=== PATIENT | female | born 1965 | race African-American/Black ===

== ENCOUNTER 2023-02-01 20:25 | Inpatient (IN) | payer MEDICAID, OTHER ==
[~2023-02-01] VITALS: Ht 157.5 cm; Wt 74.4 kg
[~2023-02-01 20:25] MED LIST: ATEN-60 PO; CARI250T PO; NOR10T PO; PAR20T PO
[2023-02-01 21:51] LABS: Basophils # (auto) 0.1 10 ^3/uL (0-0.2); Basophils % (auto) 1.5 % (0.0-2.0); Eosinophils # (auto) 0.1 10 ^3/uL (0-0.8); Hematocrit 37.8 % (36.0-46.0); Hemoglobin 13.2 g/dL (12.2-16.2); Lymphocytes # (auto) 1.3 10 ^3/uL (0.4-5.4); Mean Corpuscular Hemoglobin 27.1 pg (28.0-32.0); Mean Corpuscular Volume 77.4 fL (80.0-100.0); Monocytes # (auto) 0.9 10 ^3/uL (0-1.3); Monocytes % (auto) 11.9 % (0.0-12.0); Neutrophils # (auto) 4.9 10 ^3/uL (1.6-8.6); Neutrophils % (auto) 66.6 % (37.0-80.0); Nucleated Red Blood Cells % 0.2 %; Red Blood Cells 4.88 10^6/uL (4.0-5.20); Red Cell Distribution Width 15.6 % (11.8-14.3); White Blood Cell 7.4 10^3/uL (4.4-10.8)
[2023-02-01 22:13] LABS: Albumin 3.4 g/dL (3.4-5.0); Calcium 10.7 mg/dL (8.5-10.1); Magnesium 2.1 mg/dL (1.6-2.6); Potassium 3.7 mmol/L (3.5-5.1)
[2023-02-01 22:16] LABS: Bilirubin, Total 0.5 mg/dL (0.2-1.0); Total Protein 7.5 g/dL (6.4-8.2)
[2023-02-01 22:18] LABS: BUN/Creatinine Ratio 17.1 (10.0-20.0)
[2023-02-02] MEDS ORDERED: SODIUM CHLORIDE 0.9% 1,000 ML IV ONE (03:30)
[2023-02-02] MEDS ORDERED: ACETAMINOPHEN 325 MG TAB PO PRN (03:45)
[2023-02-02] MEDS ORDERED: DEXTROSE (50%) 50ML SYRG IV PRN (03:45)
[2023-02-02] MEDS: InsuLIN REG 1unit/0.01ml Soln (100units/ml) SC SCH ×4 (06:00→23:39)
[2023-02-02] MEDS: SODIUM CHLOR 0.9% PF (SALINE LOCK) 10ML VIAL/SYR IV SCH ×3 (06:03→22:08)
[2023-02-02] MEDS: ACCU-CHEK COMFORT CURVE STRIP VI SCH ×4 (06:05→23:39)
[2023-02-02] MEDS ORDERED: NITROGLYCERIN 0.4 MG SL TAB SL PRN (06:45)
[2023-02-02] MEDS ORDERED: MORPHINE SULFATE INJ 2 MG/ml SYRG IV PRN (06:45)
[2023-02-02] MEDS: HYDROmorphone HCL 2 MG/ML VL/or syr IV PRN ×4 (07:13→23:46)
[2023-02-02] MEDS: ONDANSETRON HCL 4 MG/2 ML VIAL IV PRN ×3 (07:21→23:46)
[2023-02-02] MEDS: PANTOPRAZOLE 40 MG/10 ML VIAL INJ IV SCH ×2 (10:50→23:18)
[2023-02-02] MEDS ORDERED: hydrALAZINE HCL 20 MG/ML VL IV PRN (11:45)
[2023-02-02 12:07] LABS: INR 1.06 (0.9-1.15); Partial Thromboplastin Time 28.5 SEC (24.5-34.5)
[2023-02-02] MEDS ORDERED: LIDOCAINE VISCOUS 2% 15ML UD MT ONE (19:15)
[2023-02-03] MEDS: ONDANSETRON HCL 4 MG/2 ML VIAL IV PRN ×4 (05:35→23:51)
[2023-02-03] MEDS: HYDROmorphone HCL 2 MG/ML VL/or syr IV PRN ×5 (05:35→23:52)
[2023-02-03] MEDS: SODIUM CHLOR 0.9% PF (SALINE LOCK) 10ML VIAL/SYR IV SCH ×3 (05:36→23:04)
[2023-02-03] MEDS: ACCU-CHEK COMFORT CURVE STRIP VI SCH ×4 (05:36→23:07)
[2023-02-03] MEDS: InsuLIN REG 1unit/0.01ml Soln (100units/ml) SC SCH ×4 (05:41→23:07)
[2023-02-03 09:37] LABS: Basophils # (auto) 0 10 ^3/uL (0-0.2); Basophils % (auto) 0.8 % (0.0-2.0); Eosinophils # (auto) 0.1 10 ^3/uL (0-0.8); Hematocrit 40.6 % (36.0-46.0); Hemoglobin 13.9 g/dL (12.2-16.2); Lymphocytes # (auto) 1.6 10 ^3/uL (0.4-5.4); Lymphocytes % (auto) 28.1 % (10.0-50.0); Mean Corpuscular Hgb Conc. 34.2 g/dL (32.0-36.0); Monocytes # (auto) 0.6 10 ^3/uL (0-1.3); Monocytes % (auto) 10.8 % (0.0-12.0); Neutrophils # (auto) 3.3 10 ^3/uL (1.6-8.6); Neutrophils % (auto) 59.3 % (37.0-80.0); Nucleated Red Blood Cells % 0.4 %; Red Blood Cells 5.14 10^6/uL (4.0-5.20); Red Cell Distribution Width 15.7 % (11.8-14.3); White Blood Cell 5.6 10^3/uL (4.4-10.8)
[2023-02-03 09:59] LABS: Albumin 3.6 g/dL (3.4-5.0); Potassium 4.6 mmol/L (3.5-5.1)
[2023-02-03] MEDS ORDERED: ATENOLOL 25 MG TAB PO SCH (10:00)
[2023-02-03] MEDS ORDERED: PARoxetine 20 MG TAB PO SCH (10:00)
[2023-02-03 10:02] LABS: BUN/Creatinine Ratio 15.5 (10.0-20.0); Bilirubin, Total 0.6 mg/dL (0.2-1.0)
[2023-02-03] MEDS: PANTOPRAZOLE 40 MG/10 ML VIAL INJ IV SCH ×2 (10:59→23:04)
[2023-02-03] MEDS: D5W 5% 1,000 ML IV SCH ×2 (13:24→23:04)
[2023-02-03 22:00] VITALS: BP 100/70
[2023-02-03] MEDS ORDERED: IOHEXOL 350 MG/ML 100ML IJ ONE (23:40)
[2023-02-04 05:00] VITALS: BP 128/77
[2023-02-04] MEDS: ONDANSETRON HCL 4 MG/2 ML VIAL IV PRN ×4 (05:01→23:47)
[2023-02-04] MEDS: HYDROmorphone HCL 2 MG/ML VL/or syr IV PRN ×4 (05:01→23:48)
[2023-02-04] MEDS: SODIUM CHLOR 0.9% PF (SALINE LOCK) 10ML VIAL/SYR IV SCH ×3 (05:01→23:48)
[2023-02-04] MEDS: InsuLIN REG 1unit/0.01ml Soln (100units/ml) SC SCH ×3 (05:03→17:54)
[2023-02-04] MEDS: ACCU-CHEK COMFORT CURVE STRIP VI SCH ×4 (05:03→23:48)
[2023-02-04] MEDS: D5W 5% 1,000 ML IV SCH ×2 (05:11→17:56)
[2023-02-04 08:00] VITALS: BP 127/83
[2023-02-04] MEDS: PANTOPRAZOLE 40 MG/10 ML VIAL INJ IV SCH ×2 (09:17→23:48)
[2023-02-04 12:15] VITALS: BP 115/77
[2023-02-04 16:15] VITALS: BP 143/77
[2023-02-04 22:00] VITALS: BP 134/84
[2023-02-05] VITALS (7 sets, daily range): BP systolic 111–153; BP diastolic 74–89
[2023-02-05] MEDS: D5W 5% 1,000 ML IV SCH ×3 (04:23→22:45)
[2023-02-05] MEDS: HYDROmorphone HCL 2 MG/ML VL/or syr IV PRN ×4 (04:23→20:42)
[2023-02-05] MEDS: InsuLIN REG 1unit/0.01ml Soln (100units/ml) SC SCH ×4 (06:00→18:00)
[2023-02-05] MEDS: ACCU-CHEK COMFORT CURVE STRIP VI SCH ×3 (06:00→18:00)
[2023-02-05] MEDS: SODIUM CHLOR 0.9% PF (SALINE LOCK) 10ML VIAL/SYR IV SCH ×3 (06:00→22:15)
[2023-02-05] MEDS: PANTOPRAZOLE 40 MG/10 ML VIAL INJ IV SCH ×2 (08:54→21:39)
[2023-02-05] MEDS: ONDANSETRON HCL 4 MG/2 ML VIAL IV PRN ×2 (09:20→13:57)
[2023-02-05 22:01] LABS: Basophils # (auto) 0.1 10 ^3/uL (0-0.2); Basophils % (auto) 0.8 % (0.0-2.0); Eosinophils # (auto) 0.1 10 ^3/uL (0-0.8); Monocytes # (auto) 0.8 10 ^3/uL (0-1.3); Neutrophils # (auto) 4.8 10 ^3/uL (1.6-8.6)
[2023-02-05 22:02] LABS: Eosinophils % (auto) 0.8 % (0.0-7.0); Hematocrit 34.9 % (36.0-46.0); Lymphocytes # (auto) 1.4 10 ^3/uL (0.4-5.4); Lymphocytes % (auto) 19.2 % (10.0-50.0); Mean Corpuscular Hemoglobin 26.9 pg (28.0-32.0); Mean Corpuscular Hgb Conc. 34.4 g/dL (32.0-36.0); Mean Corpuscular Volume 78.4 fL (80.0-100.0); Monocytes % (auto) 10.8 % (0.0-12.0); Neutrophils % (auto) 68.4 % (37.0-80.0); Nucleated Red Blood Cells % 0.2 %; Red Blood Cells 4.45 10^6/uL (4.0-5.20); Red Cell Distribution Width 15.7 % (11.8-14.3); White Blood Cell 7.1 10^3/uL (4.4-10.8)
[2023-02-05 22:16] LABS: BUN/Creatinine Ratio 7.8 (10.0-20.0); Calcium 10.3 mg/dL (8.5-10.1); Potassium 3.6 mmol/L (3.5-5.1)
[2023-02-05] MEDS: AMINO ACID INFUSION IN D10W 1,000 ML IV NR (22:45)
[2023-02-05] MEDS ORDERED: TPN PER PHARMACY 0 ML IV SCH (23:00)
[2023-02-05] MEDS ORDERED: DEXTROSE (50%) 50ML SYRG IV SCH (23:00)
[2023-02-06] VITALS (7 sets, daily range): BP systolic 127–141; BP diastolic 60–86
[2023-02-06] MEDS: ACCU-CHEK COMFORT CURVE STRIP VI SCH ×4 (00:27→18:47)
[2023-02-06] MEDS: HYDROmorphone HCL 2 MG/ML VL/or syr IV PRN ×5 (00:58→23:11)
[2023-02-06 05:13] LABS: Basophils # (auto) 0 10 ^3/uL (0-0.2); Basophils % (auto) 0.8 % (0.0-2.0); Eosinophils # (auto) 0.1 10 ^3/uL (0-0.8); Eosinophils % (auto) 1.4 % (0.0-7.0); Hematocrit 33.9 % (36.0-46.0); Hemoglobin 11.8 g/dL (12.2-16.2); Lymphocytes # (auto) 1.9 10 ^3/uL (0.4-5.4); Lymphocytes % (auto) 32.4 % (10.0-50.0); Mean Corpuscular Hemoglobin 27.2 pg (28.0-32.0); Mean Corpuscular Hgb Conc. 34.9 g/dL (32.0-36.0); Monocytes # (auto) 0.8 10 ^3/uL (0-1.3); Neutrophils % (auto) 52.4 % (37.0-80.0); Red Blood Cells 4.35 10^6/uL (4.0-5.20); Red Cell Distribution Width 15.3 % (11.8-14.3); White Blood Cell 5.8 10^3/uL (4.4-10.8)
[2023-02-06 05:25] LABS: Calcium 10.1 mg/dL (8.5-10.1); Magnesium 1.8 mg/dL (1.6-2.6); Potassium 3.2 mmol/L (3.5-5.1)
[2023-02-06 05:31] LABS: BUN/Creatinine Ratio 9.3 (10.0-20.0); Bilirubin, Total 0.4 mg/dL (0.2-1.0); Phosphorus 2.8 mg/dL (2.5-4.90); Total Protein 6.4 g/dL (6.4-8.2)
[2023-02-06] MEDS: SODIUM CHLOR 0.9% PF (SALINE LOCK) 10ML VIAL/SYR IV SCH ×4 (06:00→22:00)
[2023-02-06] MEDS: InsuLIN REG 1unit/0.01ml Soln (100units/ml) SC SCH ×4 (06:00→18:00)
[2023-02-06] MEDS: PANTOPRAZOLE 40 MG/10 ML VIAL INJ IV SCH ×2 (10:50→21:29)
[2023-02-06] MEDS: LORazepam 2MG/ML-1ML VIAL IV PRN (11:26)
[2023-02-06] MEDS ORDERED: GASTROGRAFIN 30 ML SOL ONE (11:48)
[2023-02-06] MEDS ORDERED: POTASSIUM PHOSPHATE 22 MEQ in SODIUM CHL 0.9% 100 ML IV ONE (12:00)
[2023-02-06] MEDS ORDERED: GASTROGRAFIN 120 ML SOL ONE (13:47)
[2023-02-06] MEDS: D5W 5% 1,000 ML IV SCH (15:25)
[2023-02-06] MEDS ORDERED: LIDOCAINE 1% (LOCAL ANESTH.) PF 5ml SDV ID ONE (18:30)
[2023-02-06] MEDS ORDERED: PPN PER PHARMACY IV NR ×8 (20:00)
[2023-02-07] MEDS: HYDROmorphone HCL 2 MG/ML VL/or syr IV PRN ×4 (03:56→21:34)
[2023-02-07 05:00] VITALS: BP 134/92
[2023-02-07 05:36] LABS: Basophils # (auto) 0 10 ^3/uL (0-0.2); Basophils % (auto) 0.7 % (0.0-2.0); Eosinophils # (auto) 0.1 10 ^3/uL (0-0.8); Eosinophils % (auto) 1.2 % (0.0-7.0); Hematocrit 35.2 % (36.0-46.0); Hemoglobin 12.1 g/dL (12.2-16.2); Lymphocytes # (auto) 1.3 10 ^3/uL (0.4-5.4); Lymphocytes % (auto) 20.1 % (10.0-50.0); Mean Corpuscular Hemoglobin 27.1 pg (28.0-32.0); Mean Corpuscular Hgb Conc. 34.3 g/dL (32.0-36.0); Mean Corpuscular Volume 78.8 fL (80.0-100.0); Monocytes # (auto) 0.8 10 ^3/uL (0-1.3); Monocytes % (auto) 12.7 % (0.0-12.0); Neutrophils # (auto) 4.2 10 ^3/uL (1.6-8.6); Neutrophils % (auto) 65.3 % (37.0-80.0); Nucleated Red Blood Cells % 0.1 %; Red Blood Cells 4.47 10^6/uL (4.0-5.20); Red Cell Distribution Width 15.3 % (11.8-14.3); White Blood Cell 6.5 10^3/uL (4.4-10.8)
[2023-02-07 05:51] LABS: Calcium 9.9 mg/dL (8.5-10.1); Magnesium 1.8 mg/dL (1.6-2.6); Potassium 3.5 mmol/L (3.5-5.1)
[2023-02-07 05:54] LABS: BUN/Creatinine Ratio 14.6 (10.0-20.0); Bilirubin, Total 0.3 mg/dL (0.2-1.0); Phosphorus 2.8 mg/dL (2.5-4.90); Total Protein 6.6 g/dL (6.4-8.2)
[2023-02-07] MEDS: ACCU-CHEK COMFORT CURVE STRIP VI SCH ×4 (06:00→18:37)
[2023-02-07] MEDS: SODIUM CHLOR 0.9% PF (SALINE LOCK) 10ML VIAL/SYR IV SCH ×5 (06:00→21:36)
[2023-02-07] MEDS: InsuLIN REG 1unit/0.01ml Soln (100units/ml) SC SCH ×4 (06:00→18:37)
[2023-02-07 08:00] VITALS: BP 118/77
[2023-02-07] MEDS: D5W 5% 1,000 ML IV SCH (08:05)
[2023-02-07 09:00] VITALS: BP 118/77
[2023-02-07] MEDS: PANTOPRAZOLE 40 MG/10 ML VIAL INJ IV SCH ×2 (09:05→21:34)
[2023-02-07] MEDS: LORazepam 2MG/ML-1ML VIAL IV PRN (09:05)
[2023-02-07] MEDS ORDERED: POTASSIUM CHL 20MEQ/100ML 100 ML IV ONE (12:15)
[2023-02-07 13:00] VITALS: BP_SYST 112; BP_SYST 126; BP_DIAS 53; BP_DIAS 69
[2023-02-07 17:00] VITALS: BP 141/82
[2023-02-07] MEDS ORDERED: TPN PER PHARMACY IV NR ×7 (20:00)
[2023-02-07] MEDS: ONDANSETRON HCL 4 MG/2 ML VIAL IV PRN (21:43)
[2023-02-07 22:00] VITALS: BP 116/71
[2023-02-08] MEDS: ACCU-CHEK COMFORT CURVE STRIP VI SCH ×4 (00:15→17:56)
[2023-02-08] MEDS: InsuLIN REG 1unit/0.01ml Soln (100units/ml) SC SCH ×4 (00:27→17:57)
[2023-02-08] MEDS: HYDROmorphone HCL 2 MG/ML VL/or syr IV PRN ×4 (03:51→17:55)
[2023-02-08] MEDS: ONDANSETRON HCL 4 MG/2 ML VIAL IV PRN ×4 (03:57→17:56)
[2023-02-08 05:00] VITALS: BP 111/84
[2023-02-08 06:00] LABS: Basophils # (auto) 0 10 ^3/uL (0-0.2); Basophils % (auto) 0.8 % (0.0-2.0); Eosinophils # (auto) 0.1 10 ^3/uL (0-0.8); Hematocrit 36.4 % (36.0-46.0); Hemoglobin 12.5 g/dL (12.2-16.2); Lymphocytes # (auto) 1.2 10 ^3/uL (0.4-5.4); Lymphocytes % (auto) 22.3 % (10.0-50.0); Mean Corpuscular Hemoglobin 26.9 pg (28.0-32.0); Mean Corpuscular Hgb Conc. 34.3 g/dL (32.0-36.0); Mean Corpuscular Volume 78.4 fL (80.0-100.0); Monocytes # (auto) 0.8 10 ^3/uL (0-1.3); Monocytes % (auto) 14.7 % (0.0-12.0); Neutrophils # (auto) 3.3 10 ^3/uL (1.6-8.6); Neutrophils % (auto) 60.2 % (37.0-80.0); Nucleated Red Blood Cells % 0.1 %; Red Blood Cells 4.64 10^6/uL (4.0-5.20); Red Cell Distribution Width 15.2 % (11.8-14.3); White Blood Cell 5.5 10^3/uL (4.4-10.8)
[2023-02-08 06:04] LABS: Albumin 3.1 g/dL (3.4-5.0); Magnesium 2.2 mg/dL (1.6-2.6); Potassium 3.5 mmol/L (3.5-5.1)
[2023-02-08 06:08] LABS: BUN/Creatinine Ratio 17.9 (10.0-20.0); Bilirubin, Total 0.5 mg/dL (0.2-1.0); Phosphorus 2.9 mg/dL (2.5-4.90)
[2023-02-08] MEDS: SODIUM CHLOR 0.9% PF (SALINE LOCK) 10ML VIAL/SYR IV SCH ×3 (06:12→13:55)
[2023-02-08 08:00] VITALS: BP 121/77
[2023-02-08] MEDS ORDERED: POTASSIUM CHL 20MEQ/100ML 100 ML IV ONE (09:45)
[2023-02-08] MEDS: PANTOPRAZOLE 40 MG/10 ML VIAL INJ IV SCH (09:48)
[2023-02-08 12:00] VITALS: BP 119/87
[2023-02-08 16:00] VITALS: BP 120/60
[2023-02-08 18:25] VITALS: BP 120/60
[2023-02-08] MEDS ORDERED: TPN PER PHARMACY IV NR ×9 (20:00)
== END 2023-02-08 21:05 | disposition short-term general hospital (02) | DRG 241 ==
LOC: ER 20:25 → OVERFLOW 02-02 06:40 → EAST 02-03 17:58 → TELE-EAST 02-05 04:17
PROVIDERS: ADMIT Nurse Practitioner Family; ATTEND Internal Medicine
DX: K28.9 Gastrojejunal ulcer, unspecified as acute or chronic, without hemorrhage or perforation (principal); K91.1 Postgastric surgery syndromes; E11.9 Type 2 diabetes mellitus without complications; F17.210 Nicotine dependence, cigarettes, uncomplicated; F32.A Depression, unspecified; F41.9 Anxiety disorder, unspecified; K21.9 Gastro-esophageal reflux disease without esophagitis; I10 Essential (primary) hypertension; Z88.5 Allergy status to narcotic agent; Z85.528 Personal history of other malignant neoplasm of kidney; Z98.84 Bariatric surgery status; Z90.49 Acquired absence of other specified parts of digestive tract
CPT/HCPCS: 36415; 36569; 71045; 74176; 75635; 80048; 80053; 82962; 83690; 83735; 84100; 84478; 85025; 85610; 85730; 96360; C9113; G0378; J1815; J2405; J3480; J7042

== ENCOUNTER 2025-04-08 19:27 | Inpatient (IN) | payer MEDICAID ==
[~2025-04-08] VITALS: Ht 157.5 cm; Wt 81.2 kg
[~2025-04-08 19:27] MED LIST changes: +ALPR0.25 PO; -ATEN-60 PO
[2025-04-08] MEDS ORDERED: MAALOX PLUS or MAALOX 30 ML PO ONE (21:00)
[2025-04-08] MEDS ORDERED: FAMOTIDINE 20 MG TAB PO ONE (21:00)
[2025-04-08] MEDS ORDERED: ONDANSETRON ODT 4 MG TAB PO ONE (21:00)
--- NOTE | 2025-04-08 21:36 | DVH ---
Exam: CT CT AB PEL WO CON-NO ORAL OR IV History: left flank pain Comparison Study: CT CT AB PEL WO CON-NO ORAL OR IV on DOS: 11/23/24, CT CT AB PEL WO CON-NO ORAL OR I V on DOS: 02/02/23 TECHNIQUE: Multidetector CT of the abdomen and pelvis was performed from lung bases to pubic symphysi s. Imaging was performed without IV contrast. Axial, coronal, and sagittal multiplanar reformats were obtained from the axial data set by the technologist. RADIATION DOSE: DLP 632.54 mGy.cm; CTDI vol 11.85 mGy. Findings: Limited evaluation given noncontrast technique. Lungs: The lung bases are clear. Heart: No cardiomegaly or pericardial effusion. Liver: Unremarkable. Gallbladder: Cholecystectomy. Spleen: Unremarkable Pancreas: Unremarkable Adrenals: Unremarkable Kidneys: Nonobstructive right nephrolithiasis. Left nephrectomy. GI tract: Postsurgical changes of the stomach with suggestion of a gastrojejunal anastomosis and mary beth cent inflammatory changes. No definite focal fluid collections. : Unremarkable. Vasculature: Mild aortoiliac atherosclerosis. Lymphadenopathy: Absent Peritoneum: No ascites Musculoskeletal: Unremarkable Soft tissues: Small left posterolateral abdominal wall hernia containing a portion of the descending colon. Small fat containing periumbilical hernia with adjacent soft tissue nodules. Impression: 1. Postsurgical changes of the stomach with suggestion of a gastrojejunal anastomosis and adjacent in flammatory changes. No definite focal fluid collections. Consider contrast-enhanced CT or MRI for fu rther evaluation. 2. Left nephrectomy.
[2025-04-08 21:37] LABS: Hematocrit 40.5 % (36.0-46.0); Hemoglobin 14.1 g/dL (12.2-16.2); Mean Corpuscular Hemoglobin 26.9 pg (28.0-32.0); Mean Corpuscular Volume 77.4 fL (80.0-100.0); Nucleated Red Blood Cells % 0.2 %
[2025-04-08 21:56] LABS: Alanine Aminotransferase 14 U/L (7-40); Albumin 4.5 g/dL (3.2-4.8); Anion Gap 9 (5-15); BUN/Creatinine Ratio 12.8 (10.0-20.0); Blood Urea Nitrogen 12 mg/dL (9-23); Carbon Dioxide 22 mmol/L (20-31); Glucose 94 mg/dL (74-106); Lipase 52 U/L (12-53); Potassium 4.3 mmol/L (3.5-5.1); Sodium 140 mmol/L (136-145); Total Protein 7.2 g/dL (5.7-8.2)
[2025-04-08 21:57] LABS: Bilirubin, Total 0.4 mg/dL (0.2-1.0)
[2025-04-08 22:00] LABS: Alkaline Phosphatase 133 U/L (46-116); Calcium 10.9 mg/dL (8.7-10.4); Chloride 109 mmol/L (98-107)
--- NOTE | 2025-04-08 22:29 | ED.PDOC ---
GI ASSESSMENT HPI Comments 60 year old female presents to the ED with a chief complaint of abdominal pain onset 2 weeks. Patient has been experiencing LUQ pain radiating to LT flank for the past 2 weeks, was seen at [facility]. She states she was given pain medication as discharged without any further testing. For the past 2 days, pain has worsen. She is experiencing nausea, vomiting, and constipation for the past 7 days. PMHx anxiety, cancer, depression, DM, GERD, HTN. Denies fever, chills, chest pain, shortness of breath, diarrhea, headache, hematemesis, melena, dysuria, hematuria. No other symptoms or modifying factors present at this time. Chief Complaint: Abdominal Pain Time Seen by MD: 22:10 Primary Care Provider: KRIS Reviewed Notes: Medications, Allergies Allergies: Coded Allergies: Codeine (Verified Allergy, Unknown, 09/01/15) Home Meds Active Scripts Alprazolam (Xanax) 0.25 Mg Tb, 1 TAB PO BID PRN, #10 TAB Prov:ENMANUEL GUTIÉRREZ MD 11/26/24 Reported Medications Hydrocodone-Acetaminophen ([place] 10/325MG) 1 Tab Tb, 1 TAB PO Q6HPRN PRN for MODERATE PAIN 09/01/15 Carisoprodol (Soma) 250 Mg Tab, 325 MG PO DAILY, TAB 09/01/15 Paroxetine (PAXIL TABLET) 20 Mg Tb, 25 TAB PO DAILY, #30 TAB 5 Refills 09/01/15 Information Source: Patient Mode of Arrival: Ambulatory Timing: Weeks Duration: Since onset Prehospital treatment: None Quality: Sharp Severity: Moderate Recent: None Recent Hx of: None Pain Location: LLQ Modifying Factors: Nothing Associated sign and symptoms: Nausea, Vomiting, Constipation, Abdominal Pain Past Medical History PAST MEDICAL HISTORY: Anxiety, Cancer, Depression, DM, GERD, HTN Surgical History: Cholecystectomy 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 History Family History Family History: Unobtainable Social History Smoker: Cigarettes, Less Than 1 Pack/Day Alcohol: Denies ETOH Use Drugs: Marijuana, Methamphetamine Lives In: Home Constitutional: denies: chills, diaphoresis, fatigue, fever, malaise, sweats, weakness, others EENTM: denies: blurred vision, double vision, ear bleeding, ear discharge, ear drainage, ear pain, ear ringing, eye pain, eye redness, hearing loss, mouth pain, mouth swelling, nasal discharge, nose bleeding, nose congestion, nose pain, photophobia, tearing, throat pain, throat swelling, voice changes, others Respiratory: denies: cough, hemoptysis, orthopnea, SOB at rest, shortness of breath, SOB with excertion, stridor, wheezing, others Cardiovascular: denies: chest pain, dizzy spells, diaphoresis, Dyspnea on exertion, edema, irregular heart beat, left arm pain, lightheadedness, pa lpitations, PND, syncope, others Gastrointestinal: reports: abdominal pain, constipated, nausea, vomiting; denies: abdomen distended, blood streaked bowels, diarrhea, dysphagia, difficulty swallowing, hematemesis, melena, poor appetite, poor fluid intake, rectal bleeding, rectal pain, others Genitourinary: reports: flank pain; denies: abnormal vagina bleeding, burning, dyspareunia, dysuria, frequency, hematuria, incontinence, pain, , vagina discharge, urgency, others Neurological: denies: dizziness, fainting, headache, left sided numbness, left sided weakness, numbness, paresthesia, pre-existing deficit, right sided numbness, right sided weakness, seizure, speech problems, tingling, tremors, weakness, others Musculoskeletal: denies: back pain, gout, joint pain, joint swelling, muscle pain, muscle stiffness, neck pain, others Integumetry: denies: bruises, change in color, change in hair/nails, dryness, laceration, lesions, lumps, rash, wounds, others Allergic/Immunocompromised: denies: Difficulty Healing, Frequent Infections, Hives, Itching, others Hematologic/Lymphatic: denies: anemia, blood clots, easy bleeding, easy bruis ing, swollen glands, others Endocrine: denies: excessive hunger, excessive sweating, excessive thirst, exc essive urination, flushing, intolerance to cold, intolerance to heat, unexplained weight gain, unexplained weight loss, others Psychiatric: denies: anxiety, bipolar disorder, depression, hopeless, panic disorder, schizophrenia, sleepless, suicidal, others All Other Systems: Reviewed and Negative Physical Exam General Appearance: No Apparent Distress, Normal HEENT: Normal ENT Inspection, Pharynx Normal, TMs Normal Neck: Full Range of Motion, Non-Tender, Normal, Normal Inspection Respiratory: Chest Non-Tender, Lungs Clear, No Accessory Muscle Use, No Respiratory Distress, Normal Breath Sounds Cardiovascular: No Edema, No JVD, No Murmur, No Gallop, Normal Peripheral Pulses, Regular Rate/Rhythm Breast Exam: Deferred Gastrointestinal: No Organomegaly, Non Tender, No Pulsatile Mass, Normal Bowel Sounds, Soft Genitalia: Deferred Pelvic: Deferred Rectal: Deferred Extremities: No calf tenderness, Normal capillary refill, Normal inspection, Normal range of motion, Non-tender, No pedal edema Musculoskeletal : Apperance: Normal Neurologic: Alert, frozen meat cutter II-XII nml as Tested, No Motor Deficits, Normal Affect, Normal Mood, No Sensory Deficits Cerebellar Function: Normal Reflexes: Normal Skin: Dry, Normal Color, Warm Lymphatic: No Adenopathy Was a procedure done? Was a procedure done?: No GI differential Dx Differential Diagnosis: Appendicitis, Cholecystitis, Constipation, Diverticular disease, Gastritis/PUD, Gastroenteritis, GI hemorrhage, Pancreatitis, UTI, Kidney Stone, Other X-Ray, Labs, Meds, VS Vital Signs Date Time Temp Pulse Resp B/P (MAP) Pulse Ox O2 Delivery O2 Flow Rate FiO2 04/08/25 19:44 58 04/08/25 19:28 99.3 83 24 153/93 99 99.3 Lab Test 04/08/25 22:14 04/08/25 21:14 Range/Units Troponin I High Sensitivity Pending 3 L </=34 ng/L White Blood Count 8.0 4.4-10.8 10^3/uL Red Blood Count 5.23 H 4.0-5.20 10^6/uL Hemoglobin 14.1 12.2-16.2 g/dL Hematocrit 40.5 36.0-46.0 % Mean Corpuscular Volume 77.4 L 80.0-100.0 fL Mean Corpuscular Hemoglobin 26.9 L 28.0-32.0 pg Mean Corpuscular Hemoglobin Concent 34.7 32.0-36.0 g/dL Red Cell Distribution Width 15.2 H 11.8-14.3 % Platelet Count 380 140-450 10^3/uL Mean Platelet Volume 7.7 6.9-10.8 fL Neutrophils (%) (Auto) 65.1 37.0-80.0 % Lymphocytes (%) (Auto) 25.1 10.0-50.0 % Monocytes (%) (Auto) 8.5 0.0-12.0 % Eosinophils (%) (Auto) 0.6 0.0-7.0 % Basophils (%) (Auto) 0.7 0.0-2.0 % Neutrophils # (Auto) 5.2 1.6-8.6 10 ^3/uL Lymphocytes # (Auto) 2.0 0.4-5.4 10 ^3/uL Monocytes # (Auto) 0.7 0-1.3 10 ^3/uL Eosinophils # (Auto) 0 0-0.8 10 ^3/uL Basophils # (Auto) 0.1 0-0.2 10 ^3/uL Nucleated Red Blood Cells 0.2 % Sodium Level 140 136-145 mmol/L Potassium Level 4.3 3.5-5.1 mmol/L Chloride Level 109 H 98-107 mmol/L Carbon Dioxide Level 22 20-31 mmol/L Anion Gap 9 5-15 Blood Urea Nitrogen 12 9-23 mg/dL Creatinine 0.94 0.550-1.02 mg/dL Glomerular Filtration Rate Calc 69 >90 mL/min BUN/Creatinine Ratio 12.8 10.0-20.0 Serum Glucose 94 74-106 mg/dL Calcium Level 10.9 H 8.7-10.4 mg/dL Total Bilirubin 0.4 0.2-1.0 mg/dL Aspartate Amino Transferase (AST) 17 13-40 U/L Alanine Aminotransferase (ALT) 14 7-40 U/L Alkaline Phosphatase 133 H 46-116 U/L Total Protein 7.2 5.7-8.2 g/dL Albumin 4.5 3.2-4.8 g/dL Lipase 52 12-53 U/L [place] [id number] Ph: [phone] DIAGNOSTIC IMAGING Diagnostic Imaging Report : [id number] Signed PATIENT: DEREJE WETZEL ACCT: [id number] UNIT: [id number] : 1965 LOC: ER ROOM / BED: / AGE / SEX: 60 / F ADM STATUS: REG ER SERVICE 50 ORDERING PHYSICIAN: ZAINA STARK MD PROCEDURE(s): ABPL - CT AB PEL WO CON-NO ORAL OR IV REASON: left flank pain ORDER NUMBER(s): [id number], ACCESSION NUMBER(s): [id number] Exam: CT CT AB PEL WO CON-NO ORAL OR IV History: left flank pain Comparison Study: CT CT AB PEL WO CON-NO ORAL OR IV on DOS: 11/23/24, CT CT AB PEL WO CON-NO ORAL OR IV on DOS: 02/02/23 TECHNIQUE: Multidetector CT of the abdomen and pelvis was performed from lung bases to pubic symphysis. Imaging was performed without IV contrast. Axial, coronal, and sagittal multiplanar reformats were obtained from the axial data set by the technologist. RADIATION DOSE: DLP 632.54 mGy.cm; CTDI vol 11.85 mGy. Findings: Limited evaluation given noncontrast technique. Lungs: The lung bases are clear. Heart: No cardiomegaly or pericardial effusion. Liver: Unremarkable. Gallbladder: Cholecystectomy. Spleen: Unremarkable Pancreas: Unremarkable Adrenals: Unremarkable Kidneys: Nonobstructive right nephrolithiasis. Left nephrectomy. GI tract: Postsurgical changes of the stomach with suggestion of a gastrojejunal anastomosis and adjacent inflammatory changes. No definite focal fluid collections. : Unremarkable. Vasculature: Mild aortoiliac atherosclerosis. Lymphadenopathy: Absent Peritoneum: No ascites Musculoskeletal: Unremarkable Soft tissues: Small left posterolateral abdominal wall hernia containing a portion of the descending colon. Small fat containing periumbilical hernia with adjacent soft tissue nodules. Impression: 1. Postsurgical changes of the stomach with suggestion of a gastrojejunal anastomosis and adjacent inflammatory changes. No definite focal fluid collections. Consider contrast-enhanced CT or MRI for further evaluation. 2. Left nephrectomy. ATED BY: YANCI SAMAYOA DO DICTATED DATE/TIME: 04/08/252133 SIGNED BY: YANCI SAMAYOA DO SIGNED DATE/TIME: 04/08/252133 CC: Time of 1ST Reevaluation: 22:40 Reevaluation 1ST: Unchanged Patient Education/Counseling: Diagnosis, Treatment Family Education/Counseling: No Family Present SEPSIS Sepsis Screen Date sepsis recognized/suspect: Apr 08, 2025 Time Sepsis recognized/suspect: 1927 Recent Procedure: No On Antibiotic Therapy: No Respiratory Rate >20: No Heart Rate >90: No Temp<36 C (96.8 F) or >38.3 C: No SBP <90 or MAP <65 mmHG: No New Acute Mental Status Change: No Is the patient on CPAP, BIPAP,: No Physician Orders Electrocardigram (04/08/25 20:12) Troponin-I Hs (04/09/25 00:00) Troponin-I Hs (04/09/25 03:00) Troponin-I Hs (04/09/25 06:00) Urinalysis (04/08/25 20:51) Ct Ab Pel Wo Con-No Oral Or Iv (04/08/25 20:51) Troponin-I Hs (04/08/25 23:51) Vital Signs Date Time Temp Pulse Resp B/P (MAP) Pulse Ox O2 Delivery O2 Flow Rate FiO2 04/08/25 19:44 58 04/08/25 19:28 99.3 83 24 153/93 99 99.3 Laboratory Tests Test 04/08/25 21:14 White Blood Count 8.0 10^3/uL (4.4-10.8) Departure 1 Departure Time of Disposition: 22:31 Impression: Primary Impression: Intractable abdominal pain Additional Impressions: Nausea and vomiting Dehydration Disposition: ADMITTED INPATIENT Admit to: Med Surg Condition: Guarded Discharged With: Self Comments Lab and CT results reviewed. CT shows prior gastric surgery and there is some mild stranding suspicious for information. Patient has been not taking fluids well and having intractable pain. This is her 3rd visit for this problem at different hospitals. Patient will need to be admitted for intractable abdominal pain and dehydration. Critical Care Note Critical Care Time?: Yes (35 min-critical care time only) Critical care comment: Total critical care time: Approximately 36 minutes Due to a high probability of clinically significant, life threatening deterioration, the patient required my highest level of preparedness to interve ne emergently and I personally spent this critical care time directly and personally managing the patient. This critical care time included obtaining a history; examining the patient; pulse oximetry; ordering and review of studies; arranging urgent treatment with development of a management plan; evaluation of patient's response to treatment; frequent reassessment; and, discussions with other providers. This critical care time was performed to assess and manage the high probability of imminent, life-threatening deterioration that could result in multi-organ failure. It was exclusive of separately billable procedures and treating other patients. Stability Stability form required: No Heart Score Heart Score: Heart Score Response (Comments) Value History N/A 0 EKG N/A 0 Age N/A 0 Risk Factors N/A 0 Troponin N/A 0 Total 0 I personally scribed for ZAINA STARK MD ([email or web address]) on 04/08/25 at 22:29. Electronically submitted by Lisette Severino ([email or web address]). I personally scribed for ZAINA STARK MD ([email or web address]) on 04/08/25 at 22:30. Electronically submitted by Lisette Severino ([email or web address]). ZAINA STARK MD Apr 08, 2025 22:29
[2025-04-09] VITALS (7 sets, daily range): BP systolic 149; BP diastolic 71; PULSE 51–100; RESP 12–20; TEMP 97.8; O2SAT 95–100
[2025-04-09] MEDS: ONDANSETRON HCL 4 MG/2 ML VIAL IV ONE ×3 (00:51→03:45)
[2025-04-09] MEDS: FAMOTIDINE (10MG/ML) 2ML VL IV ONE (00:51)
[2025-04-09] MEDS: MORPHINE SULFATE 4 MG/ML SYR/VIAL IV ONE ×2 (00:52→03:45)
[2025-04-09] MEDS: SODIUM CHLORIDE 0.9% 1,000 ML IV ONE (00:52)
[2025-04-09] MEDS: HYDROmorphone HCL 2 MG/ML VL/or syr IV ONE ×2 (01:30→08:33)
[2025-04-09 02:10] LABS: Urine Protein, UAD Negative (Negative)
[2025-04-09] MEDS ORDERED: PANT40TA57 PO (09:49)
[2025-04-09] MEDS: CARISOPRODOL PO SCH (10:00)
[2025-04-09] MEDS ORDERED: ACETAMINOPHEN 325 MG TAB PO PRN (10:00)
[2025-04-09] MEDS: PARoxetine 20 MG TAB PO SCH (10:00)
[2025-04-09] MEDS ORDERED: DEXTROSE (50%) 50ML SYRG IV PRN (10:00)
--- NOTE | 2025-04-09 10:00 | DVHHP2 ---
History of Present Illness Reason for Visit: Abdominal pain History of Present Illness Ashley Zaidi is a 60-year-old female with past medical history of anxiety, depression, diabetes, GERD, hypertension, cholecystectomy, and left nephrectomy who presents to the ED with abdominal pain x2 weeks. She reports the pain being her left upper quadrant reports 10/10 pain cramping like and constant. She also reports that she smokes half a pack of cigarettes per day and uses marijuana. Patient reports that she has been noncompliant with her medications. She also stated that [place] [facility] [place] not remember [place] year. She denies any recent trauma or injury, recent sick contacts, recent ingestion of spoiled food, recent travels, chest pain, shortness of breath, fevers, chills, lightheadedness, weakness, dizziness, diarrhea, or urinary symptoms. Cardiovascular: HTN GI: GERD Psych: Anxiety, Depression Endocrine: Diabetes Past Surgical History: Cholecystectomy, Other (Left nephrectomy) Family History: None Smoke: <1 pack per day ALCOHOL: none Drugs: Marijuana Lives: with Family Domestic Violence: Neg Review of Systems Gastrointestinal: Abdominal Pain Allergies: Coded Allergies: Codeine (Verified Allergy, Unknown, 09/01/15) Medications Current Medications Medications Dose Ordered Sig/Jamar Route Start Time Stop Time Status Last Admin Dose Admin Sodium Chloride 1,000 ml @ 120 mls/hr Q8H20M IV 04/09/25 10:00 UNV Acetaminophen/ Hydrocodone Bitart 1 tab Q4HP PRN PO 04/09/25 10:00 UNV Ondansetron HCl 4 mg Q4HP PRN IV 04/09/25 10:00 UNV Acetaminophen 650 mg Q6HP PRN PO 04/09/25 10:00 UNV Morphine Sulfate 2 mg Q4HPRN PRN IV 04/09/25 10:00 UNV Piperacillin Sod/ Tazobactam Sod 100 ml @ 25 mls/hr Q8HR IV 04/09/25 14:00 UNV Exam Vital Signs Vital Signs Date Time Temp Pulse Resp B/P (MAP) Pulse Ox O2 Delivery O2 Flow Rate FiO2 04/09/25 09:03 67 14 91/64 04/09/25 08:03 95 Room Air* 0 21 04/09/25 07:30 98.2 98.2 General Appearance: Alert, Oriented X3, Cooperative, No acute distress HEENT: Atraumatic, PERRLA, EOMI, Mucous membr. moist/pink Respiratory: Clear to auscultation, Normal air movement Cardiovascular: Regular rate, Normal S1, Normal S2, No murmurs Abdominal: Normal bowel sounds, Soft Extremities: No clubbing, No cyanosis, No edema, Normal pulses, No tenderness/swelling Skin: No significant lesion Neuro: Normal gait, Normal speech, Strength at 5/5 X4 ext, Normal tone, Sensation intact Psych/Mental Status: Mental status NL, Other (Anxious) Labs/Xrays Labs Test 04/09/25 00:00 04/08/25 22:14 04/08/25 21:14 Range/Units Urine Color Light-yellow Yellow Urine Clarity Clear Clear Urine pH 5.5 5.0-9.0 Urine Specific [place] 1.013 1.001-1.035 Urine Protein Negative Negative Urine Ketones Negative Negative Urine Blood Negative Negative /uL Urine Nitrite Negative Negative Urine Bilirubin Negative Negative Urine Urobilinogen Normal Negative mg/dL Urine Leukocyte Esterase Negative Negative /uL Urine RBC None seen 0 - 4 /hpf Urine Microscopic WBC < 1 0-5 /HPF Urine Squamous Epithelial Cells Few <5 /hpf Urine Bacteria Few H None Seen /hpf Urine Mucus Few None Seen Urine Glucose Normal Normal mg/dL Troponin I High Sensitivity 4 </=34 ng/L White Blood Count 8.0 4.4-10.8 10^3/uL Red Blood Count 5.23 H 4.0-5.20 10^6/uL Hemoglobin 14.1 12.2-16.2 g/dL Hematocrit 40.5 36.0-46.0 % Mean Corpuscular Volume 77.4 L 80.0-100.0 fL Mean Corpuscular Hemoglobin 26.9 L 28.0-32.0 pg Mean Corpuscular Hemoglobin Concent 34.7 32.0-36.0 g/dL Red Cell Distribution Width 15.2 H 11.8-14.3 % Platelet Count 380 140-450 10^3/uL Mean Platelet Volume 7.7 6.9-10.8 fL Neutrophils (%) (Auto) 65.1 37.0-80.0 % Lymphocytes (%) (Auto) 25.1 10.0-50.0 % Monocytes (%) (Auto) 8.5 0.0-12.0 % Eosinophils (%) (Auto) 0.6 0.0-7.0 % Basophils (%) (Auto) 0.7 0.0-2.0 % Neutrophils # (Auto) 5.2 1.6-8.6 10 ^3/uL Lymphocytes # (Auto) 2.0 0.4-5.4 10 ^3/uL Monocytes # (Auto) 0.7 0-1.3 10 ^3/uL Eosinophils # (Auto) 0 0-0.8 10 ^3/uL Basophils # (Auto) 0.1 0-0.2 10 ^3/uL Nucleated Red Blood Cells 0.2 % Sodium Level 140 136-145 mmol/L Potassium Level 4.3 3.5-5.1 mmol/L Chloride Level 109 H 98-107 mmol/L Carbon Dioxide Level 22 20-31 mmol/L Anion Gap 9 5-15 Blood Urea Nitrogen 12 9-23 mg/dL Creatinine 0.94 0.550-1.02 mg/dL Glomerular Filtration Rate Calc 69 >90 mL/min BUN/Creatinine Ratio 12.8 10.0-20.0 Serum Glucose 94 74-106 mg/dL Calcium Level 10.9 H 8.7-10.4 mg/dL Total Bilirubin 0.4 0.2-1.0 mg/dL Aspartate Amino Transferase (AST) 17 13-40 U/L Alanine Aminotransferase (ALT) 14 7-40 U/L Alkaline Phosphatase 133 H 46-116 U/L Total Protein 7.2 5.7-8.2 g/dL Albumin 4.5 3.2-4.8 g/dL Lipase 52 12-53 U/L Exam: CT CT AB PEL WO CON-NO ORAL OR IV History: left flank pain Comparison Study: CT CT AB PEL WO CON-NO ORAL OR IV on DOS: 11/23/24, CT CT AB PEL WO CON-NO ORAL OR IV on DOS: 02/02/23 TECHNIQUE: Multidetector CT of the abdomen and pelvis was performed from lung bases to pubic symphysis. Imaging was performed without IV contrast. Axial, coronal, and sagittal multiplanar reformats were obtained from the axial data set by the technologist. RADIATION DOSE: DLP 632.54 mGy.cm; CTDI vol 11.85 mGy. Findings: Limited evaluation given noncontrast technique. Lungs: The lung bases are clear. Heart: No cardiomegaly or pericardial effusion. Liver: Unremarkable. Gallbladder: Cholecystectomy. Spleen: Unremarkable Pancreas: Unremarkable Adrenals: Unremarkable Kidneys: Nonobstructive right nephrolithiasis. Left nephrectomy. GI tract: Postsurgical changes of the stomach with suggestion of a gastrojejunal anastomosis and adjacent inflammatory changes. No definite focal fluid collections. : Unremarkable. Vasculature: Mild aortoiliac atherosclerosis. Lymphadenopathy: Absent Peritoneum: No ascites Musculoskeletal: Unremarkable Soft tissues: Small left posterolateral abdominal wall hernia containing a portion of the descending colon. Small fat containing periumbilical hernia with adjacent soft tissue nodules. Impression: 1. Postsurgical changes of the stomach with suggestion of a gastrojejunal anastomosis and adjacent inflammatory changes. No definite focal fluid collections. Consider contrast-enhanced CT or MRI for further evaluation. 2. Left nephrectomy. SEPSIS Sepsis Screen Date sepsis recognized/suspect: Apr 09, 2025 Time Sepsis recognized/suspect: 801 Recent Procedure: No On Antibiotic Therapy: No Respiratory Rate >20: No Heart Rate >90: No Temp<36 C (96.8 F) or >38.3 C: No SBP <90 or MAP <65 mmHG: No New Acute Mental Status Change: No Is the patient on CPAP, BIPAP,: No Physician Orders Admit (04/09/25 09:46) Allergies (04/09/25 09:46) Code Status (04/09/25 09:46) Sodium Chloride 0.9% (04/09/25 10:00) Hydrocodone-Acet 5/325mg Tab (Greig 5/32 (04/09/25 10:00) Ondansetron Hcl (Zofran) (04/09/25 10:00) Complete Blood Count (04/10/25 04:00) Comprehensive Metabolic Panel (04/10/25 04:00) Cardiac Diet-2gna,Lofat,Lochol (04/09/25 Lunch) Acetaminophen Tablet (Tylenol Tablet) (04/09/25 10:00) Morphine Sulfate Injection (04/09/25 10:00) Sequential Compression Device (04/09/25 ) Zosyn Extended Infusion (04/09/25 14:00) Alprazolam Tablet (Xanax Tablet) (04/09/25 10:00) Paroxetine Tablet (Paxil Tablet) (04/09/25 10:00) (Nf) Carisoprodol (Soma) (04/09/25 10:00) Vital Signs Date Time Temp Pulse Resp B/P (MAP) Pulse Ox O2 Delivery O2 Flow Rate FiO2 04/09/25 09:03 67 14 91/64 04/09/25 08:33 70 18 133/79 04/09/25 08:03 51 12 95 Room Air* 0 21 04/09/25 07:30 98.2 51 12 105/68 (80) 95 98.2 04/09/25 05:42 59 15 135/72 (93) 99 04/09/25 05:06 52 14 135/82 04/09/25 04:15 52 14 122/71 04/09/25 04:00 54 14 128/80 (96) 99 04/09/25 03:45 78 14 128/80 04/09/25 03:00 52 12 122/71 (88) 99 04/09/25 02:41 55 16 138/82 (100) 99 04/09/25 02:15 98 Room Air* 0 21 Medications Medications Dose Ordered Sig/Jamar Route Start Time Stop Time Status Last Admin Dose Admin Famotidine 20 mg ONCE ONCE IV 04/08/25 22:45 04/08/25 22:46 DC 04/09/25 00:51 20 MG Hydromorphone HCl 1 mg ONCE ONCE IV 04/09/25 01:30 04/09/25 01:31 DC 04/09/25 01:30 1 MG Hydromorphone HCl 1 mg ONCE ONCE IV 04/09/25 08:15 04/09/25 08:16 DC 04/09/25 08:33 1 MG Morphine Sulfate 4 mg ONCE ONCE IV 04/08/25 22:45 04/08/25 22:46 DC 04/09/25 00:52 4 MG Morphine Sulfate 4 mg ONCE ONCE IV 04/09/25 03:30 04/09/25 03:31 DC 04/09/25 03:45 4 MG Ondansetron HCl 4 mg ONCE ONCE IV 04/08/25 22:45 04/08/25 22:46 DC 04/09/25 00:51 4 MG Ondansetron HCl 4 mg ONCE ONCE IV 04/09/25 03:30 04/09/25 03:31 DC 04/09/25 03:45 4 MG Sodium Chloride 1,000 ml @ 1,000 mls/hr Q1H ONCE IV 04/08/25 22:45 04/08/25 23:44 DC 04/09/25 00:52 1,000 MLS/HR Assessment/Plan Assessment/Plan Assessment Intractable abdominal pain likely due to gastrojejunal anastomosis and adjacent inflammatory changes possibly gastritis versus gastric ulcer versus other etiology Medication noncompliance Postsurgical changes of the stomach with suggestion of a gastrojejunal anastomosis and adjacent inflammatory changes Dehydration Tobacco use Marijuana use History of anxiety History of depression History of diabetes History of GERD History of hypertension History of cholecystectomy History of left nephrectomy Plan Admit to [facility] IV antibiotics-Zosyn Troponin noted negative x2 CT abdomen and pelvis noted UA Lipase EKG Antiemetics Pain management Hemoglobin A1c ISS and Accu-Cheks Diet Home medications reconciled DVT prophylaxis-SCDs PUD prophylaxis-PPIs Discussed plan of care with patient and nurse Counseled patient on cessation of tobacco and marijuana use [id number] Behavior change smoking greater than 10 minutes about use of other options also gave option of nicotine patch [id number] Preventive counseling healthy eating habits, physical activity, and regular checkups Plan discussed with: Patient My Orders Orders - 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 Procedure Category Date Status Time Admit ADMIT 04/09/25 Transmitted 09:46 Allergies HARISH 04/09/25 In Process 09:46 Code Status CODE 04/09/25 Transmitted 09:46 Sodium Chloride 0.9% PHA 04/09/25 Logged 10:00 Hydrocodone-Acet PHA 04/09/25 Logged 5/325mg Tab (Greig 10:00 Ondansetron Hcl PHA 04/09/25 Logged (Zofran) 10:00 Complete Blood Count LAB 04/10/25 Verified 04:00 Comprehensive LAB 04/10/25 Verified Metabolic Panel 04:00 Cardiac DIET 04/09/25 Transmitted Diet-2gna,Lofat,Lochol Lunch Acetaminophen Tablet PHA 04/09/25 Transmitted (Tylenol Tablet) 10:00 Morphine Sulfate PHA 04/09/25 Transmitted Injection 10:00 Sequential HARISH 04/09/25 In Process Compression Device Zosyn Extended PHA 04/09/25 Transmitted Infusion 14:00 Alprazolam Tablet PHA 04/09/25 Verified (Xanax Tablet) 10:00 Paroxetine Tablet PHA 04/09/25 Verified (Paxil Tablet) 10:00 (Nf) Carisoprodol PHA 04/09/25 Verified (Soma) 10:00 Date of Service: Apr 09, 2025 Billing Provider: GIANFRANCO MADRID Common Visit Codes: 48176-[id number] INP/OBS CARE (HIGH) Secondary Visit Codes: [id number] COUNSELING IND, 95031-XUSSM CHNG SMOKING >10MIN GIANFRANCO MADRID Apr 09, 2025 10:00
--- NOTE | 2025-04-09 10:51 | ECG ---
[facility] Test Date: 2025-04-08 Test Time: 19:44:24 Pat Name: DEREJE WETZEL Department: ED Room: [address] [place] [address] A Gender: F Application Systems Administrator: CHRISTOPHER : [id number] Requested By: ZAINA STARK Order Number: [id number] Reading MD: Marcelo Carrington Measurements Intervals [place] Rate: 58 P: 76 CO: 114 QRS: 85 QRSD: 76 T: 90 QT: 396 QTc: 389 Interpretive Statements Sinus rhythm Borderline short CO interval Borderline right axis deviation Nonspecific T abnormalities, lateral leads Electronically Signed On 04-09-2025 13:12:19 PDT by Marcelo Carrington Please click the below link to view image of tracing.
[2025-04-09] MEDS: SODIUM CHLORIDE 0.9% 1,000 ML IV SCH (11:05)
[2025-04-09] MEDS: ALPRAZolam 0.25 MG TAB PO PRN (11:28)
[2025-04-09] MEDS: ACCU-CHEK COMFORT CURVE STRIP VI SCH (11:30)
[2025-04-09] MEDS: InsuLIN REG 1unit/0.01ml Soln (100units/ml) SC SCH (11:30)
[2025-04-09] MEDS: PIPERACILLIN-TAZOB 3.375GM 100 ML IV SCH (14:21)
[2025-04-09] MEDS: MORPHINE SULFATE INJ 2 MG/ml SYRG IV PRN (15:13)
[2025-04-09] MEDS: ONDANSETRON HCL 4 MG/2 ML VIAL IV PRN (15:13)
[2025-04-09] MEDS: HYDROcodone-ACET 5/325MG TAB PO PRN (22:52)
[2025-04-10 01:00] VITALS: BP 147/92; PULSE 56; RESP 16; TEMP 97.5; O2SAT 100
[2025-04-10 05:00] VITALS: BP 117/75; PULSE 59; RESP 16; TEMP 97.3; O2SAT 100
[2025-04-10 07:38] LABS: Hematocrit 32.9 % (36.0-46.0); Hemoglobin 11.4 g/dL (12.2-16.2); Mean Corpuscular Hemoglobin 26.7 pg (28.0-32.0); Mean Corpuscular Volume 76.9 fL (80.0-100.0); Nucleated Red Blood Cells % 0.1 %
[2025-04-10 07:56] LABS: Alanine Aminotransferase 15 U/L (7-40); Albumin 3.6 g/dL (3.2-4.8); Alkaline Phosphatase 97 U/L (46-116); Anion Gap 5 (5-15); BUN/Creatinine Ratio 10.6 (10.0-20.0); Blood Urea Nitrogen 9 mg/dL (9-23); Carbon Dioxide 24 mmol/L (20-31); Glucose 99 mg/dL (74-106); Potassium 4.5 mmol/L (3.5-5.1); Sodium 143 mmol/L (136-145); Total Protein 6.3 g/dL (5.7-8.2)
[2025-04-10 08:13] LABS: Bilirubin, Total 0.2 mg/dL (0.2-1.0); Calcium 10.7 mg/dL (8.7-10.4); Chloride 114 mmol/L (98-107)
[2025-04-10 08:34] VITALS: BP 149/85; PULSE 53; RESP 17; TEMP 98.3; O2SAT 100
[2025-04-10 13:00] VITALS: BP 130/79; PULSE 51; RESP 16; TEMP 98.3; O2SAT 100
[2025-04-10] MEDS ORDERED: DOCUSATE SOD 100 MG CAP PO PRN (15:00)
[2025-04-10] MEDS: POLYETHYLENE GLYCOL 17 GM PWDR PO SCH (15:09)
[2025-04-10] MEDS: DOCUSATE SOD 100 MG CAP PO SCH (15:47)
--- NOTE | 2025-04-10 16:24 | DVHPN2 ---
Subjective Overnight events noted. Patient is tolerating diet but she started complaining of epigastric and left upper quadrant pain. Reviewed: Care Plan Changes from previous H/P or p: No Changes Gastrointestinal: Abdominal Pain Objective Vitals Vital Signs Date Time Temp Pulse Resp B/P (MAP) Pulse Ox O2 Delivery O2 Flow Rate FiO2 04/10/25 13:00 98.3 51 16 130/79 (96) 100 98.3 04/10/25 08:00 Room Air* 0 21 Intake/Output Intake and Output 04/10/25 07:00 Intake Total 1720 ml Balance 1720 ml Intake Oral 540 ml IV Total 1180 ml # Voids 3 Exam HEENT pupils are reactive neck is supple CV is S1-S2 regular rate and rhythm Respiratory are clear GI positive bowel sound, soft mildly tender in the epigastric and left upper quadrant with a minimal guarding no rigidity Extremity no edema 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 no motor deficit Medications Current Medications Medications Dose Ordered Sig/Jamar Route Start Time Stop Time Status Last Admin Dose Admin Sodium Chloride 1,000 ml @ 120 mls/hr Q8H20M IV 04/09/25 10:00 04/10/25 04:09 120 MLS/HR Acetaminophen/ Hydrocodone Bitart 1 tab Q4HP PRN PO 04/09/25 10:00 04/10/25 13:15 1 TAB Ondansetron HCl 4 mg Q4HP PRN IV 04/09/25 10:00 04/10/25 10:35 4 MG Acetaminophen 650 mg Q6HP PRN PO 04/09/25 10:00 Morphine Sulfate 2 mg Q4HPRN PRN IV 04/09/25 10:00 04/10/25 10:30 2 MG Piperacillin Sod/ Tazobactam Sod 100 ml @ 25 mls/hr Q8HR IV 04/09/25 14:00 04/10/25 13:53 25 MLS/HR Alprazolam 0.25 mg BID PRN PO 04/09/25 10:00 04/10/25 15:10 0.25 MG Paroxetine HCl 500 mg DAILY PO 04/09/25 10:00 Hold Patient Own Medication 325 mg DAILY PO 04/09/25 10:00 Hold Diagnostic Test (Pha) 1 strip ACHS 04/09/25 11:30 04/10/25 16:13 1 STRIP Insulin Human Regular ACHS SC 04/09/25 11:30 Dextrose 50 ml UD PRN IV 04/09/25 10:00 Polyethylene Glycol 17 gm DAILY PO 04/10/25 15:00 04/10/25 15:09 17 GM Docusate Sodium 100 mg BIDPRN PO 04/10/25 15:15 04/10/25 15:47 100 MG Laboratory Results Laboratory Tests 04/10/25 06:15 Chemistry Test 04/10/25 06:15 Albumin 3.6 g/dL (3.2-4.8) Calcium Level 10.7 mg/dL (8.7-10.4) H Total Protein 6.3 g/dL (5.7-8.2) LFT Test 04/10/25 06:15 Alanine Aminotransferase (ALT) 15 U/L (7-40) Alkaline Phosphatase 97 U/L (46-116) Aspartate Amino Transferase (AST) 18 U/L (13-40) Total Bilirubin 0.2 mg/dL (0.2-1.0) Urinalysis Test 04/09/25 00:00 Urine Color Light-yellow (Yellow) Urine Clarity Clear (Clear) Urine pH 5.5 (5.0-9.0) Urine Specific [place] 1.013 (1.001-1.035) Urine Protein Negative (Negative) Urine Ketones Negative (Negative) Urine Blood Negative /uL (Negative) Urine Nitrite Negative (Negative) Urine Bilirubin Negative (Negative) Urine Urobilinogen Normal mg/dL (Negative) Urine Leukocyte Esterase Negative /uL (Negative) Urine RBC None seen /hpf (0 - 4) Urine Microscopic WBC < 1 /HPF (0-5) Urine Squamous Epithelial Cells Few /hpf (<5) Urine Bacteria Few /hpf (None Seen) H Urine Mucus Few (None Seen) Urine Glucose Normal mg/dL (Normal) Assessment/Plan Assessment/Plan 60-year-old female with a known history of GERD, hypertension, anxiety disorder, chronic tobacco use disorder, chronic marijuana use, history of gastric bypass in the past presented to the hospital with the abdominal pain found to have 1. Abdominal pain suspect gastrojejunal anastomotic ulcer 2. GERD 3. Chronic tobacco use disorder 4. Chronic marijuana use 5. Anxiety disorder 6. Hypertension 7. Constipation -laxatives, enema -diet as tolerated, continue Protonix and Carafate, tobacco cessation counseling has been discussed. -GI follow up for possible endoscopy if indicated. Plan/Recommendation Assessment and recommendations Patient could possibly have a gastrojejunal anastomotic ulcer She has a prior history of gastric bypass Treat with Protonix 40 mg IV q.12 hours Carafate suspension 1 g p.o. 4 times a day Clear liquid diet Pain control and monitor labs If symptoms persist consider endoscopic evaluation Plan discussed with: Other (Non Plan discussed with: Patient My Orders Orders - ENMANUEL GUTIÉRREZ MD Procedure Category Date Status Time Polyethylene Glycol PHA 04/10/25 In Process 17g Powder (Miralax 15:00 * Gi Dvh Rotoprinter CONS 04/10/25 Transmitted 15:02 Docusate Sodium PHA 04/10/25 In Process Capsule (Colace 15:15 Date of Service: Apr 10, 2025 Billing Provider: ENMANUEL GUTIÉRREZ MD Common Visit Codes: [id number] INP/OBS CARE(MOD) ENMANUEL GUTIÉRREZ MD Apr 10, 2025 16:24
[2025-04-10 17:00] VITALS: BP 127/78; PULSE 65; RESP 16; TEMP 97.3; O2SAT 96
[2025-04-10 21:00] VITALS: BP 139/76; PULSE 82; RESP 15; TEMP 97.8; O2SAT 100
--- NOTE | 2025-04-10 21:15 | DVHINCON2 ---
Date of service: Apr 10, [address] Gutiérrez Reason for Consultation Intractable abdominal pain History of Present Illness Ashley Zaidi is a 60-year-old female who presents to the ED with abdominal pain x2 weeks. She reports the pain being her left upper quadrant reports 10/10 pain cramping like and constant. She also reports that she smokes half a pack of cigarettes per day and uses marijuana. Patient reports that she has been noncompliant with her medications.. No GI bleeding was reported. No diarrhea reported She denies any recent trauma or injury, recent sick contacts, recent ingestion of spoiled food, recent travels, chest pain, shortness of breath, fevers, chills, lightheadedness, weakness, dizziness, diarrhea, or urinary symptoms. Past Medical History Cardiovascular: HTN GI: GERD Psych: Anxiety, Depression Endocrine: Diabetes Past Surgical History Past Surgical History: Cholecystectomy, Other (Left nephrectomy) Gastric bypass with gastrojejunal anastomosis Family History: Patient reports no known family medical history. Family History Family History: None Social History Smoke: <1 pack per day ALCOHOL: none Drugs: Marijuana Lives: with Family Allergies: Coded Allergies: Codeine (Verified Allergy, Unknown, 09/01/15) Home Meds Active Scripts Alprazolam (Xanax) 0.25 Mg Tb, 1 TAB PO BID PRN, #10 TAB Prov:ENMANUEL GUTIÉRREZ MD 11/26/24 Reported Medications Pantoprazole Sodium Sesquihydr (Pantoprazole Sodium Dr) 40 Mg Tab, 1 TAB PO BID 04/09/25 Hydrocodone-Acetaminophen ([place] 10/325MG) 1 Tab Tb, 1 TAB PO Q6HPRN PRN for MODERATE PAIN 09/01/15 Carisoprodol (Soma) 250 Mg Tab, 325 MG PO DAILY, TAB 09/01/15 Paroxetine (PAXIL TABLET) 20 Mg Tb, 25 TAB PO DAILY, #30 TAB 5 Refills 09/01/15 Current Medications Current Medications Medications (Trade) Dose Ordered Sig/Jamar Route PRN Reason Start Time Stop Time Status Last Admin Polyethylene Glycol (Miralax 17GM Powder) 17 gm DAILY PO 04/10/25 15:00 04/10/25 15:09 Docusate Sodium (Colace Capsule) 100 mg BIDPRN PRN PO FOR CONSTIPATION 04/10/25 15:00 04/10/25 15:06 DC Docusate Sodium (Colace Capsule) 100 mg BIDPRN PO 04/10/25 15:15 04/10/25 15:47 Vital Signs Vital Signs Date Time Temp Pulse Resp B/P (MAP) Pulse Ox O2 Delivery O2 Flow Rate FiO2 04/10/25 17:17 65 16 127/78 04/10/25 17:00 97.3 96 97.3 04/10/25 08:00 Room Air* 0 21 Physical Exam General Appearance: Alert, Oriented X3, Cooperative, No acute distress Hemodynamically stable, no localizing sign Full physical examination deferred Labs/Diagnostic Data Labs Test 04/10/25 20:41 04/10/25 06:15 04/09/25 18:59 04/09/25 10:55 Range/Units POC Glucose 96 70-106 mg/dl White Blood Count 5.0 # 4.4-10.8 10^3/uL Red Blood Count 4.28 4.0-5.20 10^6/uL Hemoglobin 11.4 #L 12.2-16.2 g/dL Hematocrit 32.9 #L 36.0-46.0 % Mean Corpuscular Volume 76.9 L 80.0-100.0 fL Mean Corpuscular Hemoglobin 26.7 L 28.0-32.0 pg Mean Corpuscular Hemoglobin Concent 34.8 32.0-36.0 g/dL Red Cell Distribution Width 15.0 H 11.8-14.3 % Platelet Count 328 140-450 10^3/uL Mean Platelet Volume 8.2 6.9-10.8 fL Neutrophils (%) (Auto) 55.1 37.0-80.0 % Lymphocytes (%) (Auto) 30.5 10.0-50.0 % Monocytes (%) (Auto) 12.3 H 0.0-12.0 % Eosinophils (%) (Auto) 1.6 0.0-7.0 % Basophils (%) (Auto) 0.5 0.0-2.0 % Neutrophils # (Auto) 2.8 1.6-8.6 10 ^3/uL Lymphocytes # (Auto) 1.5 0.4-5.4 10 ^3/uL Monocytes # (Auto) 0.6 0-1.3 10 ^3/uL Eosinophils # (Auto) 0.1 0-0.8 10 ^3/uL Basophils # (Auto) 0 0-0.2 10 ^3/uL Nucleated Red Blood Cells 0.1 % Sodium Level 143 136-145 mmol/L Potassium Level 4.5 3.5-5.1 mmol/L Chloride Level 114 H 98-107 mmol/L Carbon Dioxide Level 24 20-31 mmol/L Anion Gap 5 5-15 Blood Urea Nitrogen 9 9-23 mg/dL Creatinine 0.85 0.550-1.02 mg/dL Glomerular Filtration Rate Calc 77 >90 mL/min BUN/Creatinine Ratio 10.6 10.0-20.0 Serum Glucose 99 74-106 mg/dL Calcium Level 10.7 H 8.7-10.4 mg/dL Total Bilirubin 0.2 0.2-1.0 mg/dL Aspartate Amino Transferase (AST) 18 13-40 U/L Alanine Aminotransferase (ALT) 15 7-40 U/L Alkaline Phosphatase 97 46-116 U/L Total Protein 6.3 5.7-8.2 g/dL Albumin 3.6 3.2-4.8 g/dL Ammonia 12 11-32 umol/L Hemoglobin A1c 6.0 H <5.7 % A1C Test 04/09/25 00:00 04/08/25 22:14 04/08/25 21:14 Range/Units Urine Color Light-yellow Yellow Urine Clarity Clear Clear Urine pH 5.5 5.0-9.0 Urine Specific [place] 1.013 1.001-1.035 Urine Protein Negative Negative Urine Ketones Negative Negative Urine Blood Negative Negative /uL Urine Nitrite Negative Negative Urine Bilirubin Negative Negative Urine Urobilinogen Normal Negative mg/dL Urine Leukocyte Esterase Negative Negative /uL Urine RBC None seen 0 - 4 /hpf Urine Microscopic WBC < 1 0-5 /HPF Urine Squamous Epithelial Cells Few <5 /hpf Urine Bacteria Few H None Seen /hpf Urine Mucus Few None Seen Urine Glucose Normal Normal mg/dL Troponin I High Sensitivity 4 </=34 ng/L Lipase 52 12-53 U/L CT SCAN ABD PELVIS Impression: 1. Postsurgical changes of the stomach with suggestion of a gastrojejunal anastomosis and adjacent inflammatory changes. No definite focal fluid collections. Consider contrast-enhanced CT or MRI for further evaluation. 2. Left nephrectomy. Problems(with codes): (1) Intractable abdominal pain (2) Nausea and vomiting (3) Depression (4) Abnormal finding on GI tract imaging Plan/Recommendation Assessment and recommendations Patient could possibly have a gastrojejunal anastomotic ulcer She has a prior history of gastric bypass Treat with Protonix 40 mg IV q.12 hours Carafate suspension 1 g p.o. 4 times a day Clear liquid diet Pain control and monitor labs If symptoms persist consider endoscopic evaluation Plan discussed with: Other (None) JAVIER MURRAY MD Apr 10, 2025 21:15
[2025-04-10] MEDS: SUCRALFATE 1 GM/10 ML ORAL SUSP PO SCH (22:20)
[2025-04-11] VITALS (7 sets, daily range): BP systolic 114–156; BP diastolic 67–88; PULSE 45–74; RESP 14–20; TEMP 96.9–98.4; O2SAT 99–100
[2025-04-11] MEDS: PANTOPRAZOLE 40 MG TAB PO SCH (05:00)
[2025-04-11] MEDS: FLEET ENEMA(ADULT) 135 ML PR ONE (15:56)
--- NOTE | 2025-04-11 16:55 | DVHPN2 ---
Subjective Overnight events noted. Patient is tolerating diet but she started complaining of epigastric and left upper quadrant pain. Reviewed: Care Plan Changes from previous H/P or p: No Changes Gastrointestinal: Abdominal Pain Objective Vitals Vital Signs Date Time Temp Pulse Resp B/P (MAP) Pulse Ox O2 Delivery O2 Flow Rate FiO2 04/11/25 16:01 59 18 143/82 04/11/25 12:30 97.9 100 97.9 04/11/25 08:00 Room Air* 0 21 Intake/Output Intake and Output 04/11/25 07:00 Intake Total 2550 ml Balance 2550 ml Intake Oral 2450 ml IV Total 100 ml # Voids 7 Exam HEENT pupils are reactive neck is supple CV is S1-S2 regular rate and rhythm Respiratory are clear GI positive bowel sound, soft mildly tender in the epigastric and left upper quadrant with a minimal guarding no rigidity 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 Medications Current Medications Medications Dose Ordered Sig/Jamar Route Start Time Stop Time Status Last Admin Dose Admin Sodium Chloride 1,000 ml @ 120 mls/hr Q8H20M IV 04/09/25 10:00 04/11/25 16:10 120 MLS/HR Acetaminophen/ Hydrocodone Bitart 1 tab Q4HP PRN PO 04/09/25 10:00 04/11/25 13:28 1 TAB Ondansetron HCl 4 mg Q4HP PRN IV 04/09/25 10:00 04/11/25 15:56 4 MG Acetaminophen 650 mg Q6HP PRN PO 04/09/25 10:00 Morphine Sulfate 2 mg Q4HPRN PRN IV 04/09/25 10:00 04/11/25 16:01 2 MG Piperacillin Sod/ Tazobactam Sod 100 ml @ 25 mls/hr Q8HR IV 04/09/25 14:00 04/11/25 15:56 25 MLS/HR Alprazolam 0.25 mg BID PRN PO 04/09/25 10:00 04/10/25 15:10 0.25 MG Paroxetine HCl 500 mg DAILY PO 04/09/25 10:00 Hold Patient Own Medication 325 mg DAILY PO 04/09/25 10:00 Hold Polyethylene Glycol 17 gm DAILY PO 04/10/25 15:00 04/11/25 09:05 17 GM Docusate Sodium 100 mg BIDPRN PO 04/10/25 15:15 04/11/25 09:05 100 MG Pantoprazole Sodium 40 mg BID@0600,1700 PO 04/11/25 06:00 04/11/25 05:00 40 MG Sucralfate 1 gm QID@0600,1130,1700,2200 PO 04/10/25 22:00 04/11/25 11:46 1 GM Laboratory Results Laboratory Tests 04/10/25 06:15 Urinalysis Test 04/09/25 00:00 Urine Color Light-yellow (Yellow) Urine Clarity Clear (Clear) Urine pH 5.5 (5.0-9.0) Urine Specific [place] 1.013 (1.001-1.035) Urine Protein Negative (Negative) Urine Ketones Negative (Negative) Urine Blood Negative /uL (Negative) Urine Nitrite Negative (Negative) Urine Bilirubin Negative (Negative) Urine Urobilinogen Normal mg/dL (Negative) Urine Leukocyte Esterase Negative /uL (Negative) Urine RBC None seen /hpf (0 - 4) Urine Microscopic WBC < 1 /HPF (0-5) Urine Squamous Epithelial Cells Few /hpf (<5) Urine Bacteria Few /hpf (None Seen) H Urine Mucus Few (None Seen) Urine Glucose Normal mg/dL (Normal) Assessment/Plan Assessment/Plan 60-year-old female with a known history of GERD, hypertension, anxiety disorder, chronic tobacco use disorder, chronic marijuana use, history of gastric bypass in the past presented to the hospital with the abdominal pain found to have 1. Abdominal pain suspect gastrojejunal anastomotic ulcer 2. GERD 3. Chronic tobacco use disorder 4. Chronic marijuana use 5. Anxiety disorder 6. Hypertension 7. Constipation -laxatives, enema -diet as tolerated, continue Protonix and Carafate, tobacco cessation counseling has been discussed. -GI follow up for possible endoscopy if indicated. Plan/Recommendation Assessment and recommendations Patient could possibly have a gastrojejunal anastomotic ulcer She has a prior history of gastric bypass Treat with Protonix 40 mg IV q.12 hours Carafate suspension 1 g p.o. 4 times a day Clear liquid diet Pain control and monitor labs If symptoms persist consider endoscopic evaluation Plan discussed with: Other (Non Plan discussed with: Patient Date of Service: Apr 11, 2025 Billing Provider: ENMANUEL GUTIÉRREZ MD Common Visit Codes: [id number] INP/OBS CARE(MOD) ENMANUEL GUTIÉRREZ MD Apr 11, 2025 16:55
--- NOTE | 2025-04-11 22:17 | DVHPN2 ---
Progress Note - Dictate Date Seen: Apr 11, 2025 Medical Necessity Reason Pt with a Central, PICC or Fol: No Subjective Patient complaining of left-sided abdominal pain Patient is also constipation and not had a bowel movement for several days vital signs Vital Sign Date Time Temp Pulse Resp B/P (MAP) Pulse Ox O2 Delivery O2 Flow Rate FiO2 04/11/25 22:00 60 16 150/90 04/11/25 20:00 Room Air* 0 21 04/11/25 17:30 98.4 100 98.4 Total Intake and Output 04/10/25 04/10/25 04/11/25 15:00 23:00 07:00 Intake Total 100 ml 1500 ml 950 ml Balance 100 ml 1500 ml 950 ml medications Current Medications Medications Dose Ordered Sig/Jamar Route Start Time Stop Time Status Last Admin Dose Admin Sodium Chloride 1,000 ml @ 120 mls/hr Q8H20M IV 04/09/25 10:00 04/11/25 20:28 120 MLS/HR Acetaminophen/ Hydrocodone Bitart 1 tab Q4HP PRN PO 04/09/25 10:00 04/11/25 13:28 1 TAB Ondansetron HCl 4 mg Q4HP PRN IV 04/09/25 10:00 04/11/25 15:56 4 MG Acetaminophen 650 mg Q6HP PRN PO 04/09/25 10:00 Morphine Sulfate 2 mg Q4HPRN PRN IV 04/09/25 10:00 04/11/25 22:00 2 MG Piperacillin Sod/ Tazobactam Sod 100 ml @ 25 mls/hr Q8HR IV 04/09/25 14:00 04/11/25 21:56 25 MLS/HR Alprazolam 0.25 mg BID PRN PO 04/09/25 10:00 04/10/25 15:10 0.25 MG Paroxetine HCl 500 mg DAILY PO 04/09/25 10:00 Hold Patient Own Medication 325 mg DAILY PO 04/09/25 10:00 Hold Polyethylene Glycol 17 gm DAILY PO 04/10/25 15:00 04/11/25 09:05 17 GM Docusate Sodium 100 mg BIDPRN PO 04/10/25 15:15 04/11/25 21:56 100 MG Pantoprazole Sodium 40 mg BID@0600,1700 PO 04/11/25 06:00 04/11/25 16:54 40 MG Sucralfate 1 gm QID@0600,1130,1700,2200 PO 04/10/25 22:00 04/11/25 21:56 1 GM objective HEENT pupils are reactive neck is supple CV is S1-S2 regular rate and rhythm Respiratory are clear GI positive bowel sound, soft mildly tender in the epigastric and left upper quadrant with a minimal guarding no rigidity Extremity no edema [employer] no motor deficit laboratory and microbiology Laboratory Tests 04/10/25 06:15 Test 04/10/25 06:15 Range/Units Serum Glucose 99 74-106 mg/dL CT SCAN ABD PELVIS Soft tissues: Small left posterolateral abdominal wall hernia containing a portion of the descending colon. Small fat containing periumbilical hernia with adjacent soft tissue nodules. Impression: 1. Postsurgical changes of the stomach with suggestion of a gastrojejunal anastomosis and adjacent inflammatory changes. No definite focal fluid collections. Consider contrast-enhanced CT or MRI for further evaluation. 2. Left nephrectomy. Problems(with codes): (1) Abnormal finding on GI tract imaging (2) Depression (3) Intractable abdominal pain (4) Constipation Prognosis Assessment plan CT abdomen reviewed Patient has a small posterolateral abdominal wall hernia containing the descending colon This could potentially be causing her symptoms of abdominal pain and change in bowel habits Recommend surgical consultation for evaluation Continue PPI and Carafate and pain control Possible EGD and elective colonoscopy Plan discussed with: Patient JAVIER MURRAY MD Apr 11, 2025 22:17
[2025-04-12 01:00] VITALS: BP 128/94; PULSE 48; RESP 17; TEMP 96.4; O2SAT 100
[2025-04-12 05:00] VITALS: BP 127/78; PULSE 50; RESP 17; TEMP 96.8; O2SAT 100
[2025-04-12 09:00] VITALS: BP 149/93; PULSE 52; RESP 17; TEMP 97.6; O2SAT 99
[2025-04-12 13:00] VITALS: BP 114/69; PULSE 50; RESP 18; TEMP 97.1; O2SAT 99
--- NOTE | 2025-04-12 14:13 | DVHINCON2 ---
Date of service: Apr 12, 2025 History of Present Illness 60-year-old female with a history of multiple abdominal surgeries including a bowel resection for unclear reason, cholecystectomy and left nephrectomy admi tted secondary to over two week history of epigastric and left upper quadrant abdominal pain with nausea. Denies any fevers or chills. Past Medical History Diabetes. Depression. Anxiety disorder. GERD. Hypertension. Past Surgical History Expiratory laparotomy with bowel resection. Left nephrectomy. Cholecystectomy. Family History: Patient reports no known family medical history. Family History Noncontributory Social History Smokes marijuana. Also smokes pack a day. Denies alcohol IV drug use. Allergies: Coded Allergies: Codeine (Verified Allergy, Unknown, 09/01/15) Home Meds Active Scripts Alprazolam (Xanax) 0.25 Mg Tb, 1 TAB PO BID PRN, #10 TAB Prov:ENMANUEL GUTIÉRREZ MD 11/26/24 Reported Medications Pantoprazole Sodium Sesquihydr (Pantoprazole Sodium Dr) 40 Mg Tab, 1 TAB PO BID 04/09/25 Hydrocodone-Acetaminophen ([place] 10/325MG) 1 Tab Tb, 1 TAB PO Q6HPRN PRN for MODERATE PAIN 09/01/15 Carisoprodol (Soma) 250 Mg Tab, 325 MG PO DAILY, TAB 09/01/15 Paroxetine (PAXIL TABLET) 20 Mg Tb, 25 TAB PO DAILY, #30 TAB 5 Refills 09/01/15 Vital Signs Vital Signs Date Time Temp Pulse Resp B/P (MAP) Pulse Ox O2 Delivery O2 Flow Rate FiO2 04/12/25 09:37 60 18 149/93 04/12/25 09:00 97.6 99 97.6 04/12/25 08:00 Room Air* 0 21 Physical Exam GEN: Age-appropriate female in no acute distress. Alert. HEENT: Normocephalic atraumatic. Moist mucous membranes. Anicteric sclerae. CV: RRR Respiratory: CTAB ABD: Large midline incisional scar. Minimal epigastric and left upper quadrant tenderness to palpation without guarding or rebound. Nondistended. There is also left flank scars from her nephrectomy with a small reducible incisional hernia in the left posterolateral aspect over the incisional scar. CT of the abdomen and pelvis: Status post cholecystectomy and left nephrectomy. Postsurgical changes of the stomach with suggestion of gastrojejunal anastomosis of the with the adjacent inflammatory changes. No definite focal fluid collection. Small left posterolateral abdominal wall hernia containing a portion of the descending colon without obstruction. Small fat containing periumbilical hernia. Labs/Diagnostic Data Labs Test 04/11/25 05:06 04/10/25 06:15 04/09/25 18:59 04/09/25 10:55 Range/Units POC Glucose 90 70-106 mg/dl White Blood Count 5.0 # 4.4-10.8 10^3/uL Red Blood Count 4.28 4.0-5.20 10^6/uL Hemoglobin 11.4 #L 12.2-16.2 g/dL Hematocrit 32.9 #L 36.0-46.0 % Mean Corpuscular Volume 76.9 L 80.0-100.0 fL Mean Corpuscular Hemoglobin 26.7 L 28.0-32.0 pg Mean Corpuscular Hemoglobin Concent 34.8 32.0-36.0 g/dL Red Cell Distribution Width 15.0 H 11.8-14.3 % Platelet Count 328 140-450 10^3/uL Mean Platelet Volume 8.2 6.9-10.8 fL Neutrophils (%) (Auto) 55.1 37.0-80.0 % Lymphocytes (%) (Auto) 30.5 10.0-50.0 % Monocytes (%) (Auto) 12.3 H 0.0-12.0 % Eosinophils (%) (Auto) 1.6 0.0-7.0 % Basophils (%) (Auto) 0.5 0.0-2.0 % Neutrophils # (Auto) 2.8 1.6-8.6 10 ^3/uL Lymphocytes # (Auto) 1.5 0.4-5.4 10 ^3/uL Monocytes # (Auto) 0.6 0-1.3 10 ^3/uL Eosinophils # (Auto) 0.1 0-0.8 10 ^3/uL Basophils # (Auto) 0 0-0.2 10 ^3/uL Nucleated Red Blood Cells 0.1 % Sodium Level 143 136-145 mmol/L Potassium Level 4.5 3.5-5.1 mmol/L Chloride Level 114 H 98-107 mmol/L Carbon Dioxide Level 24 20-31 mmol/L Anion Gap 5 5-15 Blood Urea Nitrogen 9 9-23 mg/dL Creatinine 0.85 0.550-1.02 mg/dL Glomerular Filtration Rate Calc 77 >90 mL/min BUN/Creatinine Ratio 10.6 10.0-20.0 Serum Glucose 99 74-106 mg/dL Calcium Level 10.7 H 8.7-10.4 mg/dL Total Bilirubin 0.2 0.2-1.0 mg/dL Aspartate Amino Transferase (AST) 18 13-40 U/L Alanine Aminotransferase (ALT) 15 7-40 U/L Alkaline Phosphatase 97 46-116 U/L Total Protein 6.3 5.7-8.2 g/dL Albumin 3.6 3.2-4.8 g/dL Ammonia 12 11-32 umol/L Hemoglobin A1c 6.0 H <5.7 % A1C Test 04/09/25 00:00 04/08/25 22:14 04/08/25 21:14 Range/Units Urine Color Light-yellow Yellow Urine Clarity Clear Clear Urine pH 5.5 5.0-9.0 Urine Specific [place] 1.013 1.001-1.035 Urine Protein Negative Negative Urine Ketones Negative Negative Urine Blood Negative Negative /uL Urine Nitrite Negative Negative Urine Bilirubin Negative Negative Urine Urobilinogen Normal Negative mg/dL Urine Leukocyte Esterase Negative Negative /uL Urine RBC None seen 0 - 4 /hpf Urine Microscopic WBC < 1 0-5 /HPF Urine Squamous Epithelial Cells Few <5 /hpf Urine Bacteria Few H None Seen /hpf Urine Mucus Few None Seen Urine Glucose Normal Normal mg/dL Troponin I High Sensitivity 4 </=34 ng/L Lipase 52 12-53 U/L Assessment 1. Abdominal pain likely from the inflammatory changes around the gastrojejunal anastomosis. 2. Reducible incisional left posterolateral hernia Plan/Recommendation 1. Patient's abdominal pain is in the epigastric and left upper quadrant which corresponds to the inflammatory changes seen on CT. Although patient has a hernia in the left poor posterolateral region with containing portion of the colon, this does not show any signs of obstruction. Also on physical exam and is very soft and nontender. It seems unlikely that her abdominal pain is caused by the hernia and whether the repair of the hernia we will actually improve the abdominal pain. I have explained this to the patient that even with the surgery for the left posterolateral hernia repair, there is a chance that her epigastric and left upper quadrant abdominal pain may not resolved. I do recommend GI workup with EGD to assess the possible inflammatory changes involving the gastric jejunal anastomosis. Plan discussed with: Patient MIAH RAMOS MD Apr 12, 2025 14:13
--- NOTE | 2025-04-12 16:43 | DVHPN2 ---
Subjective Overnight events noted. Patient is tolerating diet but she started complaining of epigastric and left upper quadrant pain. Reviewed: Care Plan Changes from previous H/P or p: No Changes Gastrointestinal: Abdominal Pain Objective Vitals Vital Signs Date Time Temp Pulse Resp B/P (MAP) Pulse Ox O2 Delivery O2 Flow Rate FiO2 04/12/25 13:00 97.1 50 18 114/69 (84) 99 97.1 04/12/25 08:00 Room Air* 0 21 Intake/Output Intake and Output 04/12/25 07:00 Intake Total 1600 ml Balance 1600 ml Intake Oral 1400 ml IV Total 200 ml # Voids 10 Medications Current Medications Medications Dose Ordered Sig/Jamar Route Start Time Stop Time Status Last Admin Dose Admin Sodium Chloride 1,000 ml @ 120 mls/hr Q8H20M IV 04/09/25 10:00 04/12/25 14:35 120 MLS/HR Acetaminophen/ Hydrocodone Bitart 1 tab Q4HP PRN PO 04/09/25 10:00 04/12/25 13:06 1 TAB Ondansetron HCl 4 mg Q4HP PRN IV 04/09/25 10:00 04/12/25 09:36 4 MG Acetaminophen 650 mg Q6HP PRN PO 04/09/25 10:00 Morphine Sulfate 2 mg Q4HPRN PRN IV 04/09/25 10:00 04/12/25 09:37 2 MG Piperacillin Sod/ Tazobactam Sod 100 ml @ 25 mls/hr Q8HR IV 04/09/25 14:00 04/12/25 14:35 25 MLS/HR Alprazolam 0.25 mg BID PRN PO 04/09/25 10:00 04/12/25 13:54 0.25 MG Paroxetine HCl 500 mg DAILY PO 04/09/25 10:00 Hold Patient Own Medication 325 mg DAILY PO 04/09/25 10:00 Hold Polyethylene Glycol 17 gm DAILY PO 04/10/25 15:00 04/12/25 09:36 17 GM Docusate Sodium 100 mg BIDPRN PO 04/10/25 15:15 04/12/25 09:36 100 MG Pantoprazole Sodium 40 mg BID@0600,1700 PO 04/11/25 06:00 04/12/25 05:05 40 MG Sucralfate 1 gm QID@0600,1130,1700,2200 PO 04/10/25 22:00 04/12/25 11:30 1 GM Laboratory Results Laboratory Tests 04/10/25 06:15 Urinalysis Test 04/09/25 00:00 Urine Color Light-yellow (Yellow) Urine Clarity Clear (Clear) Urine pH 5.5 (5.0-9.0) Urine Specific [place] 1.013 (1.001-1.035) Urine Protein Negative (Negative) Urine Ketones Negative (Negative) Urine Blood Negative /uL (Negative) Urine Nitrite Negative (Negative) Urine Bilirubin Negative (Negative) Urine Urobilinogen Normal mg/dL (Negative) Urine Leukocyte Esterase Negative /uL (Negative) Urine RBC None seen /hpf (0 - 4) Urine Microscopic WBC < 1 /HPF (0-5) Urine Squamous Epithelial Cells Few /hpf (<5) Urine Bacteria Few /hpf (None Seen) H Urine Mucus Few (None Seen) Urine Glucose Normal mg/dL (Normal) Assessment/Plan Assessment/Plan 60-year-old female with a known history of GERD, hypertension, anxiety disorder, chronic tobacco use disorder, chronic marijuana use, history of gastric bypass in the past presented to the hospital with the abdominal pain found to have 1. Abdominal pain suspect gastrojejunal anastomotic ulcer 2. GERD 3. Chronic tobacco use disorder 4. Chronic marijuana use 5. Anxiety disorder 6. Hypertension 7. Constipation -laxatives, enema -diet as tolerated, continue Protonix and Carafate, tobacco cessation counseling has been discussed. -GI follow up for possible endoscopy if indicated. \ Plan discussed with: Other (Patient's bedside BEATRIZ Fuller.) Date of Service: Apr 12, 2025 Billing Provider: ENMANUEL GUTIÉRREZ MD Common Visit Codes: [id number] INP/OBS CARE(MOD) ENMANUEL GUTIÉRREZ MD Apr 12, 2025 16:43
[2025-04-12 17:00] VITALS: BP 133/79; PULSE 46; RESP 17; TEMP 97.1; O2SAT 99
--- NOTE | 2025-04-12 18:02 | DVHPN2 ---
Progress Note - Dictate Date Seen: Apr 12, 2025 Medical Necessity Reason Pt with a Central, PICC or Fol: No Subjective Patient was sleeping comfortably this morning Patient complaining of ongoing left-sided abdominal pain Patient is also c/o constipation and has not had a bowel movement for several days Surgical consult appreciated:left poor posterolateral region with portion of the colon, this does not show any signs of obstruction. vital signs Vital Sign Date Time Temp Pulse Resp B/P (MAP) Pulse Ox O2 Delivery O2 Flow Rate FiO2 04/12/25 17:17 62 18 133/79 04/12/25 13:00 97.1 99 97.1 04/12/25 08:00 Room Air* 0 21 Total Intake and Output 04/11/25 04/11/25 04/12/25 15:00 23:00 07:00 Intake Total 100 ml 100 ml 1400 ml Balance 100 ml 100 ml 1400 ml medications Current Medications Medications Dose Ordered Sig/Jamar Route Start Time Stop Time Status Last Admin Dose Admin Sodium Chloride 1,000 ml @ 120 mls/hr Q8H20M IV 04/09/25 10:00 04/12/25 14:35 120 MLS/HR Acetaminophen/ Hydrocodone Bitart 1 tab Q4HP PRN PO 04/09/25 10:00 04/12/25 13:06 1 TAB Ondansetron HCl 4 mg Q4HP PRN IV 04/09/25 10:00 04/12/25 17:16 4 MG Acetaminophen 650 mg Q6HP PRN PO 04/09/25 10:00 Morphine Sulfate 2 mg Q4HPRN PRN IV 04/09/25 10:00 04/12/25 17:17 2 MG Piperacillin Sod/ Tazobactam Sod 100 ml @ 25 mls/hr Q8HR IV 04/09/25 14:00 04/12/25 14:35 25 MLS/HR Alprazolam 0.25 mg BID PRN PO 04/09/25 10:00 04/12/25 13:54 0.25 MG Paroxetine HCl 500 mg DAILY PO 04/09/25 10:00 Hold Patient Own Medication 325 mg DAILY PO 04/09/25 10:00 Hold Polyethylene Glycol 17 gm DAILY PO 04/10/25 15:00 04/12/25 09:36 17 GM Docusate Sodium 100 mg BIDPRN PO 04/10/25 15:15 04/12/25 09:36 100 MG Pantoprazole Sodium 40 mg BID@0600,1700 PO 04/11/25 06:00 04/12/25 17:11 40 MG Sucralfate 1 gm QID@0600,1130,1700,2200 PO 04/10/25 22:00 04/12/25 17:11 1 GM objective HEENT pupils are reactive neck is supple CV is S1-S2 regular rate and rhythm Respiratory are clear GI positive bowel sound, soft mildly tender in the epigastric and left upper quadrant with a minimal guarding no rigidity 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
[2025-04-12 21:13] VITALS: BP 128/85; PULSE 52; RESP 16; TEMP 98.5; O2SAT 99
[2025-04-13 01:00] VITALS: BP 106/66; PULSE 51; RESP 17; TEMP 97.9; O2SAT 98
[2025-04-13 05:00] VITALS: BP 119/72; PULSE 54; RESP 17; TEMP 98.2; O2SAT 100
[2025-04-13 08:43] VITALS: BP 147/80; PULSE 46; RESP 14; TEMP 97.9; O2SAT 100
[2025-04-13 10:12] LABS: INR 0.99 (0.9-1.15); Partial Thromboplastin Time 26.8 SEC (24.5-34.5); Prothrombin Time 10.5 sec (9.3-11.8)
[2025-04-13 13:11] VITALS: BP 141/91; PULSE 87; RESP 12; TEMP 98.2; O2SAT 92
--- NOTE | 2025-04-13 13:21 | DVH ---
CHEST RADIOGRAPH Indication: Pain Technique: Single frontal view of the chest was obtained COMPARISON: XY CHEST XRAY 1 VIEW on DOS: 11/23/24, XY CHEST PORTABLE on DOS: 02/06/23, XY CHEST PORTABL E on DOS: 02/02/23 FINDINGS: Lines and Tubes: None Lungs: Clear Pleura: No effusion. No pneumothorax. Cardiomediastinal contours: Unremarkable Bones: Unremarkable IMPRESSION: No acute disease.
[2025-04-13 16:44] VITALS: BP 167/75; PULSE 50; RESP 20; TEMP 97.9; O2SAT 99
[2025-04-13] MEDS: MORPHINE SULFATE INJ 2 MG/ml SYRG IV PRN (16:55)
--- NOTE | 2025-04-13 17:32 | DVHPN2 ---
Subjective Overnight events noted. Patient is tolerating diet but she started complaining of epigastric and left upper quadrant pain. Reviewed: Care Plan Changes from previous H/P or p: No Changes Gastrointestinal: Abdominal Pain Objective Vitals Vital Signs Date Time Temp Pulse Resp B/P (MAP) Pulse Ox O2 Delivery O2 Flow Rate FiO2 04/13/25 16:44 97.9 50 20 167/75 (105) 99 97.9 04/13/25 08:00 Room Air* 0 21 Intake/Output Intake and Output 04/13/25 07:00 Intake Total 1786 ml Balance 1786 ml Intake Oral 1586 ml IV Total 200 ml # Voids 8 Medications Current Medications Medications Dose Ordered Sig/Jamar Route Start Time Stop Time Status Last Admin Dose Admin Sodium Chloride 1,000 ml @ 120 mls/hr Q8H20M IV 04/09/25 10:00 04/13/25 05:45 120 MLS/HR Acetaminophen/ Hydrocodone Bitart 1 tab Q4HP PRN PO 04/09/25 10:00 04/12/25 13:06 1 TAB Ondansetron HCl 4 mg Q4HP PRN IV 04/09/25 10:00 04/12/25 21:53 4 MG Acetaminophen 650 mg Q6HP PRN PO 04/09/25 10:00 Piperacillin Sod/ Tazobactam Sod 100 ml @ 25 mls/hr Q8HR IV 04/09/25 14:00 04/13/25 05:44 25 MLS/HR Alprazolam 0.25 mg BID PRN PO 04/09/25 10:00 04/12/25 21:55 0.25 MG Paroxetine HCl 500 mg DAILY PO 04/09/25 10:00 Hold Patient Own Medication 325 mg DAILY PO 04/09/25 10:00 Hold Polyethylene Glycol 17 gm DAILY PO 04/10/25 15:00 04/12/25 09:36 17 GM Docusate Sodium 100 mg BIDPRN PO 04/10/25 15:15 04/12/25 21:55 100 MG Pantoprazole Sodium 40 mg BID@0600,1700 PO 04/11/25 06:00 04/13/25 16:54 40 MG Sucralfate 1 gm QID@0600,1130,1700,2200 PO 04/10/25 22:00 04/13/25 16:54 1 GM Morphine Sulfate 2 mg Q3HPRN PRN IV 04/13/25 13:30 Laboratory Results Laboratory Tests 04/10/25 06:15 Coagulation Test 04/13/25 09:30 Prothrombin Time 10.5 sec (9.3-11.8) Prothrombin Time INR 0.99 (0.9-1.15) Activated Partial Thromboplast Time 26.8 SEC (24.5-34.5) Urinalysis Test 04/09/25 00:00 Urine Color Light-yellow (Yellow) Urine Clarity Clear (Clear) Urine pH 5.5 (5.0-9.0) Urine Specific [place] 1.013 (1.001-1.035) Urine Protein Negative (Negative) Urine Ketones Negative (Negative) Urine Blood Negative /uL (Negative) Urine Nitrite Negative (Negative) Urine Bilirubin Negative (Negative) Urine Urobilinogen Normal mg/dL (Negative) Urine Leukocyte Esterase Negative /uL (Negative) Urine RBC None seen /hpf (0 - 4) Urine Microscopic WBC < 1 /HPF (0-5) Urine Squamous Epithelial Cells Few /hpf (<5) Urine Bacteria Few /hpf (None Seen) H Urine Mucus Few (None Seen) Urine Glucose Normal mg/dL (Normal) Assessment/Plan Assessment/Plan 60-year-old female with a known history of GERD, hypertension, anxiety disorder, chronic tobacco use disorder, chronic marijuana use, history of gastric bypass in the past presented to the hospital with the abdominal pain found to have 1. Abdominal pain suspect gastrojejunal anastomotic ulcer 2. GERD 3. Chronic tobacco use disorder 4. Chronic marijuana use 5. Anxiety disorder 6. Hypertension 7. Constipation -laxatives, enema -diet as tolerated, continue Protonix and Carafate, tobacco cessation counseling has been discussed. -GI follow up for possible endoscopy if indicated. \ Plan discussed with: Patient My Orders Orders - ENMANUEL GUTIÉRREZ MD Procedure Category Date Status Time Morphine Sulfate PHA 04/13/25 In Process Injection 13:30 Date of Service: Apr 13, 2025 Billing Provider: ENMANUEL GUTIÉRREZ MD Common Visit Codes: [id number] INP/OBS CARE(MOD) ENMANUEL GUTIÉRREZ MD Apr 13, 2025 17:32
--- NOTE | 2025-04-13 20:46 | DVHPN2 ---
Progress Note - Dictate Date Seen: Apr 13, 2025 Medical Necessity Reason Pt with a Central, PICC or Fol: No Subjective Patient was sleeping comfortably Abdominal pain is improving but persistent Upper endoscopy had to be canceled today because of OR non availability Patient is also c/o constipation and has not had a bowel movement for several days Surgical consult appreciated:left posterolateral region hernia with portion of the colon, this does not show any signs of obstruction. vital signs Vital Sign Date Time Temp Pulse Resp B/P (MAP) Pulse Ox O2 Delivery O2 Flow Rate FiO2 04/13/25 18:28 55 17 159/79 04/13/25 16:44 97.9 99 97.9 04/13/25 08:00 Room Air* 0 21 Total Intake and Output 04/12/25 04/12/25 04/13/25 15:00 23:00 07:00 Intake Total 100 ml 1450 ml 236 ml Balance 100 ml 1450 ml 236 ml medications Current Medications Medications Dose Ordered Sig/Jamar Route Start Time Stop Time Status Last Admin Dose Admin Sodium Chloride 1,000 ml @ 120 mls/hr Q8H20M IV 04/09/25 10:00 04/13/25 05:45 120 MLS/HR Acetaminophen/ Hydrocodone Bitart 1 tab Q4HP PRN PO 04/09/25 10:00 04/12/25 13:06 1 TAB Ondansetron HCl 4 mg Q4HP PRN IV 04/09/25 10:00 04/13/25 17:57 4 MG Acetaminophen 650 mg Q6HP PRN PO 04/09/25 10:00 Piperacillin Sod/ Tazobactam Sod 100 ml @ 25 mls/hr Q8HR IV 04/09/25 14:00 04/13/25 05:44 25 MLS/HR Alprazolam 0.25 mg BID PRN PO 04/09/25 10:00 04/12/25 21:55 0.25 MG Paroxetine HCl 500 mg DAILY PO 04/09/25 10:00 Hold Patient Own Medication 325 mg DAILY PO 04/09/25 10:00 Hold Polyethylene Glycol 17 gm DAILY PO 04/10/25 15:00 04/12/25 09:36 17 GM Docusate Sodium 100 mg BIDPRN PO 04/10/25 15:15 04/12/25 21:55 100 MG Pantoprazole Sodium 40 mg BID@0600,1700 PO 04/11/25 06:00 04/13/25 16:54 40 MG Sucralfate 1 gm QID@0600,1130,1700,2200 PO 04/10/25 22:00 04/13/25 16:54 1 GM Morphine Sulfate 2 mg Q3HPRN PRN IV 04/13/25 13:30 04/13/25 17:58 2 MG objective HEENT pupils are reactive neck is supple CV is S1-S2 regular rate and rhythm Respiratory are clear GI positive bowel sound, soft mildly tender in the epigastric and left upper quadrant with a minimal guarding no rigidity Extremity no edema 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
[2025-04-13 21:00] VITALS: BP 149/71; PULSE 59; RESP 18; TEMP 98; O2SAT 100
[2025-04-13] MEDS: FLEET ENEMA(ADULT) 135 ML PR ONE (22:32)
[2025-04-14] VITALS (8 sets, daily range): BP systolic 95–149; BP diastolic 51–88; PULSE 47–100; RESP 12–20; TEMP 98–98.5; O2SAT 95–100
[2025-04-14] MEDS ORDERED: PROPOFOL 10 MG/ML 20 ML IV ONE ×2 (12:20→13:06)
[2025-04-14] MEDS ORDERED: LIDOCAINE 2%HCL (LOCAL ANESTH.) INJ 20ML MDV ONE (12:20)
[2025-04-14] MEDS ORDERED: GLYCOPYRROLATE 0.2 MG/ML 1ML VIAL ONE (12:55)
--- NOTE | 2025-04-14 13:18 | DVHOP2 ---
Operative Report DATE OF OPERATION: 04/14/25 PROCEDURE: Upper Endoscopy with biopsy. PREOPERATIVE INDICATION: The patient is a 60 -year-old female undergoing endoscopy for left upper quadrant pain POSTOPERATIVE DIAGNOSES: 1. Patient had evidence of a gastrojejunostomy in the midbody of the stomach with a narrow opening through which the scope passed without difficulty Patient had a large anastomotic ulcer on the jejunal side of the gastrojejun ostomy about 3-4 cm in size Shayan classification C with acute inflammatory changes but no bleeding 2. Patient had [id number] gastroparesis with retained gastric food contents at the level of the gastrojejunostomy ; mild gastritis 3. Otherwise normal and intact pyloric duodenal channel and normal examination up to the 2nd and 3rd part of the duodenum PROCEDURE PERFORMED BY: Javier Dennison GI NURSE: Jamshid SCOPE: Olympus videoendoscope. ASA CLASS: 3. PREOPERATIVE MEDICATIONS: Mac sedationTy PROCEDURE IN DETAIL: After obtaining an informed consent, the patient was placed on left lateral decubitus position. The patient was then sedated with the above medications. A bite block was placed between her teeth. The endoscope was then passed through the oropharynx, into the esophagus, and through the stomach and pylorus up to the second and third part of the duodenum. The endoscope was then withdrawn. Second and 3rd part of the duodenal and the duodenal bulb were normal. Duodenal biopsies were obtained The pre-pyloric area and antrum showed mild gastritis. There was moderate gastroparesis with retained gastric food contents in the midbody of the stomach After careful irrigation aspiration I was able to see the opening of the gastrojejunostomy in the mid to distal body of the stomach this was somewhat narrow However the scope passed through this without any difficulty and on the jejunal side there was a large 3-4 cm anastomotic ulcer with inflammatory changes but no active bleeding Biopsies were obtained from the edges of the ulcer and from the base of the ulcer. Otherwise normal examination up to the efferent loop of the gastrojejunostomy On retroflexion the fundus and cardia were normal. There was no significant hiatal hernia or esophagitis. The patient tolerated the procedure well without difficulty. COMPLICATIONS : None SPECIMENS: Duodenal biopsies Gastric biopsies Jejunal biopsies DISPOSITION: Transfer back to the floor Stable PLAN: 1. Await for biopsy result 2. Will place pt on Protonix 40 mg bid IV 3. Carafate 1 g p.o. 4 times a day 4. DC aspirin NSAIDs smoking alcohol NSAIDs meloxicam etc. 5. Resume full liquid diet and patient would do better on a pureed diet 6. Patient had a bowel movements last night and we will continue observation and Outpatient follow up with GI Services for elective colonoscopy autoimmune previous colonoscopy done 2-3 years JAVIER DENNISON MD Apr 14, 2025 13:18
[2025-04-14] MEDS ORDERED: METOCLOPRAMIDE HCL 5MG/ml INJ 2ml VIAL IV ONE (13:30)
--- NOTE | 2025-04-14 17:57 | DVHPN2 ---
Subjective Overnight events noted. Patient is status post EGD showed evidence of esophagitis, gastritis, gastroparesis has been as gastro jejunostomy anastomotic ulcer. 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 Medications Current Medications Medications Dose Ordered Sig/Jamar Route Start Time Stop Time Status Last Admin Dose Admin Sodium Chloride 1,000 ml @ 120 mls/hr Q8H20M IV 04/09/25 10:00 04/14/25 06:07 120 MLS/HR Acetaminophen/ Hydrocodone Bitart 1 tab Q4HP PRN PO 04/09/25 10:00 04/14/25 17:05 1 TAB Ondansetron HCl 4 mg Q4HP PRN IV 04/09/25 10:00 04/13/25 17:57 4 MG Acetaminophen 650 mg Q6HP PRN PO 04/09/25 10:00 Piperacillin Sod/ Tazobactam Sod 100 ml @ 25 mls/hr Q8HR IV 04/09/25 14:00 04/14/25 14:51 25 MLS/HR Alprazolam 0.25 mg BID PRN PO 04/09/25 10:00 04/13/25 21:47 0.25 MG Paroxetine HCl 500 mg DAILY PO 04/09/25 10:00 Hold Patient Own Medication 325 mg DAILY PO 04/09/25 10:00 Hold Polyethylene Glycol 17 gm DAILY PO 04/10/25 15:00 04/14/25 09:33 17 GM Docusate Sodium 100 mg BIDPRN PO 04/10/25 15:15 04/14/25 09:33 100 MG Pantoprazole Sodium 40 mg BID@0600,1700 PO 04/11/25 06:00 04/13/25 16:54 40 MG Sucralfate 1 gm QID@0600,1130,1700,2200 PO 04/10/25 22:00 04/14/25 16:53 1 GM Morphine Sulfate 2 mg Q3HPRN PRN IV 04/13/25 13:30 04/14/25 13:27 2 MG Laboratory Results Laboratory Tests 04/10/25 06:15 HgA1c, TSH Test 04/14/25 05:53 Thyroid Stimulating Hormone (TSH) 0.69 uIU/mL (0.55-4.78) Urinalysis Test 04/09/25 00:00 Urine Color Light-yellow (Yellow) Urine Clarity Clear (Clear) Urine pH 5.5 (5.0-9.0) Urine Specific [place] 1.013 (1.001-1.035) Urine Protein Negative (Negative) Urine Ketones Negative (Negative) Urine Blood Negative /uL (Negative) Urine Nitrite Negative (Negative) Urine Bilirubin Negative (Negative) Urine Urobilinogen Normal mg/dL (Negative) Urine Leukocyte Esterase Negative /uL (Negative) Urine RBC None seen /hpf (0 - 4) Urine Microscopic WBC < 1 /HPF (0-5) Urine Squamous Epithelial Cells Few /hpf (<5) Urine Bacteria Few /hpf (None Seen) H Urine Mucus Few (None Seen) Urine Glucose Normal mg/dL (Normal) Assessment/Plan Assessment/Plan 60-year-old female with a known history of GERD, hypertension, anxiety disorder, chronic tobacco use disorder, chronic marijuana use, history of gastric bypass in the past presented to the hospital with the abdominal pain found to have 1. Abdominal pain suspect gastrojejunal anastomotic ulcer status post EGD showed evidence of gastrojejunostomy anastomotic ulcer, [id number] gastroparesis, mild gastritis. 2. GERD 3. Chronic tobacco use disorder 4. Chronic marijuana use 5. Anxiety disorder 6. Hypertension 7. Constipation -laxatives, enema -diet as tolerated, continue Protonix and Carafate, tobacco cessation counseling has been discussed. -discharge plan in next 24 hours. Plan discussed with: Patient Date of Service: Apr 14, 2025 Billing Provider: ENMANUEL GUTIÉRREZ MD Common Visit Codes: [id number] INP/OBS CARE(MOD) ENMANUEL GUTIÉRREZ MD Apr 14, 2025 17:57
[2025-04-15 01:00] VITALS: BP 123/77; PULSE 50; RESP 17; TEMP 97.5; O2SAT 97
[2025-04-15 05:00] VITALS: BP 127/72; PULSE 50; RESP 18; TEMP 97.8; O2SAT 98
[2025-04-15 09:00] VITALS: BP 108/75; PULSE 54; RESP 12; TEMP 98.3; O2SAT 99
--- NOTE | 2025-04-15 11:51 | ECG ---
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
[2025-04-15 13:00] VITALS: BP 121/71; PULSE 44; RESP 12; TEMP 98; O2SAT 98
[2025-04-15] MEDS ORDERED: SUCR1SUS26 PO (13:24)
[2025-04-15] MEDS ORDERED: PANT40TA57 PO (13:24)
--- NOTE | 2025-04-15 13:27 | DVHDS2 ---
Discharge Summary Date of Admission Apr 09, 2025 at 09:47 Date of Discharge: Apr 15, 2025 Labs/Diagnostic Data: Laboratory Results Test 04/14/25 05:53 04/13/25 09:30 04/11/25 05:06 04/10/25 06:15 Thyroid Stimulating Hormone (TSH) 0.69 uIU/mL (0.55-4.78) Prothrombin Time 10.5 sec (9.3-11.8) Prothrombin Time INR 0.99 (0.9-1.15) Activated Partial Thromboplast Time 26.8 SEC (24.5-34.5) POC Glucose 90 mg/dl (70-106) White Blood Count 5.0 10^3/uL (4.4-10.8) Red Blood Count 4.28 10^6/uL (4.0-5.20) Hemoglobin 11.4 g/dL (12.2-16.2) Hematocrit 32.9 % (36.0-46.0) Mean Corpuscular Volume 76.9 fL (80.0-100.0) Mean Corpuscular Hemoglobin 26.7 pg (28.0-32.0) Mean Corpuscular Hemoglobin Concent 34.8 g/dL (32.0-36.0) Red Cell Distribution Width 15.0 % (11.8-14.3) Platelet Count 328 10^3/uL (140-450) Mean Platelet Volume 8.2 fL (6.9-10.8) Neutrophils (%) (Auto) 55.1 % (37.0-80.0) Lymphocytes (%) (Auto) 30.5 % (10.0-50.0) Monocytes (%) (Auto) 12.3 % (0.0-12.0) Eosinophils (%) (Auto) 1.6 % (0.0-7.0) Basophils (%) (Auto) 0.5 % (0.0-2.0) Neutrophils # (Auto) 2.8 10 ^3/uL (1.6-8.6) Lymphocytes # (Auto) 1.5 10 ^3/uL (0.4-5.4) Monocytes # (Auto) 0.6 10 ^3/uL (0-1.3) Eosinophils # (Auto) 0.1 10 ^3/uL (0-0.8) Basophils # (Auto) 0 10 ^3/uL (0-0.2) Nucleated Red Blood Cells 0.1 % Sodium Level 143 mmol/L (136-145) Potassium Level 4.5 mmol/L (3.5-5.1) Chloride Level 114 mmol/L (98-107) Carbon Dioxide Level 24 mmol/L (20-31) Anion Gap 5 (5-15) Blood Urea Nitrogen 9 mg/dL (9-23) Creatinine 0.85 mg/dL (0.550-1.02) Glomerular Filtration Rate Calc 77 mL/min (>90) BUN/Creatinine Ratio 10.6 (10.0-20.0) Serum Glucose 99 mg/dL (74-106) Calcium Level 10.7 mg/dL (8.7-10.4) Total Bilirubin 0.2 mg/dL (0.2-1.0) Aspartate Amino Transferase (AST) 18 U/L (13-40) Alanine Aminotransferase (ALT) 15 U/L (7-40) Alkaline Phosphatase 97 U/L (46-116) Total Protein 6.3 g/dL (5.7-8.2) Albumin 3.6 g/dL (3.2-4.8) Test 04/09/25 18:59 04/09/25 10:55 04/09/25 00:00 04/08/25 22:14 Ammonia 12 umol/L (11-32) Hemoglobin A1c 6.0 % A1C (<5.7) Urine Color Light-yellow (Yellow) Urine Clarity Clear (Clear) Urine pH 5.5 (5.0-9.0) Urine Specific [place] 1.013 (1.001-1.035) Urine Protein Negative (Negative) Urine Ketones Negative (Negative) Urine Blood Negative /uL (Negative) Urine Nitrite Negative (Negative) Urine Bilirubin Negative (Negative) Urine Urobilinogen Normal mg/dL (Negative) Urine Leukocyte Esterase Negative /uL (Negative) Urine RBC None seen /hpf (0 - 4) Urine Microscopic WBC < 1 /HPF (0-5) Urine Squamous Epithelial Cells Few /hpf (<5) Urine Bacteria Few /hpf (None Seen) Urine Mucus Few (None Seen) Urine Glucose Normal mg/dL (Normal) Troponin I High Sensitivity 4 ng/L (</=34) Test 04/08/25 21:14 Lipase 52 U/L (12-53) Other Laboratory Tests 04/10/25 06:15 Brief Hx & Hospital Course: 60-year-old female with a known history of GERD, hypertension, anxiety disorder, chronic tobacco use disorder, chronic marijuana use, history of gastric bypass in the past presented to the hospital with the abdominal pain found to have intractable abdominal pain suspected secondary to gastrojejunal anastomotic ulcer. Patient was kept in the hospital. Patient's pain was intractable eventually GI recommended EGD. Patient underwent EGD which shows evidence of gastrojejunostomy anastomotic ulcer with a [id number] gastroparesis and mild gastritis. Patient also was recommended to not to use any illicit drug use including marijuana and also no smoker. And also avoid aspirin and other NSAIDs. Patient was started on Protonix and Carafate and currently stable to be discharged. Condition at Discharge: Stable Final Diagnosis/Problems List 60-year-old female with a known history of GERD, hypertension, anxiety disorder, chronic tobacco use disorder, chronic marijuana use, history of gastric bypass in the past presented to the hospital with the abdominal pain found to have 1. Abdominal pain suspect gastrojejunal anastomotic ulcer status post EGD showed evidence of gastrojejunostomy anastomotic ulcer, coxg-[id number] gastroparesis, mild gastritis. 2. GERD 3. Chronic tobacco use disorder 4. Chronic marijuana use 5. Anxiety disorder 6. Hypertension 7. Constipation Discharge Disposition: Home SNF Discharge Will this Physician continue t: No Discharge Instruct/Medications Diet: Cardiac 2g Na,low cholest Activity: No Restrictions, As Tolerated Follow Up/Referral: Follow up with the PCP in one week Follow up with Dr. Catracho Dennison to follow up on the duodenal biopsy. In 1-2 weeks Medications: Protonix and Carafate as prescribed. New Medications: Sucralfate (Carafate Susp) 1 Gm/10 Ml Ss 1 GM PO QID@0600,1130,1700,2200 for 30 Days, #1200 ML Continued Medications: Alprazolam (Xanax) 0.25 Mg Tb 1 TAB PO BID PRN, #10 TAB Carisoprodol (Soma) 250 Mg Tab 325 MG PO DAILY, TAB Hydrocodone-Acetaminophen ([place] 10/325MG) 1 Tab Tb 1 TAB PO Q6HPRN PRN for MODERATE PAIN Pantoprazole Sodium Sesquihydr (Pantoprazole Sodium Dr) 40 Mg Tab 1 TAB PO BID for 30 Days, #60 TAB (This prescription has been renewed) Paroxetine (Paxil Tablet) 20 Mg Tb 25 TAB PO DAILY, #30 TAB 5 Refills Scheduled Carisoprodol (Soma), 325 MG PO DAILY, (Reported) Pantoprazole Sodium Sesquihydr (Pantoprazole Sodium Dr), 1 TAB PO BID Paroxetine (Paxil Tablet), 25 TAB PO DAILY, (Reported) Sucralfate (Carafate Susp), 1 GM PO QID@0600,1130,1700,2200 Scheduled PRN Alprazolam (Xanax), 1 TAB PO BID PRN Hydrocodone-Acetaminophen ([place] 10/325MG), 1 TAB PO Q6HPRN PRN for MODERATE PAIN, (Reported) Discharge Statement: "Patient was advised to return to the ER or call 911 if any headaches, dizziness, shortness of breath, chest pain, abdominal pain, bleeding, fevers, or worsening of medical condition. Patient was counseled about treatment plan, medications, possible side effects, patientverbalized understanding. All questions were answered to the best of my ability. This discharge took greater then 30 minutes in planning, reviewing documentation, counseling the patient, and discussing with other team members." ASSESSMENT ASSESSMENT Assessment 60-year-old female with a known history of GERD, hypertension, anxiety disorder, chronic tobacco use disorder, chronic marijuana use, history of gastric bypass in the past presented to the hospital with the abdominal pain found to have 1. Abdominal pain suspect gastrojejunal anastomotic ulcer status post EGD showed evidence of gastrojejunostomy anastomotic ulcer, [id number]-[id number] gastroparesis, mild gastritis. 2. GERD 3. Chronic tobacco use disorder 4. Chronic marijuana use 5. Anxiety disorder 6. Hypertension 7. Constipation Date of Service: Apr 15, 2025 Billing Provider: ENMANUEL GUTIÉRREZ MD Common Visit Codes: [id number] DISCH DAY >30min ENMANUEL GUTIÉRREZ MD Apr 15, 2025 13:27
--- NOTE | 2025-04-15 14:23 | DVHPN2 ---
Progress Note - Dictate Date Seen: Apr 15, 2025 Medical Necessity Reason Pt with a Central, PICC or Fol: No Subjective No new complaints Tolerating diet Abdominal pain is improving Patient had a bowel movement yesterday Upper endoscopy showed large jejunal anastomotic ulcer and mild gastroparesis Surgical consult appreciated:left posterolateral region hernia with portion of the colon, this does not show any signs of obstruction. vital signs Vital Sign Date Time Temp Pulse Resp B/P (MAP) Pulse Ox O2 Delivery O2 Flow Rate FiO2 04/15/25 13:00 98.0 44 12 121/71 (88) 98 98.0 04/15/25 08:00 Room Air* 0 21 Total Intake and Output 04/14/25 04/14/25 04/15/25 15:00 23:00 07:00 Intake Total 10 ml 1315 ml 270 ml Balance 10 ml 1315 ml 270 ml medications Current Medications Medications Dose Ordered Sig/Jamar Route Start Time Stop Time Status Last Admin Dose Admin Sodium Chloride 1,000 ml @ 120 mls/hr Q8H20M IV 04/09/25 10:00 04/15/25 10:52 120 MLS/HR Acetaminophen/ Hydrocodone Bitart 1 tab Q4HP PRN PO 04/09/25 10:00 04/14/25 17:05 1 TAB Ondansetron HCl 4 mg Q4HP PRN IV 04/09/25 10:00 04/15/25 10:44 4 MG Acetaminophen 650 mg Q6HP PRN PO 04/09/25 10:00 Piperacillin Sod/ Tazobactam Sod 100 ml @ 25 mls/hr Q8HR IV 04/09/25 14:00 04/15/25 06:03 25 MLS/HR Alprazolam 0.25 mg BID PRN PO 04/09/25 10:00 04/14/25 21:24 0.25 MG Paroxetine HCl 500 mg DAILY PO 04/09/25 10:00 Hold Patient Own Medication 325 mg DAILY PO 04/09/25 10:00 Hold Polyethylene Glycol 17 gm DAILY PO 04/10/25 15:00 04/15/25 10:45 17 GM Docusate Sodium 100 mg BIDPRN PO 04/10/25 15:15 04/15/25 10:45 100 MG Pantoprazole Sodium 40 mg BID@0600,1700 PO 04/11/25 06:00 04/15/25 06:02 40 MG Sucralfate 1 gm QID@0600,1130,1700,2200 PO 04/10/25 22:00 04/15/25 10:45 1 GM Morphine Sulfate 2 mg Q3HPRN PRN IV 04/13/25 13:30 04/15/25 10:44 2 MG objective HEENT pupils are reactive neck is supple CV is S1-S2 regular rate and rhythm Respiratory are clear GI positive bowel sound, soft mildly tender in the epigastric and left upper quadrant with a minimal guarding no rigidity 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 twice a day Carafate 1 g p.o. three times a day DC aspirin NSAIDs smoking alcohol Advance diet as tolerated Discharge planning is in progress Outpatient follow up with me in 4-6 weeks Dietary Evaluation Review Comments: CCHO-60 soft diet avoid tomato product and any spicy food. followup with GI and neprhology consults avoid smoking and marijuana use Expected Outcomes/Goals: controlled DM, healed ulcers, imprvoed GI function and gradual wt loss Plan discussed with: Patient, Other (Nurse) JAVIER MURRAY MD Apr 15, 2025 14:23
[2025-04-15 17:00] VITALS: BP 150/74; PULSE 49; RESP 12; TEMP 98.2; O2SAT 99
== END 2025-04-15 18:20 | disposition home or self-care (01) | DRG 241 ==
LOC: ER 19:27 → OVERFLOW 04-09 09:47 → EAST 04-09 21:45
PROVIDERS: ADMIT Internal Medicine; ATTEND Internal Medicine
PROC: 0DB68ZX Excision of Stomach, Via Natural or Artificial Opening Endoscopic, Diagnostic (ICD-10-PCS; 2025-04-14)
PROC: 0DBA8ZX Excision of Jejunum, Via Natural or Artificial Opening Endoscopic, Diagnostic (ICD-10-PCS; 2025-04-14)
PROC: 0DB98ZX Excision of Duodenum, Via Natural or Artificial Opening Endoscopic, Diagnostic (ICD-10-PCS; principal; 2025-04-14 12:49)
DX: K28.9 Gastrojejunal ulcer, unspecified as acute or chronic, without hemorrhage or perforation (principal); R71.0 Precipitous drop in hematocrit; E11.43 Type 2 diabetes mellitus with diabetic autonomic (poly)neuropathy; K31.84 Gastroparesis; E86.0 Dehydration; K29.70 Gastritis, unspecified, without bleeding; K21.9 Gastro-esophageal reflux disease without esophagitis; F32.A Depression, unspecified; F41.9 Anxiety disorder, unspecified; F12.90 Cannabis use, unspecified, uncomplicated; I10 Essential (primary) hypertension; F17.210 Nicotine dependence, cigarettes, uncomplicated; K59.00 Constipation, unspecified; K43.9 Ventral hernia without obstruction or gangrene; Z91.148 Patient's other noncompliance with medication regimen for other reason; Z88.5 Allergy status to narcotic agent; Z90.49 Acquired absence of other specified parts of digestive tract; Z90.5 Acquired absence of kidney; Z98.84 Bariatric surgery status; Z71.6 Tobacco abuse counseling
CPT/HCPCS: 36415; 71045; 74176; 80053; 81001; 82140; 82962; 83036; 83690; 84443; 84484; 85025; 85610; 85730; 86850; 86870; 86900; 86901; 93005; 96365; 96366; 96375; 96376; 99291; G0378; J2405; J2543; J2704; J3490

== ENCOUNTER 2025-06-07 11:33 | Inpatient (IN) | payer MEDICAID ==
[~2025-06-07] VITALS: Ht 170.2 cm; Wt 74.7 kg
[~2025-06-07 11:33] MED LIST changes: +PANT40TA57 PO; +SUCR1SUS26 PO
--- NOTE | 2025-06-07 12:22 | ED.PDOC ---
GI ASSESSMENT HPI Comments This is a 60 year-old female who presents to the ED via EMS with a chief complaint of RLQ abdominal pain as of last night. Per EMS, patient presents with RLQ abdominal pain radiating to the back. Patient has a PMHx of CVA, HTN, Ulcers, Kidney Cancer, and a social history of MJ use. Patient has no further complaints at this time and otherwise denies further associated symptoms of dizziness, N/V/D, fever, chills, fatigue, or weakness. Chief Complaint: Abdominal Pain Time Seen by MD: 11:43 Primary Care Provider: KRIS Reviewed Notes: Medications, Allergies Allergies: Coded Allergies: Codeine (Verified Allergy, Unknown, 09/01/15) Home Meds Active Scripts Sucralfate (CARAFATE SUSP) 1 Gm/10 Ml Ss, 1 GM PO QID@0600,1130,1700,2200 for 30 Days, #1200 ML Prov:ENMANUEL GUTIÉRREZ MD 04/15/25 Pantoprazole Sodium Sesquihydr (Pantoprazole Sodium Dr) 40 Mg Tab, 1 TAB PO BID for 30 Days, #60 TAB Prov:ENMANUEL GUTIÉRREZ MD 04/15/25 Alprazolam (Xanax) 0.25 Mg Tb, 1 TAB PO BID PRN, #10 TAB Prov:ENMANUEL GUTIÉRREZ MD 11/26/24 Reported Medications Hydrocodone-Acetaminophen ([place] 10/325MG) 1 Tab Tb, 1 TAB PO Q6HPRN PRN for MODERATE PAIN 09/01/15 Carisoprodol (Soma) 250 Mg Tab, 325 MG PO DAILY, TAB 09/01/15 Paroxetine (PAXIL TABLET) 20 Mg Tb, 25 TAB PO DAILY, #30 TAB 5 Refills 09/01/15 Information Source: Patient, Emergency Med Personnel Mode of Arrival: EMS Timing: Hours Duration: Since onset Severity: Moderate Pain Location: RLQ Associated sign and symptoms: Abdominal Pain Past Medical History PAST MEDICAL HISTORY: Anxiety, Cancer, Depression, DM, GERD, HTN Surgical History: Cholecystectomy FACULTY PHYSICIAN History: No Pertinent FACULTY PHYSICIAN History Family History Family History: Unobtainable Social History Smoker: Cigarettes, Less Than 1 Pack/Day Alcohol: Denies ETOH Use Drugs: Marijuana, Methamphetamine Lives In: Home Constitutional: denies: chills, diaphoresis, fatigue, fever, malaise, sweats, weakness, others EENTM: denies: blurred vision, double vision, ear bleeding, ear discharge, ear drainage, ear pain, ear ringing, eye pain, eye redness, hearing loss, mouth pain, mouth swelling, nasal discharge, nose bleeding, nose congestion, nose pain, photophobia, tearing, throat pain, throat swelling, voice changes, others Respiratory: denies: cough, hemoptysis, orthopnea, SOB at rest, shortness of breath, SOB with excertion, stridor, wheezing, others Cardiovascular: denies: chest pain, dizzy spells, diaphoresis, Dyspnea on exertion, edema, irregular heart beat, left arm pain, lightheadedness, palpitations, PND, syncope, others Gastrointestinal: reports: abdominal pain; denies: abdomen distended, blood streaked bowels, constipated, diarrhea, dysphagia, difficulty swallowing, hematemesis, melena, nausea, poor appetite, poor fluid intake, rectal bleeding, rectal pain, vomiting, others Genitourinary: denies: abnormal vagina bleeding, burning, dyspareunia, dysuria, flank pain, frequency, hematuria, incontinence, pain, , vagina discharge, urgency, others Neurological: denies: dizziness, fainting, headache, left sided numbness, left sided weakness, numbness, paresthesia, pre-existing deficit, right sided numbness, right sided weakness, seizure, speech problems, tingling, tremors, weakness, others Musculoskeletal: denies: back pain, gout, joint pain, joint swelling, muscle pain, muscle stiffness, neck pain, others Integumetry: denies: bruises, change in color, change in hair/nails, dryness, laceration, lesions, lumps, rash, wounds, others Allergic/Immunocompromised: denies: Difficulty Healing, Frequent Infections, Hives, Itching, others Hematologic/Lymphatic: denies: anemia, blood clots, easy bleeding, easy bruising, swollen glands, others Endocrine: denies: excessive hunger, excessive sweating, excessive thirst, excessive urination, flushing, intolerance to cold, intolerance to heat, unexplained weight gain, unexplained weight loss, others Psychiatric: denies: anxiety, bipolar disorder, depression, hopeless, panic disorder, schizophrenia, sleepless, suicidal, others All Other Systems: Reviewed and Negative Physical Exam General Appearance: Moderate Distress HEENT: Normal ENT Inspection, Pharynx Normal, TMs Normal Neck: Full Range of Motion, Non-Tender, Normal, Normal Inspection Respiratory: Chest Non-Tender, Lungs Clear, No Accessory Muscle Use, No Respiratory Distress, Normal Breath Sounds Cardiovascular: No Edema, No JVD, No Murmur, No Gallop, Normal Peripheral Pulses, Regular Rate/Rhythm Breast Exam: Deferred Gastrointestinal: No Organomegaly, Non Tender, No Pulsatile Mass, Normal Bowel Sounds, Soft Genitalia: Deferred Pelvic: Deferred Rectal: Deferred Extremities: No calf tenderness, Normal capillary refill, Normal inspection, Normal range of motion, Non-tender, No pedal edema Musculoskeletal : Apperance: Normal Neurologic: Alert, payable manager II-XII nml as Tested, No Motor Deficits, Normal Affect, Normal Mood, No Sensory Deficits Cerebellar Function: NOT DONE Reflexes: NOT DONE Skin: Dry, Normal Color, Warm Peripheral Pulses: 3+ Radial (R), 3+ Radial (L) Lymphatic: No Adenopathy Was a procedure done? Was a procedure done?: No GI differential Dx Differential Diagnosis: Constipation, Diverticular disease, Esophagitis, Gastritis/PUD, Gastroenteritis, UTI, Urolithiasis, Dehydration, Food Poisoning, Bacterial, Parasitic, Viral X-Ray, Labs, Meds, VS Vital Signs Date Time Temp Pulse Resp B/P (MAP) Pulse Ox O2 Delivery O2 Flow Rate FiO2 06/07/25 13:28 97 36 155/77 (103) 97 06/07/25 11:57 44 16 169/107 (127) 98 06/07/25 11:45 97.9 47 20 207/114 98 97.9 Lab Test 06/07/25 13:09 Range/Units White Blood Count 13.0 H 4.4-10.8 10^3/uL Red Blood Count 5.61 H 4.0-5.20 10^6/uL Hemoglobin 15.0 12.2-16.2 g/dL Hematocrit 44.4 36.0-46.0 % Mean Corpuscular Volume 79.1 L 80.0-100.0 fL Mean Corpuscular Hemoglobin 26.7 L 28.0-32.0 pg Mean Corpuscular Hemoglobin Concent 33.8 32.0-36.0 g/dL Red Cell Distribution Width 16.7 H 11.8-14.3 % Platelet Count 265 140-450 10^3/uL Mean Platelet Volume 8.0 6.9-10.8 fL Neutrophils (%) (Auto) 78.0 37.0-80.0 % Lymphocytes (%) (Auto) 9.5 L 10.0-50.0 % Monocytes (%) (Auto) 12.0 0.0-12.0 % Eosinophils (%) (Auto) 0.1 0.0-7.0 % Basophils (%) (Auto) 0.4 0.0-2.0 % Neutrophils # (Auto) 10.2 H 1.6-8.6 10 ^3/uL Lymphocytes # (Auto) 1.2 0.4-5.4 10 ^3/uL Monocytes # (Auto) 1.6 H 0-1.3 10 ^3/uL Eosinophils # (Auto) 0 0-0.8 10 ^3/uL Basophils # (Auto) 0.1 0-0.2 10 ^3/uL Nucleated Red Blood Cells 0.2 % Sodium Level 140 136-145 mmol/L Potassium Level 4.5 3.5-5.1 mmol/L Chloride Level 107 98-107 mmol/L Carbon Dioxide Level 22 20-31 mmol/L Anion Gap 11 5-15 Blood Urea Nitrogen 21 9-23 mg/dL Creatinine 2.34 H 0.550-1.02 mg/dL Glomerular Filtration Rate Calc 23 >90 mL/min BUN/Creatinine Ratio 9.0 L 10.0-20.0 Serum Glucose 115 H 74-106 mg/dL Calcium Level 11.3 H 8.7-10.4 mg/dL Total Bilirubin 0.9 0.2-1.0 mg/dL Aspartate Amino Transferase (AST) 35 13-40 U/L Alanine Aminotransferase (ALT) 18 7-40 U/L Alkaline Phosphatase 125 H 46-116 U/L Total Protein 7.7 5.7-8.2 g/dL Albumin 4.5 3.2-4.8 g/dL Current Medications Medications (Trade) Dose Ordered Sig/Jamar Route Start Time Stop Time Status Last Admin Sodium Chloride 1,000 ml @ 1,000 mls/hr Q1H ONCE IV 06/07/25 12:30 06/07/25 13:29 DC 06/07/25 13:26 Sodium Chloride 1,000 ml @ 150 mls/hr Q6H40M ONCE IV 10/26/25 12:30 06/07/25 19:09 06/07/25 13:27 Patient alert. Complaining of abdominal pain. Vitals stable. Answering questions. CT of the abdomen reviewed does show a kidney stone. Establish intravenous access. Was given fluids. Was given Toradol. Urology consultation. Explained to the patient. Continue monitoring. Images Reviewed?: Images reviewed and evaluated by me Time of 1ST Reevaluation: 13:20 Reevaluation 1ST: Unchanged Patient Education/Counseling: Diagnosis, Treatment Family Education/Counseling: No Family Present SEPSIS Sepsis Screen Date sepsis recognized/suspect: Jun 07, 2025 Time Sepsis recognized/suspect: 1153 Recent Procedure: No On Antibiotic Therapy: No Respiratory Rate >20: No Heart Rate >90: No Temp<36 C (96.8 F) or >38.3 C: No SBP <90 or MAP <65 mmHG: No New Acute Mental Status Change: No Is the patient on CPAP, BIPAP,: No Physician Orders Urinalysis (06/07/25 12:15) Ct Ab Pel Wo Con-No Oral Or Iv (06/07/25 12:15) Sodium Chloride 0.9% (06/07/25 12:30) Vital Signs Date Time Temp Pulse Resp B/P (MAP) Pulse Ox O2 Delivery O2 Flow Rate FiO2 06/07/25 13:28 97 36 155/77 (103) 97 06/07/25 11:57 44 16 169/107 (127) 98 06/07/25 11:45 97.9 47 20 207/114 98 97.9 Laboratory Tests Test 06/07/25 13:09 White Blood Count 13.0 10^3/uL (4.4-10.8) H Medications Medications Dose Ordered Sig/Jamar Route Start Time Stop Time Status Last Admin Dose Admin Sodium Chloride 1,000 ml @ 150 mls/hr Q6H40M ONCE IV 06/07/25 12:30 06/07/25 19:09 06/07/25 13:27 Sodium Chloride 1,000 ml @ 1,000 mls/hr Q1H ONCE IV 06/07/25 12:30 06/07/25 13:29 DC 06/07/25 13:26 Departure 1 Departure Time of Disposition: 14:52 Impression: Primary Impression: Acute abdominal pain Additional Impressions: Kidney stone Hydronephrosis Qualified Codes: N13.2 - Hydronephrosis with renal and ureteral calculous obstruction Disposition: ADMITTED INPATIENT Admit to: Med Surg Condition: Guarded Critical Care Note Critical Care Time?: No Stability Stability form required: No Heart Score Heart Score: Heart Score Response (Comments) Value History N/A 0 EKG N/A 0 Age N/A 0 Risk Factors N/A 0 Troponin N/A 0 Total 0 I personally scribed for ISATU RAMIREZ MD ([email or web address]) on 06/07/25 at 12:22. Electronically submitted by Love Lorenzo ([employer]). I personally scribed for ISATU RAMIREZ MD ([email or web address]) on 06/07/25 at 12:56. Electronically submitted by Love Lorenzo ([email or web address]). ISATU RAMIREZ MD Jun 07, 2025 12:22
--- NOTE | 2025-06-07 13:12 | DVH ---
EXAM DESCRIPTION: CT CT AB PEL WO CON-NO ORAL OR IV CLINICAL HISTORY: colitis COMPARISON: CT CT AB PEL WO CON-NO ORAL OR IV on DOS: 04/08/25, CT CT AB PEL WO CON-NO ORAL OR IV on D OS: 11/23/24, CT CT AB PEL WO CON-NO ORAL OR IV on DOS: 02/02/23, CT ABD/PEL on DOS: 01/15/23 TECHNIQUE: CT abdomen and pelvis without IV contrast was performed. Coronal and sagittal MPR images were generat ed.CTDI/ DLP = / Dose reduction technique with one or more of the following methods was performed: Automated exposure control, adjustment of the mA and/or kV according to patient size, use of iterative reconstruction te [place] FINDINGS: Lower chest: Clear lung bases. Liver: Homogenous in attenuation. . Biliary: Status post cholecystectomy. No biliary ductal dilatation. Pancreas: No fat stranding or focal lesion. Spleen: Normal in size.. Adrenal glands: No nodularity. Kidneys: Status post left nephrectomy. A couple punctate right renal calculi. 3 mm calculus at the di stal right ureter with mild right hydronephrosis. Bladder: No bladder wall thickening. Reproductive organs: Normal. Bowel: No bowel wall thickening or dilatation. Small hernia in the left posterior abdominal wall with a short segment of the vcolon within the hernia SAC, no evidence of obstruction. Normal appendix.. P ostoperative changes from gastrojejunostomy. Peritoneum: No free fluid. No free air. Vessels: Normal caliber abdominal aorta. . Lymph nodes: No suspicious lymph nodes. Soft tissues: Stable 1.6 cm nodule in the upper anterior abdominal wall, measuring slightly above flu id attenuation. . Osseous structures: No acute fracture or subluxation. No suspicious osseous lesions. Degenerative c hanges of the visualized thoracolumbar spine. IMPRESSION: 1. A 3mm obstructing calculus in the distal right ureter causing mild right hydroureteronephrosis. 2. Stable 1.6 cm nodule in the upper anterior abdominal wall, possibly a complex cyst. Recommend furt her evaluation with ultrasound.
[2025-06-07] MEDS: SODIUM CHLORIDE 0.9% 1,000 ML IV ONE ×4 (13:26→18:42)
[2025-06-07 13:33] LABS: Hemoglobin 15.0 g/dL (12.2-16.2)
[2025-06-07 13:35] LABS: Hematocrit 44.4 % (36.0-46.0); Mean Corpuscular Hemoglobin 26.7 pg (28.0-32.0); Mean Corpuscular Volume 79.1 fL (80.0-100.0); Nucleated Red Blood Cells % 0.2 %
[2025-06-07 13:47] LABS: Alanine Aminotransferase 18 U/L (7-40); Albumin 4.5 g/dL (3.2-4.8); Anion Gap 11 (5-15); BUN/Creatinine Ratio 9.0 (10.0-20.0); Blood Urea Nitrogen 21 mg/dL (9-23); Carbon Dioxide 22 mmol/L (20-31); Chloride 107 mmol/L (98-107); Potassium 4.5 mmol/L (3.5-5.1); Sodium 140 mmol/L (136-145); Total Protein 7.7 g/dL (5.7-8.2)
[2025-06-07 13:48] LABS: Bilirubin, Total 0.9 mg/dL (0.2-1.0)
[2025-06-07 13:49] LABS: Alkaline Phosphatase 125 U/L (46-116); Calcium 11.3 mg/dL (8.7-10.4); Glucose 115 mg/dL (74-106)
[2025-06-07] MEDS: KETOROLAC TROMETH 30 MG/ML 1ML VIAL IV ONE ×2 (15:14→18:34)
--- NOTE | 2025-06-07 15:18 | DVHHPRES ---
History of Present Illness Resident Creating Document: CHARLINE BUTT RESIDENT History of Present Illness Ashley Zaidi is a 60-year-old female patient who presents to the ED with chief complaint of nausea, nonbloody vomiting with clear emesis, sharp right- sided abdominal pain which started in flank and radiates towards suprapubic region and chills, all these symptoms started approximately three days before her admission. Patient also reports two weeks of bilateral hand cramping. Patient has no other complaints. Past medical history: Hypertension, CVA, left renal cell carcinoma status post nephrectomy three years ago. Surgical history: Two abdominal surgeries, nephrectomy of left kidney Family history: Noncontributory Social history: Lives in [place] with (next of kin). Smokes marijuana for over 50 years. Denies current tobacco, alcohol and other drug abuse Allergies: Codeine Home medication: Atenolol, paroxetine, sucralfate, carisoprodol, alprazolam, pantoprazole Patient seen and examined at bedside. Currently still complains of abdominal pain. Completed abdomen and pelvis CT which shows 3 mm obstructing right ureteral calculus with hydronephrosis. Also presents stable 1.6 cm anterior abdominal wall complex cyst. Patient admitted for further management Past Medical History Per HPI Past Surgical History Per HPI Family History Per HPI Past Social History Per HPI Review of Systems Review of Systems Per HPI Allergies: Coded Allergies: Codeine (Verified Allergy, Unknown, 09/01/15) Exam Vital Signs Vital Signs Date Time Temp Pulse Resp B/P (MAP) Pulse Ox O2 Delivery O2 Flow Rate FiO2 06/07/25 13:28 97 36 155/77 (103) 97 06/07/25 11:45 97.9 97.9 Exam Patient lying in bed, in mild acute distress General: Lucid, afebrile, mucosae are moist Cardiovascular: Normal S1 and S2. No murmurs, gallops or rubs Respiratory: Normal ventilation mechanics. Clear lung sounds on auscultation Abdomen: Soft, nontender, no organomegaly, normal bowel sounds MSK/skin: Mobilizes 4 limbs. Skin is dry and warm : Right-sided costovertebral tenderness on percussion. Suprapubic tenderness on palpation Neurological: Oriented in 3 spheres. No motor no sensitive deficits. Pupils are isocoric and reactive Labs/Xrays Labs Test 06/07/25 13:09 Range/Units White Blood Count 13.0 H 4.4-10.8 10^3/uL Red Blood Count 5.61 H 4.0-5.20 10^6/uL Hemoglobin 15.0 12.2-16.2 g/dL Hematocrit 44.4 36.0-46.0 % Mean Corpuscular Volume 79.1 L 80.0-100.0 fL Mean Corpuscular Hemoglobin 26.7 L 28.0-32.0 pg Mean Corpuscular Hemoglobin Concent 33.8 32.0-36.0 g/dL Red Cell Distribution Width 16.7 H 11.8-14.3 % Platelet Count 265 140-450 10^3/uL Mean Platelet Volume 8.0 6.9-10.8 fL Neutrophils (%) (Auto) 78.0 37.0-80.0 % Lymphocytes (%) (Auto) 9.5 L 10.0-50.0 % Monocytes (%) (Auto) 12.0 0.0-12.0 % Eosinophils (%) (Auto) 0.1 0.0-7.0 % Basophils (%) (Auto) 0.4 0.0-2.0 % Neutrophils # (Auto) 10.2 H 1.6-8.6 10 ^3/uL Lymphocytes # (Auto) 1.2 0.4-5.4 10 ^3/uL Monocytes # (Auto) 1.6 H 0-1.3 10 ^3/uL Eosinophils # (Auto) 0 0-0.8 10 ^3/uL Basophils # (Auto) 0.1 0-0.2 10 ^3/uL Nucleated Red Blood Cells 0.2 % Sodium Level 140 136-145 mmol/L Potassium Level 4.5 3.5-5.1 mmol/L Chloride Level 107 98-107 mmol/L Carbon Dioxide Level 22 20-31 mmol/L Anion Gap 11 5-15 Blood Urea Nitrogen 21 9-23 mg/dL Creatinine 2.34 H 0.550-1.02 mg/dL Glomerular Filtration Rate Calc 23 >90 mL/min BUN/Creatinine Ratio 9.0 L 10.0-20.0 Serum Glucose 115 H 74-106 mg/dL Calcium Level 11.3 H 8.7-10.4 mg/dL Total Bilirubin 0.9 0.2-1.0 mg/dL Aspartate Amino Transferase (AST) 35 13-40 U/L Alanine Aminotransferase (ALT) 18 7-40 U/L Alkaline Phosphatase 125 H 46-116 U/L Total Protein 7.7 5.7-8.2 g/dL Albumin 4.5 3.2-4.8 g/dL SEPSIS Sepsis Screen Date sepsis recognized/suspect: Jun 07, 2025 Time Sepsis recognized/suspect: 1153 Recent Procedure: No On Antibiotic Therapy: No Respiratory Rate >20: No Heart Rate >90: No Temp<36 C (96.8 F) or >38.3 C: No SBP <90 or MAP <65 mmHG: No New Acute Mental Status Change: No Is the patient on CPAP, BIPAP,: No Physician Orders Urinalysis (06/07/25 12:15) Ct Ab Pel Wo Con-No Oral Or Iv (06/07/25 12:15) Sodium Chloride 0.9% (06/07/25 12:30) Abdomen Complete Sonogram (06/07/25 15:09) Admit (06/07/25 15:09) Code Status (06/07/25 15:09) Acetaminophen Tablet (Tylenol Tablet) (06/07/25 15:15) Ondansetron Hcl (Zofran) (06/07/25 15:15) Complete Blood Count (06/08/25 04:00) Comprehensive Metabolic Panel (06/08/25 04:00) Npo (Nothing By Mouth) Diet (06/07/25 Dinner) Echo 2d Mode Cardiac Dop (06/07/25 15:09) Morphine Sulfate Injection (06/07/25 15:15) Enoxaparin Sodium (Lovenox) (06/08/25 10:00) Oxygen By Nasal Cannula (06/07/25 15:09) Stat Ekg For Chest Pain (06/07/25 15:09) Notify Of Changes From Base (06/07/25 15:09) String Top Sealer For 24 Hours (06/07/25 15:09) Emergency Dysrhythmia Protocol (06/07/25 15:09) Rhythm Strips Once Every Shift (06/07/25 15:09) Sodium Chloride 0.9% (06/07/25 15:15) Sodium Chloride 0.9% (06/07/25 15:15) Vitamin D, 25-Hydroxy (06/07/25 15:09) Vitamin B12 (06/07/25 15:09) Urinalysis (06/07/25 15:09) Thyroid Stimulating Hormone (06/07/25 15:09) PTPTT (06/07/25 15:09) Phosphorus (06/07/25 15:09) Magnesium (06/07/25 15:09) Lipid Panel (06/07/25 15:09) Lipase (06/07/25 15:09) Lactic Acid W/ Reflex Order (06/07/25 15:09) Hemoglobin A1c (06/07/25 15:09) Drug Screen (06/07/25 15:09) Chest Xray 1 View (06/07/25 15:14) Electrocardigram (06/07/25 15:15) Tamsulosin Hydrochloride (Flomax) (06/07/25 15:30) Tamsulosin Hydrochloride (Flomax) (06/07/25 18:00) * Urology Consult (06/07/25 15:16) Vital Signs Date Time Temp Pulse Resp B/P (MAP) Pulse Ox O2 Delivery O2 Flow Rate FiO2 06/07/25 13:28 97 36 155/77 (103) 97 06/07/25 11:57 44 16 169/107 (127) 98 06/07/25 11:45 97.9 47 20 207/114 98 97.9 Laboratory Tests Test 06/07/25 13:09 White Blood Count 13.0 10^3/uL (4.4-10.8) H Medications Medications Dose Ordered Sig/Jamar Route Start Time Stop Time Status Last Admin Dose Admin Sodium Chloride 1,000 ml @ 150 mls/hr Q6H40M ONCE IV 06/07/25 12:30 06/07/25 19:09 06/07/25 13:27 150 MLS/HR Sodium Chloride 1,000 ml @ 1,000 mls/hr Q1H ONCE IV 06/07/25 12:30 06/07/25 13:29 DC 06/07/25 13:26 1,000 MLS/HR Assessment/Plan Assessment/Plan ASSESSMENT Sepsis secondary to UTI Right Ureterolithiasis with hydronephrosis Probable complicated UTI History of renal cell carcinoma status post left nephrectomy Stable 1.6 anterior wall abdominal cyst Marijuana abuse PLAN Admit patient to telemetry due to sepsis Currently under empiric IV antibiotic with ceftriaxone and IV fluids Scheduled tamsulosin Completed abdomen and pelvis CT which shows 3 mm obstructing calculus in distal right ureter with right hydronephrosis and stable 1.6 cm complex anterior wall cyst. Ordered abdominal ultrasound which confirms cyst. Ordered pancultures Indicated Irwin placement. Urology consulted Interventional Radiology also consulted Goals of care discussed with patient for over 18 minutes: Full code status Discussed case with Dr. Tsang, patient and nurses: Patient admitted to telemetry. Currently under empiric IV antibiotics and IV fluids. Patient has poor prognosis Plan discussed with: Patient, Other (Nurses) My Orders Orders - CHARLINE BUTT RESIDENT Procedure Category Date Status Time Abdomen Complete US 06/07/25 Logged Sonogram 15:09 Admit ADMIT 06/07/25 Transmitted 15:09 Code Status CODE 06/07/25 Transmitted 15:09 Acetaminophen Tablet PHA 06/07/25 Logged (Tylenol Tablet) 15:15 Ondansetron Hcl PHA 06/07/25 Logged (Zofran) 15:15 Complete Blood Count LAB 06/08/25 Verified 04:00 Comprehensive LAB 06/08/25 Verified Metabolic Panel 04:00 Npo (Nothing By DIET 06/07/25 Transmitted Mouth) Diet Dinner Echo 2d Mode Cardiac US 06/07/25 Logged DOP 15:09 Morphine Sulfate PHA 06/07/25 Logged Injection 15:15 Enoxaparin Sodium PHA 06/08/25 Logged (Lovenox) 10:00 Oxygen By Nasal RT 06/07/25 Transmitted Cannula 15:09 Stat Ekg For Chest HARISH 06/07/25 In Process Pain 15:09 Notify Of Changes HARISH 06/07/25 In Process From Base 15:09 String Top Sealer For HARISH 06/07/25 In Process 24 Hours 15:09 Emergency Dysrhythmia HARISH 06/07/25 In Process Protocol 15:09 Rhythm Strips Once HARISH 06/07/25 In Process Every Shift 15:09 Sodium Chloride 0.9% PHA 06/07/25 Logged 15:15 Sodium Chloride 0.9% PHA 06/07/25 Logged 15:15 Vitamin D, 25-Hydroxy LAB 06/07/25 Logged 15:09 Vitamin B12 LAB 06/07/25 Logged 15:09 Urinalysis LAB 06/07/25 Logged 15:09 Thyroid Stimulating LAB 06/07/25 Logged Hormone 15:09 PTPTT LAB 06/07/25 Logged 15:09 Phosphorus LAB 06/07/25 Logged 15:09 Magnesium LAB 06/07/25 Logged 15:09 Lipid Panel LAB 06/07/25 Logged 15:09 Lipase LAB 06/07/25 Logged 15:09 Lactic Acid W/ Reflex LAB 06/07/25 Logged Order 15:09 Hemoglobin A1c LAB 06/07/25 Logged 15:09 Drug Screen LAB 06/07/25 Logged 15:09 Chest Xray 1 View XY 06/07/25 Logged 15:14 Electrocardigram EKG 06/07/25 Logged 15:15 Tamsulosin PHA 06/07/25 Verified Hydrochloride (Flomax) 15:30 Tamsulosin PHA 06/07/25 Verified Hydrochloride (Flomax) 18:00 * Urology Consult CONS 06/07/25 Verified 15:16 Date of Service: Jun 07, 2025 Billing Provider: NITHIN TSANG MD Common Visit Codes: 29069-ISQATEO INP/OBS CARE (HIGH) Secondary Visit Codes: 86517-OLLCRRLB CARE PLAN 30 MINUTES CHARLINE BUTT RESIDENT Jun 07, 2025 15:18
--- NOTE | 2025-06-07 15:50 | DVH ---
EXAM: XY CHEST XRAY 1 VIEW CLINICAL HISTORY: Hypertensive urgency TECHNIQUE: Single AP view of the chest WID: COMPARISON: XY CHEST PORTABLE on DOS: 04/13/25 FINDINGS: Lines and tubes: None Chest: The heart size and pulmonary vasculature is within normal limits. No pleural effusion, pneumothorax, or consolidation. The osseous structures are grossly intact. IMPRESSION: 1. No acute cardiopulmonary abnormality.
[2025-06-07 15:53] LABS: Triglycerides 111.0 mg/dL (< 150)
[2025-06-07 15:54] LABS: Magnesium 2.4 mg/dL (1.6-2.6)
--- NOTE | 2025-06-07 15:54 | DVH ---
Exam: US ABDOMEN LIMITED Date: 06/07/2025 03:38 PM Clinical History: Complicated cyst in anterior abdominal wall Comparison: None Technique: Targeted sonographic evaluation of the soft tissues of the anterior abdominal wall was obtained utili zing grayscale and color Doppler imaging. Findings: There is no evidence for drainable collection. There is no evidence for solid or cystic mass in the site. No vascular abnormalities identified at this site. Avascular cystic structure in the mid anterior abdominal wall measuring 1.6 x 1 x 1.7 cm correspondin g to palpable abnormality. IMPRESSION: 1. Complex cystic structure subcutaneous tissues anterior abdominal wall measuring 1.6 x 1 x 1.7 cm.
[2025-06-07 15:57] LABS: Cholesterol 260.0 mg/dL (< 200); HDL Cholesterol 97.0 mg/dL (40-59)
[2025-06-07] MEDS: SODIUM CHLORIDE 0.9% 1,000 ML IV SCH (16:03)
[2025-06-07] MEDS: TAMSULOSIN HYDROCHLORIDE 0.4 MG CAP PO ONE ×2 (16:04→18:36)
[2025-06-07 16:06] LABS: INR 0.94 (0.9-1.15); Partial Thromboplastin Time 26.9 SEC (24.5-34.5); Prothrombin Time 10.0 sec (9.3-11.8)
[2025-06-07 16:10] LABS: Lipase 42.0 U/L (12-53)
[2025-06-07 16:32] LABS: Lactic Acid w/Reflex 3.5 mmol/L (0.4-2.0)
[2025-06-07] MEDS: MORPHINE SULFATE INJ 2 MG/ml SYRG IV PRN (16:38)
[2025-06-07] MEDS: TAMSULOSIN HYDROCHLORIDE 0.4 MG CAP PO SCH (17:56)
[2025-06-07 19:31] VITALS: PULSE 83; RESP 16; O2SAT 100
[2025-06-07] MEDS: ACETAMINOPHEN 325 MG TAB PO PRN (20:11)
[2025-06-07] MEDS: PANTOPRAZOLE 40 MG/10 ML VIAL INJ IV ONE (20:45)
[2025-06-07] MEDS ORDERED: ATEN-60 PO (21:07)
--- NOTE | 2025-06-07 21:07 | DVH ---
INDICATION: Evaluate correct Irwin placement TECHNIQUE: Multiple real-time sonographic images of the kidneys and bladder were obtained. COMPARISON: Same day CT abdomen/pelvis FINDINGS: RIGHT kidney measures 15.2 cm in length. [id number] hydronephrosis. No visualized stone or renal lesion. Left kidney is surgically absent. The bladder is collapsed with a Irwin catheter in place. No visualized ascites. IMPRESSION: 1. [id number] right hydronephrosis. 2. Left nephrectomy.
[2025-06-07 21:22] VITALS: BP 133/77; PULSE 65; TEMP 97.8; O2SAT 95
[2025-06-07 21:30] VITALS: BP 114/61; PULSE 64; PULSE 82; RESP 18; TEMP 97.9; O2SAT 93; O2SAT 96
[2025-06-07 21:31] LABS: Potassium 4.3 mmol/L (3.5-5.1); Sodium 141 mmol/L (136-145)
[2025-06-07 21:32] LABS: Anion Gap 10 (5-15)
[2025-06-07 21:33] LABS: Calcium 9.7 mg/dL (8.7-10.4)
[2025-06-07 21:38] LABS: BUN/Creatinine Ratio 7.1 (10.0-20.0); Blood Urea Nitrogen 21 mg/dL (9-23)
[2025-06-07 22:10] LABS: Carbon Dioxide 20 mmol/L (20-31); Chloride 111 mmol/L (98-107); Glucose 110 mg/dL (74-106)
[2025-06-07 23:12] LABS: Urine Amorphous Crystal FEW /hpf (None Seen); Urine Protein, UAD 1+ (Negative); Urine WBC Clumps PRESENT /hpf (None Seen)
[2025-06-07 23:44] LABS: Amphetamine Screen, Urine Pos (NEGATIVE); Barbiturate Scree,Urine Neg (NEGATIVE); Benzodiazephine Screen, Urine Neg (NEGATIVE); Cannabinoid Screen, Urine Pos (NEGATIVE); Cocaine Screen, Urine Neg (NEGATIVE); Opiate Scree,Urine Neg (NEGATIVE); Phencyclidine Screen, Urine Neg (NEGATIVE)
[2025-06-08] VITALS (9 sets, daily range): BP systolic 127–153; BP diastolic 57–96; PULSE 58–77; RESP 17–18; TEMP 98–98.9; O2SAT 0–100
[2025-06-08 05:57] LABS: Hemoglobin 12.1 g/dL (12.2-16.2)
[2025-06-08 06:00] LABS: Hematocrit 35.3 % (36.0-46.0); Mean Corpuscular Hemoglobin 26.6 pg (28.0-32.0); Mean Corpuscular Volume 77.5 fL (80.0-100.0); Nucleated Red Blood Cells % 0.0 %
[2025-06-08 06:18] LABS: Alanine Aminotransferase 23 U/L (7-40); Albumin 3.5 g/dL (3.2-4.8); Alkaline Phosphatase 99 U/L (46-116); Anion Gap 12 (5-15); BUN/Creatinine Ratio 9.1 (10.0-20.0); Calcium 10.1 mg/dL (8.7-10.4); Potassium 3.9 mmol/L (3.5-5.1); Sodium 141 mmol/L (136-145); Total Protein 6.0 g/dL (5.7-8.2)
[2025-06-08 06:19] LABS: Bilirubin, Total 0.7 mg/dL (0.2-1.0)
[2025-06-08 06:25] LABS: Blood Urea Nitrogen 33 mg/dL (9-23); Carbon Dioxide 19 mmol/L (20-31); Chloride 110 mmol/L (98-107); Glucose 109 mg/dL (74-106)
[2025-06-08] MEDS: SODIUM CHLORIDE 0.9% 1,000 ML IV SCH (09:00)
[2025-06-08] MEDS: PANTOPRAZOLE 40 MG/10 ML VIAL INJ IV SCH (09:08)
[2025-06-08] MEDS: ENOXAPARIN SOD 30 MG/0.3 ML SYRINGE SC SCH (09:08)
[2025-06-08] MEDS: PIPERACILLIN-TAZOB 3.375GM 100 ML IV SCH (11:14)
--- NOTE | 2025-06-08 18:11 | DVH ---
MRI abdomen pelvis without contrast Exam Date: 06/08/2025 04:52 PM Comparison: CT CT AB PEL WO CON-NO ORAL OR IV on DOS: 06/07/25, CT CT AB PEL WO CON-NO ORAL OR IV on DOS: 04/08/25, CT CT AB PEL WO CON-NO ORAL OR IV on DOS: 11/23/24, CT CT AB PEL WO CON-NO ORAL OR IV on DOS: 02/02/23, CT ABD/PEL on DOS: 01/15/23 History: Complex cystic structure anterior abdominal wall noted on CT and ultrasound. Technique: multiplanar multisequence MR imaging of the abdomen and pelvis was performed without cont rast. Findings: Liver: The liver is normal in size without focal lesions. Normal liver contour. Spleen: Unremarkable. Pancreas: Pancreatic duct borderline in diameter measuring 0.4 cm without obstructing lesion seen. Gallbladder and ducts: Previous cholecystectomy. Minimally prominent CBD and central intrahepatic som iary ducts likely related to prior surgery. Adrenal glands: Unremarkable. Kidneys: Prior left nephrectomy. Mild right-sided hydronephrosis and hydroureter extending into the p tony, grossly similar. Stable mild perinephric and periureteric edema. A Irwin catheter in-situ. Visualized bowel: Grossly unremarkable. Vasculature: Unremarkable. Lymphadenopathy: No evidence for lymphadenopathy. Ascites: Trace ascites. Musculoskeletal: Bone marrow signal is normal. Small thick-walled cystic appearing structure within t he upper anterior abdominal wall near the midline measuring 1.3 cm. Please note contrast was not admi nistered. This matches fluid intensity signal on all sequences. IMPRESSION: Small benign-appearing cystic structure within the anterior abdominal wall near the midline, possibly a sebaceous cyst. Stable mild right-sided hydronephrosis and hydroureter.
--- NOTE | 2025-06-08 21:07 | DVHPNRES ---
Progress Note Date Seen: Jun 08, 2025 Resident Creating Document: MORIAH RIVAS RESIDENT Has the PT tested + for MRSA If YES, has PT been informed?: No Medical Necessity Reason Pt with a Central, PICC or Fol: No Subjective Review of Systems Ashley Reed is a 60-year-old female, with past medical history of renal carcinoma with left nephrectomy (2021), CVA and, HTN. The patient came to the ED with chief complaint of 3 days of abdominal pain, localized in the right flank, 8/10, colicky/sharp-pain like, intermittent, that irradiated to the back and to the right inguinal area; associated with subjective fever, chills, diaphoresis, urinary retention, with sensation of incomplete voiding, nausea and vomit > #5, of gastric content, no blood. The patient denies diarrhea, chest pain, headache, weakness, dysuria, hematuria or other symptoms. Reports that is first time of episode. 1 day prior the admission, the pain worsen to 10/10, this prompted her visit to the ED. In the ED BP: was 207/114mmHg. WBC:13.0, Lactic acid: 3.5. CT scan showed: 3 mm obstructing right ureteral calculus with hydronephrosis. Also presents stable 1.6 cm anterior abdominal wall complex cyst. The patient was admitted for further assessment and management. Past medical history: Hypertension, CVA, left renal cell carcinoma status post nephrectomy three years ago. Surgical history: Two abdominal surgeries, nephrectomy of left kidney Family history: Noncontributory Social history: Lives in [place] with (next of kin). Smokes marijuana for over 50 years. Denies current tobacco, alcohol and other drug abuse Allergies: Codeine Home medication: Atenolol, paroxetine, sucralfate, carisoprodol, alprazolam, pantoprazole Hospital course: On 06/08/25, the patient was evaluated and examined at bedside. VS, labs and chart was reviewed. BP127/79mmHg, Lactic acid 2.0, WBC 7.4. US abdomen showed: Lbia-me-awxwiknt right hydronephrosis. Left nephrectomy. The patient reports pain 9/10, reports that nausea and vomit have stopped since admission. The patient is on IV antibiotics, Ceftriaxone was d/c and Zocyn was started. The patient is om Tamsulosin 0.4mg po. Urology consult was placed. ECHO was requested. MRI was ordered due to complex cysts reported on CT abdomen. We will continue following up the progress of this patient. ROS: Constitutional: Yes: Fever, Chills, Sweats, Weakness and Malaise. Eyes: No: Pain, Vision change, Conjunctivae inflammation, Eyelid inflammation, Other, Redness ENT: No: Ear pain, Ear discharge, Nose pain, Nose discharge, Nose congestion, Mouth pain, Mouth swelling, Throat pain, Throat swelling, Other Respiratory: No: Cough, Dry, Shortness of breath, SOB with excertion, Wheezing, Hemoptysis, Pleuritic Pain, Sputum, Wheezing, Other Cardiovascular: No chest pain. no palpitations. Gastrointestinal: Nausea, Vomiting, Abdominal Pain. Diarrhea, Constipation, Melena, Hematochezia, Other Genitourinary: No Dysuria, No Frequency, No Incontinence, No Hematuria; The patient report urinary retention Musculoskeletal: No: other, neck pain, shoulder pain, arm pain, back pain, hand pain, leg pain, foot pain Skin: No: Rash, Lesions, Jaundice, Bruising, Other Neurological: No: Weakness, Numbness, Incoordination, Change in speech, Confusion, Seizures, Other Objective vital signs Vital Sign Date Time Temp Pulse Resp B/P (MAP) Pulse Ox O2 Delivery O2 Flow Rate FiO2 06/08/25 19:59 60 17 0 Room Air* 0 21 06/08/25 17:30 98.1 127/86 (100) 98.1 Total Intake and Output 06/07/25 06/07/25 06/08/25 15:00 23:00 07:00 Intake Total 1000 ml Balance 1000 ml medications Current Medications Medications Dose Ordered Sig/Jamar Route Start Time Stop Time Status Last Admin Dose Admin Acetaminophen 325 mg Q4HP PRN PO 06/07/25 15:15 06/07/25 20:11 325 MG Ondansetron HCl 4 mg Q4HP PRN IV 06/07/25 15:15 Morphine Sulfate 2 mg Q4HPRN PRN IV 06/07/25 15:15 06/08/25 14:48 2 MG Enoxaparin Sodium 30 mg DAILY SC 06/08/25 10:00 06/08/25 09:08 30 MG Tamsulosin HCl 0.4 mg QPM PO 06/07/25 18:00 06/08/25 17:53 0.4 MG Amlodipine Besylate 10 mg DAILY PO 06/08/25 10:00 06/08/25 09:10 10 MG Pantoprazole Sodium 40 mg DAILY IV 06/08/25 10:00 06/08/25 09:08 40 MG Piperacillin Sod/ Tazobactam Sod 100 ml @ 25 mls/hr Q12HR IV 06/08/25 10:00 06/08/25 11:14 25 MLS/HR Sodium Chloride 1,000 ml @ 75 mls/hr [id number] IV 06/08/25 09:00 Acetaminophen/ Hydrocodone Bitart 1 tab Q6HPRN PRN PO 06/08/25 09:00 Examination General Appearance: In acute distress. Alert, Oriented X3, Cooperative, HEENT: Atraumatic, Mucous membranes moist/pink Respiratory: Clear to auscultation, Normal air movement, No added sounds Cardiovascular: Regular rate, Normal S1, Normal S2, No murmurs Abdominal: Active bowel sounds, Soft, no distention, no tenderness, Irwin's catheter in place : Irwin catheter draining approximate 150ml pinkish urine. Costovertebral angle positive to percussion in right side. Extremities: No edema, Normal pulses, No tenderness/swelling Skin: No Significant rash, except past surgical scars in abdomen. Neuro: Normal speech, sensorimotor deficits none Psych/Mental Status: Mental status NL, Mood NL laboratory and microbiology Laboratory Tests 06/08/25 04:22 Test 06/08/25 04:22 Range/Units Serum Glucose 109 H 74-106 mg/dL Problem List/Assessment/Plan Problem List/Assessment/Plan #Sepsis due to complicated UTI, possible pyelonephritis #Acute urinary retention due to obstructive nephrolithiasis #Right ureterolithiasis with hydronephrosis #Solitary Kidney due to nephrectomy #History of Renal carcinoma. - UA -IV Fluids -IV antibiotics: Zocyn IV - Irwin catheter - Urine culture -Blood culture - CT abdomen and pelvis: A 3mm obstructing calculus in the distal right ureter causing mild right hydroureteronephrosis. Stable 1.6 cm nodule in the upper anterior abdominal wall, possibly a complex cyst. Recommend further evaluation with ultrasound - Continue Flomax 0.4 mg p.o. daily -Urology consult #Complex cyst in the abdominal wall R/O malignancy MRI of the abdomen. #Hypertensive urgency #Hypertensive heart disease systolic/diastolic -Amlodipine 10mg po daily -ECHo #AMNA on CKD duet to VMN Monitor Crea, BUN Avoid nephrotoxic drugs. Diet: Renal diet DVT prophylaxis Goals of care discussed with the patient > 35 min. Discussed plan of care with Dr. Oro Code status: Full code PCP: Lauryn. Plan discussed with: Patient, the patient agrees with the plan. Plan discussed with: Patient My Orders My Orders Orders - MORIAH RIVAS RESIDENT Procedure Category Date Status Time Renal DIET 06/08/25 Transmitted Standard(2gna,3gk,Lopho) Lunch Mri Abd Pelvis W/O MRI 06/08/25 Resulted Cont 11:30 Complete Blood Count LAB 06/09/25 Verified 04:00 Basic Metabolic Panel LAB 06/09/25 Verified 04:00 Date of Service: Jun 08, 2025 Billing Provider: NAEL ORO MD Common Visit Codes: [id number] INP/OBS CARE(HIGH) MORIAH RIVAS Jun 08, 2025 21:07 NAEL ORO MD Jun 08, 2025 21:17
[2025-06-08] MEDS: HYDROcodone-ACET 5/325MG TAB PO PRN (21:38)
[2025-06-09] VITALS (8 sets, daily range): BP systolic 122–145; BP diastolic 80–98; PULSE 60–90; RESP 11–18; TEMP 97.1–98.3; O2SAT 0–100
[2025-06-09 05:50] LABS: Hematocrit 35.5 % (36.0-46.0); Hemoglobin 12.3 g/dL (12.2-16.2); Mean Corpuscular Hemoglobin 26.9 pg (28.0-32.0); Mean Corpuscular Volume 77.8 fL (80.0-100.0); Nucleated Red Blood Cells % 0.1 %
[2025-06-09 06:07] LABS: Anion Gap 12 (5-15); Chloride 107 mmol/L (98-107); Potassium 4.1 mmol/L (3.5-5.1); Sodium 138 mmol/L (136-145)
[2025-06-09 06:08] LABS: Calcium 10.1 mg/dL (8.7-10.4)
[2025-06-09 06:11] LABS: Carbon Dioxide 19 mmol/L (20-31)
[2025-06-09 06:13] LABS: BUN/Creatinine Ratio 6.5 (10.0-20.0); Glucose 99 mg/dL (74-106)
[2025-06-09 06:14] LABS: Blood Urea Nitrogen 37 mg/dL (9-23)
--- NOTE | 2025-06-09 08:02 | DVHINCON2 ---
Date of service: Jun 09, 2025 Referring Physician Hospitalist Reason for Consultation 60-year-old female with solitary right kidney an obstructing 3 mm distal ureteral stone causing hydronephrosis and azotemia History of Present Illness 60 year-old female who presents to the ED via EMS with a chief complaint of RLQ abdominal pain as of last night. Per EMS, patient presents with RLQ abdominal pain radiating to the back. Patient has a PMHx of CVA, HTN, Ulcers, Kidney Cancer, and a social history of MJ use. Patient has no further complaints at this time and otherwise denies further associated symptoms of dizziness, N/V/D, fever, chills, fatigue, or weakness. Chief Complaint: Abdominal Pain Primary Care Provider: KRIS Reviewed Notes: Medications, Allergies Allergies: Coded Allergies: Codeine (Verified Allergy, Unknown, 09/01/15) Home Meds Active Scripts Sucralfate (CARAFATE SUSP) 1 Gm/10 Ml Ss, 1 GM PO QID@0600,1130,1700,2200 for 30 Days, #1200 ML Prov:ENMANUEL GUTIÉRREZ MD 04/15/25 Pantoprazole Sodium Sesquihydr (Pantoprazole Sodium Dr) 40 Mg Tab, 1 TAB PO BID for 30 Days, #60 TAB Prov:ENMANUEL GUTIÉRREZ MD 04/15/25 Alprazolam (Xanax) 0.25 Mg Tb, 1 TAB PO BID PRN, #10 TAB Prov:ENMANUEL GUTIÉRREZ MD 11/26/24 Reported Medications Hydrocodone-Acetaminophen ([place] 10/325MG) 1 Tab Tb, 1 TAB PO Q6HPRN PRN for MODERATE PAIN 09/01/15 Carisoprodol (Soma) 250 Mg Tab, 325 MG PO DAILY, TAB 09/01/15 Paroxetine (PAXIL TABLET) 20 Mg Tb, 25 TAB PO DAILY, #30 TAB 5 Refills 09/01/15 Information Source: Patient, Emergency Med Personnel Mode of Arrival: EMS Timing: Hours Duration: Since onset Severity: Moderate Pain Location: RLQ Associated sign and symptoms: Abdominal Pain Past Medical History Anxiety, Cancer, Depression, DM, GERD, HTN Past Surgical History Left nephrectomy Cholecystectomy 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 Allergies: Coded Allergies: Codeine (Verified Allergy, Unknown, 09/01/15) Home Meds Reported Medications Atenolol (Atenolol) 25 Mg Tab, 1 TAB PO DAILY, #30 TAB 5 Refills 06/07/25 Current Medications Current Medications Medications (Trade) Dose Ordered Sig/Jamar Route PRN Reason Start Time Stop Time Status Last Admin Enoxaparin Sodium (Lovenox) 30 mg DAILY SC 06/08/25 10:00 06/08/25 09:08 Ceftriaxone Sodium 50 ml @ 100 mls/hr DAILY@09 IV 06/08/25 09:00 06/08/25 08:49 DC Amlodipine Besylate (Norvasc Tablet) 10 mg DAILY PO 06/08/25 10:00 06/08/25 09:10 Pantoprazole Sodium (Protonix) 40 mg DAILY IV 06/08/25 10:00 06/08/25 09:08 Piperacillin Sod/ Tazobactam Sod 100 ml @ 25 mls/hr Q12HR IV 06/08/25 10:00 06/08/25 20:58 Sodium Chloride 1,000 ml @ 75 mls/hr [id number] IV 06/08/25 09:00 06/09/25 06:43 DC 06/08/25 22:20 Acetaminophen/ Hydrocodone Bitart ([place] 5/325MG Tab) 1 tab Q6HPRN PRN PO MODERATE PAIN (4-6 PAIN SCALE) 06/08/25 09:00 06/08/25 21:38 Review of Systems Constitutional: denies: chills, diaphoresis, fatigue, fever, malaise, sweats, weakness, others EENTM: denies: blurred vision, double vision, ear bleeding, ear discharge, ear drainage, ear pain, ear ringing, eye pain, eye redness, hearing loss, mouth pain, mouth swelling, nasal discharge, nose bleeding, nose congestion, nose pain, photophobia, tearing, throat pain, throat swelling, voice changes, others Respiratory: denies: cough, hemoptysis, orthopnea, SOB at rest, shortness of breath, SOB with excertion, stridor, wheezing, others Cardiovascular: denies: chest pain, dizzy spells, diaphoresis, Dyspnea on exertion, edema, irregular heart beat, left arm pain, lightheadedness, palpitations, PND, syncope, others Gastrointestinal: reports: abdominal pain; denies: abdomen distended, blood streaked bowels, constipated, diarrhea, dysphagia, difficulty swallowing, hematemesis, melena, nausea, poor appetite, poor fluid intake, rectal bleeding, rectal pain, vomiting, others Genitourinary: denies: abnormal vagina bleeding, burning, dyspareunia, dysuria, flank pain, frequency, hematuria, incontinence, pain, , vagina discharge, urgency, others Neurological: denies: dizziness, fainting, headache, left sided numbness, left sided weakness, numbness, paresthesia, pre-existing deficit, right sided numbness, right sided weakness, seizure, speech problems, tingling, tremors, weakness, others Musculoskeletal: denies: back pain, gout, joint pain, joint swelling, muscle pain, muscle stiffness, neck pain, others Integumetry: denies: bruises, change in color, change in hair/nails, dryness, laceration, lesions, lumps, rash, wounds, others Allergic/Immunocompromised: denies: Difficulty Healing, Frequent Infections, Hives, Itching, others Hematologic/Lymphatic: denies: anemia, blood clots, easy bleeding, easy bruising, swollen glands, others Endocrine: denies: excessive hunger, excessive sweating, excessive thirst, excessive urination, flushing, intolerance to cold, intolerance to heat, unexplained weight gain, unexplained weight loss, others Psychiatric: denies: anxiety, bipolar disorder, depression, hopeless, panic disorder, schizophrenia, sleepless, suicidal, others All Other Systems: Reviewed and Negative Vital Signs Vital Signs Date Time Temp Pulse Resp B/P (MAP) Pulse Ox O2 Delivery O2 Flow Rate FiO2 06/09/25 04:43 98.3 60 17 145/86 (105) 100 98.3 06/08/25 19:59 Room Air* 0 21 Physical Exam General Appearance: Moderate Distress HEENT: Normal ENT Inspection, Pharynx Normal, TMs Normal Neck: Full Range of Motion, Non-Tender, Normal, Normal Inspection Respiratory: Chest Non-Tender, Lungs Clear, No Accessory Muscle Use, No Respiratory Distress, Normal Breath Sounds Cardiovascular: No Edema, No JVD, No Murmur, No Gallop, Normal Peripheral Pulses, Regular Rate/Rhythm Breast Exam: Deferred Gastrointestinal: No Organomegaly, Non Tender, No Pulsatile Mass, Normal Bowel Sounds, Soft Genitalia: Deferred Pelvic: Deferred Rectal: Deferred Extremities: No calf tenderness, Normal capillary refill, Normal inspection, Normal range of motion, Non-tender, No pedal edema Musculoskeletal : Apperance: Normal Neurologic: Alert, dragsaw operator II-XII nml as Tested, No Motor Deficits, Normal Affect, Normal Mood, No Sensory Deficits Cerebellar Function: NOT DONE Reflexes: NOT DONE Skin: Dry, Normal Color, Warm Peripheral Pulses: 3+ Radial (R), 3+ Radial (L) Lymphatic: No Adenopathy Labs/Diagnostic Data Labs Test 06/09/25 04:31 06/08/25 04:22 06/07/25 22:50 06/07/25 17:50 Range/Units White Blood Count 5.4 # 4.4-10.8 10^3/uL Red Blood Count 4.57 4.0-5.20 10^6/uL Hemoglobin 12.3 12.2-16.2 g/dL Hematocrit 35.5 L 36.0-46.0 % Mean Corpuscular Volume 77.8 L 80.0-100.0 fL Mean Corpuscular Hemoglobin 26.9 L 28.0-32.0 pg Mean Corpuscular Hemoglobin Concent 34.6 32.0-36.0 g/dL Red Cell Distribution Width 16.2 H 11.8-14.3 % Platelet Count 231 140-450 10^3/uL Mean Platelet Volume 8.3 6.9-10.8 fL Neutrophils (%) (Auto) 62.0 37.0-80.0 % Lymphocytes (%) (Auto) 26.6 10.0-50.0 % Monocytes (%) (Auto) 9.4 0.0-12.0 % Eosinophils (%) (Auto) 1.5 0.0-7.0 % Basophils (%) (Auto) 0.5 0.0-2.0 % Neutrophils # (Auto) 3.3 1.6-8.6 10 ^3/uL Lymphocytes # (Auto) 1.4 0.4-5.4 10 ^3/uL Monocytes # (Auto) 0.5 0-1.3 10 ^3/uL Eosinophils # (Auto) 0.1 0-0.8 10 ^3/uL Basophils # (Auto) 0 0-0.2 10 ^3/uL Nucleated Red Blood Cells 0.1 % Sodium Level 138 136-145 mmol/L Potassium Level 4.1 3.5-5.1 mmol/L Chloride Level 107 98-107 mmol/L Carbon Dioxide Level 19 L 20-31 mmol/L Anion Gap 12 5-15 Blood Urea Nitrogen 37 H 9-23 mg/dL Creatinine 5.68 #H 0.550-1.02 mg/dL Glomerular Filtration Rate Calc 8 >90 mL/min BUN/Creatinine Ratio 6.5 L 10.0-20.0 Serum Glucose 99 74-106 mg/dL Calcium Level 10.1 8.7-10.4 mg/dL Total Bilirubin 0.7 0.2-1.0 mg/dL Aspartate Amino Transferase (AST) 30 13-40 U/L Alanine Aminotransferase (ALT) 23 7-40 U/L Alkaline Phosphatase 99 46-116 U/L Total Protein 6.0 5.7-8.2 g/dL Albumin 3.5 3.2-4.8 g/dL Urine Color Colorless Yellow Urine Clarity Turbid H Clear Urine pH 6.5 5.0-9.0 Urine Specific [place] 1.005 1.001-1.035 Urine Protein 1+ H Negative Urine Ketones Negative Negative Urine Blood 3+ H Negative /uL Urine Nitrite Negative Negative Urine Bilirubin Negative Negative Urine Urobilinogen Normal Negative mg/dL Urine Leukocyte Esterase 3+ Negative /uL Urine RBC 1212 0 - 4 /hpf Urine WBC Clumps Present None Seen /hpf Urine Microscopic WBC 312 H 0-5 /HPF Urine Squamous Epithelial Cells Few <5 /hpf Urine Amorphous Crystals Few None Seen /hpf Urine Bacteria None seen None Seen /hpf Urine Glucose Normal Normal mg/dL Urine Opiates Screen Neg NEGATIVE Urine Fentanyl Screen Neg NEGATIVE Urine Barbiturates Screen Neg NEGATIVE Urine Phencyclidine Screen Neg NEGATIVE Urine Amphetamines Screen Pos NEGATIVE Urine Benzodiazepines Screen Neg NEGATIVE Urine Cocaine Screen Neg NEGATIVE Urine Cannabinoids Screen Pos NEGATIVE Lactic Acid Level 2.0 0.4-2.0 mmol/L Test 06/07/25 13:09 Range/Units Prothrombin Time 10.0 9.3-11.8 sec Prothrombin Time INR 0.94 0.9-1.15 Activated Partial Thromboplast Time 26.9 24.5-34.5 SEC Hemoglobin A1c 5.6 <5.7 % A1C Phosphorus Level 3.6 2.4-5.1 mg/dL Magnesium Level 2.4 1.6-2.6 mg/dL Triglycerides Level 111 < 150 mg/dL Cholesterol Level 260 H < 200 mg/dL LDL Cholesterol 146 H < 100 mg/dL HDL Cholesterol 97 H 40-59 mg/dL Lipase 42 12-53 U/L Vitamin B12 Level 287 211-911 pg/mL Vitamin D 25-Hydroxy 8.5 L 30.0-100 ng/mL Thyroid Stimulating Hormone (TSH) 0.70 0.55-4.78 uIU/mL Microbiology Date/Time Source Procedure Growth Status 06/07/25 21:06 Blood Blood Culture - Preliminary NO GROWTH AFTER 24 HOURS OF INCUBATION. Resulted Assessment Right hydronephrosis secondary to 3 mm distal ureteral calculus Azotemia Solitary right kidney Plan/Recommendation Right ureteroscopic laser lithotripsy and right ureteral stent placement Plan discussed with: Patient, Other TINO BARBOSA MD Jun 09, 2025 08:02
--- NOTE | 2025-06-09 10:29 | DVHPNRES ---
Progress Note Date Seen: Jun 09, 2025 Resident Creating Document: MORIAH RIVAS RESIDENT Has the PT tested + for MRSA If YES, has PT been informed?: No Medical Necessity Reason Pt with a Central, PICC or Fol: No Subjective Review of Systems Ashley Reed is a 60-year-old female, with past medical history of renal carcinoma with left nephrectomy (2021), CVA and, HTN. The patient came to the ED with chief complaint of 3 days of abdominal pain, localized in the right flank, 8/10, colicky/sharp-pain like, intermittent, that irradiated to the back and to the right inguinal area; associated with subjective fever, chills, diaphoresis, urinary retention, with sensation of incomplete voiding, nausea and vomit > #5, of gastric content, no blood. The patient denies diarrhea, chest pain, headache, weakness, dysuria, hematuria or other symptoms. Reports that is first time of episode. 1 day prior the admission, the pain worsen to 10/10, this prompted her visit to the ED. In the ED BP: was 207/114mmHg. WBC:13.0, Lactic acid: 3.5. CT scan showed: 3 mm obstructing right ureteral calculus with hydronephrosis. Also presents stable 1.6 cm anterior abdominal wall complex cyst. The patient was admitted for further assessment and management. Past medical history: Hypertension, CVA, left renal cell carcinoma status post nephrectomy three years ago. Surgical history: Two abdominal surgeries, nephrectomy of left kidney Family history: Noncontributory Social history: Lives in [place] with (next of kin). Smokes marijuana for over 50 years. Denies current tobacco, alcohol and other drug abuse Allergies: Codeine Home medication: Atenolol, paroxetine, sucralfate, carisoprodol, alprazolam, pantoprazole Hospital course: On 06/08/25, the patient was evaluated and examined at bedside. VS, labs and chart was reviewed. BP127/79mmHg, Lactic acid 2.0, WBC 7.4. US abdomen showed: [id number] right hydronephrosis. Left nephrectomy. The patient reports pain 9/10, reports that nausea and vomit have stopped since admission. The patient is on IV antibiotics, Ceftriaxone was d/c and Zocyn was started. The patient is om Tamsulosin 0.4mg po. Urology consult was placed. ECHO was requested. MRI was ordered due to complex cysts reported on CT abdomen. We will continue following up the progress of this patient. On 06/09/25, the patient was evaluated and examined at bedside. VS, labs and chart was reviewed. BP:145/86mmHg, WBC are trending down. creatinine has increased. The patient still report abdominal and back pain. Urology is on board; right ureteroscopic laser lithotripsy and right ureteral stent placement was ordered, the patient will go to the procedure today. We will continue following up the progress of this patient. ROS: Constitutional: Yes: denies fever and chills during the night, reports sweats and malaise Eyes: No: Pain, Vision change, Conjunctivae inflammation, Eyelid inflammation, Other, Redness ENT: No: Ear pain, Ear discharge, Nose pain, Nose discharge, Nose congestion, Mouth pain, Mouth swelling, Throat pain, Throat swelling, Other Respiratory: No: Cough, Dry, Shortness of breath, SOB with excertion, Wheezing, Hemoptysis, Pleuritic Pain, Sputum, Wheezing, Other Cardiovascular: No chest pain. no palpitations. Gastrointestinal: Nausea and vomiting have stopped with medications, Patient reports abdominal Pain 04/22. Diarrhea, Constipation, Melena, Hematochezia, Other Genitourinary: No Dysuria, No Frequency, No Incontinence, No Hematuria; The patient report urinary retention Musculoskeletal: No: other, neck pain, shoulder pain, arm pain, back pain, hand pain, leg pain, foot pain Skin: No: Rash, Lesions, Jaundice, Bruising, Other Neurological: No: Weakness, Numbness, Incoordination, Change in speech, Confusion, Seizures, Other Objective vital signs Vital Sign Date Time Temp Pulse Resp B/P (MAP) Pulse Ox O2 Delivery O2 Flow Rate FiO2 06/09/25 10:13 132/89 06/09/25 10:11 66 20 06/09/25 08:59 97.1 100 97.1 06/08/25 19:59 Room Air* 0 21 Total Intake and Output 06/08/25 06/08/25 06/09/25 15:00 23:00 07:00 Intake Total 700 ml 800 ml Output Total 450 ml 1750 ml Balance 250 ml -950 ml medications Current Medications Medications Dose Ordered Sig/Jamar Route Start Time Stop Time Status Last Admin Dose Admin Acetaminophen 325 mg Q4HP PRN PO 06/07/25 15:15 06/07/25 20:11 325 MG Ondansetron HCl 4 mg Q4HP PRN IV 06/07/25 15:15 Morphine Sulfate 2 mg Q4HPRN PRN IV 06/07/25 15:15 06/09/25 10:11 2 MG Enoxaparin Sodium 30 mg DAILY SC 06/08/25 10:00 06/08/25 09:08 30 MG Tamsulosin HCl 0.4 mg QPM PO 06/07/25 18:00 06/08/25 17:53 0.4 MG Amlodipine Besylate 10 mg DAILY PO 06/08/25 10:00 06/09/25 10:13 10 MG Pantoprazole Sodium 40 mg DAILY IV 06/08/25 10:00 06/08/25 09:08 40 MG Piperacillin Sod/ Tazobactam Sod 100 ml @ 25 mls/hr Q12HR IV 06/08/25 10:00 06/08/25 20:58 25 MLS/HR Acetaminophen/ Hydrocodone Bitart 1 tab Q6HPRN PRN PO 06/08/25 09:00 06/08/25 21:38 1 TAB Examination General Appearance: In acute distress. Alert, Oriented X3, Cooperative, HEENT: Atraumatic, Mucous membranes moist/pink Respiratory: Clear to auscultation, Normal air movement, No added sounds Cardiovascular: Regular rate, Normal S1, Normal S2, No murmurs Abdominal: Active bowel sounds, Soft, no distention, tender to palpation on the right flank. : Irwin's catheter in place. Irwin catheter draining approximate 100ml of hematuric urine. Costovertebral angle positive to percussion in right side. Extremities: No edema, Normal pulses, No tenderness/swelling Skin: No Significant rash, except past surgical scars in abdomen. Neuro: Normal speech, sensorimotor deficits none Psych/Mental Status: Mental status NL, Mood NL laboratory and microbiology Laboratory Tests 06/09/25 04:31 Test 06/09/25 04:31 Range/Units Serum Glucose 99 74-106 mg/dL Microbiology Date/Time Source Procedure Growth Status 06/07/25 21:06 Blood Blood Culture - Preliminary NO GROWTH AFTER 24 HOURS OF INCUBATION. 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 - UA -IV Fluids -IV antibiotics: Zocyn IV - Irwin catheter - Urine culture -Blood culture - CT abdomen and pelvis: A 3mm obstructing calculus in the distal right ureter causing mild right hydroureteronephrosis. Stable 1.6 cm nodule in the upper anterior abdominal wall, possibly a complex cyst. Recommend further evaluation with ultrasound - Continue Flomax 0.4 mg p.o. daily -Urology consult: Right ureteroscopic laser lithotripsy and right ureteral stent placement #Complex cyst in the abdominal wall R/O malignancy MRI abdomen: Small benign-appearing cystic structure within the anterior abdominal wall near the midline, possibly a sebaceous cyst. Stable mild right-sided hydronephrosis and hydroureter. #Hypertensive urgency #Hypertensive heart disease systolic/diastolic -Amlodipine 10mg po daily -ECHo: lvef 65 %, normal rv function, no severe valve abnormalities noted #AMNA on CKD duet to VMN Monitor Crea, BUN Avoid nephrotoxic drugs. Diet: Renal diet DVT prophylaxis Goals of care discussed with the patient > 35 min. Discussed plan of care with Dr. Oro Code status: Full code PCP: Lauryn. Plan discussed with: Patient, the patient agrees with the plan. Plan discussed with: Patient My Orders My Orders Orders - MORIAH RIVAS Procedure Category Date Status Time Mri Abd Pelvis W/O MRI 06/08/25 Resulted Cont 11:30 Date of Service: Jun 09, 2025 Billing Provider: NAEL ORO MD Common Visit Codes: [id number] INP/OBS CARE(HIGH) Date of Service: Jun 09, 2025 Billing Provider: NAEL ORO MD Common Visit Codes: [id number] INP/OBS CARE(HIGH) MORIAH RIVAS Jun 09, 2025 10:29 NAEL ORO MD Jun 10, 2025 21:42
[2025-06-09] MEDS: CIPROFLOXACIN 400MG/200ML 200 ML IV ONE (10:40)
--- NOTE | 2025-06-09 12:06 | DVHSR ---
APPROVED REPORT EXAM: Two-dimensional and M-mode echocardiogram with Doppler and color Doppler. Blood Pressure: 127/79 mmHg INDICATION hypertensize crisis RISK FACTORS Obesity: Height: 5'7, Weight: 195 DIMENSIONS LVDd3.8 (3.8-5.7cm)LA (2D)4.0 (1.9-4.0cm)Aortic Root3.2 (2.0-3.7cm) LVDs2.8 (2.5-4.0cm)LA (MM) (1.9-4.0cm)Aortic Cusp Exc1.8 (1.5-2.0cm) EF (%) 55.0 (55-70%)Rt. Atrium3.4 (1.9-4.0cm)Asc. Aorta cm IVSd0.8 (0.7-1.1cm)RV (D)2.8 (1.8-2.4cm) PWd0.9 (0.7-1.1cm) Mitral Valve MitralMitral Stenosis E wave1.01m/sMV Mean GR.mmHg A wave1.05m/sMV Peak GR.99mmHg E/A ratio1.02D MVAcm2 DECEL [id number] 1/2 Timems Aortic Valve Aortic ValveAortic Stenosis V11.05m/Syed Mean GR.8mmHg V21.90m/Syed Peak GR.14mmHg LVOT Diameter2.0 (1.8-2.4cm)Doppler AVA1.74cm2 Tricuspid Valve TR Velocity2.82m/s [id number] Other Information Technically limited study due to body habitus. Conclusion lvef 65 % normal rv function no severe valve abnormalities noted
[2025-06-09] MEDS ORDERED: KETAMINE 50mg/ML 1ml syringe ONE (13:09)
[2025-06-09] MEDS ORDERED: PROPOFOL 10 MG/ML 20 ML IV ONE (13:09)
[2025-06-09] MEDS ORDERED: MIDAZOLAM HCL 2MG/2ML 2ml VIAL (1mg/ml) ONE (13:09)
[2025-06-09] MEDS ORDERED: LIDOCAINE 2% (LOCAL ANESTH.) PF 5ml SDV ONE (13:09)
[2025-06-09] MEDS ORDERED: fentaNYL CITRATE 100 MCG/2 ML VL ONE (13:09)
[2025-06-09] MEDS ORDERED: HYDROmorphone HCL 2 MG/ML VL/or syr ONE (13:09)
[2025-06-09] MEDS ORDERED: GLYCOPYRROLATE 0.2 MG/ML 1ML VIAL ONE (13:09)
[2025-06-09] MEDS: IOHEXOL 300 MG/ML 100ML BOTTLE IJ ONE (13:49)
--- NOTE | 2025-06-09 14:11 | DVHNC2 ---
Procedure - OPERATIVE REPORT Pre-op. Diagnosis: solitary right kidney with hydronephrosis 3 mm right distal ureteral calculus azotemia Post-op. Diagnosis: Same as pre-op diagnosis Operation: right ureteroscopy cystoscopy with right retrograde pyelogram cystoscopy with right ureteral stent placement Anesthesia: general Indications: 60-year-old female with solitary right kidney status post left radical nephrectomy over 15 years ago for malignancy. She has a 3 mm right distal ureteral calculus causing hydronephrosis and azotemia. The indications, risks, alternative and benefits of the ureteroscope epic laser lithotripsy and stent placement. All questions were encouraged and answered. Details of Procedure: Patient was taken to the operating room and underwent general anesthesia. She was placed in dorsal lithotomy position with the area of the genitalia prepped and draped in usual sterile manner. The cystoscope was assembled then u sed to access the bladder. The right ureteric orifice was identified and retrograde pyelogram was performed. There was no evidence of distal ureteral calculus. She did continue to show demonstrable [id number] right hydronephrosis. Guidewire was then placed and cystoscope was removed. Rigid ureteroscope was used to access the right distal ureter and followed to the mid and proximal ureter. No stones were identified. Keeping the guidewire in position, the ureteroscope was removed. Next a six Lao by 24 cm polaris loop ureteral stent was placed over the guidewire and properly positioned. Bladder was decompressed and the guidewire was removed. Patient was awakened and taken to recovery room in stable condition Specimens: Complications: Findings: patient will undergo cystoscopy with stent removal in two three weeks when her creatinine normalizes TINO BARBOSA MD Jun 09, 2025 14:11
[2025-06-09] MEDS ORDERED: ONDANSETRON HCL 4 MG/2 ML VIAL IV PRN (14:30)
--- NOTE | 2025-06-09 18:26 | DVH ---
C-ARM FLUOROSCOPY: PROCEDURE: Right ureteroscopic FLUOROSCOPY TIME: 47.9 seconds Air Kerma: 14.1 mgy FINDINGS: Spot intraoperative C arm radiographs demonstrating right ureteroscopy. IMPRESSION: Please refer to surgical report for detailed findings.
[2025-06-10] VITALS (10 sets, daily range): BP systolic 103–136; BP diastolic 61–81; PULSE 56–113; RESP 16–20; TEMP 97.1–99.1; O2SAT 0–100
[2025-06-10 06:19] LABS: Hematocrit 39.0 % (36.0-46.0); Hemoglobin 13.1 g/dL (12.2-16.2); Mean Corpuscular Hemoglobin 27.0 pg (28.0-32.0); Mean Corpuscular Volume 80.1 fL (80.0-100.0); Nucleated Red Blood Cells % 0.2 %
[2025-06-10 07:15] LABS: Sodium 144 mmol/L (136-145)
[2025-06-10 07:16] LABS: Anion Gap 11 (5-15)
[2025-06-10 07:21] LABS: BUN/Creatinine Ratio 12.0 (10.0-20.0); Glucose 94 mg/dL (74-106)
[2025-06-10 07:23] LABS: Blood Urea Nitrogen 34 mg/dL (9-23); Calcium 11.0 mg/dL (8.7-10.4); Carbon Dioxide 20 mmol/L (20-31); Chloride 113 mmol/L (98-107)
[2025-06-10 07:25] LABS: Potassium 6.0 mmol/L (3.5-5.1)
[2025-06-10] MEDS: SODIUM BICARB 8.4% 50Meq/50ml SYR INJ IV ONE (08:15)
[2025-06-10] MEDS: DEXTROSE (50%) 50ML SYRG IV ONE (08:23)
[2025-06-10] MEDS: InsuLIN REG 1unit/0.01ml Soln (100units/ml) IV ONE (08:51)
[2025-06-10] MEDS: ALBUTEROL SULF 2.5 MG/0.5ML(0.5%) NEB SOLN NEB ONE (08:53)
--- NOTE | 2025-06-10 18:56 | DVHPNRES ---
Progress Note Date Seen: Jun 10, 2025 Resident Creating Document: MORIAH RIVAS RESIDENT Has the PT tested + for MRSA If YES, has PT been informed?: No Medical Necessity Reason Pt with a Central, PICC or Fol: No Subjective Review of Systems Ashley Reed is a 60-year-old female, with past medical history of renal carcinoma with left nephrectomy (2021), CVA and, HTN. The patient came to the ED with chief complaint of 3 days of abdominal pain, localized in the right flank, 8/10, colicky/sharp-pain like, intermittent, that irradiated to the back and to the right inguinal area; associated with subjective fever, chills, diaphoresis, urinary retention, with sensation of incomplete voiding, nausea and vomit > #5, of gastric content, no blood. The patient denies diarrhea, chest pain, headache, weakness, dysuria, hematuria or other symptoms. Reports that is first time of episode. 1 day prior the admission, the pain worsen to 10/10, this prompted her visit to the ED. In the ED BP: was 207/114mmHg. WBC:13.0, Lactic acid: 3.5. CT scan showed: 3 mm obstructing right ureteral calculus with hydronephrosis. Also presents stable 1.6 cm anterior abdominal wall complex cyst. The patient was admitted for further assessment and management. Past medical history: Hypertension, CVA, left renal cell carcinoma status post nephrectomy three years ago. Surgical history: Two abdominal surgeries, nephrectomy of left kidney Family history: Noncontributory Social history: Lives in [place] with (next of kin). Smokes marijuana for over 50 years. Denies current tobacco, alcohol and other drug abuse Allergies: Codeine Home medication: Atenolol, paroxetine, sucralfate, carisoprodol, alprazolam, pantoprazole Hospital course: On 06/08/25, the patient was evaluated and examined at bedside. VS, labs and chart was reviewed. BP127/79mmHg, Lactic acid 2.0, WBC 7.4. US abdomen showed: [id number] right hydronephrosis. Left nephrectomy. The patient reports pain 9/10, reports that nausea and vomit have stopped since admission. The patient is on IV antibiotics, Ceftriaxone was d/c and Zocyn was started. The patient is om Tamsulosin 0.4mg po. Urology consult was placed. ECHO was requested. MRI was ordered due to complex cysts reported on CT abdomen. We will continue following up the progress of this patient. On 06/09/25, the patient was evaluated and examined at bedside. VS, labs and chart was reviewed. BP:145/86mmHg, WBC are trending down. creatinine has increased. The patient still report abdominal and back pain. Urology is on board; right ureteroscopic laser lithotripsy and right ureteral stent placement was ordered, the patient will go to the procedure today. We will continue following up the progress of this patient. . On 06/10/25, the patient was evaluated and examined at bedside. VS, labs and chart was reviewed. BP:136/79mmHg, WBC are9.0. The patient underwent: right ureteroscopic laser lithotripsy and right ureteral stent placement. The patient's creatinine has improved to 2.89. The patietn was hyperkalemic this morning, hyperkalemia protocol was started; Potassium improved to 4.1. The patient still report right flank and back pain, no new complaints were reported. We will continue following up the progress of this patient. ROS: Constitutional: Yes: denies fever and chills during the night, reports sweats and malaise Eyes: No: Pain, Vision change, Conjunctivae inflammation, Eyelid inflammation, Other, Redness ENT: No: Ear pain, Ear discharge, Nose pain, Nose discharge, Nose congestion, Mouth pain, Mouth swelling, Throat pain, Throat swelling, Other Respiratory: No: Cough, Dry, Shortness of breath, SOB with excertion, Wheezing, Hemoptysis, Pleuritic Pain, Sputum, Wheezing, Other Cardiovascular: No chest pain. no palpitations. Gastrointestinal: Patient reports right flank and back pain 7/10. Diarrhea, Constipation, Melena, Hematochezia, Other Genitourinary: No Dysuria, No Frequency, No Incontinence, No Hematuria; The patient report she is voiding without issues. Musculoskeletal: No: other, neck pain, shoulder pain, arm pain, back pain, hand pain, leg pain, foot pain Skin: No: Rash, Lesions, Jaundice, Bruising, Other Neurological: No: Weakness, Numbness, Incoordination, Change in speech, Confusion, Seizures, Other Objective vital signs Vital Sign Date Time Temp Pulse Resp B/P (MAP) Pulse Ox O2 Delivery O2 Flow Rate FiO2 06/10/25 17:23 99.1 86 16 133/71 (91) 99 99.1 06/10/25 08:53 Room Air 0.0 06/10/25 08:53 21 Total Intake and Output 06/09/25 06/09/25 06/10/25 15:00 23:00 07:00 Intake Total 25 ml 300 ml 1300 ml Balance 25 ml 300 ml 1300 ml medications Current Medications Medications Dose Ordered Sig/Jamar Route Start Time Stop Time Status Last Admin Dose Admin Acetaminophen 325 mg Q4HP PRN PO 06/07/25 15:15 06/07/25 20:11 325 MG Ondansetron HCl 4 mg Q4HP PRN IV 06/07/25 15:15 Morphine Sulfate 2 mg Q4HPRN PRN IV 06/07/25 15:15 06/10/25 15:10 2 MG Enoxaparin Sodium 30 mg DAILY SC 06/08/25 10:00 06/10/25 08:42 30 MG Tamsulosin HCl 0.4 mg QPM PO 06/07/25 18:00 06/09/25 18:20 0.4 MG Amlodipine Besylate 10 mg DAILY PO 06/08/25 10:00 06/10/25 08:37 10 MG Pantoprazole Sodium 40 mg DAILY IV 06/08/25 10:00 06/10/25 08:35 40 MG Piperacillin Sod/ Tazobactam Sod 100 ml @ 25 mls/hr Q12HR IV 06/08/25 10:00 06/10/25 10:00 25 MLS/HR Acetaminophen/ Hydrocodone Bitart 1 tab Q6HPRN PRN PO 06/08/25 09:00 06/10/25 12:20 1 TAB Examination General Appearance: In acute distress. Alert, Oriented X3, Cooperative, HEENT: Atraumatic, Mucous membranes moist/pink Respiratory: Clear to auscultation, Normal air movement, No added sounds Cardiovascular: Regular rate, Normal S1, Normal S2, No murmurs Abdominal: Active bowel sounds, Soft, no distention, tender to palpation on the right flank. : Irwin's catheter was removed. Costovertebral angle positive to percussion in right side. Extremities: No edema, Normal pulses, No tenderness/swelling Skin: No Significant rash, except past surgical scars in abdomen. Neuro: Normal speech, sensorimotor deficits none Psych/Mental Status: Mental status NL, Mood NL laboratory and microbiology Laboratory Tests 06/10/25 11:50 06/10/25 04:48 Test 06/10/25 04:48 Range/Units Serum Glucose 94 74-106 mg/dL Microbiology Date/Time Source Procedure Growth Status 06/07/25 22:50 Voided Urine Urine Culture - Final Complete 06/07/25 21:06 Blood Blood Culture - Preliminary NO GROWTH AFTER 48 HOURS OF INCUBATION. 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 - UA: positive for UTI -IV Fluids -IV antibiotics: Zocyn IV - Irwin catheter - Urine culture: Report Approximately 80,000 CFU/mL Mixed Sherie 3 [place] Types -Blood culture negative at 48hrs - CT abdomen and pelvis: A 3mm obstructing calculus in the distal right ureter causing mild right hydroureteronephrosis. Stable 1.6 cm nodule in the upper anterior abdominal wall, possibly a complex cyst. Recommend further evaluation with ultrasound - Continue Flomax 0.4 mg p.o. daily -Urology consult: Right ureteroscopic laser lithotripsy and right ureteral stent placement #Complex cyst in the abdominal wall R/O malignancy MRI abdomen: Small benign-appearing cystic structure within the anterior abdominal wall near the midline, possibly a sebaceous cyst. Stable mild right-sided hydronephrosis and hydroureter. #Hypertensive urgency #Hypertensive heart disease systolic/diastolic -Amlodipine 10mg po daily -ECHo: lvef 65 %, normal rv function, no severe valve abnormalities noted #AMNA on CKD duet to VMN Monitor Crea, BUN Avoid nephrotoxic drugs. Diet: Renal diet DVT prophylaxis Goals of care discussed with the patient > 35 min. Discussed plan of care with Dr. Oro Code status: Full code PCP: Lauryn. Plan discussed with: Patient, the patient agrees with the plan. Plan discussed with: Patient Dietary Evaluation Review Comments: 1) Add renal cardiac restriction to diet 2) Encourage optimal PO intake 3) Follow-up with urology and nephrology 4) Follow-up with social staff worker r/t polysubstance abuse 5) Continue to monitor I&O, labs, and skin integrity Expected Outcomes/Goals: 1) appetite and labs to improve 2) f/u in 3-5 days Date of Service: Jun 10, 2025 Billing Provider: NAEL ORO MD Common Visit Codes: [id number] INP/OBS CARE(HIGH) MORIAH RIVAS RESIDENT Jun 10, 2025 18:56 NAEL ORO MD Jun 10, 2025 21:43
[2025-06-10] MEDS: ONDANSETRON HCL 4 MG/2 ML VIAL IV PRN (23:36)
[2025-06-11 01:00] VITALS: BP 141/88; PULSE 65; RESP 16; TEMP 97.4; O2SAT 100
[2025-06-11 05:00] VITALS: BP 111/70; PULSE 59; RESP 15; TEMP 97.5; O2SAT 100
[2025-06-11 07:08] LABS: Hematocrit 34.4 % (36.0-46.0); Hemoglobin 11.8 g/dL (12.2-16.2); Mean Corpuscular Hemoglobin 27.0 pg (28.0-32.0); Mean Corpuscular Volume 78.3 fL (80.0-100.0); Nucleated Red Blood Cells % 0.1 %
[2025-06-11 07:31] LABS: Alanine Aminotransferase 16 U/L (7-40); Albumin 3.9 g/dL (3.2-4.8); Alkaline Phosphatase 87 U/L (46-116); Anion Gap 7 (5-15); BUN/Creatinine Ratio 10.7 (10.0-20.0); Blood Urea Nitrogen 18 mg/dL (9-23); Carbon Dioxide 24 mmol/L (20-31); Glucose 84 mg/dL (74-106); Total Protein 6.6 g/dL (5.7-8.2)
[2025-06-11 07:32] LABS: Bilirubin, Total 0.4 mg/dL (0.2-1.0)
[2025-06-11 07:33] LABS: Calcium 10.4 mg/dL (8.7-10.4); Chloride 114 mmol/L (98-107); Sodium 145 mmol/L (136-145)
[2025-06-11 07:37] LABS: Potassium 5.7 mmol/L (3.5-5.1)
[2025-06-11] MEDS: FUROSEMIDE 20 MG/2 ML VIAL IV ONE (07:45)
[2025-06-11] MEDS: InsuLIN REG 1unit/0.01ml Soln (100units/ml) IV ONE (07:45)
[2025-06-11 08:00] VITALS: PULSE 52; PULSE 53; RESP 19; O2SAT 99
[2025-06-11] MEDS: DEXTROSE (50%) 50ML SYRG IV ONE (08:23)
[2025-06-11] MEDS: SODIUM BICARB 8.4% 50Meq/50ml SYR INJ IV ONE (08:24)
[2025-06-11 08:59] VITALS: BP 144/77; PULSE 53; RESP 19; TEMP 98; O2SAT 99
[2025-06-11] MEDS ORDERED: AMLO1TAB23 PO (11:42)
[2025-06-11] MEDS ORDERED: NITR-52 PO (11:42)
[2025-06-11] MEDS ORDERED: SODIPOW6 OR (11:42)
[2025-06-11 12:49] VITALS: BP 146/77; PULSE 66; RESP 18; TEMP 98.3; O2SAT 100
[2025-06-11 13:40] VITALS: BP 113/84; PULSE 53; RESP 19; TEMP 98.6; O2SAT 99
[2025-06-11] MEDS ORDERED: FUROSEMIDE 40 MG/4 ML VIAL IV ONE (14:00)
[2025-06-11] MEDS ORDERED: SODIUM ZIRCONIUM CYCL 10 GM PAK PO ONE (14:00)
[2025-06-11] MEDS ORDERED: InsuLIN REG 1unit/0.01ml Soln (100units/ml) IV ONE (14:00)
[2025-06-11] MEDS ORDERED: DEXTROSE (50%) 50ML SYRG IV ONE (14:00)
[2025-06-11] MEDS ORDERED: SODIUM BICARB 8.4% 50Meq/50ml SYR INJ IV ONE (14:00)
[2025-06-11] MEDS ORDERED: SODIUM ZIRCONIUM CYCL 10 GM PAK PO SCH (14:00)
[2025-06-11] MEDS: ALBUTEROL SULF 2.5 MG/0.5ML(0.5%) NEB SOLN NEB ONE (14:50)
--- NOTE | 2025-06-12 11:15 | DVHDSRES ---
Discharge Summary Date of Admission Resident Creating Document: MORIAH RIVAS RESIDENT Jun 07, 2025 at 15:09 Date of Discharge: Jun 11, 2025 Admitting Diagnosis #Sepsis due to complicated acute UTI, possible acute pyelonephritis #Acute urinary retention possible due to acute nephrolithiasis #Solitary Kidney, history of nephrectomy due to Renal carcinoma in 2021 #Hypertensive urgency #Chronic Hypertensive heart disease systolic/diastolic failure #AMNA on CKD duet to [facility] #CKD Stage 3b Wounds: No wounds present on admission Labs/Diagnostic Data: Laboratory Results Test 06/11/25 11:32 06/11/25 08:27 06/11/25 06:45 06/11/25 06:40 Potassium Level 5.2 mmol/L (3.5-5.1) POC Glucose 100 mg/dl (70-106) White Blood Count 7.9 10^3/uL (4.4-10.8) Red Blood Count 4.39 10^6/uL (4.0-5.20) Hemoglobin 11.8 g/dL (12.2-16.2) Hematocrit 34.4 % (36.0-46.0) Mean Corpuscular Volume 78.3 fL (80.0-100.0) Mean Corpuscular Hemoglobin 27.0 pg (28.0-32.0) Mean Corpuscular Hemoglobin Concent 34.4 g/dL (32.0-36.0) Red Cell Distribution Width 16.5 % (11.8-14.3) Platelet Count 221 10^3/uL (140-450) Mean Platelet Volume 8.4 fL (6.9-10.8) Neutrophils (%) (Auto) 64.0 % (37.0-80.0) Lymphocytes (%) (Auto) 23.6 % (10.0-50.0) Monocytes (%) (Auto) 10.1 % (0.0-12.0) Eosinophils (%) (Auto) 1.2 % (0.0-7.0) Basophils (%) (Auto) 1.1 % (0.0-2.0) Neutrophils # (Auto) 5.1 10 ^3/uL (1.6-8.6) Lymphocytes # (Auto) 1.9 10 ^3/uL (0.4-5.4) Monocytes # (Auto) 0.8 10 ^3/uL (0-1.3) Eosinophils # (Auto) 0.1 10 ^3/uL (0-0.8) Basophils # (Auto) 0.1 10 ^3/uL (0-0.2) Nucleated Red Blood Cells 0.1 % Sodium Level 145 mmol/L (136-145) Chloride Level 114 mmol/L (98-107) Carbon Dioxide Level 24 mmol/L (20-31) Anion Gap 7 (5-15) Blood Urea Nitrogen 18 mg/dL (9-23) Creatinine 1.69 mg/dL (0.550-1.02) Glomerular Filtration Rate Calc 34 mL/min (>90) BUN/Creatinine Ratio 10.7 (10.0-20.0) Serum Glucose 84 mg/dL (74-106) Calcium Level 10.4 mg/dL (8.7-10.4) Total Bilirubin 0.4 mg/dL (0.2-1.0) Aspartate Amino Transferase (AST) 14 U/L (13-40) Alanine Aminotransferase (ALT) 16 U/L (7-40) Alkaline Phosphatase 87 U/L (46-116) Total Protein 6.6 g/dL (5.7-8.2) Albumin 3.9 g/dL (3.2-4.8) Test 06/10/25 04:48 06/07/25 22:50 06/07/25 17:50 06/07/25 13:09 Platelet Estimate Adequate Large Platelets Few Urine Color Colorless (Yellow) Urine Clarity Turbid (Clear) Urine pH 6.5 (5.0-9.0) Urine Specific [place] 1.005 (1.001-1.035) Urine Protein 1+ (Negative) Urine Ketones Negative (Negative) Urine Blood 3+ /uL (Negative) Urine Nitrite Negative (Negative) Urine Bilirubin Negative (Negative) Urine Urobilinogen Normal mg/dL (Negative) Urine Leukocyte Esterase 3+ /uL (Negative) Urine RBC 1212 /hpf (0 - 4) Urine WBC Clumps Present /hpf (None Seen) Urine Microscopic WBC 312 /HPF (0-5) Urine Squamous Epithelial Cells Few /hpf (<5) Urine Amorphous Crystals Few /hpf (None Seen) Urine Bacteria None seen /hpf (None Seen) Urine Glucose Normal mg/dL (Normal) Urine Opiates Screen Neg (NEGATIVE) Urine Fentanyl Screen Neg (NEGATIVE) Urine Barbiturates Screen Neg (NEGATIVE) Urine Phencyclidine Screen Neg (NEGATIVE) Urine Amphetamines Screen Pos (NEGATIVE) Urine Benzodiazepines Screen Neg (NEGATIVE) Urine Cocaine Screen Neg (NEGATIVE) Urine Cannabinoids Screen Pos (NEGATIVE) Lactic Acid Level 2.0 mmol/L (0.4-2.0) Prothrombin Time 10.0 sec (9.3-11.8) Prothrombin Time INR 0.94 (0.9-1.15) Activated Partial Thromboplast Time 26.9 SEC (24.5-34.5) Hemoglobin A1c 5.6 % A1C (<5.7) Phosphorus Level 3.6 mg/dL (2.4-5.1) Magnesium Level 2.4 mg/dL (1.6-2.6) Triglycerides Level 111 mg/dL (< 150) Cholesterol Level 260 mg/dL (< 200) LDL Cholesterol 146 mg/dL (< 100) HDL Cholesterol 97 mg/dL (40-59) Lipase 42 U/L (12-53) Vitamin B12 Level 287 pg/mL (211-911) Vitamin D 25-Hydroxy 8.5 ng/mL (30.0-100) Thyroid Stimulating Hormone (TSH) 0.70 uIU/mL (0.55-4.78) Other Laboratory Tests 06/11/25 11:32 06/11/25 06:45 06/11/25 06:40 Brief Hx & Hospital Course: Ashley Reed is a 60-year-old female, with past medical history of renal carcinoma with left nephrectomy (2021), CVA and, HTN. The patient came to the ED with chief complaint of 3 days of abdominal pain, localized in the right flank, 8/10, colicky/sharp-pain like, intermittent, that irradiated to the back and to the right inguinal area; associated with subjective fever, chills, diaphoresis, urinary retention, with sensation of incomplete voiding, nausea and vomit > #5, of gastric content, no blood. The patient denies diarrhea, chest pain, headache, weakness, dysuria, hematuria or other symptoms. Reports that is first time of episode. 1 day prior the admission, the pain worsen to 10/10, this prompted her visit to the ED. In the ED BP: was 207/114mmHg. WBC:13.0, Lactic acid: 3.5. CT scan showed: 3 mm obstructing right ureteral calculus with hydronephrosis. Also presents stable 1.6 cm anterior abdominal wall complex cyst. The patient was admitted for further assessment and management. Past medical history: Hypertension, CVA, left renal cell carcinoma status post nephrectomy three years ago. Surgical history: Two abdominal surgeries, nephrectomy of left kidney Family history: Noncontributory Social history: Lives in [place] with (next of kin). Smokes marijuana for over 50 years. Denies current tobacco, alcohol and other drug abuse Allergies: Codeine Home medication: Atenolol, paroxetine, sucralfate, carisoprodol, alprazolam, pantoprazole Hospital course: On 06/08/25, the patient was evaluated and examined at bedside. VS, labs and chart was reviewed. BP127/79mmHg, Lactic acid 2.0, WBC 7.4. US abdomen showed: [id number] right hydronephrosis. Left nephrectomy. The patient reports pain 9/10, reports that nausea and vomit have stopped since admission. The patient is on IV antibiotics, Ceftriaxone was d/c and Zocyn was started. The patient is om Tamsulosin 0.4mg po. Urology consult was placed. ECHO was requested. MRI was ordered due to complex cysts reported on CT abdomen. We will continue following up the progress of this patient. On 06/09/25, the patient was evaluated and examined at bedside. VS, labs and chart was reviewed. BP:145/86mmHg, WBC are trending down. creatinine has increased. The patient still report abdominal and back pain. Urology is on board; right ureteroscopic laser lithotripsy and right ureteral stent placement was ordered, the patient will go to the procedure today. We will continue following up the progress of this patient. . On 06/10/25, the patient was evaluated and examined at bedside. VS, labs and chart was reviewed. BP:136/79mmHg, WBC are9.0. The patient underwent: right ureteroscopic laser lithotripsy and right ureteral stent placement. The patient's creatinine has improved to 2.89. The patient had hyperkalemia this morning, hyperkalemia protocol was started; Potassium improved to 4.1. The patient still report right flank and back pain, no new complaints were reported. We will continue following up the progress of this patient. On 06/11/25, the patient was evaluated and examined at bedside. VS, labs and chart was reviewed. BP:144/77mmHg,afebril for the last 48hrs. WBC wnl 7.9. The patient's creatinine has improved to 1.69. The patient had hyperkalemia this morning, hyperkalemia protocol was started; Potassium improved. The patient report right flank and back pain improved to 2/10, no new complaints were reported. The patient is being discharge today, she will f/u with urology as an out patient and f/u in D/C clinic and with pcp in one week. ROS: Constitutional: denies fever and chills during the night, reports feeling better today. Eyes: No: Pain, Vision change, Conjunctivae inflammation, Eyelid inflammation, Other, Redness ENT: No: Ear pain, Ear discharge, Nose pain, Nose discharge, Nose congestion, Mouth pain, Mouth swelling, Throat pain, Throat swelling, Other Respiratory: No: Cough, Dry, Shortness of breath, SOB with excertion, Wheezing, Hemoptysis, Pleuritic Pain, Sputum, Wheezing, Other Cardiovascular: No chest pain. no palpitations. Gastrointestinal: Patient reports right flank and back pain 2/10. Denies: Diarrhea, Constipation, Melena, Hematochezia, Other Genitourinary: No Dysuria, No Frequency, No Incontinence, No Hematuria. Musculoskeletal: No: other, neck pain, shoulder pain, arm pain, back pain, hand pain, leg pain, foot pain Skin: No: Rash, Lesions, Jaundice, Bruising, Other Neurological: No: Weakness, Numbness, Incoordination, Change in speech, Confusion, Seizures, Other Consults/Reason for consult Urology: Nephrolithiasis Operations or Procedures PROCEDURE(s): ABPL - CT AB PEL WO CON-NO ORAL OR IV REASON: colitis ORDER NUMBER(s): [id number], ACCESSION NUMBER(s): [id number] EXAM DESCRIPTION: CT CT AB PEL WO CON-NO ORAL OR IV CLINICAL HISTORY: colitis COMPARISON: CT CT AB PEL WO CON-NO ORAL OR IV on DOS: 04/08/25, CT CT AB PEL WO CON-NO ORAL OR IV on DOS: 11/23/24, CT CT AB PEL WO CON-NO ORAL OR IV on DOS: 02/02/23, CT ABD/PEL on DOS: 01/15/23 TECHNIQUE: CT abdomen and pelvis without IV contrast was performed. Coronal and sagittal MPR images were generated.CTDI/ DLP = / Dose reduction technique with one or more of the following methods was performed: Automated exposure control, adjustment of the mA and/or kV according to patient size, use of iterative reconstruction te[place] FINDINGS: Lower chest: Clear lung bases. Liver: Homogenous in attenuation. . Biliary: Status post cholecystectomy. No biliary ductal dilatation. Pancreas: No fat stranding or focal lesion. Spleen: Normal in size.. Adrenal glands: No nodularity. Kidneys: Status post left nephrectomy. A couple punctate right renal calculi. 3 mm calculus at the distal right ureter with mild right hydronephrosis. Bladder: No bladder wall thickening. Reproductive organs: Normal. Bowel: No bowel wall thickening or dilatation. Small hernia in the left posterior abdominal wall with a short segment of the vcolon within the hernia SAC, no evidence of obstruction. Normal appendix.. Postoperative changes from gastrojejunostomy. Peritoneum: No free fluid. No free air. Vessels: Normal caliber abdominal aorta. . Lymph nodes: No suspicious lymph nodes. Soft tissues: Stable 1.6 cm nodule in the upper anterior abdominal wall, measuring slightly above fluid attenuation. . Osseous structures: No acute fracture or subluxation. No suspicious osseous lesions. Degenerative changes of the visualized thoracolumbar spine. IMPRESSION: 1. A 3mm obstructing calculus in the distal right ureter causing mild right hydroureteronephrosis. 2. Stable 1.6 cm nodule in the upper anterior abdominal wall, possibly a complex cyst. Recommend further evaluation with ultrasound. EDURE(s): ABDL - ABDOMEN LIMITED REASON: Complicated cyst in anterior abdominal wall ORDER NUMBER(s): [id number], ACCESSION NUMBER(s): [id number] Exam: US ABDOMEN LIMITED Date: 06/07/2025 03:38 PM Clinical History: Complicated cyst in anterior abdominal wall Comparison: None Technique: Targeted sonographic evaluation of the soft tissues of the anterior abdominal wall was obtained utilizing grayscale and color Doppler imaging. Findings: There is no evidence for drainable collection. There is no evidence for solid or cystic mass in the site. No vascular abnormalities identified at this site. Avascular cystic structure in the mid anterior abdominal wall measuring 1.6 x 1 x 1.7 cm corresponding to palpable abnormality. IMPRESSION: 1. Complex cystic structure subcutaneous tissues anterior abdominal wall measuring 1.6 x 1 x 1.7 cm. EDURE(s): CXR1 - CHEST XRAY 1 VIEW REASON: Hypertensive urgency ORDER NUMBER(s): [id number], ACCESSION NUMBER(s): [id number] EXAM: XY CHEST XRAY 1 VIEW CLINICAL HISTORY: Hypertensive urgency TECHNIQUE: Single AP view of the chest WID: COMPARISON: XY CHEST PORTABLE on DOS: 04/13/25 FINDINGS: Lines and tubes: None Chest: The heart size and pulmonary vasculature is within normal limits. No pleural effusion, pneumothorax, or consolidation. The osseous structures are grossly intact. IMPRESSION: 1. No acute cardiopulmonary abnormality. EDURE(s): KIDUS - KIDNEY REASON: Evaluate correct Irwin placement ORDER NUMBER(s): [id number], ACCESSION NUMBER(s): [id number] INDICATION: Evaluate correct Irwin placement TECHNIQUE: Multiple real-time sonographic images of the kidneys and bladder were obtained. COMPARISON: Same day CT abdomen/pelvis FINDINGS: RIGHT kidney measures 15.2 cm in length. Htto-zs-wpgqeinr hydronephrosis. No visualized stone or renal lesion. Left kidney is surgically absent. The bladder is collapsed with a Irwin catheter in place. No visualized ascites. IMPRESSION: 1. Bvqw-sy-upnouuut right hydronephrosis. 2. Left nephrectomy. EDURE(s): MRIABDPWOC - MRI ABD PELVIS W/O CONT REASON: ORDER NUMBER(s): [id number], ACCESSION NUMBER(s): [id number] MRI abdomen pelvis without contrast Exam Date: 06/08/2025 04:52 PM Comparison: CT CT AB PEL WO CON-NO ORAL OR IV on DOS: 06/07/25, CT CT AB PEL WO CON-NO ORAL OR IV on DOS: 04/08/25, CT CT AB PEL WO CON-NO ORAL OR IV on DOS: 11/23/24, CT CT AB PEL WO CON-NO ORAL OR IV on DOS: 02/02/23, CT ABD/PEL on DOS: 01/15/23 History: Complex cystic structure anterior abdominal wall noted on CT and ultrasound. Technique: multiplanar multisequence MR imaging of the abdomen and pelvis was performed without contrast. Findings: Liver: The liver is normal in size without focal lesions. Normal liver contour. Spleen: Unremarkable. Pancreas: Pancreatic duct borderline in diameter measuring 0.4 cm without obstructing lesion seen. Gallbladder and ducts: Previous cholecystectomy. Minimally prominent CBD and central intrahepatic biliary ducts likely related to prior surgery. Adrenal glands: Unremarkable. Kidneys: Prior left nephrectomy. Mild right-sided hydronephrosis and hydroureter extending into the pelvis, grossly similar. Stable mild perinephric and periureteric edema. A Irwin catheter in-situ. Visualized bowel: Grossly unremarkable. Vasculature: Unremarkable. Lymphadenopathy: No evidence for lymphadenopathy. Ascites: Trace ascites. Musculoskeletal: Bone marrow signal is normal. Small thick-walled cystic appearing structure within the upper anterior abdominal wall near the midline measuring 1.3 cm. Please note contrast was not administered. This matches fluid intensity signal on all sequences. IMPRESSION: Small benign-appearing cystic structure within the anterior abdominal wall near the midline, possibly a sebaceous cyst. Stable mild right-sided hydronephrosis and hydroureter. EDURE(s): KUB - KUB ABDOMEN SINGLE VIEW REASON: RIGHT URETEROSCOPE ORDER NUMBER(s): [id number], ACCESSION NUMBER(s): [id number] C-ARM FLUOROSCOPY: PROCEDURE: Right ureteroscopic FLUOROSCOPY TIME: 47.9 seconds Air Kerma: 14.1 mgy FINDINGS: Spot intraoperative C arm radiographs demonstrating right ureteroscopy. IMPRESSION: Please refer to surgical report for detailed findings. Condition at Discharge: Stable Final Diagnosis/Problems List #Sepsis due to complicated UTI, possible pyelonephritis #Acute urinary retention due to obstructive nephrolithiasis #Right ureterolithiasis with hydronephrosis, status post lithotripsy with ureteral stent placement. #Solitary Kidney post nephrectomy due to Renal carcinoma. #Complex cyst in the abdominal wall #Hypertensive urgency #Hypertensive heart disease systolic/diastolic failure #AMNA on CKD duet to [facility] #Acute hyperkalemia #CKD Stage 3b #Chronic Drug abuse, chronic methamphetamine abuse. Discharge Disposition: Home SNF Discharge Will this Physician continue t: No Discharge Instruct/Medications Diet: Renal Activity: No Restrictions, As Tolerated Follow Up/Referral: F/U with Urology in 1 week F/U with D/C clinic in 7 days Medications: As per EMR Scheduled Amlodipine Besylate (Amlodipine Besylate), 1 TAB PO DAILY Atenolol (Atenolol), 1 TAB PO DAILY, (Reported) Nitrofurantoin (Nitrofurantoin), 1 CAP PO BID Sodium Polystyrene Sulfonate (Kalexate), 1 AZIZA OR DAILY Discharge Statement: "Patient was advised to return to the ER or call 911 if any headaches, dizziness, shortness of breath, chest pain, abdominal pain, bleeding, fevers, or worsening of medical condition. Patient was counseled about treatment plan, medications, possible side effects, patientverbalized understanding. All questions were answered to the best of my ability. This discharge took greater then 30 minutes in planning, reviewing documentation, counseling the patient, and discussing with other team members." ASSESSMENT ASSESSMENT Assessment #Sepsis due to complicated acute UTI, possible acute pyelonephritis #Acute urinary retention due to acute obstructive nephrolithiasis #Acute right ureterolithiasis with acute hydronephrosis #Solitary Kidney, history of nephrectomy due to Renal carcinoma in 2021 #Complex cyst in the abdominal wall #Hypertensive urgency #Chronic Hypertensive heart disease systolic/diastolic failure #AMNA on CKD duet to [facility] #Acute hyperkalemia #CKD Stage 3b #Chronic Drug abuse, chronic methamphetamine abuse. Date of Service: Jun 11, 2025 Billing Provider: NAEL SCOTT MD Common Visit Codes: 60966-GHQ/OBS DISCH DAY >30min Date of Service: Jun 11, 2025 Billing Provider: NAEL SCOTT MD Common Visit Codes: 84793-PQK/OBS DISCH DAY >30min MORIAH RIVAS Jun 11, 2025 13:58 NAEL SCOTT MD Jun 12, 2025 23:27
== END 2025-06-11 14:13 | disposition home or self-care (01) | DRG 720 ==
LOC: ER 11:33 → EDUNIT# 11:33 → EDBD 11:33 → OVERFLOW 15:09 → TELE-CENTR 21:30
PROVIDERS: ADMIT Internal Medicine; ATTEND Internal Medicine
PROC: BT1D1ZZ Fluoroscopy of Right Kidney, Ureter and Bladder using Low Osmolar Contrast (ICD-10-PCS; 2025-06-09)
PROC: 0T768DZ Dilation of Right Ureter with Intraluminal Device, Via Natural or Artificial Opening Endoscopic (ICD-10-PCS; principal; 2025-06-09 13:07)
DX: A41.9 Sepsis, unspecified organism (principal); N17.0 Acute kidney failure with tubular necrosis; I13.0 Hypertensive heart and chronic kidney disease with heart failure and stage 1 through stage 4 chronic kidney disease, or unspecified chronic kidney disease; I50.42 Chronic combined systolic (congestive) and diastolic (congestive) heart failure; N13.6 Pyonephrosis; F12.10 Cannabis abuse, uncomplicated; E11.22 Type 2 diabetes mellitus with diabetic chronic kidney disease; N18.32 Chronic kidney disease, stage 3b; F32.A Depression, unspecified; I16.0 Hypertensive urgency; R33.9 Retention of urine, unspecified; E87.5 Hyperkalemia; F17.210 Nicotine dependence, cigarettes, uncomplicated; K21.9 Gastro-esophageal reflux disease without esophagitis; F15.10 Other stimulant abuse, uncomplicated; F41.9 Anxiety disorder, unspecified; R79.89 Other specified abnormal findings of blood chemistry; Z86.73 Personal history of transient ischemic attack (TIA), and cerebral infarction without residual deficits; Z90.5 Acquired absence of kidney; Z90.49 Acquired absence of other specified parts of digestive tract; Z85.528 Personal history of other malignant neoplasm of kidney; Z88.5 Allergy status to narcotic agent; Z79.899 Other long term (current) drug therapy
CPT/HCPCS: 36415; 71045; 72195; 74018; 74176; 74181; 76000; 76705; 76775; 80048; 80053; 80061; 80307; 81001; 82306; 82607; 82962; 83036; 83605; 83690; 83735; 84100; 84132; 84443; 85025; 85610; 85730; 87040; 87086; 93306; 94640; 96360; G0378; J1100; J1815; J1885; J2003; J2250; J2405; J2470; J2543; J2704

== ENCOUNTER 2025-06-13 13:19 | Inpatient (IN) | payer MEDICAID ==
[~2025-06-13] VITALS: Ht 162.6 cm; Wt 76.7 kg
[~2025-06-13 13:19] MED LIST changes: -ALPR0.25 PO; +AMLO1TAB23 PO; +ATEN-60 PO; -CARI250T PO; +NITR-52 PO; -NOR10T PO; -PANT40TA57 PO; -PAR20T PO; +SODIPOW6 OR; -SUCR1SUS26 PO
[2025-06-13 14:38] VITALS: PULSE 61; RESP 17; O2SAT 99
--- NOTE | 2025-06-13 14:41 | ED.PDOC ---
General HPI Comments 60-year-old female, with past medical history of renal carcinoma with left nephrectomy (2021), CVA and HTN, presents to the ED for a chief complaint of right sided abdominal pain radiating to her back associated with urinary retention and UA urgency. Patient was seen at his hospital on 06/08/25 for the same complaint, was admitted and underwent a right ureteroscopic laser lithotripsy and right ureteral stent placement. Patient states since admission, patient has not gone away, describes it as sharp, constant and has no alleviating or precipitating factors. She denies any fever, chills, nausea, vomiting. Chief Complaint: Urinary Time Seen by MD: 14:12 Primary Care Provider: KRIS Reviewed notes: Nurses Notes, Medications, Allergies Allergies: Coded Allergies: Codeine (Verified Allergy, Unknown, 09/01/15) Home Meds Active Scripts Amlodipine Besylate (Amlodipine Besylate) 10 Mg Tab, 1 TAB PO DAILY for 30 Days, #30 TAB 3 Refills Prov:WILFREDO TERRY RESIDENT 06/11/25 Nitrofurantoin (Nitrofurantoin) 100 Mg Cap, 1 CAP PO BID for 5 Days, #10 CAP Prov:WILFREDO TERRY RESIDENT 06/11/25 Sodium Polystyrene Sulfonate (Kalexate) Pow, 1 AZIZA OR DAILY for 10 Days, #10 POW Prov:WILFREDO TERRY RESIDENT 06/11/25 Reported Medications Atenolol (Atenolol) 25 Mg Tab, 1 TAB PO DAILY, #30 TAB 5 Refills 06/07/25 Information Source: Patient Mode of Arrival: EMS Severity: Moderate Inability to void: None Timing: Days (3-4) Duration: Since onset Onset: Spontaneous Symptoms: Urgency, Inability to void History of: UTI, Kidney stone Location: Abdomen, (R) Flank associated signs and symptoms: Abdominal Pain, Flank Pain, Back Pain, Urgency, Inability to Void Past Medical History PAST MEDICAL HISTORY: Anxiety, Cancer, Depression, DM, GERD, HTN Surgical History: Cholecystectomy [employer] History: No Pertinent [employer] History Family History Family History: Unobtainable Social History Smoker: Cigarettes, Less Than 1 Pack/Day Alcohol: Denies ETOH Use Drugs: Marijuana, Methamphetamine Lives In: Home Constitutional: denies: chills, diaphoresis, fatigue, fever, malaise, sweats, weakness, others EENTM: denies: blurred vision, double vision, ear bleeding, ear discharge, ear drainage, ear pain, ear ringing, eye pain, eye redness, hearing loss, mouth pain, mouth swelling, nasal discharge, nose bleeding, nose congestion, nose pain, photophobia, tearing, throat pain, throat swelling, voice changes, others Respiratory: denies: cough, hemoptysis, orthopnea, SOB at rest, shortness of breath, SOB with excertion, stridor, wheezing, others Cardiovascular: denies: chest pain, dizzy spells, diaphoresis, Dyspnea on exertion, edema, irregular heart beat, left arm pain, lightheadedness, palpitations, PND, syncope, others Gastrointestinal: reports: abdominal pain; denies: abdomen distended, blood streaked bowels, constipated, diarrhea, dysphagia, difficulty swallowing, hematemesis, melena, nausea, poor appetite, poor fluid intake, rectal bleeding, rectal pain, vomiting, others Genitourinary: reports: flank pain, urgency; denies: abnormal vagina bleeding, burning, dyspareunia, dysuria, frequency, hematuria, incontinence, pain, , vagina discharge, others Neurological: denies: dizziness, fainting, headache, left sided numbness, left sided weakness, numbness, paresthesia, pre-existing deficit, right sided numbness, right sided weakness, seizure, speech problems, tingling, tremors, weakness, others Musculoskeletal: reports: back pain; denies: gout, joint pain, joint swelling, muscle pain, muscle stiffness, neck pain, others Integumetry: denies: bruises, change in color, change in hair/nails, dryness, laceration, lesions, lumps, rash, wounds, others Allergic/Immunocompromised: denies: Difficulty Healing, Frequent Infections, Hives, Itching, others Hematologic/Lymphatic: denies: anemia, blood clots, easy bleeding, easy bruising, swollen glands, others Endocrine: denies: excessive hunger, excessive sweating, excessive thirst, excessive urination, flushing, intolerance to cold, intolerance to heat, unexplained weight gain, unexplained weight loss, others Psychiatric: denies: anxiety, bipolar disorder, depression, hopeless, panic disorder, schizophrenia, sleepless, suicidal, others All Other Systems: Reviewed and Negative Physical Exam General Appearance: Moderate Distress HEENT: Normal ENT Inspection, Pharynx Normal, TMs Normal Neck: Full Range of Motion, Non-Tender, Normal, Normal Inspection Respiratory: Chest Non-Tender, Lungs Clear, No Accessory Muscle Use, No Respiratory Distress, Normal Breath Sounds Cardiovascular: No Edema, No JVD, No Murmur, No Gallop, Normal Peripheral Pulses, Regular Rate/Rhythm Breast Exam: Deferred Gastrointestinal: No Organomegaly, Non Tender, No Pulsatile Mass, Normal Bowel Sounds, Soft Genitalia: Deferred Pelvic: Deferred Rectal: Deferred Extremities: No calf tenderness, Normal capillary refill, Normal inspection, Normal range of motion, Non-tender, No pedal edema Musculoskeletal : Apperance: Normal Neurologic: Alert, creasing and cutting press feeder II-XII nml as Tested, No Motor Deficits, Normal Affect, Normal Mood, No Sensory Deficits Cerebellar Function: NOT DONE Reflexes: NOT DONE Skin: Dry, Normal Color, Warm Peripheral Pulses: 3+ Radial (R), 3+ Radial (L) Lymphatic: No Adenopathy Was a procedure done? Was a procedure done?: No Differential Diagnosis Kidney stone (Female): Musculoskeletal pain, Ovarian torsion, Pancreatitis, Pyelonephritis, Strain, Urinary obstruction, Urolithiasis Urinary Problem (Male): Plelonephritis Urinary Problem (Female): Impaction, PID, Post-op complication, Pyelonephritis, Urinary retention, Urolithiasis, UTI X-Ray, Labs, Meds, VS Vital Signs Date Time Temp Pulse Resp B/P (MAP) Pulse Ox O2 Delivery O2 Flow Rate FiO2 06/13/25 16:06 60 17 133/72 06/13/25 16:00 60 19 143/99 (114) 99 06/13/25 15:36 67 17 143/99 06/13/25 14:43 99 Room Air* 0 21 06/13/25 14:38 61 17 99 Room Air* 0 21 06/13/25 14:36 97.9 61 19 140/94 (109) 99 97.9 06/13/25 14:12 99.2 94 18 156/78 98 99.2 Lab Test 06/13/25 16:17 06/13/25 00:00 Range/Units White Blood Count 8.3 4.4-10.8 10^3/uL Red Blood Count 5.40 H 4.0-5.20 10^6/uL Hemoglobin 14.6 # 12.2-16.2 g/dL Hematocrit 42.8 # 36.0-46.0 % Mean Corpuscular Volume 79.2 L 80.0-100.0 fL Mean Corpuscular Hemoglobin 27.1 L 28.0-32.0 pg Mean Corpuscular Hemoglobin Concent 34.2 32.0-36.0 g/dL Red Cell Distribution Width 16.9 H 11.8-14.3 % Platelet Count 303 140-450 10^3/uL Mean Platelet Volume 8.0 6.9-10.8 fL Neutrophils (%) (Auto) 54.9 37.0-80.0 % Lymphocytes (%) (Auto) 32.1 10.0-50.0 % Monocytes (%) (Auto) 11.1 0.0-12.0 % Eosinophils (%) (Auto) 1.3 0.0-7.0 % Basophils (%) (Auto) 0.6 0.0-2.0 % Neutrophils # (Auto) 4.6 1.6-8.6 10 ^3/uL Lymphocytes # (Auto) 2.7 0.4-5.4 10 ^3/uL Monocytes # (Auto) 0.9 0-1.3 10 ^3/uL Eosinophils # (Auto) 0.1 0-0.8 10 ^3/uL Basophils # (Auto) 0 0-0.2 10 ^3/uL Nucleated Red Blood Cells 0.1 % Sodium Level 140 # 136-145 mmol/L Potassium Level 4.9 3.5-5.1 mmol/L Chloride Level 110 H 98-107 mmol/L Carbon Dioxide Level 19 L 20-31 mmol/L Anion Gap 11 5-15 Blood Urea Nitrogen Pending Creatinine Pending Glomerular Filtration Rate Calc Pending BUN/Creatinine Ratio Pending Serum Glucose Pending Calcium Level 11.3 H 8.7-10.4 mg/dL Troponin I High Sensitivity Pending Urine Color Colorless Yellow Urine Clarity Turbid H Clear Urine pH 6.0 5.0-9.0 Urine Specific [place] 1.010 1.001-1.035 Urine Protein 1+ H Negative Urine Ketones Negative Negative Urine Blood 3+ H Negative /uL Urine Nitrite Negative Negative Urine Bilirubin Negative Negative Urine Urobilinogen Normal Negative mg/dL Urine Leukocyte Esterase 3+ Negative /uL Urine RBC 1195 0 - 4 /hpf Urine Microscopic WBC 32 H 0-5 /HPF Urine Squamous Epithelial Cells None seen <5 /hpf Urine Bacteria None seen None Seen /hpf Urine Mucus Few None Seen Urine Glucose Normal Normal mg/dL Current Medications Medications (Trade) Dose Ordered Sig/Jamar Route Start Time Stop Time Status Last Admin Sodium Chloride 1,000 ml @ 1,000 mls/hr Q1H ONCE IV 06/13/25 15:30 06/13/25 16:29 DC 06/13/25 15:36 Sodium Chloride 1,000 ml @ 150 mls/hr Q6H40M ONCE IV 06/13/25 15:30 06/13/25 22:09 06/13/25 15:36 Morphine Sulfate 2 mg ONCE ONCE IV 06/13/25 15:30 06/13/25 15:31 DC 06/13/25 15:36 Ondansetron HCl (Zofran) 4 mg ONCE ONCE IV 06/13/25 15:30 06/13/25 15:31 DC 06/13/25 15:35 Patient alert. Complaining of suprapubic pain. History of bladder. Vitals stable. Establish intravenous access. Was given fluids. Was given pain medication. Was given Zofran. UA shows UTI. Was given Rocephin. Explained to the patient. Continue monitoring. Time of 1ST Reevaluation: 14:37 Reevaluation 1ST: Unchanged Patient Education/Counseling: Diagnosis, Treatment, Prognosis Family Education/Counseling: No Family Present SEPSIS Sepsis Screen Date sepsis recognized/suspect: Jun 13, 2025 Time Sepsis recognized/suspect: 1330 Recent Procedure: No On Antibiotic Therapy: No Respiratory Rate >20: No Heart Rate >90: No Temp<36 C (96.8 F) or >38.3 C: No SBP <90 or MAP <65 mmHG: No New Acute Mental Status Change: No Is the patient on CPAP, BIPAP,: No Physician Orders Troponin-I Hs (06/13/25 15:18) Basic Metabolic Panel (06/13/25 15:18) Sodium Chloride 0.9% (06/13/25 15:30) Insert/Manage Urinary Catheter QSHIFT (06/13/25 15:55) Vital Signs Date Time Temp Pulse Resp B/P (MAP) Pulse Ox O2 Delivery O2 Flow Rate FiO2 06/13/25 16:06 60 17 133/72 06/13/25 16:00 60 19 143/99 (114) 99 06/13/25 15:36 67 17 143/99 06/13/25 14:43 99 Room Air* 0 21 06/13/25 14:38 61 17 99 Room Air* 0 21 06/13/25 14:36 97.9 61 19 140/94 (109) 99 97.9 06/13/25 14:12 99.2 94 18 156/78 98 99.2 Laboratory Tests Test 06/13/25 16:17 White Blood Count 8.3 10^3/uL (4.4-10.8) Medications Medications Dose Ordered Sig/Jamar Route Start Time Stop Time Status Last Admin Dose Admin Morphine Sulfate 2 mg ONCE ONCE IV 06/13/25 15:30 06/13/25 15:31 DC 06/13/25 15:36 Ondansetron HCl 4 mg ONCE ONCE IV 06/13/25 15:30 06/13/25 15:31 DC 06/13/25 15:35 Sodium Chloride 1,000 ml @ 150 mls/hr Q6H40M ONCE IV 06/13/25 15:30 06/13/25 22:09 06/13/25 15:36 Sodium Chloride 1,000 ml @ 1,000 mls/hr Q1H ONCE IV 06/13/25 15:30 06/13/25 16:29 DC 06/13/25 15:36 Departure 1 Departure Time of Disposition: 16:41 Impression: Primary Impression: Sepsis due to urinary tract infection Additional Impression: Hypertensive urgency Disposition: ADMITTED INPATIENT Admit to: Med Surg Condition: Guarded Critical Care Note Critical Care Time?: No Stability Stability form required: No I personally scribed for ISATU RAMIREZ MD ([email or web address]) on 06/13/25 at 14:41. Electronically submitted by Radha Faust ([facility]). ISATU RAMIREZ MD Jun 13, 2025 14:41
[2025-06-13] MEDS: ONDANSETRON HCL 4 MG/2 ML VIAL IV ONE (15:35)
[2025-06-13] MEDS: SODIUM CHLORIDE 0.9% 1,000 ML IV ONE ×2 (15:36)
[2025-06-13] MEDS: MORPHINE SULFATE INJ 2 MG/ml SYRG IV ONE (15:36)
[2025-06-13 16:30] LABS: Hematocrit 42.8 % (36.0-46.0); Hemoglobin 14.6 g/dL (12.2-16.2); Mean Corpuscular Hemoglobin 27.1 pg (28.0-32.0); Mean Corpuscular Volume 79.2 fL (80.0-100.0); Nucleated Red Blood Cells % 0.1 %
[2025-06-13 16:31] LABS: Urine Protein, UAD 1+ (Negative)
[2025-06-13 16:36] LABS: Chloride 110 mmol/L (98-107); Potassium 4.9 mmol/L (3.5-5.1); Sodium 140 mmol/L (136-145)
[2025-06-13 16:37] LABS: Anion Gap 11 (5-15); Carbon Dioxide 19 mmol/L (20-31)
[2025-06-13 16:38] LABS: Calcium 11.3 mg/dL (8.7-10.4)
[2025-06-13 16:42] LABS: BUN/Creatinine Ratio 10.3 (10.0-20.0); Blood Urea Nitrogen 14 mg/dL (9-23); Glucose 90 mg/dL (74-106)
[2025-06-13] MEDS ORDERED: MAALOX PLUS or MAALOX 30 ML PO PRN (17:00)
[2025-06-13] MEDS ORDERED: NITROGLYCERIN 0.4 MG SL TAB SL PRN (17:00)
[2025-06-13] MEDS ORDERED: DOCUSATE SOD 100 MG CAP PO PRN (17:00)
[2025-06-13] MEDS ORDERED: ACETAMINOPHEN 325 MG TAB PO PRN (17:00)
[2025-06-13] MEDS ORDERED: MORPHINE SULFATE INJ 2 MG/ml SYRG IV PRN (17:00)
[2025-06-13 17:30] LABS: Amphetamine Screen, Urine Pos (NEGATIVE); Barbiturate Scree,Urine Neg (NEGATIVE); Benzodiazephine Screen, Urine Neg (NEGATIVE); Cannabinoid Screen, Urine Pos (NEGATIVE); Cocaine Screen, Urine Neg (NEGATIVE); Opiate Scree,Urine Neg (NEGATIVE); Phencyclidine Screen, Urine Neg (NEGATIVE)
[2025-06-13] MEDS ORDERED: VANCOMYCIN PER PHARMACY 0 MG IV SCH (17:30)
[2025-06-13] MEDS: PNEUMOCOCCAL VACC POLYS 25 MCG/0.5 ML VIAL IM ONE (17:59)
[2025-06-13] MEDS: CEFEPIME 1GM/50ML 50 ML IV SCH (18:04)
[2025-06-13 18:14] LABS: Protein, Urine 122.2 mg/dL (1-14)
[2025-06-13] MEDS: MORPHINE SULFATE INJ 2 MG/ml SYRG IV PRN (19:05)
[2025-06-13] MEDS: PANTOPRAZOLE 40 MG/10 ML VIAL INJ IV ONE (19:05)
--- NOTE | 2025-06-13 19:14 | DVHHPRES ---
History of Present Illness Resident Creating Document: MIGUEL BARAJAS RESIDENT History of Present Illness Ms. Zaidi, a 60-year-old female with a history of renal carcinoma status post left nephrectomy (2021), cholecystectomy, recurrent UTI, renal stone s/p ESWL and stent, active smoker, marijuana and methamphetamine abuser, prior stroke, anxiety disorder, pre-diabetes, GERD, hypertension and poor health adherence presents to the ED via EMS with a 34 day history of moderate right-sided abdominal pain radiating to the back, associated with urinary urgency and retention. She was previously seen on 06/08/25 for similar symptoms, during which she was admitted and underwent right ureteroscopic laser lithotripsy and right ureteral stent placement. Despite the procedure, her pain has persisted, described as sharp and constant without identifiable alleviating or precipitating factors. She denies fever, chills, nausea, or vomiting. She was brought in by EMS again in the [facility] ER with recurrent symptoms but otherwise hemodynamically stable. PMHx:recurrent UTI, renal stone s/p ESWL and stent, active smoker, marijuana and methamphetamine abuser, prior stroke, anxiety disorder, pre-diabetes, GERD, hypertension and poor health adherence PSx:history of renal carcinoma status post left nephrectomy (2021), cholecystectomy Social Hx: Polysubstance abuse, lives at home with . 40 pack year + cigarette smoker. Home medications: As per patient not taking any home medications except tylenol as needed for pain. Family History: Non contributory, no history of familial malignancy. Health Maintenance: Pneumococcal vaccine Review of Systems Constitutional: Yes: Chills, Malaise; No: Fever, Sweats, Weakness, Other Eyes: No: Pain, Vision change, Conjunctivae inflammation, Eyelid inflammation, Other, Redness ENT: No: Ear pain, Ear discharge, Nose pain, Nose discharge, Nose congestion, Mouth pain, Mouth swelling, Throat pain, Throat swelling, Other Respiratory: No: Cough, Dry, Shortness of breath, SOB with excertion, Wheezing, Hemoptysis, Pleuritic Pain, Sputum, Wheezing, Other Cardiovascular: No: Chest Pain, Palpitations, Orthopnea, Paroxysmal Noc. Dyspnea, Edema, Lt Headedness, Other Gastrointestinal: Nausea, Vomiting; No: Abdominal Pain, Diarrhea, Constipation, Melena, Hematochezia, Other Genitourinary: Dysuria, Frequency; No Incontinence; Hematuria, Retention; No Other Musculoskeletal: No: other, neck pain, shoulder pain, arm pain, back pain, hand pain, leg pain, foot pain Skin: No: Rash, Lesions, Jaundice, Bruising, Other Neurological: No: Weakness, Numbness, Incoordination, Change in speech, Confusion, Seizures, Other Allergies: Coded Allergies: Codeine (Verified Allergy, Unknown, 09/01/15) Medications Current Medications Medications Dose Ordered Sig/Jamar Route Start Time Stop Time Status Last Admin Dose Admin Al Hydrox/Mg Hydrox/Simethicone 30 ml Q6HP PRN PO 06/13/25 17:00 Docusate Sodium 100 mg BIDPRN PRN PO 06/13/25 17:00 Acetaminophen 650 mg Q6HP PRN PO 06/13/25 17:00 Ondansetron HCl 4 mg Q4HP PRN IV 06/13/25 17:00 Nitroglycerin 0.4 mg Q5MINP PRN SL 06/13/25 17:00 Morphine Sulfate 2 mg Q30M PRN IV 06/13/25 17:00 Cefepime HCl 50 ml @ 50 mls/hr Q12H IV 06/13/25 17:30 06/13/25 18:04 50 MLS/HR Vancomycin HCl 0 ml @ 0 mls/hr PER PHARMACY IV 06/13/25 17:30 Vancomycin HCl 250 ml @ 200 mls/hr Q24H IV 06/14/25 18:00 Pantoprazole Sodium 40 mg DAILY IV 06/14/25 10:00 UNV Morphine Sulfate 1 mg Q4HP PRN IV 06/13/25 18:45 UNV Exam Vital Signs Vital Signs Date Time Temp Pulse Resp B/P (MAP) Pulse Ox O2 Delivery O2 Flow Rate FiO2 06/13/25 18:00 61 19 133/82 (99) 99 06/13/25 14:43 Room Air* 0 21 06/13/25 14:36 97.9 97.9 General Appearance: Alert, Oriented X3, mild distress HEENT: Atraumatic, PERRLA, EOMI, Mucous membr. moist/pink (dry ) Respiratory: Clear to auscultation, Normal air movement Cardiovascular: Regular rate, Normal S1, Normal S2, No murmurs Abdominal: Normal bowel sounds, Soft, No hepatospenomegaly, No masses, Other (right cva angle tenderness, on foleys's catheter, mild hematuria noted, dark yellow urine othersie. ) Extremities: No clubbing, No cyanosis, No edema, Normal pulses, No tenderness/swelling Skin: No rashes, No breakdown, No significant lesion Neuro: Normal speech, Strength at 5/5 X4 ext, Normal tone, Sensation intact, Other (painful back but no midline spinal tenderness. ) Psych/Mental Status: Mental status NL, Mood NL Labs/Xrays Labs Test 06/13/25 17:49 06/13/25 16:17 06/13/25 00:00 Range/Units White Blood Count 8.3 4.4-10.8 10^3/uL Red Blood Count 5.40 H 4.0-5.20 10^6/uL Hemoglobin 14.6 # 12.2-16.2 g/dL Hematocrit 42.8 # 36.0-46.0 % Mean Corpuscular Volume 79.2 L 80.0-100.0 fL Mean Corpuscular Hemoglobin 27.1 L 28.0-32.0 pg Mean Corpuscular Hemoglobin Concent 34.2 32.0-36.0 g/dL Red Cell Distribution Width 16.9 H 11.8-14.3 % Platelet Count 303 140-450 10^3/uL Mean Platelet Volume 8.0 6.9-10.8 fL Neutrophils (%) (Auto) 54.9 37.0-80.0 % Lymphocytes (%) (Auto) 32.1 10.0-50.0 % Monocytes (%) (Auto) 11.1 0.0-12.0 % Eosinophils (%) (Auto) 1.3 0.0-7.0 % Basophils (%) (Auto) 0.6 0.0-2.0 % Neutrophils # (Auto) 4.6 1.6-8.6 10 ^3/uL Lymphocytes # (Auto) 2.7 0.4-5.4 10 ^3/uL Monocytes # (Auto) 0.9 0-1.3 10 ^3/uL Eosinophils # (Auto) 0.1 0-0.8 10 ^3/uL Basophils # (Auto) 0 0-0.2 10 ^3/uL Nucleated Red Blood Cells 0.1 % Urine Osmolality 330 mOsm/kg Urine Creatinine 60.84 30.0-125.0 mg/dL Urine Protein/Creatinine Ratio 2.01 Urine Total Protein 122.2 H 1-14 mg/dL Sodium Level 140 # 136-145 mmol/L Potassium Level 4.9 3.5-5.1 mmol/L Chloride Level 110 H 98-107 mmol/L Carbon Dioxide Level 19 L 20-31 mmol/L Anion Gap 11 5-15 Blood Urea Nitrogen 14 9-23 mg/dL Creatinine 1.36 H 0.550-1.02 mg/dL Glomerular Filtration Rate Calc 44 >90 mL/min BUN/Creatinine Ratio 10.3 10.0-20.0 Serum Glucose 90 74-106 mg/dL Calcium Level 11.3 H 8.7-10.4 mg/dL Troponin I High Sensitivity 4 </=34 ng/L Urine Color Colorless Yellow Urine Clarity Turbid H Clear Urine pH 6.0 5.0-9.0 Urine Specific Boyers 1.010 1.001-1.035 Urine Protein 1+ H Negative Urine Ketones Negative Negative Urine Blood 3+ H Negative /uL Urine Nitrite Negative Negative Urine Bilirubin Negative Negative Urine Urobilinogen Normal Negative mg/dL Urine Leukocyte Esterase 3+ Negative /uL Urine RBC 1195 0 - 4 /hpf Urine Microscopic WBC 32 H 0-5 /HPF Urine Squamous Epithelial Cells None seen <5 /hpf Urine Bacteria None seen None Seen /hpf Urine Mucus Few None Seen Urine Glucose Normal Normal mg/dL Urine Opiates Screen Neg NEGATIVE Urine Fentanyl Screen Pos NEGATIVE Urine Barbiturates Screen Neg NEGATIVE Urine Phencyclidine Screen Neg NEGATIVE Urine Amphetamines Screen Pos NEGATIVE Urine Benzodiazepines Screen Neg NEGATIVE Urine Cocaine Screen Neg NEGATIVE Urine Cannabinoids Screen Pos NEGATIVE SEPSIS Sepsis Screen Date sepsis recognized/suspect: Jun 13, 2025 Time Sepsis recognized/suspect: 1442 Recent Procedure: No On Antibiotic Therapy: No Respiratory Rate >20: No Heart Rate >90: No Temp<36 C (96.8 F) or >38.3 C: No SBP <90 or MAP <65 mmHG: No New Acute Mental Status Change: No Is the patient on CPAP, BIPAP,: No Physician Orders Sodium Chloride 0.9% (06/13/25 15:30) Insert/Manage Urinary Catheter QSHIFT (06/13/25 15:55) Admit (06/13/25 16:46) Code Status (06/13/25 16:46) Vital Signs .PER UNIT PROTOCOL (06/13/25 16:46) Review Orders With Adm.Md (06/13/25 16:46) Encourage Activity As Tolerate (06/13/25 16:46) Alum & Mag Hydrox-Simethicone (Maalox Pl (06/13/25 17:00) Docusate Sodium Capsule (Colace Capsule) (06/13/25 17:00) Acetaminophen Tablet (Tylenol Tablet) (06/13/25 17:00) Notify Md Of Changes From Base (06/13/25 16:46) Advance Directive (06/13/25 16:46) Blood Culture (06/13/25 16:46) Urine Bacterial Culture (06/13/25 16:46) Patient Condition (06/13/25 16:46) Allergies (06/13/25 16:46) Ondansetron Hcl (Zofran) (06/13/25 17:00) Sequential Compression Device (06/13/25 ) Nitroglycerin Sublingual (Ntrostat Subli (06/13/25 17:00) Morphine Sulfate Injection (06/13/25 17:00) Oxygen By Nasal Cannula (06/13/25 16:46) Stat Ekg For Chest Pain (06/13/25 16:46) Notify Md Of Changes From Base (06/13/25 16:46) Occupational Therapist Per Diem For 24 Hours (06/13/25 16:46) Emergency Dysrhythmia Protocol (06/13/25 16:46) Rhythm Strips Once Every Shift (06/13/25 16:46) Cefepime 1gm/50ml (Maxipime 1gm/50ml) (06/13/25 17:30) Vancomycin Per Pharmacy (06/13/25 17:30) Parathyroid Hormone Intact (06/13/25 17:28) Vitamin D, 25-Hydroxy (06/13/25 17:28) Vancomycin 1.75gm/350ml (06/13/25 18:00) Cardiac Diet-2gna,Lofat,Lochol (06/13/25 Dinner) Vancomycin 1gm/250ml Kit (06/14/25 18:00) Complete Blood Count (06/14/25 04:00) Vancomycin,Trough (06/17/25 17:00) Vancomycin Per Pharmacy Protoc (06/14/25 18:00) Creatinine (06/14/25 04:00) Mrsa Screen (06/13/25 18:29) * Urology Consult (06/13/25 17:54) Kidney (06/13/25 18:29) Uric Acid (06/13/25 18:29) Protein Electrophoresis Serum (06/13/25 18:29) Comprehensive Metabolic Panel (06/14/25 04:00) Pantoprazole (Protonix) (06/14/25 10:00) Pantoprazole (Protonix) (06/13/25 18:45) Morphine Sulfate Injection (06/13/25 18:45) Iron Panel (06/13/25 18:44) Ferritin (06/13/25 18:44) Vital Signs Date Time Temp Pulse Resp B/P (MAP) Pulse Ox O2 Delivery O2 Flow Rate FiO2 06/13/25 18:00 61 19 133/82 (99) 99 06/13/25 16:06 60 17 133/72 06/13/25 16:00 60 19 143/99 (114) 99 06/13/25 15:36 67 17 143/99 06/13/25 14:43 99 Room Air* 0 21 06/13/25 14:38 61 17 99 Room Air* 0 21 06/13/25 14:36 97.9 61 19 140/94 (109) 99 97.9 06/13/25 14:12 99.2 94 18 156/78 98 99.2 Laboratory Tests Test 06/13/25 16:17 White Blood Count 8.3 10^3/uL (4.4-10.8) Medications Medications Dose Ordered Sig/Jamar Route Start Time Stop Time Status Last Admin Dose Admin Cefepime HCl 50 ml @ 50 mls/hr Q12H IV 06/13/25 17:30 06/13/25 18:04 50 MLS/HR Ceftriaxone Sodium 50 ml @ 100 mls/hr ONCE ONCE IV 06/13/25 16:45 06/13/25 17:14 DC 06/13/25 16:56 100 MLS/HR Morphine Sulfate 2 mg ONCE ONCE IV 06/13/25 15:30 06/13/25 15:31 DC 06/13/25 15:36 2 MG Ondansetron HCl 4 mg ONCE ONCE IV 06/13/25 15:30 06/13/25 15:31 DC 06/13/25 15:35 4 MG Sodium Chloride 1,000 ml @ 150 mls/hr Q6H40M ONCE IV 06/13/25 15:30 06/13/25 22:09 06/13/25 15:36 150 MLS/HR Sodium Chloride 1,000 ml @ 1,000 mls/hr Q1H ONCE IV 06/13/25 15:30 06/13/25 16:29 DC 06/13/25 15:36 1,000 MLS/HR Assessment/Plan Assessment/Plan #Acute complicated Urinary tract infection: R CVA angle tenderness +, UA likely pyurea with recent instrumentation will cover for pseudomonas and MRSA, blood and urine culture pending. IV cefepime and IV vancomycin to follow. #Right renal stone s/p ESWL and stent, by urology last week: previously hospitalizad 05/09/25 underwent right ureteroscopic laser lithotripsy and right ureteral stent placement on discharge patient was asymptomatic for a day or two. urology consulted. Renal US ordered. Pain management with as needed morphine, avoid NSAID given sole kidney in AMNA #Uncontrolled essential hypertension: not on home meds, previously sparsely used amlodipine, pain control with target BP of 14/0/90 as per AHA/ACC guidelines. #Active polysubstance abuse: UDS +ve 06/07 for Marijuana & Amphetamine, abstinence counseling. #Active nicotine abuse: chronic smoker with present 1pack per day. 40 pack year smoking. smoking cessation counseling done >11 minutes. Nicotine patch in hospital daily. #Early microcytic anemia HnH stable: Mild hematuria, HnH stable, baseline around 11-12 Hb, no active bleeding noted. with RDW will check for iron panel. rule out GI bleed. CBC daily. #Chronic mild hypercalcemia: most of the labs 11 around. workup pending. avoid high calcium and vitamin d diet. IV hydration and avoid LR. workup pending #Urine proteinmeia, massive: rule out plasma cell disorders, SPEP pending. #Solitary right kidney s/p left nephrectomy d/t renal cell carcinoma. #AMNA due to VMN, POA: iv hydration and avoid nephrotoxic, post obstructive and intrarenal causes possible. #[id number] Stable mild right-sided hydronephrosis and hydroureter. #History of Left posterolateral abdominal wall hernia: possibly a sebaceous cyst. Stable 1.6 cm nodule in the upper anterior abdominal wall, possibly a complex cyst: previously worked up, with low possibility of cancerous pathology. #H/o Prediabetic: presently HbA1c < 5.7 #history of renal carcinoma left #H/o surgical cholecystectomy #recurrent UTI, no ESBL noted in prior culture: S/p IV fluid and Ceftriaxone at ED. #prior stroke: no residual weakness noted. PT eval prior to discharge, lives with family at home. #H/o anxiety disorder and major depressive disorder: previously reported not on current medication. denies homicidal or suicidal ideation. #poor health adherence #mild to moderate dehydration: iv NS to continue. #Recurrent constipation: as needed miralax. out of bed. #GERD: maalox + protonix iv daily. lifestyle modifications. Diet: cardiac diet, NPO after midnight in anticipation of any procedure by Urology. DVT prophylaxis: SCD, avoid heparins, given active hematuria. Disposition: Admitted in hospital in Med/Surgery for further evaluation. Code status: Full Code. Goals of care discussion, history and initial clinical encounter needed 39 minutes of clinical time. Discussed with Dr. Sorensen. Plan discussed with: Patient, Other (primary team, RN. ) My Orders Orders - MIGUEL BARAJAS RESIDENT Procedure Category Date Status Time Admit ADMIT 06/13/25 Transmitted 16:46 Code Status CODE 06/13/25 Transmitted 16:46 Vital Signs HARISH 06/13/25 In Process 16:46 Review Orders With HARISH 06/13/25 In Process Adm. 16:46 Encourage Activity As HARISH 06/13/25 In Process Tolerate 16:46 Alum & Mag PHA 06/13/25 In Process Hydrox-Simethicone 17:00 Docusate Sodium PHA 06/13/25 In Process Capsule (Colace 17:00 Acetaminophen Tablet PHA 06/13/25 In Process (Tylenol Tablet) 17:00 Notify Of Changes HARISH 06/13/25 In Process From Base 16:46 Advance Directive HARISH 06/13/25 In Process 16:46 Blood Culture AIDEN 06/13/25 In Process 16:46 Urine Bacterial AIDEN 06/13/25 In Process Culture 16:46 Patient Condition ORDERS 06/13/25 Transmitted 16:46 Allergies HARISH 06/13/25 In Process 16:46 Ondansetron Hcl PHA 06/13/25 In Process (Zofran) 17:00 Sequential HARISH 06/13/25 In Process Compression Device Nitroglycerin PHA 06/13/25 In Process Sublingual (Ntrostat 17:00 Morphine Sulfate PHA 06/13/25 In Process Injection 17:00 Oxygen By Nasal RT 06/13/25 Transmitted Cannula 16:46 Stat Ekg For Chest HARISH 06/13/25 In Process Pain 16:46 Notify Of Changes HARISH 06/13/25 In Process From Base 16:46 Occupational Therapist Per Diem For [facility] 06/13/25 In Process 24 Hours 16:46 Emergency Dysrhythmia HARISH 06/13/25 In Process Protocol 16:46 Rhythm Strips Once HARISH 06/13/25 In Process Every Shift 16:46 Cefepime 1gm/50ml PHA 06/13/25 In Process (Maxipime 1gm/50ml) 17:30 Vancomycin Per PHA 06/13/25 In Process Pharmacy 17:30 Parathyroid Hormone LAB 06/13/25 In Process Intact 17:28 Vitamin D, 25-Hydroxy LAB 06/13/25 In Process 17:28 Vancomycin PHA 06/13/25 In Process 1.75gm/350ml 18:00 Cardiac DIET 06/13/25 Transmitted Diet-2gna,Lofat,Lochol Dinner Vancomycin 1gm/250ml PHA 06/14/25 In Process Kit 18:00 Complete Blood Count LAB 06/14/25 Verified 04:00 Vancomycin,Trough LAB 06/17/25 Verified 17:00 Vancomycin Per HARISH 06/14/25 In Process Pharmacy Protoc 18:00 Creatinine LAB 06/14/25 Verified 04:00 Mrsa Screen AIDEN 06/13/25 Logged 18:29 * Urology Consult CONS 06/13/25 Transmitted 17:54 Kidney US 06/13/25 Logged 18:29 Uric Acid LAB 06/13/25 In Process 18:29 Protein LAB 06/13/25 In Process Electrophoresis Serum 18:29 Comprehensive LAB 06/14/25 Verified Metabolic Panel 04:00 Pantoprazole PHA 06/14/25 Logged (Protonix) 10:00 Pantoprazole PHA 06/13/25 Logged (Protonix) 18:45 Morphine Sulfate PHA 06/13/25 Logged Injection 18:45 Iron Panel LAB 06/13/25 Logged 18:44 Ferritin LAB 06/13/25 Logged 18:44 Date of Service: Jun 13, 2025 Billing Provider: OLEG SORENSEN MD Common Visit Codes: 71186-[id number] INP/OBS CARE (HIGH) Secondary Visit Codes: 35208-CTDQV CHNG SMOKING >10MIN, 03325-[id number] CARE PLAN 30 MINUTES MIGUEL BARAJAS RESIDENT Jun 13, 2025 19:14 OLEG SORENSEN MD Jun 15, 2025 21:06
[2025-06-13] MEDS ORDERED: POLYETHYLENE GLYCOL 17 GM PWDR PO PRN (19:15)
[2025-06-13 21:00] VITALS: BP 156/85; PULSE 68; RESP 17; TEMP 97.8; O2SAT 91
[2025-06-13] MEDS: NICOTINE 14 MG/24HR TOPICAL PATCH TD ONE (21:09)
[2025-06-13] MEDS: SODIUM CHLORIDE 0.9% 1,000 ML IV SCH (21:11)
[2025-06-13] MEDS: VANCOMYCIN 1.75GM/350ML 350 ML IV ONE (22:21)
[2025-06-14 01:00] VITALS: BP 102/64; PULSE 80; RESP 18; TEMP 97; O2SAT 98
[2025-06-14] MEDS: LIDOCAINE 5% TOPICAL PATCH TOP ONE (02:50)
--- NOTE | 2025-06-14 04:23 | DVH ---
INDICATION: rule out stone or obstruction in solitary right kidney TECHNIQUE: Multiple real-time sonographic images of the kidneys and bladder were obtained. COMPARISON: XY KUB ABDOMEN SINGLE VIEW on DOS: 06/09/25, US KIDNEY on DOS: 06/07/25, US ABDOMEN LIMIT ED on DOS: 06/07/25 FINDINGS: The right kidney measures 14.4 cm in length, which is normal in size. The right kidney appe ars unremarkable. Right nephroureteral stent proximal aspect is noted in the right renal pelvis. The re is mild hydronephrosis. Left kidney appears absent. Urinary bladder collapsed in the presence of a Irwin catheter. IMPRESSION: 1. Right nephroureteral stent in place with mild right hydronephrosis.
[2025-06-14 05:00] VITALS: BP 128/79; PULSE 64; RESP 18; TEMP 97.5; O2SAT 100
[2025-06-14 08:34] VITALS: BP 137/89; PULSE 60; RESP 18; TEMP 97.8; O2SAT 99
[2025-06-14] MEDS: ONDANSETRON HCL 4 MG/2 ML VIAL IV PRN (08:45)
[2025-06-14] MEDS: PANTOPRAZOLE 40 MG/10 ML VIAL INJ IV SCH (08:45)
[2025-06-14 08:50] LABS: Hematocrit 40.9 % (36.0-46.0); Hemoglobin 13.9 g/dL (12.2-16.2); Mean Corpuscular Hemoglobin 26.7 pg (28.0-32.0); Mean Corpuscular Volume 78.6 fL (80.0-100.0); Nucleated Red Blood Cells % 0.1 %
[2025-06-14] MEDS: NICOTINE 14 MG/24HR TOPICAL PATCH TD SCH (08:53)
[2025-06-14] MEDS: LIDOCAINE 5% TOPICAL PATCH TOP SCH (08:53)
[2025-06-14 09:02] LABS: Alanine Aminotransferase 27 U/L (7-40); Alkaline Phosphatase 104 U/L (46-116); Anion Gap 9 (5-15); BUN/Creatinine Ratio 11.9 (10.0-20.0); Blood Urea Nitrogen 14 mg/dL (9-23); Glucose 98 mg/dL (74-106); Sodium 141 mmol/L (136-145); Total Protein 7.5 g/dL (5.7-8.2)
[2025-06-14 09:03] LABS: Albumin 4.4 g/dL (3.2-4.8); Bilirubin, Total 0.6 mg/dL (0.2-1.0); Calcium 10.6 mg/dL (8.7-10.4); Carbon Dioxide 20 mmol/L (20-31); Chloride 112 mmol/L (98-107); Potassium 5.3 mmol/L (3.5-5.1)
[2025-06-14 09:59] LABS: Iron 76.0 ug/dL (50-170)
[2025-06-14 10:02] LABS: Total Iron Binding Capacity 335.0 ug/dL (250-425)
--- NOTE | 2025-06-14 11:07 | DVH ---
CT CT AB PEL WO CON-NO ORAL OR IV INDICATION: Abdominal pain EXAM DATE: 06/14/2025 10:18 AM COMPARISON: CT CT AB PEL WO CON-NO ORAL OR IV on DOS: 06/07/25, CT CT AB PEL WO CON-NO ORAL OR IV on DOS: 04/08/25, CT CT AB PEL WO CON-NO ORAL OR IV on DOS: 11/23/24 RADIATION DOSE: CTDIvol: 14.67 mGy, DLP: 775.7 mGy*cm PROCEDURE: Helical CT images were obtained of the abdomen and pelvis without IV contrast Sagittal and coronal reconstructions are provided. ORAL CONTRAST: None. ADDITIONAL IMAGES / REFORMATS: None All C T scans at this medical facility are performed using dose modulation techniques as appropriate to a p erformed exam including the following: Automated exposure control was utilized; adjustment of the MA and/or KV according to patient size; and use of iterative reconstruction technique. FINDINGS: LUNG BASE: Normal. LIVER: Normal. GALLBLADDER AND BILIARY TREE: Jammie clips are noted. No intra- or extrahepatic biliary ductal dilatio n. PANCREAS: Normal. SPLEEN: Normal. BOWEL: Normal. Normal appendix. ADRENALS: 1.9 cm right adrenal gland nodule. KIDNEYS AND URETER: Absent left kidney. Right ureteral stent with resolution of prior hydronephrosis and no stone seen. BLADDER: Irwin. REPRODUCTIVE ORGANS: Normal. LYMPH NODES:No lymphadenopathy. PERITONEUM: No ascites or free air. No other fluid collection. VESSELS: Scattered atherosclerotic calcifications are noted. RETROPERITONEUM: Normal. ABDOMINAL WALL: Similar left lumbar hernia. Similar ventral wall hernia with nodularity. BONES: Scattered osseous degenerative changes are noted. IMPRESSION: Right ureteral stent with resolution of prior hydronephrosis and no stone seen.
[2025-06-14] MEDS: CEFEPIME 1GM/50ML 50 ML IV SCH (12:11)
[2025-06-14 12:41] VITALS: BP 138/97; PULSE 109; RESP 18; TEMP 97.5; O2SAT 95
--- NOTE | 2025-06-14 12:56 | DVHPNRES ---
Progress Note Date Seen: Jun 14, 2025 Resident Creating Document: [place] Medical Necessity Reason Pt with a Central, PICC or Fol: No Subjective Review of Systems Patient seen at bedside. Complains of right flank pain. Urology consult pending. Patient started on renal diet. Ms. Zaidi, a 60-year-old female with a history of renal carcinoma status post left nephrectomy (2021), cholecystectomy, recurrent UTI, renal stone s/p ESWL and stent, active smoker, marijuana and methamphetamine abuser, prior stroke, anxiety disorder, pre-diabetes, GERD, hypertension and poor health adherence presents to the ED via EMS with a 34 day history of moderate right-sided abdominal pain radiating to the back, associated with urinary urgency and retention. She was previously seen on 06/08/25 for similar symptoms, during which she was admitted and underwent right ureteroscopic laser lithotripsy and right ureteral stent placement. Despite the procedure, her pain has persisted, described as sharp and constant without identifiable alleviating or precipitating factors. She denies fever, chills, nausea, or vomiting. She was brought in by EMS [facility] with recurrent symptoms but otherwise hemodynamically stable. PMHx:recurrent UTI, renal stone s/p ESWL and stent, active smoker, marijuana and methamphetamine abuser, prior stroke, anxiety disorder, pre-diabetes, GERD, hypertension and poor health adherence PSx:history of renal carcinoma status post left nephrectomy (2021), cholecystectomy Social Hx: Polysubstance abuse, lives at home with . 40 pack year + cigarette smoker. Home medications: As per patient not taking any home medications except tylenol as needed for pain. Family History: Non contributory, no history of familial malignancy. Health Maintenance: Pneumococcal vaccine General: patient denies fever, fatigue, weaknes, sweating, any recent changes in appetite and weight HEENT: No headaches, visiual changes, hearing loss, tinnitus, nasal congestion and discharge, and sore throat. Cardiovascular: Denies chest pain, palpitations, dyspnea on exertion, orthopnea, or claudication. Respiratory: No cough, and wheezing. Gastrointestinal: Complains of nausea, vomiting Genitourinary: complains of dysuria, frequency, hematuria, retention Endocrine: No heat or cold intolerance, polydipsia, polyuria, and polyphagia. Neurological: No dizziness, extremity weakness and numbness, tremors, gait disturbance, seizures, and memory impairment. Psychiatric: Denies depression, anxiety,or insomnia. Musculoskeletal: Denies neck pain, stiffness and swelling, back pain, muscle weakness, joint pain, stiffness, swelling, or limited range of motion. Skin: No rashes, itching, skin lesion, changes in hair, nail, skin texture and breast. Hematologic/Lymphatic: Denies easy bruising, bleeding tendencies, or lymph node enlargement. Objective vital signs Vital Sign Date Time Temp Pulse Resp B/P (MAP) Pulse Ox O2 Delivery O2 Flow Rate FiO2 06/14/25 12:41 97.5 109 18 138/97 (111) 95 97.5 06/14/25 08:15 Room Air* 0 21 Total Intake and Output 06/13/25 06/13/25 06/14/25 15:00 23:00 07:00 Intake Total 2050 ml 0 ml Output Total 550 ml Balance 1500 ml 0 ml medications Current Medications Medications Dose Ordered Sig/Jamar Route Start Time Stop Time Status Last Admin Dose Admin Al Hydrox/Mg Hydrox/Simethicone 30 ml Q6HP PRN PO 06/13/25 17:00 Docusate Sodium 100 mg BIDPRN PRN PO 06/13/25 17:00 Acetaminophen 650 mg Q6HP PRN PO 06/13/25 17:00 Ondansetron HCl 4 mg Q4HP PRN IV 06/13/25 17:00 06/14/25 08:45 4 MG Nitroglycerin 0.4 mg Q5MINP PRN SL 06/13/25 17:00 Morphine Sulfate 2 mg Q30M PRN IV 06/13/25 17:00 Vancomycin HCl 0 ml @ 0 mls/hr PER PHARMACY IV 06/13/25 17:30 Vancomycin HCl 250 ml @ 200 mls/hr Q24H IV 06/14/25 18:00 Pantoprazole Sodium 40 mg DAILY IV 06/14/25 10:00 06/14/25 08:45 40 MG Morphine Sulfate 1 mg Q4HP PRN IV 06/13/25 18:45 06/14/25 08:57 1 MG Sodium Chloride 1,000 ml @ 75 mls/hr [id number] IV 06/13/25 19:00 06/13/25 21:11 75 MLS/HR Nicotine 1 patch DAILY TD 06/14/25 10:00 06/14/25 08:53 1 PATCH Polyethylene Glycol 17 gm DAILYPRN PRN PO 06/13/25 19:15 Lidocaine 1 patch DAILY TOP 06/14/25 10:00 Cefepime HCl 50 ml @ 50 mls/hr Q12H IV 06/14/25 12:00 06/14/25 12:11 50 MLS/HR Examination General Appearance: Alert, Oriented X3, Cooperative, No acute distress HEENT: Atraumatic, PERRLA, EOMI, Mucous membrane moist/pink Respiratory: Clear to auscultation, Normal air movement Cardiovascular: Regular rate, Normal S1, Normal S2, No murmurs, no chest wall tenderness Abdominal: Normal bowel sounds, Soft, tenderness in the right flank and right lower quadrant of abdomen Extremities: No clubbing, No cyanosis, No edema, Normal pulses, No tenderness/swelling Skin: No rashes, No breakdown, No significant lesion Neuro: Normal gait, Normal speech, Strength at 5/5 X4 ext, Normal tone, Sensation intact, Cranial nerves 3-12 NL, Reflexes 2+ Psych/Mental Status: Mental status NL, Mood NL laboratory and microbiology Laboratory Tests 06/14/25 07:32 Test 06/14/25 07:32 Range/Units Serum Glucose 98 74-106 mg/dL Microbiology Date/Time Source Procedure Growth Status 06/13/25 00:00 Voided Urine Urine Culture - Preliminary Resulted Problem List/Assessment/Plan Problem List/Assessment/Plan Assessment/Plan #Acute complicated Urinary tract infection: R CVA angle tenderness +, UA likely pyurea with recent instrumentation will cover for pseudomonas and MRSA, blood and urine culture pending. IV cefepime and IV vancomycin to follow. #Right renal stone s/p ESWL and stent, by urology last week: previously hospitalizad 05/09/25 underwent right ureteroscopic laser lithotripsy and right ureteral stent placement on discharge patient was asymptomatic for a day or two. urology consulted. Renal US ordered. Pain management with as needed morphine, avoid NSAID given sole kidney in AMNA #Uncontrolled essential hypertension: not on home meds, previously sparsely used amlodipine, pain control with target BP of 14/0/90 as per AHA/ACC guidelines. #Active polysubstance abuse: UDS +ve 06/07 for Marijuana & Amphetamine, abstinence counseling. #Active nicotine abuse: chronic smoker with present 1pack per day. 40 pack year smoking. smoking cessation counseling done >11 minutes. Nicotine patch in hospital daily. #Early microcytic anemia HnH stable: Mild hematuria, HnH stable, baseline around 11-12 Hb, no active bleeding noted. with RDW will check for iron panel. rule out GI bleed. CBC daily. #Chronic mild hypercalcemia: most of the labs 11 around. workup pending. avoid high calcium and vitamin d diet. IV hydration and avoid LR. workup pending #Urine proteinmeia, massive: rule out plasma cell disorders, SPEP pending. #Solitary right kidney s/p left nephrectomy d/t renal cell carcinoma. #AMNA due to VMN, POA: iv hydration and avoid nephrotoxic, post obstructive and intrarenal causes possible. #[id number] Stable mild right-sided hydronephrosis and hydroureter. #History of Left posterolateral abdominal wall hernia: possibly a sebaceous cyst. Stable 1.6 cm nodule in the upper anterior abdominal wall, possibly a complex cyst: previously worked up, with low possibility of cancerous pathology. #H/o Prediabetic: presently HbA1c < 5.7 #history of renal carcinoma left #H/o surgical cholecystectomy #recurrent UTI, no ESBL noted in prior culture: S/p IV fluid and Ceftriaxone at ED. #prior stroke: no residual weakness noted. PT eval prior to discharge, lives with family at home. #H/o anxiety disorder and major depressive disorder: previously reported not on current medication. denies homicidal or suicidal ideation. #poor health adherence #mild to moderate dehydration: iv NS to continue. #Recurrent constipation: as needed miralax. out of bed. #GERD: maalox + protonix iv daily. lifestyle modifications. Diet: Renal diet DVT prophylaxis: SCD, avoid heparins, given active hematuria. Disposition: Admitted in hospital in Med/Surgery for further evaluation. Code status: Full Code. Discussed with Dr. Sorensen. Plan discussed with: Patient Date of Service: Jun 14, 2025 Billing Provider: OLEG SORENSEN MD Common Visit Codes: 83726-[id number] INP/OBS CARE(HIGH) [place] RESIDENT Jun 14, 2025 12:56 OLEG SORENSEN MD Jun 15, 2025 21:07
[2025-06-14] MEDS: HYDROcodone-ACET 5/325MG TAB PO PRN (15:26)
[2025-06-14 16:53] VITALS: BP 142/98; PULSE 70; RESP 17; TEMP 98; O2SAT 99
[2025-06-14] MEDS ORDERED: VANCOMYCIN 1GM/250ML KIT 250 ML IV SCH (18:00)
[2025-06-14] MEDS: MORPHINE SULFATE INJ 2 MG/ml SYRG IV PRN (18:01)
[2025-06-14 21:00] VITALS: BP 129/89; PULSE 65; RESP 18; TEMP 98; O2SAT 100
[2025-06-14] MEDS: VANCOMYCIN 1.25GM/250ML 250 ML IV SCH (22:19)
[2025-06-15 05:00] VITALS: BP 134/88; PULSE 53; RESP 16; TEMP 98.2; O2SAT 100
[2025-06-15 05:48] LABS: Hematocrit 38.2 % (36.0-46.0); Hemoglobin 12.7 g/dL (12.2-16.2); Mean Corpuscular Hemoglobin 26.9 pg (28.0-32.0); Mean Corpuscular Volume 80.6 fL (80.0-100.0); Nucleated Red Blood Cells % 0.1 %
[2025-06-15 06:14] LABS: Alanine Aminotransferase 17 U/L (7-40); Albumin 3.9 g/dL (3.2-4.8); Alkaline Phosphatase 89 U/L (46-116); Anion Gap 9 (5-15); BUN/Creatinine Ratio 12.1 (10.0-20.0); Bilirubin, Total 0.6 mg/dL (0.2-1.0); Blood Urea Nitrogen 13 mg/dL (9-23); Carbon Dioxide 20 mmol/L (20-31); Glucose 92 mg/dL (74-106); Sodium 141 mmol/L (136-145); Total Protein 6.7 g/dL (5.7-8.2)
[2025-06-15 06:21] LABS: Calcium 10.8 mg/dL (8.7-10.4); Chloride 112 mmol/L (98-107); Potassium 5.3 mmol/L (3.5-5.1)
[2025-06-15 09:05] VITALS: BP 123/75; PULSE 64; RESP 18; TEMP 97.6; O2SAT 98
--- NOTE | 2025-06-15 10:19 | DVHINCON2 ---
Date of service: Jun 15, [address] Barajas Reason for Consultation post ESWL and stent solitary kidney History of Present Illness History Source: Patient, RN Notes, MD Notes, Old Records Exam Limitations: No limitations HPI 60-year-old female, with past medical history of renal carcinoma with left nephrectomy (2021), CVA and HTN, presents to the ED for a chief complaint of right sided abdominal pain radiating to her back associated with urinary retention and UA urgency. Patient was seen at his hospital on 06/08/25 for the same complaint, was admitted and underwent a right ureteroscopic laser lithotrip sy and right ureteral stent placement. Patient states since admission, pain has not gone away, describes it as sharp, constant and has no alleviating or precipitating factors. She denies any fever, chills, nausea, vomiting. Chief Complaint: Urinary Time Seen by MD: 14:12 Primary Care Provider: KRIS Reviewed notes: Nurses Notes, Medications, Allergies Allergies: Coded Allergies: Codeine (Verified Allergy, Unknown, 09/01/15) Home Meds Active Scripts Amlodipine Besylate (Amlodipine Besylate) 10 Mg Tab, 1 TAB PO DAILY for 30 Days, #30 TAB 3 Refills Prov:WILFREDO TERRY RESIDENT 06/11/25 Nitrofurantoin (Nitrofurantoin) 100 Mg Cap, 1 CAP PO BID for 5 Days, #10 CAP Prov:WILFREDO TERRY RESIDENT 06/11/25 Sodium Polystyrene Sulfonate (Kalexate) Pow, 1 AZIZA OR DAILY for 10 Days, #10 POW Prov:WILFREDO TERRY RESIDENT 06/11/25 Reported Medications Atenolol (Atenolol) 25 Mg Tab, 1 TAB PO DAILY, #30 TAB 5 Refills 06/07/25 Past Medical History Hemotology/Oncology: Cancer Patient Family History: Patient reports no known family medical history. Smoker: Positive Drugs: Marijuana, Amphetimines Lives with: With family H&P Exam Vital Signs Vital Signs Date Time Temp Pulse Resp B/P (MAP) Pulse Ox O2 Delivery O2 Flow Rate FiO2 06/15/25 09:05 97.6 64 18 123/75 (91) 98 97.6 06/15/25 08:23 Room Air* 0 21 General Appeara: Well developed, Well nourished, Normal Appearance Neuro/Mental St: Alert, Oriented Appearance: Appropriate appearance, Appropriate insight Eye contact/ Speech: Cooperative, Good eye contact, Normal speech Skin Exam: Normal inspection, Normal color, Warm/dry Labs/Xrays [address] [address] Ph: [phone] DIAGNOSTIC IMAGING Diagnostic Imaging Report : [id number] Signed PATIENT: DEREJE WETZEL ACCT: [id number] UNIT: [id number] : 1965 LOC: CENTRAL ROOM / BED: [facility] / B AGE / SEX: 60 / F ADM STATUS: ADM IN SERVICE [id number] ORDERING PHYSICIAN: MIGUEL BARAJAS PROCEDURE(s): KIDUS - KIDNEY REASON: rule out stone or obstruction in solitary right kidney ORDER NUMBER(s): [id number], ACCESSION NUMBER(s): [id number] INDICATION: rule out stone or obstruction in solitary right kidney TECHNIQUE: Multiple real-time sonographic images of the kidneys and bladder were obtained. COMPARISON: XY KUB ABDOMEN SINGLE VIEW on DOS: 06/09/25, US KIDNEY on DOS: , US ABDOMEN LIMITED on DOS: 06/07/25 FINDINGS: The right kidney measures 14.4 cm in length, which is normal in size. The right kidney appears unremarkable. Right nephroureteral stent proximal aspect is noted in the right renal pelvis. There is mild hydronephrosis. Left kidney appears absent. Urinary bladder collapsed in the presence of a Irwin catheter. IMPRESSION: 1. Right nephroureteral stent in place with mild right hydronephrosis. ATED BY: CHRISTOPHER CHANDLER MD DICTATED DATE/TIME: 06/14/25422 SIGNED BY: CHRISTOPHER CHANDLER MD SIGNED DATE/TIME: 06/14/25422 CC: [address] [address] Ph: [phone] DIAGNOSTIC IMAGING Diagnostic Imaging Report : [id number] Signed PATIENT: DEREJE WETZEL ACCT: [id number] UNIT: [id number] : 1965 LOC: CENTRAL ROOM / BED: [facility] / B AGE / SEX: 60 / F ADM STATUS: ADM IN SERVICE 0143 ORDERING PHYSICIAN: CHARLINE BUTT RESIDENT PROCEDURE(s): ABPL - CT AB PEL WO CON-NO ORAL OR IV REASON: Abdominal pain ORDER NUMBER(s): [id number], ACCESSION NUMBER(s): [id number] CT CT AB PEL WO CON-NO ORAL OR IV INDICATION: Abdominal pain EXAM DATE: 06/14/2025 10:18 AM COMPARISON: CT CT AB PEL WO CON-NO ORAL OR IV on DOS: 06/07/25, CT CT AB PEL WO CON-NO ORAL OR IV on DOS: 04/08/25, CT CT AB PEL WO CON-NO ORAL OR IV on DOS: 11/23/24 RADIATION DOSE: CTDIvol: 14.67 mGy, DLP: 775.7 mGy*cm PROCEDURE: Helical CT images were obtained of the abdomen and pelvis without IV contrast Sagittal and coronal reconstructions are provided. ORAL CONTRAST: None. ADDITIONAL IMAGES / REFORMATS: None All CT scans at this medical facility are performed using dose modulation techniques as appropriate to a performed exam including the following: Automated exposure control was utilized; adjustment of the MA and/or KV according to patient size; and use of iterative reconstruction technique. FINDINGS: LUNG BASE: Normal. LIVER: Normal. GALLBLADDER AND BILIARY TREE: Jammie clips are noted. No intra- or extrahepatic biliary ductal dilation. PANCREAS: Normal. SPLEEN: Normal. BOWEL: Normal. Normal appendix. ADRENALS: 1.9 cm right adrenal gland nodule. KIDNEYS AND URETER: Absent left kidney. Right ureteral stent with resolution of prior hydronephrosis and no stone seen. BLADDER: Irwin. REPRODUCTIVE ORGANS: Normal. LYMPH NODES:No lymphadenopathy. PERITONEUM: No ascites or free air. No other fluid collection. VESSELS: Scattered atherosclerotic calcifications are noted. RETROPERITONEUM: Normal. ABDOMINAL WALL: Similar left lumbar hernia. Similar ventral wall hernia with nodularity. BONES: Scattered osseous degenerative changes are noted. IMPRESSION: Right ureteral stent with resolution of prior hydronephrosis and no stone seen. ATED BY: VLAD WARD MD DICTATED DATE/TIME: 06/14/25 1105 SIGNED BY: VLAD WARD MD SIGNED DATE/TIME: 06/14/25 110 CC: Labs Test 06/15/25 04:54 06/13/25 17:49 06/13/25 16:17 06/13/25 00:00 Range/Units White Blood Count 6.7 4.4-10.8 10^3/uL Red Blood Count 4.73 4.0-5.20 10^6/uL Hemoglobin 12.7 12.2-16.2 g/dL Hematocrit 38.2 36.0-46.0 % Mean Corpuscular Volume 80.6 80.0-100.0 fL Mean Corpuscular Hemoglobin 26.9 L 28.0-32.0 pg Mean Corpuscular Hemoglobin Concent 33.3 32.0-36.0 g/dL Red Cell Distribution Width 16.6 H 11.8-14.3 % Platelet Count 284 140-450 10^3/uL Mean Platelet Volume 8.2 6.9-10.8 fL Neutrophils (%) (Auto) 53.5 37.0-80.0 % Lymphocytes (%) (Auto) 32.5 10.0-50.0 % Monocytes (%) (Auto) 10.8 0.0-12.0 % Eosinophils (%) (Auto) 2.3 0.0-7.0 % Basophils (%) (Auto) 0.9 0.0-2.0 % Neutrophils # (Auto) 3.6 1.6-8.6 10 ^3/uL Lymphocytes # (Auto) 2.2 0.4-5.4 10 ^3/uL Monocytes # (Auto) 0.7 0-1.3 10 ^3/uL Eosinophils # (Auto) 0.2 0-0.8 10 ^3/uL Basophils # (Auto) 0.1 0-0.2 10 ^3/uL Nucleated Red Blood Cells 0.1 % Sodium Level 141 136-145 mmol/L Potassium Level 5.3 H 3.5-5.1 mmol/L Chloride Level 112 H 98-107 mmol/L Carbon Dioxide Level 20 20-31 mmol/L Anion Gap 9 5-15 Blood Urea Nitrogen 13 9-23 mg/dL Creatinine 1.07 H 0.550-1.02 mg/dL Glomerular Filtration Rate Calc 59 >90 mL/min BUN/Creatinine Ratio 12.1 10.0-20.0 Serum Glucose 92 74-106 mg/dL Calcium Level 10.8 H 8.7-10.4 mg/dL Total Bilirubin 0.6 0.2-1.0 mg/dL Aspartate Amino Transferase (AST) 12 L 13-40 U/L Alanine Aminotransferase (ALT) 17 7-40 U/L Alkaline Phosphatase 89 46-116 U/L Total Protein 6.7 5.7-8.2 g/dL Albumin 3.9 3.2-4.8 g/dL Urine Osmolality 330 mOsm/kg Urine Creatinine 60.84 30.0-125.0 mg/dL Urine Protein/Creatinine Ratio 2.01 Urine Total Protein 122.2 H 1-14 mg/dL Uric Acid 5.3 3.1-7.8 mg/dL Iron Level 76 50-170 ug/dL Total Iron Binding Capacity 335 250-425 ug/dL Percent Iron Saturation 22.7 15-50 % Troponin I High Sensitivity 4 </=34 ng/L Urine Color Colorless Yellow Urine Clarity Turbid H Clear Urine pH 6.0 5.0-9.0 Urine Specific [place] 1.010 1.001-1.035 Urine Protein 1+ H Negative Urine Ketones Negative Negative Urine Blood 3+ H Negative /uL Urine Nitrite Negative Negative Urine Bilirubin Negative Negative Urine Urobilinogen Normal Negative mg/dL Urine Leukocyte Esterase 3+ Negative /uL Urine RBC 1195 0 - 4 /hpf Urine Microscopic WBC 32 H 0-5 /HPF Urine Squamous Epithelial Cells None seen <5 /hpf Urine Bacteria None seen None Seen /hpf Urine Mucus Few None Seen Urine Glucose Normal Normal mg/dL Urine Opiates Screen Neg NEGATIVE Urine Fentanyl Screen Pos NEGATIVE Urine Barbiturates Screen Neg NEGATIVE Urine Phencyclidine Screen Neg NEGATIVE Urine Amphetamines Screen Pos NEGATIVE Urine Benzodiazepines Screen Neg NEGATIVE Urine Cocaine Screen Neg NEGATIVE Urine Cannabinoids Screen Pos NEGATIVE Microbiology Date/Time Source Procedure Growth Status 06/13/25 17:49 Blood Blood Culture - Preliminary NO GROWTH AFTER 24 HOURS OF INCUBATION. Resulted 06/13/25 00:00 Voided Urine Urine Culture - Preliminary Resulted Assessment/Plan Problem List: (1) Foreign body in unspecified site in genitourinary tract (2) History of nephrectomy (3) History of cholecystectomy Plan patient will undergo cystoscopy with stent removal in two weeks on outpt basis Plan discussed with: Patient, Other GUSTAVO LIVINGSTON NP Jun 15, 2025 10:19
--- NOTE | 2025-06-15 10:32 | DVHPNRES ---
Progress Note Date Seen: Jun 15, 2025 Resident Creating Document: [facility] [place] Medical Necessity Reason Pt with a Central, PICC or Fol: No Subjective Review of Systems Patient seen at bedside. Patient still complains of abdominal pain and dysuria. Ms. Zaidi, a 60-year-old female with a history of renal carcinoma status post left nephrectomy (2021), cholecystectomy, recurrent UTI, renal stone s/p ESWL and stent, active smoker, marijuana and methamphetamine abuser, prior stroke, anxiety disorder, pre-diabetes, GERD, hypertension and poor health adherence presents to the ED via EMS with a 34 day history of moderate right-sided abdominal pain radiating to the back, associated with urinary urgency and retention. She was previously seen on 06/08/25 for similar symptoms, during which she was admitted and underwent right ureteroscopic laser lithotripsy and right ureteral stent placement. Despite the procedure, her pain has persisted, described as sharp and constant without identifiable alleviating or precipitating factors. She denies fever, chills, nausea, or vomiting. She was brought in by EMS again in the [facility] ER with recurrent symptoms but otherwise hemodynamically stable. PMHx:recurrent UTI, renal stone s/p ESWL and stent, active smoker, marijuana and methamphetamine abuser, prior stroke, anxiety disorder, pre-diabetes, GERD, hypertension and poor health adherence PSx:history of renal carcinoma status post left nephrectomy (2021), cholecystectomy Social Hx: Polysubstance abuse, lives at home with . 40 pack year + cigarette smoker. Home medications: As per patient not taking any home medications except tylenol as needed for pain. Family History: Non contributory, no history of familial malignancy. Health Maintenance: Pneumococcal vaccine General: patient denies fever, fatigue, weaknes, sweating, any recent changes in appetite and weight HEENT: No headaches, visiual changes, hearing loss, tinnitus, nasal congestion and discharge, and sore throat. Cardiovascular: Denies chest pain, palpitations, dyspnea on exertion, orthopnea, or claudication. Respiratory: No cough, and wheezing. Gastrointestinal: Complains of nausea, vomiting Genitourinary: complains of dysuria, frequency, hematuria, retention Endocrine: No heat or cold intolerance, polydipsia, polyuria, and polyphagia. Neurological: No dizziness, extremity weakness and numbness, tremors, gait disturbance, seizures, and memory impairment. Psychiatric: Denies depression, anxiety,or insomnia. Musculoskeletal: Denies neck pain, stiffness and swelling, back pain, muscle weakness, joint pain, stiffness, swelling, or limited range of motion. Skin: No rashes, itching, skin lesion, changes in hair, nail, skin texture and breast. Hematologic/Lymphatic: Denies easy bruising, bleeding tendencies, or lymph node enlargement. Objective vital signs Vital Sign Date Time Temp Pulse Resp B/P (MAP) Pulse Ox O2 Delivery O2 Flow Rate FiO2 06/15/25 09:05 97.6 64 18 123/75 (91) 98 97.6 06/15/25 08:23 Room Air* 0 21 Total Intake and Output 06/14/25 06/14/25 06/15/25 15:00 23:00 07:00 Intake Total 800 ml 960 ml Output Total 1800 ml 1450 ml Balance -1000 ml -490 ml medications Current Medications Medications Dose Ordered Sig/Jamar Route Start Time Stop Time Status Last Admin Dose Admin Al Hydrox/Mg Hydrox/Simethicone 30 ml Q6HP PRN PO 06/13/25 17:00 Docusate Sodium 100 mg BIDPRN PRN PO 06/13/25 17:00 Acetaminophen 650 mg Q6HP PRN PO 06/13/25 17:00 Ondansetron HCl 4 mg Q4HP PRN IV 06/13/25 17:00 06/15/25 05:01 4 MG Nitroglycerin 0.4 mg Q5MINP PRN SL 06/13/25 17:00 Vancomycin HCl 0 ml @ 0 mls/hr PER PHARMACY IV 06/13/25 17:30 Pantoprazole Sodium 40 mg DAILY IV 06/14/25 10:00 06/14/25 08:45 40 MG Sodium Chloride 1,000 ml @ 75 mls/hr [id number] IV 06/13/25 19:00 06/14/25 21:40 75 MLS/HR Nicotine 1 patch DAILY TD 06/14/25 10:00 06/14/25 08:53 1 PATCH Polyethylene Glycol 17 gm DAILYPRN PRN PO 06/13/25 19:15 Lidocaine 1 patch DAILY TOP 06/14/25 10:00 Cefepime HCl 50 ml @ 50 mls/hr Q12H IV 06/14/25 12:00 06/15/25 00:02 50 MLS/HR Acetaminophen/ Hydrocodone Bitart 1 tab Q4HPRN PRN PO 06/14/25 14:45 06/15/25 03:18 1 TAB Morphine Sulfate 1 mg Q4HP PRN IV 06/14/25 15:15 06/15/25 05:09 1 MG Vancomycin HCl 250 ml @ 200 mls/hr Q24H IV 06/14/25 22:00 06/14/25 22:19 200 MLS/HR Examination General Appearance: Alert, Oriented X3, Cooperative, No acute distress HEENT: Atraumatic, PERRLA, EOMI, Mucous membrane moist/pink Respiratory: Clear to auscultation, Normal air movement Cardiovascular: Regular rate, Normal S1, Normal S2, No murmurs, no chest wall tenderness Abdominal: Normal bowel sounds, Soft, tenderness in the right flank and right lower quadrant of abdomen Extremities: No clubbing, No cyanosis, No edema, Normal pulses, No tenderness/swelling Skin: No rashes, No breakdown, No significant lesion Neuro: Normal gait, Normal speech, Strength at 5/5 X4 ext, Normal tone, Sensation intact, Cranial nerves 3-12 NL, Reflexes 2+ Psych/Mental Status: Mental status NL, Mood NL laboratory and microbiology Laboratory Tests 06/15/25 04:54 Test 06/15/25 04:54 Range/Units Serum Glucose 92 74-106 mg/dL Microbiology Date/Time Source Procedure Growth Status 06/13/25 17:49 Blood Blood Culture - Preliminary NO GROWTH AFTER 24 HOURS OF INCUBATION. Resulted 06/13/25 00:00 Voided Urine Urine Culture - Preliminary Resulted Problem List/Assessment/Plan Problem List/Assessment/Plan Assessment/Plan #Acute complicated Urinary tract infection: R CVA angle tenderness +, UA likely pyurea with recent instrumentation will cover for pseudomonas and MRSA, blood and urine culture pending. IV cefepime and IV vancomycin to follow. #Right renal stone s/p ESWL and stent, by urology last week: previously hospitalizad 05/09/25 underwent right ureteroscopic laser lithotripsy and right ureteral stent placement on discharge patient was asymptomatic for a day or two. urology consulted. Renal US ordered. Pain management with as needed morphine, avoid NSAID given sole kidney in [facility] #Uncontrolled essential hypertension: not on home meds, previously sparsely used amlodipine, pain control with target BP of 14/0/90 as per AHA/ACC guidelines. #Active polysubstance abuse: UDS +ve 06/07 for Marijuana & Amphetamine, abstinence counseling. #Active nicotine abuse: chronic smoker with present 1pack per day. 40 pack year smoking. smoking cessation counseling done >11 minutes. Nicotine patch in hospital daily. #Early microcytic anemia HnH stable: Mild hematuria, HnH stable, baseline around 11-12 Hb, no active bleeding noted. with RDW will check for iron panel. rule out GI bleed. CBC daily. #Chronic mild hypercalcemia: most of the labs 11 around. workup pending. avoid high calcium and vitamin d diet. IV hydration and avoid LR. workup pending #Urine proteinmeia, massive: rule out plasma cell disorders, SPEP pending. #Solitary right kidney s/p left nephrectomy d/t renal cell carcinoma. #AMNA due to VMN, POA: iv hydration and avoid nephrotoxic, post obstructive and intrarenal causes possible. #[id number] Stable mild right-sided hydronephrosis and hydroureter. #History of Left posterolateral abdominal wall hernia: possibly a sebaceous cyst. Stable 1.6 cm nodule in the upper anterior abdominal wall, possibly a complex cyst: previously worked up, with low possibility of cancerous pathology. #H/o Prediabetic: presently HbA1c < 5.7 #history of renal carcinoma left #H/o surgical cholecystectomy #recurrent UTI, no ESBL noted in prior culture: S/p IV fluid and Ceftriaxone at ED. #prior stroke: no residual weakness noted. PT eval prior to discharge, lives with family at home. #H/o anxiety disorder and major depressive disorder: previously reported not on current medication. denies homicidal or suicidal ideation. #poor health adherence #mild to moderate dehydration: iv NS to continue. #Recurrent constipation: as needed miralax. out of bed. #GERD: maalox + protonix iv daily. lifestyle modifications. Diet: Renal diet DVT prophylaxis: SCD, avoid heparins, given active hematuria. Disposition: Admitted in hospital in Med/Surgery for further evaluation. Code status: Full Code. Discussed with Dr. Sorensen. Plan discussed with: Patient Date of Service: Jun 15, 2025 Billing Provider: OLEG SORENSEN MD Common Visit Codes: [id number] INP/OBS CARE(HIGH) THEMAURAANZAL RESIDENT Jun 15, 2025 10:32 OLEG SORENSEN MD Jun 15, 2025 21:07
[2025-06-15 12:34] VITALS: BP 133/88; PULSE 56; RESP 20; TEMP 98; O2SAT 100
[2025-06-15 17:00] VITALS: BP 148/86; PULSE 71; RESP 18; TEMP 98.8; O2SAT 100
[2025-06-15 21:00] VITALS: BP 124/84; PULSE 109; RESP 18; TEMP 98.3; O2SAT 99
[2025-06-16 01:00] VITALS: BP 156/98; PULSE 56; RESP 18; TEMP 98.6; O2SAT 100
[2025-06-16 05:00] VITALS: BP 131/91; PULSE 66; RESP 18; TEMP 98; O2SAT 99
[2025-06-16 07:15] LABS: Hematocrit 40.6 % (36.0-46.0); Hemoglobin 13.6 g/dL (12.2-16.2); Mean Corpuscular Hemoglobin 27.2 pg (28.0-32.0); Mean Corpuscular Volume 81.1 fL (80.0-100.0); Nucleated Red Blood Cells % 0.2 %
[2025-06-16 07:21] LABS: Alanine Aminotransferase 16 U/L (7-40); Albumin 4.0 g/dL (3.2-4.8); Alkaline Phosphatase 92 U/L (46-116); Anion Gap 8 (5-15); BUN/Creatinine Ratio 7.7 (10.0-20.0); Glucose 87 mg/dL (74-106); Sodium 137 mmol/L (136-145); Total Protein 6.8 g/dL (5.7-8.2)
[2025-06-16 07:22] LABS: Bilirubin, Total 0.5 mg/dL (0.2-1.0)
[2025-06-16 07:23] LABS: Blood Urea Nitrogen 8 mg/dL (9-23); Calcium 10.6 mg/dL (8.7-10.4); Carbon Dioxide 19 mmol/L (20-31); Chloride 110 mmol/L (98-107); Potassium 5.2 mmol/L (3.5-5.1)
[2025-06-16 09:00] VITALS: BP 124/79; PULSE 64; RESP 17; TEMP 97.5; O2SAT 100
[2025-06-16] MEDS: SODIUM ZIRCONIUM CYCL 10 GM PAK PO ONE (10:01)
[2025-06-16] MEDS: FUROSEMIDE 20 MG/2 ML VIAL IV ONE (10:04)
[2025-06-16] MEDS: DEXTROSE (50%) 50ML SYRG IV ONE (10:05)
[2025-06-16] MEDS: InsuLIN REG 1unit/0.01ml Soln (100units/ml) IV ONE (10:15)
[2025-06-16 13:00] VITALS: BP 160/96; PULSE 62; RESP 17; TEMP 98.3; O2SAT 100
[2025-06-16] MEDS ORDERED: SODIUM ZIRCONIUM CYCL 10 GM PAK PO SCH (14:00)
--- NOTE | 2025-06-16 14:09 | DVHPNRES ---
Progress Note Date Seen: Jun 16, 2025 Resident Creating Document: [place] RESIDENT Medical Necessity Reason Pt with a Central, PICC or Fol: No Subjective Review of Systems Patient seen at bedside. Patient still complains of abdominal pain Hyperkalemia not correcting. Started on Lokelma. Ms. Zaidi, a 60-year-old female with a history of renal carcinoma status post left nephrectomy (2021), cholecystectomy, recurrent UTI, renal stone s/p ESWL and stent, active smoker, marijuana and methamphetamine abuser, prior stroke, anxiety disorder, pre-diabetes, GERD, hypertension and poor health adherence presents to the ED via EMS with a 34 day history of moderate right-sided abdominal pain radiating to the back, associated with urinary urgency and retention. She was previously seen on 06/08/25 for similar symptoms, during which she was admitted and underwent right ureteroscopic laser lithotripsy and right ureteral stent placement. Despite the procedure, her pain has persisted, described as sharp and constant without identifiable alleviating or precipitating factors. She denies fever, chills, nausea, or vomiting. She was brought in by EMS again in the [facility] ER with recurrent symptoms but otherwise hemodynamically stable. PMHx:recurrent UTI, renal stone s/p ESWL and stent, active smoker, marijuana and methamphetamine abuser, prior stroke, anxiety disorder, pre-diabetes, GERD, hypertension and poor health adherence PSx:history of renal carcinoma status post left nephrectomy (2021), cholecystectomy Social Hx: Polysubstance abuse, lives at home with . 40 pack year + cigarette smoker. Home medications: As per patient not taking any home medications except tylenol as needed for pain. Family History: Non contributory, no history of familial malignancy. Health Maintenance: Pneumococcal vaccine General: patient denies fever, fatigue, weaknes, sweating, any recent changes in appetite and weight HEENT: No headaches, visiual changes, hearing loss, tinnitus, nasal congestion and discharge, and sore throat. Cardiovascular: Denies chest pain, palpitations, dyspnea on exertion, orthopnea, or claudication. Respiratory: No cough, and wheezing. Gastrointestinal: Complains of nausea, vomiting Genitourinary: complains of dysuria, frequency, hematuria, retention Endocrine: No heat or cold intolerance, polydipsia, polyuria, and polyphagia. Neurological: No dizziness, extremity weakness and numbness, tremors, gait disturbance, seizures, and memory impairment. Psychiatric: Denies depression, anxiety,or insomnia. Musculoskeletal: Denies neck pain, stiffness and swelling, back pain, muscle weakness, joint pain, stiffness, swelling, or limited range of motion. Skin: No rashes, itching, skin lesion, changes in hair, nail, skin texture and breast. Hematologic/Lymphatic: Denies easy bruising, bleeding tendencies, or lymph node enlargement. Objective vital signs Vital Sign Date Time Temp Pulse Resp B/P (MAP) Pulse Ox O2 Delivery O2 Flow Rate FiO2 06/16/25 10:04 127/78 06/16/25 09:48 68 17 06/16/25 09:00 97.5 100 97.5 06/16/25 08:05 Room Air* 0 21 Total Intake and Output 06/15/25 06/15/25 06/16/25 15:00 23:00 07:00 Intake Total 900 ml 830 ml 1250 ml Output Total 400 ml 1000 ml Balance 900 ml 430 ml 250 ml medications Current Medications Medications Dose Ordered Sig/Jamar Route Start Time Stop Time Status Last Admin Dose Admin Docusate Sodium 100 mg BIDPRN PRN PO 06/13/25 17:00 Acetaminophen 650 mg Q6HP PRN PO 06/13/25 17:00 Ondansetron HCl 4 mg Q4HP PRN IV 06/13/25 17:00 06/15/25 05:01 4 MG Nitroglycerin 0.4 mg Q5MINP PRN SL 06/13/25 17:00 Vancomycin HCl 0 ml @ 0 mls/hr PER PHARMACY IV 06/13/25 17:30 Pantoprazole Sodium 40 mg DAILY IV 06/14/25 10:00 06/16/25 09:02 40 MG Sodium Chloride 1,000 ml @ 75 mls/hr [id number] IV 06/13/25 19:00 06/16/25 13:07 75 MLS/HR Nicotine 1 patch DAILY TD 06/14/25 10:00 06/16/25 09:08 1 PATCH Polyethylene Glycol 17 gm DAILYPRN PRN PO 06/13/25 19:15 Cancel Lidocaine 1 patch DAILY TOP 06/14/25 10:00 06/15/25 10:47 1 PATCH Cefepime HCl 50 ml @ 50 mls/hr Q12H IV 06/14/25 12:00 06/16/25 11:51 50 MLS/HR Acetaminophen/ Hydrocodone Bitart 1 tab Q4HPRN PRN PO 06/14/25 14:45 06/16/25 11:52 1 TAB Morphine Sulfate 1 mg Q4HP PRN IV 06/14/25 15:15 06/16/25 09:18 1 MG Vancomycin HCl 250 ml @ 200 mls/hr Q24H IV 06/14/25 22:00 06/15/25 21:52 200 MLS/HR Zirconium Oxide 10 gm DAILY PO 06/17/25 10:00 Examination General Appearance: Alert, Oriented X3, Cooperative, No acute distress HEENT: Atraumatic, PERRLA, EOMI, Mucous membrane moist/pink Respiratory: Clear to auscultation, Normal air movement Cardiovascular: Regular rate, Normal S1, Normal S2, No murmurs, no chest wall tenderness Abdominal: Normal bowel sounds, Soft, tenderness in the right flank and right lower quadrant of abdomen Extremities: No clubbing, No cyanosis, No edema, Normal pulses, No tenderness/swelling Skin: No rashes, No breakdown, No significant lesion Neuro: Normal gait, Normal speech, Strength at 5/5 X4 ext, Normal tone, Sensation intact, Cranial nerves 3-12 NL, Reflexes 2+ Psych/Mental Status: Mental status NL, Mood NL laboratory and microbiology Laboratory Tests 06/16/25 13:22 06/16/25 04:48 Test 06/16/25 04:48 Range/Units Serum Glucose 87 74-106 mg/dL Microbiology Date/Time Source Procedure Growth Status 06/15/25 03:27 Nose MRSA Screen - Final Complete 06/13/25 17:49 Blood Blood Culture - Preliminary NO GROWTH AFTER 48 HOURS OF INCUBATION. Resulted 06/13/25 00:00 Voided Urine Urine Culture - Final Complete Problem List/Assessment/Plan Problem List/Assessment/Plan Assessment/Plan #Acute complicated Urinary tract infection: R CVA angle tenderness +, UA likely pyurea with recent instrumentation will cover for pseudomonas and MRSA, blood and urine culture pending. IV cefepime and IV vancomycin to follow. #Right renal stone s/p ESWL and stent, by urology last week: previously hospitaliz 05/09/25 underwent right ureteroscopic laser lithotripsy and right ureteral stent placement on discharge patient was asymptomatic for a day or two. urology consulted. Renal US ordered. Pain management with as needed morphine, avoid NSAID given sole kidney in AMNA #Uncontrolled essential hypertension: not on home meds, previously sparsely used amlodipine, pain control with target BP of 14/0/90 as per AHA/ACC guidelines. #Active polysubstance abuse: UDS +ve 06/07 for Marijuana & Amphetamine, abstinence counseling. #Active nicotine abuse: chronic smoker with present 1pack per day. 40 pack year smoking. smoking cessation counseling done >11 minutes. Nicotine patch in hospital daily. #Early microcytic anemia HnH stable: Mild hematuria, HnH stable, baseline around 11-12 Hb, no active bleeding noted. with RDW will check for iron panel. rule out GI bleed. CBC daily. #Chronic mild hypercalcemia: most of the labs 11 around. workup pending. avoid high calcium and vitamin d diet. IV hydration and avoid LR. workup pending #Urine proteinmeia, massive: rule out plasma cell disorders, SPEP pending. #Solitary right kidney s/p left nephrectomy d/t renal cell carcinoma. #AMNA due to VMN, POA: iv hydration and avoid nephrotoxic, post obstructive and intrarenal causes possible. #[id number] Stable mild right-sided hydronephrosis and hydroureter. #History of Left posterolateral abdominal wall hernia: possibly a sebaceous cyst. Stable 1.6 cm nodule in the upper anterior abdominal wall, possibly a complex cyst: previously worked up, with low possibility of cancerous pathology. #H/o Prediabetic: presently HbA1c < 5.7 #history of renal carcinoma left #H/o surgical cholecystectomy #recurrent UTI, no ESBL noted in prior culture: S/p IV fluid and Ceftriaxone at ED. #prior stroke: no residual weakness noted. PT eval prior to discharge, lives with family at home. #H/o anxiety disorder and major depressive disorder: previously reported not on current medication. denies homicidal or suicidal ideation. #poor health adherence #mild to moderate dehydration: iv NS to continue. #Recurrent constipation: as needed miralax. out of bed. #GERD: maalox + protonix iv daily. lifestyle modifications. Diet: Renal diet DVT prophylaxis: SCD, avoid heparins, given active hematuria. Disposition: Admitted in hospital in Med/Surgery for further evaluation. Code status: Full Code. Discussed with Dr. Sorensen. Plan discussed with: Patient Date of Service: Jun 16, 2025 Billing Provider: OLEG SORENSEN MD Common Visit Codes: [id number] INP/OBS CARE(HIGH) [place] RESIDENT Jun 16, 2025 14:09 OLEG SORENSEN MD Jun 18, 2025 14:48
--- NOTE | 2025-06-16 15:16 | DVHINCON2 ---
Date of service: Jun 16, [address] Moncada Reason for Consultation Acute kidney injury History of Present Illness 60-year-old female, with past medical history significant for renal carcinoma s/p left nephrectomy (2021), obstructive right ureteral stone s/p lithotripsy and ureteral 06/15/25, CVA and HTN who is admitted for right abdominal pain radiating to her back associated with urinary retention and UA urgency Past Medical History Renal cancer Obstructing right ureteric stone HTN CVA CKD Past Surgical History left nephrectomy 2021 Right lithotripsy Right ureteral stent Allergies: Coded Allergies: Codeine (Verified Allergy, Unknown, 09/01/15) Home Meds Active Scripts Amlodipine Besylate (Amlodipine Besylate) 10 Mg Tab, 1 TAB PO DAILY for 30 Days, #30 TAB 3 Refills Prov:WILFREDO TERRY RESIDENT 06/11/25 Nitrofurantoin (Nitrofurantoin) 100 Mg Cap, 1 CAP PO BID for 5 Days, #10 CAP Prov:WILFREDO TERRY RESIDENT 06/11/25 Sodium Polystyrene Sulfonate (Kalexate) Pow, 1 AZIZA OR DAILY for 10 Days, #10 POW Prov:WILFREDO TERRY RESIDENT 06/11/25 Reported Medications Atenolol (Atenolol) 25 Mg Tab, 1 TAB PO DAILY, #30 TAB 5 Refills 06/07/25 Current Medications Current Medications Medications (Trade) Dose Ordered Sig/Jamar Route PRN Reason Start Time Stop Time Status Last Admin Zirconium Oxide (Lokelma) 10 gm TID PO 06/16/25 14:00 06/16/25 11:47 DC Zirconium Oxide (Lokelma) 10 gm DAILY PO 06/17/25 10:00 06/17/25 09:10 Sodium Bicarbonate 50 ml/ Sodium Chloride 1,050 ml @ 100 mls/hr [id number] IV 06/16/25 15:15 06/16/25 18:27 Family History: Patient reports no known family medical history. Review of Systems All 12 item review of systems reviewed with the patient nonsignificant except what is mentioned in the history of present illness H&P Exam Vital Signs/I&O Vital Sign Date Time Temp Pulse Resp B/P (MAP) Pulse Ox O2 Delivery O2 Flow Rate FiO2 06/17/25 08:57 97.5 63 17 136/72 (93) 98 97.5 06/17/25 08:00 Room Air* 0 21 Intake and Output 06/16/25 06/17/25 19:00 07:00 Intake Total 1072 ml 1200 ml Balance 1072 ml 1200 ml Intake Oral 872 ml 900 ml IV Total 200 ml 300 ml # Voids 3 2 Physical Exam Patient lying comfortably in bed Lungs clear to auscultation bilaterally Cardiac exam regular rate and rhythm GI soft nontender right nephrostomy tube Extremities no clubbing cyanosis or edema Neuro patient is awake and alert Labs/Diagnostic Data Labs/Diagnostic Data Laboratory Tests Test 06/16/25 20:52 06/16/25 13:22 06/16/25 10:00 06/16/25 04:48 Range/Units Vancomycin Level Trough 13.1 H 5-10 ug/mL Potassium Level 4.2 5.2 H 3.5-5.1 mmol/L Phosphorus Level 3.3 2.4-5.1 mg/dL Magnesium Level 1.7 1.6-2.6 mg/dL Vitamin D 25-Hydroxy 20.1 L 30.0-100 ng/mL POC Glucose 108 H 70-106 mg/dl White Blood Count 7.9 4.4-10.8 10^3/uL Red Blood Count 5.00 4.0-5.20 10^6/uL Hemoglobin 13.6 12.2-16.2 g/dL Hematocrit 40.6 36.0-46.0 % Mean Corpuscular Volume 81.1 80.0-100.0 fL Mean Corpuscular Hemoglobin 27.2 L 28.0-32.0 pg Mean Corpuscular Hemoglobin Concent 33.5 32.0-36.0 g/dL Red Cell Distribution Width 16.5 H 11.8-14.3 % Platelet Count 277 140-450 10^3/uL Mean Platelet Volume 8.6 6.9-10.8 fL Neutrophils (%) (Auto) 57.3 37.0-80.0 % Lymphocytes (%) (Auto) 28.8 10.0-50.0 % Monocytes (%) (Auto) 11.5 0.0-12.0 % Eosinophils (%) (Auto) 1.5 0.0-7.0 % Basophils (%) (Auto) 0.9 0.0-2.0 % Neutrophils # (Auto) 4.5 1.6-8.6 10 ^3/uL Lymphocytes # (Auto) 2.3 0.4-5.4 10 ^3/uL Monocytes # (Auto) 0.9 0-1.3 10 ^3/uL Eosinophils # (Auto) 0.1 0-0.8 10 ^3/uL Basophils # (Auto) 0.1 0-0.2 10 ^3/uL Nucleated Red Blood Cells 0.2 % Sodium Level 137 136-145 mmol/L Chloride Level 110 H 98-107 mmol/L Carbon Dioxide Level 19 L 20-31 mmol/L Anion Gap 8 5-15 Blood Urea Nitrogen 8 L 9-23 mg/dL Creatinine 1.04 H 0.550-1.02 mg/dL Glomerular Filtration Rate Calc 61 >90 mL/min BUN/Creatinine Ratio 7.7 L 10.0-20.0 Serum Glucose 87 74-106 mg/dL Calcium Level 10.6 H 8.7-10.4 mg/dL Total Bilirubin 0.5 0.2-1.0 mg/dL Aspartate Amino Transferase (AST) 15 13-40 U/L Alanine Aminotransferase (ALT) 16 7-40 U/L Alkaline Phosphatase 92 46-116 U/L Total Protein 6.8 5.7-8.2 g/dL Albumin 4.0 3.2-4.8 g/dL Test 06/15/25 04:54 06/14/25 07:32 06/13/25 16:17 06/13/25 00:00 Range/Units White Blood Count 6.7 6.7 8.3 4.4-10.8 10^3/uL Red Blood Count 4.73 5.21 H 5.40 H 4.0-5.20 10^6/uL Hemoglobin 12.7 13.9 14.6 # 12.2-16.2 g/dL Hematocrit 38.2 40.9 42.8 # 36.0-46.0 % Mean Corpuscular Volume 80.6 78.6 L 79.2 L 80.0-100.0 fL Mean Corpuscular Hemoglobin 26.9 L 26.7 L 27.1 L 28.0-32.0 pg Mean Corpuscular Hemoglobin Concent 33.3 34.0 34.2 32.0-36.0 g/dL Red Cell Distribution Width 16.6 H 16.9 H 16.9 H 11.8-14.3 % Platelet Count 284 300 303 140-450 10^3/uL Mean Platelet Volume 8.2 8.5 8.0 6.9-10.8 fL Neutrophils (%) (Auto) 53.5 60.2 54.9 37.0-80.0 % Lymphocytes (%) (Auto) 32.5 27.4 32.1 10.0-50.0 % Monocytes (%) (Auto) 10.8 9.6 11.1 0.0-12.0 % Eosinophils (%) (Auto) 2.3 2.0 1.3 0.0-7.0 % Basophils (%) (Auto) 0.9 0.8 0.6 0.0-2.0 % Neutrophils # (Auto) 3.6 4.0 4.6 1.6-8.6 10 ^3/uL Lymphocytes # (Auto) 2.2 1.8 2.7 0.4-5.4 10 ^3/uL Monocytes # (Auto) 0.7 0.6 0.9 0-1.3 10 ^3/uL Eosinophils # (Auto) 0.2 0.1 0.1 0-0.8 10 ^3/uL Basophils # (Auto) 0.1 0.1 0 0-0.2 10 ^3/uL Nucleated Red Blood Cells 0.1 0.1 0.1 % Sodium Level 141 141 140 # 136-145 mmol/L Potassium Level 5.3 H 5.3 H 4.9 3.5-5.1 mmol/L Chloride Level 112 H 112 H 110 H 98-107 mmol/L Carbon Dioxide Level 20 20 19 L 20-31 mmol/L Anion Gap 9 9 11 5-15 Blood Urea Nitrogen 13 14 14 9-23 mg/dL Creatinine 1.07 H 1.18 H 1.36 H 0.550-1.02 mg/dL Glomerular Filtration Rate Calc 59 52 44 >90 mL/min BUN/Creatinine Ratio 12.1 11.9 10.3 10.0-20.0 Serum Glucose 92 98 90 74-106 mg/dL Calcium Level 10.8 H 10.6 H 11.3 H 8.7-10.4 mg/dL Total Bilirubin 0.6 0.6 0.2-1.0 mg/dL Aspartate Amino Transferase (AST) 12 L 17 13-40 U/L Alanine Aminotransferase (ALT) 17 27 7-40 U/L Alkaline Phosphatase 89 104 46-116 U/L Total Protein 6.7 7.5 5.7-8.2 g/dL Albumin 3.9 4.4 3.2-4.8 g/dL Urine Osmolality 330 mOsm/kg Urine Creatinine 60.84 30.0-125.0 mg/dL Urine Protein/Creatinine Ratio 2.01 Urine Total Protein 122.2 H 1-14 mg/dL Uric Acid 5.3 3.1-7.8 mg/dL Iron Level 76 50-170 ug/dL Total Iron Binding Capacity 335 250-425 ug/dL Percent Iron Saturation 22.7 15-50 % Ferritin 89.7 10-291 ng/mL Troponin I High Sensitivity 4 </=34 ng/L Parathyroid Hormone (Intact) 432.4 H 18.4-80.1 pg/mL Urine Color Colorless Yellow Urine Clarity Turbid H Clear Urine pH 6.0 5.0-9.0 Urine Specific [place] 1.010 1.001-1.035 Urine Protein 1+ H Negative Urine Ketones Negative Negative Urine Blood 3+ H Negative /uL Urine Nitrite Negative Negative Urine Bilirubin Negative Negative Urine Urobilinogen Normal Negative mg/dL Urine Leukocyte Esterase 3+ Negative /uL Urine RBC 1195 0 - 4 /hpf Urine Microscopic WBC 32 H 0-5 /HPF Urine Squamous Epithelial Cells None seen <5 /hpf Urine Bacteria None seen None Seen /hpf Urine Mucus Few None Seen Urine Glucose Normal Normal mg/dL Urine Opiates Screen Neg NEGATIVE Urine Fentanyl Screen Pos NEGATIVE Urine Barbiturates Screen Neg NEGATIVE Urine Phencyclidine Screen Neg NEGATIVE Urine Amphetamines Screen Pos NEGATIVE Urine Benzodiazepines Screen Neg NEGATIVE Urine Cocaine Screen Neg NEGATIVE Urine Cannabinoids Screen Pos NEGATIVE Microbiology Date/Time Source Procedure Growth Status 06/15/25 03:27 Nose MRSA Screen - Final Complete 06/13/25 00:00 Voided Urine Urine Culture - Final Complete Assessment AMNA superimposed on CKD secondary to hemodynamic mediated Obstructive uropathy Right ureteral stent Pyelonephritis Left nephrectomy, RCC Nephrolithiasis Hypercalcemia Hyperparathyroidism r/o primary vs. adenoma Methamphetamine abuse Metabolic acidosis likely RTA Hyperkalemia REC: Closely monitor fluids and lytes Avoid nephrotoxins Strict I&O's IV Abx IVF 1/2 NS with Sodium bicarb 50 mEq/L @ 100 cc/hr Parathyroid nuclear scan r/o adenoma Check ferritin and iron panel BP control Will continue to follow Patient seen and examined by myself, I discussed my plan of care with the patient and primary nurse at the bedside I would like to thank Dr. Moncada for the consult, I will follow Plan discussed with: Patient MEHNAZ PICHARDO MD Jun 16, 2025 15:16
[2025-06-16 15:26] LABS: Magnesium 1.7 mg/dL (1.6-2.6)
[2025-06-16 17:00] VITALS: BP 119/93; PULSE 93; RESP 17; TEMP 98.3; O2SAT 98
[2025-06-16] MEDS: SODIUM BICARB 50mEq/50ml Vial 50 ML in SOD CHL 0.45% 1,000 ML IV SCH (18:27)
[2025-06-16 21:00] VITALS: BP 118/81; PULSE 66; RESP 18; TEMP 97.6; O2SAT 100
[2025-06-17] VITALS (7 sets, daily range): BP systolic 128–145; BP diastolic 72–103; PULSE 58–86; RESP 14–18; TEMP 97.1–98; O2SAT 97–100
[2025-06-17] MEDS: SODIUM ZIRCONIUM CYCL 10 GM PAK PO SCH (09:10)
--- NOTE | 2025-06-17 10:37 | DVHPN2 ---
Progress Note Date Seen: Jun 17, 2025 Medical Necessity Reason Pt with a Central, PICC or Fol: No Subjective Patient reports: No new complaints Other Systems: Patient seen and examined by myself today in follow-up Objective vital signs Vital Sign Date Time Temp Pulse Resp B/P (MAP) Pulse Ox O2 Delivery O2 Flow Rate FiO2 06/17/25 08:57 97.5 63 17 136/72 (93) 98 97.5 06/17/25 08:00 Room Air* 0 21 Total Intake and Output 06/16/25 06/16/25 06/17/25 15:00 23:00 07:00 Intake Total 50 ml 1022 ml 1200 ml Balance 50 ml 1022 ml 1200 ml medications Current Medications Medications Dose Ordered Sig/Ajmar Route Start Time Stop Time Status Last Admin Dose Admin Docusate Sodium 100 mg BIDPRN PRN PO 06/13/25 17:00 Acetaminophen 650 mg Q6HP PRN PO 06/13/25 17:00 Ondansetron HCl 4 mg Q4HP PRN IV 06/13/25 17:00 06/15/25 05:01 Nitroglycerin 0.4 mg Q5MINP PRN SL 06/13/25 17:00 Vancomycin HCl 0 ml @ 0 mls/hr PER PHARMACY IV 06/13/25 17:30 Pantoprazole Sodium 40 mg DAILY IV 06/14/25 10:00 06/16/25 09:02 Nicotine 1 patch DAILY TD 06/14/25 10:00 06/17/25 09:11 Polyethylene Glycol 17 gm DAILYPRN PRN PO 06/13/25 19:15 Cancel Lidocaine 1 patch DAILY TOP 06/14/25 10:00 06/17/25 09:11 Cefepime HCl 50 ml @ 50 mls/hr Q12H IV 06/14/25 12:00 06/17/25 00:11 Acetaminophen/ Hydrocodone Bitart 1 tab Q4HPRN PRN PO 06/14/25 14:45 06/16/25 11:52 Morphine Sulfate 1 mg Q4HP PRN IV 06/14/25 15:15 06/17/25 08:26 Vancomycin HCl 250 ml @ 200 mls/hr Q24H IV 06/14/25 22:00 06/16/25 22:45 Zirconium Oxide 10 gm DAILY PO 06/17/25 10:00 06/17/25 09:10 Sodium Bicarbonate 50 ml/ Sodium Chloride 1,050 ml @ 100 mls/hr [id number] IV 06/16/25 15:15 06/16/25 18:27 Examination: LUNGS:Normal, CVS:Normal, MSK:Normal, :Abnormal (Right nephrostomy tube) laboratory and microbiology Laboratory Tests 06/16/25 13:22 06/16/25 04:48 Test 06/16/25 04:48 Range/Units Serum Glucose 87 74-106 mg/dL Microbiology Date/Time Source Procedure Growth Status 06/15/25 03:27 Nose MRSA Screen - Final Complete 06/13/25 17:49 Blood Blood Culture - Preliminary NO GROWTH AFTER 72 HOURS OF INCUBATION. Resulted 06/13/25 00:00 Voided Urine Urine Culture - Final Complete Problem List/Assessment/Plan Problem List/Assessment/Plan AMNA superimposed on CKD secondary to hemodynamic mediated Obstructive uropathy Right ureteral stent Pyelonephritis Left nephrectomy, RCC Nephrolithiasis Hypercalcemia Hyperparathyroidism r/o primary vs. adenoma Methamphetamine abuse Metabolic acidosis likely RTA Hyperkalemia REC: Kidney function is improving Increased urine output Strict I&O's IV Abx IVF 1/2 NS with Sodium bicarb 50 mEq/L @ 100 cc/hr Parathyroid nuclear scan r/o adenoma If parathyroid scan suggests adenoma, consult Dr. Nunez for surgery BP control Will continue to follow Plan discussed with: Patient My Orders My Orders Orders - MEHNAZ PICHARDO MD Procedure Category Date Status Time Sod Chl 0.45% PHA 06/16/25 In Process (Sodi... W/Sodium 15:15 Parathyroid NM 06/17/25 Logged 08:00 Parathyroid NM 06/17/25 Logged 10:27 MEHNAZ PICHARDO MD Jun 17, 2025 10:37
[2025-06-17] MEDS ORDERED: NITR-52 PO (10:46)
[2025-06-17 13:12] LABS: Nucleated Red Blood Cells % 0.2 %
[2025-06-17 13:14] LABS: Hematocrit 40.0 % (36.0-46.0); Hemoglobin 13.4 g/dL (12.2-16.2); Mean Corpuscular Hemoglobin 27.0 pg (28.0-32.0); Mean Corpuscular Volume 80.8 fL (80.0-100.0)
[2025-06-17 13:21] LABS: Potassium 3.9 mmol/L (3.5-5.1); Sodium 141 mmol/L (136-145)
[2025-06-17 13:22] LABS: Anion Gap 10 (5-15); Carbon Dioxide 24 mmol/L (20-31)
[2025-06-17 13:27] LABS: BUN/Creatinine Ratio 13.7 (10.0-20.0); Blood Urea Nitrogen 14 mg/dL (9-23)
[2025-06-17 13:38] LABS: Calcium 10.6 mg/dL (8.7-10.4); Chloride 107 mmol/L (98-107); Glucose 129 mg/dL (74-106)
--- NOTE | 2025-06-17 15:23 | DVHDSRES ---
Discharge Summary Date of Admission Resident Creating Document: BRUCE PARK RESIDENT Jun 13, 2025 at 16:46 Date of Discharge: Jun 17, 2025 Admitting Diagnosis renal colic and hematuria with UTI Labs/Diagnostic Data: Laboratory Results Test 06/17/25 12:55 06/16/25 20:52 06/16/25 13:22 06/16/25 10:00 White Blood Count 6.7 10^3/uL (4.4-10.8) Red Blood Count 4.95 10^6/uL (4.0-5.20) Hemoglobin 13.4 g/dL (12.2-16.2) Hematocrit 40.0 % (36.0-46.0) Mean Corpuscular Volume 80.8 fL (80.0-100.0) Mean Corpuscular Hemoglobin 27.0 pg (28.0-32.0) Mean Corpuscular Hemoglobin Concent 33.4 g/dL (32.0-36.0) Red Cell Distribution Width 16.4 % (11.8-14.3) Platelet Count 312 10^3/uL (140-450) Mean Platelet Volume 7.9 fL (6.9-10.8) Neutrophils (%) (Auto) 58.8 % (37.0-80.0) Lymphocytes (%) (Auto) 30.6 % (10.0-50.0) Monocytes (%) (Auto) 7.7 % (0.0-12.0) Eosinophils (%) (Auto) 1.9 % (0.0-7.0) Basophils (%) (Auto) 1.0 % (0.0-2.0) Neutrophils # (Auto) 3.9 10 ^3/uL (1.6-8.6) Lymphocytes # (Auto) 2.0 10 ^3/uL (0.4-5.4) Monocytes # (Auto) 0.5 10 ^3/uL (0-1.3) Eosinophils # (Auto) 0.1 10 ^3/uL (0-0.8) Basophils # (Auto) 0.1 10 ^3/uL (0-0.2) Nucleated Red Blood Cells 0.2 % Sodium Level 141 mmol/L (136-145) Potassium Level 3.9 mmol/L (3.5-5.1) Chloride Level 107 mmol/L (98-107) Carbon Dioxide Level 24 mmol/L (20-31) Anion Gap 10 (5-15) Blood Urea Nitrogen 14 mg/dL (9-23) Creatinine 1.02 mg/dL (0.550-1.02) Glomerular Filtration Rate Calc 62 mL/min (>90) BUN/Creatinine Ratio 13.7 (10.0-20.0) Serum Glucose 129 mg/dL (74-106) Calcium Level 10.6 mg/dL (8.7-10.4) Vancomycin Level Trough 13.1 ug/mL (5-10) Phosphorus Level 3.3 mg/dL (2.4-5.1) Magnesium Level 1.7 mg/dL (1.6-2.6) Vitamin D 25-Hydroxy 20.1 ng/mL (30.0-100) POC Glucose 108 mg/dl (70-106) Test 06/16/25 04:48 06/13/25 16:17 06/13/25 00:00 Total Bilirubin 0.5 mg/dL (0.2-1.0) Aspartate Amino Transferase (AST) 15 U/L (13-40) Alanine Aminotransferase (ALT) 16 U/L (7-40) Alkaline Phosphatase 92 U/L (46-116) Total Protein 6.8 g/dL (5.7-8.2) Albumin 4.0 g/dL (3.2-4.8) Urine Osmolality 330 mOsm/kg Urine Creatinine 60.84 mg/dL (30.0-125.0) Urine Protein/Creatinine Ratio 2.01 Urine Total Protein 122.2 mg/dL (1-14) Uric Acid 5.3 mg/dL (3.1-7.8) Iron Level 76 ug/dL (50-170) Total Iron Binding Capacity 335 ug/dL (250-425) Percent Iron Saturation 22.7 % (15-50) Ferritin 89.7 ng/mL (10-291) Troponin I High Sensitivity 4 ng/L (</=34) Parathyroid Hormone (Intact) 432.4 pg/mL (18.4-80.1) Urine Color Colorless (Yellow) Urine Clarity Turbid (Clear) Urine pH 6.0 (5.0-9.0) Urine Specific [place] 1.010 (1.001-1.035) Urine Protein 1+ (Negative) Urine Ketones Negative (Negative) Urine Blood 3+ /uL (Negative) Urine Nitrite Negative (Negative) Urine Bilirubin Negative (Negative) Urine Urobilinogen Normal mg/dL (Negative) Urine Leukocyte Esterase 3+ /uL (Negative) Urine RBC 1195 /hpf (0 - 4) Urine Microscopic WBC 32 /HPF (0-5) Urine Squamous Epithelial Cells None seen /hpf (<5) Urine Bacteria None seen /hpf (None Seen) Urine Mucus Few (None Seen) Urine Glucose Normal mg/dL (Normal) Urine Opiates Screen Neg (NEGATIVE) Urine Fentanyl Screen Pos (NEGATIVE) Urine Barbiturates Screen Neg (NEGATIVE) Urine Phencyclidine Screen Neg (NEGATIVE) Urine Amphetamines Screen Pos (NEGATIVE) Urine Benzodiazepines Screen Neg (NEGATIVE) Urine Cocaine Screen Neg (NEGATIVE) Urine Cannabinoids Screen Pos (NEGATIVE) Other Laboratory Tests 06/17/25 12:55 Brief Hx & Hospital Course: Ms. Zaidi, a 60-year-old female with a history of renal carcinoma status post left nephrectomy (2021), cholecystectomy, recurrent UTI, renal stone s/p ESWL and stent, active smoker, marijuana and methamphetamine abuser, prior stroke, anxiety disorder, pre-diabetes, GERD, hypertension and poor health adherence presented to the ED via EMS with a 34 day history of moderate right-sided abdominal pain radiating to the back, associated with urinary urgency and retention. She was previously seen on 06/08/25 for similar symptoms, during which she was admitted and underwent right ureteroscopic laser lithotripsy and right ureteral stent placement. Despite the procedure, her pain had persisted, described as sharp and constant without identifiable alleviating or precipitating factors. She denied fever, chills, nausea, or vomiting. She was brought in by EMS again in the [facility] ER with recurrent symptoms but otherwise hemodynamically stable. Her creatinine levels were elevated, she had vitamin-D deficiency and urinalysis was positive for UTI. She was treated with antibiotics, pain killers and nicotine patch. She was counseled on the importance of abstaining from smoking. During the course of the hospitalization the patient improved clinically and hence being discharged. Consults/Reason for consult Urology Operations or Procedures [address] [address] Ph: [phone] DIAGNOSTIC IMAGING Diagnostic Imaging Report : [id number] Signed PATIENT: DEREJE ZAIDI ACCT: [id number] UNIT: [id number] : 1965 LOC: CENTRAL ROOM / BED: 0214 / B AGE / SEX: 60 / F ADM STATUS: ADM IN SERVICE 1829 ORDERING PHYSICIAN: MIGUEL BARAJAS PROCEDURE(s): KIDUS - KIDNEY REASON: rule out stone or obstruction in solitary right kidney ORDER NUMBER(s): [id number], ACCESSION NUMBER(s): [id number] INDICATION: rule out stone or obstruction in solitary right kidney TECHNIQUE: Multiple real-time sonographic images of the kidneys and bladder were obtained. COMPARISON: XY KUB ABDOMEN SINGLE VIEW on DOS: 06/09/25, US KIDNEY on DOS: 06/07/25, US ABDOMEN LIMITED on DOS: 06/07/25 FINDINGS: The right kidney measures 14.4 cm in length, which is normal in size. The right kidney appears unremarkable. Right nephroureteral stent proximal aspect is noted in the right renal pelvis. There is mild hydronephrosis. Left kidney appears absent. Urinary bladder collapsed in the presence of a Irwin catheter. IMPRESSION: 1. Right nephroureteral stent in place with mild right hydronephrosis. ATED BY: CHRISTOPHER CHANDLER MD DICTATED DATE/TIME: 06/14/25422 SIGNED BY: CHRISTOPHER CHANDLER MD SIGNED DATE/TIME: 06/14/25422 CC: [place] [id number] Ph: [phone] DIAGNOSTIC IMAGING Diagnostic Imaging Report : [id number] Signed PATIENT: DEREJE ZAIDI ACCT: [id number] UNIT: [id number] : 1965 LOC: CENTRAL ROOM / BED: [facility] / B AGE / SEX: 60 / F ADM STATUS: ADM IN SERVICE 014 ORDERING PHYSICIAN: CHARLINE BUTT PROCEDURE(s): ABPL - CT AB PEL WO CON-NO ORAL OR IV REASON: Abdominal pain ORDER NUMBER(s): [id number], ACCESSION NUMBER(s): [id number] CT CT AB PEL WO CON-NO ORAL OR IV INDICATION: Abdominal pain EXAM DATE: 06/14/2025 10:18 AM COMPARISON: CT CT AB PEL WO CON-NO ORAL OR IV on DOS: 06/07/25, CT CT AB PEL WO CON-NO ORAL OR IV on DOS: 04/08/25, CT CT AB PEL WO CON-NO ORAL OR IV on DOS: 11/23/24 RADIATION DOSE: CTDIvol: 14.67 mGy, DLP: 775.7 mGy*cm PROCEDURE: Helical CT images were obtained of the abdomen and pelvis without IV contrast Sagittal and coronal reconstructions are provided. ORAL CONTRAST: None. ADDITIONAL IMAGES / REFORMATS: None All CT scans at this medical facility are performed using dose modulation techniques as appropriate to a performed exam including the following: Automated exposure control was utilized; adjustment of the MA and/or KV according to patient size; and use of iterative reconstruction technique. FINDINGS: LUNG BASE: Normal. LIVER: Normal. GALLBLADDER AND BILIARY TREE: Jammie clips are noted. No intra- or extrahepatic biliary ductal dilation. PANCREAS: Normal. SPLEEN: Normal. BOWEL: Normal. Normal appendix. ADRENALS: 1.9 cm right adrenal gland nodule. KIDNEYS AND URETER: Absent left kidney. Right ureteral stent with resolution of prior hydronephrosis and no stone seen. BLADDER: Irwin. REPRODUCTIVE ORGANS: Normal. LYMPH NODES:No lymphadenopathy. PERITONEUM: No ascites or free air. No other fluid collection. VESSELS: Scattered atherosclerotic calcifications are noted. RETROPERITONEUM: Normal. ABDOMINAL WALL: Similar left lumbar hernia. Similar ventral wall hernia with nodularity. BONES: Scattered osseous degenerative changes are noted. IMPRESSION: Right ureteral stent with resolution of prior hydronephrosis and no stone seen. ATED BY: VALD WARD MD DICTATED DATE/TIME: 06/14/251104 SIGNED BY: VLAD WARD MD SIGNED DATE/TIME: 06/14/251104 CC: [place] [id number] Ph: [phone] DIAGNOSTIC IMAGING Diagnostic Imaging Report : [id number] Signed PATIENT: DEREJE ZAIDI ACCT: [id number] UNIT: [id number] : 1965 LOC: CENTRAL ROOM / BED: [facility] / B AGE / SEX: 60 / F ADM STATUS: ADM IN SERVICE 0800 ORDERING PHYSICIAN: MEHNAZ PICHARDO MD PROCEDURE(s): PARA - PARATHYROID REASON: hypercalcemia r/o adenoma ORDER NUMBER(s): [id number], ACCESSION NUMBER(s): [id number] Procedure: NM PARATHYROID Exam Date: 06/17/2025 10:04 AM. Clinical History: hypercalcemia r/o adenoma Comparison Study: CT CT AB PEL WO CON-NO ORAL OR IV on DOS: 06/14/25, MRI MRI ABD PELVIS W/O CONT on DOS: 06/08/25, CT CT AB PEL WO CON-NO ORAL OR IV on DOS: 06/07/25, CT CT AB PEL WO CON-NO ORAL OR IV on DOS: 04/08/25, CT CT AB PEL WO CON-NO ORAL OR IV on DOS: 11/23/24 Nuclear Medicine Parathyroid Scan. Technique: Following the intravenous injection of 19.1 mCi of the Technetium 99m Sestamibi, images of the neck were obtained in multiple projections , immediately and after a two hour delay. Findings: There is the expected physiologic distribution of radiopharmaceutical. There is no abnormal focus of increased uptake to suggest a parathyroid adenoma in the neck. Impression: No scintigraphic evidence for parathyroid adenoma in the neck. 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 #AMNA due to [facility] #Tauy-in-nviomixb Stable mild right-sided hydronephrosis and hydroureter. #History of Left posterolateral abdominal wall hernia #H/o Type 2 Diabetes Mellitus #history of renal carcinoma left #H/o surgical cholecystectomy #recurrent UTI, no ESBL noted in prior culture #prior stroke #H/o anxiety disorder and major depressive disorder #poor health adherence #mild to moderate dehydration #Recurrent constipation #GERD Discharge Disposition: Home Discharge Instruct/Medications Diet: Renal Activity: No Restrictions, As Tolerated Follow Up/Referral: F/u with PCP in 7 days Medications: Tab Nitrofurantoin 100 mg as per EHR Scheduled Amlodipine Besylate (Amlodipine Besylate), 1 TAB PO DAILY Atenolol (Atenolol), 1 TAB PO DAILY, (Reported) Nitrofurantoin (Nitrofurantoin), 1 CAP PO BID Sodium Polystyrene Sulfonate (Kalexate), 1 AZIZA OR DAILY Discontinued Medications Nitrofurantoin (Nitrofurantoin), 1 CAP PO BID Discharge Statement: "Patient was advised to return to the ER or call 911 if any headaches, dizziness, shortness of breath, chest pain, abdominal pain, bleeding, fevers, or worsening of medical condition. Patient was counseled about treatment plan, medications, possible side effects, patientverbalized understanding. All questions were answered to the best of my ability. This discharge took greater then 30 minutes in planning, reviewing documentation, counseling the patient, and discussing with other team members." ASSESSMENT ASSESSMENT Assessment Acute complicated UTI Date of Service: Jun 17, 2025 Billing Provider: OLEG BUCK MD Common Visit Codes: 19821-TTG/OBS DISCH DAY >30min BRUCE PARK RESIDENT Jun 17, 2025 15:23 MIGUEL BARAJAS RESIDENT Jun 17, 2025 18:57 OLEG BUCK MD Jun 18, 2025 14:48
--- NOTE | 2025-06-17 16:25 | DVH ---
Procedure: NM PARATHYROID Exam Date: 06/17/2025 10:04 AM. Clinical History: hypercalcemia r/o adenoma Comparison Study: CT CT AB PEL WO CON-NO ORAL OR IV on DOS: 06/14/25, MRI MRI ABD PELVIS W/O CONT on DOS: 06/08/25, CT CT AB PEL WO CON-NO ORAL OR IV on DOS: 06/07/25, CT CT AB PEL WO CON-NO ORAL OR IV on DOS: 04/08/25, CT CT AB PEL WO CON-NO ORAL OR IV on DOS: 11/23/24 Nuclear Medicine Parathyroid Scan. Technique: Following the intravenous injection of 19.1 mCi of the Technetium 99m Sestamibi, images of the neck were obtained in multiple projections , immediately and after a two hour delay. Findings: There is the expected physiologic distribution of radiopharmaceutical. There is no abnormal focus of increased uptake to suggest a parathyroid adenoma in the neck. Impression: No scintigraphic evidence for parathyroid adenoma in the neck.
[2025-06-18 01:00] VITALS: BP 122/76; PULSE 67; RESP 17; TEMP 98.4; O2SAT 99
[2025-06-18 08:00] VITALS: PULSE 85; RESP 14; O2SAT 96
[2025-06-18 08:51] VITALS: BP 115/72; PULSE 58; RESP 18; TEMP 98.1; O2SAT 100
== END 2025-06-18 10:55 | disposition home or self-care (01) | DRG 720 ==
LOC: EDBD 13:19 → ER 13:19 → OVERFLOW 16:46 → CENTRAL 18:52
PROVIDERS: ADMIT Internal Medicine Geriatric Medicine; ATTEND Internal Medicine Geriatric Medicine
DX: A41.9 Sepsis, unspecified organism (principal); N17.0 Acute kidney failure with tubular necrosis; E87.20 Acidosis, unspecified; I16.0 Hypertensive urgency; E11.22 Type 2 diabetes mellitus with diabetic chronic kidney disease; D50.9 Iron deficiency anemia, unspecified; N13.6 Pyonephrosis; I12.9 Hypertensive chronic kidney disease with stage 1 through stage 4 chronic kidney disease, or unspecified chronic kidney disease; N18.9 Chronic kidney disease, unspecified; F32.9 Major depressive disorder, single episode, unspecified; F15.10 Other stimulant abuse, uncomplicated; E86.0 Dehydration; E55.9 Vitamin D deficiency, unspecified; R77.9 Abnormality of plasma protein, unspecified; E87.5 Hyperkalemia; K21.9 Gastro-esophageal reflux disease without esophagitis; F41.9 Anxiety disorder, unspecified; F12.10 Cannabis abuse, uncomplicated; F17.210 Nicotine dependence, cigarettes, uncomplicated; Z86.73 Personal history of transient ischemic attack (TIA), and cerebral infarction without residual deficits; Z87.442 Personal history of urinary calculi; Z85.528 Personal history of other malignant neoplasm of kidney; Z90.49 Acquired absence of other specified parts of digestive tract; Z90.5 Acquired absence of kidney; Z88.5 Allergy status to narcotic agent; Z79.899 Other long term (current) drug therapy; Z71.51 Drug abuse counseling and surveillance of drug abuser; Z71.6 Tobacco abuse counseling
CPT/HCPCS: 36415; 74176; 76775; 78070; 80048; 80053; 80202; 80307; 81001; 82306; 82570; 82728; 82962; 83540; 83550; 83735; 83935; 83970; 84100; 84132; 84155; 84156; 84165; 84484; 84550; 85025; 87040; 87081; 87086; G0378; J1815; J2405; J2470

== ENCOUNTER 2025-06-24 13:22 | Emergency (ER) | payer MEDICAID ==
[~2025-06-24] VITALS: Ht 165.1 cm; Wt 69.0 kg
[2025-06-24 13:35] VITALS: BP 146/94; PULSE 84; RESP 16; TEMP 97.9; O2SAT 99
== END 2025-06-24 14:18 | disposition left against medical advice (07) ==
LOC: EDBD 13:22 → ER 13:22
DX: R10.9 Unspecified abdominal pain (principal); M54.9 Dorsalgia, unspecified; Z53.21 Procedure and treatment not carried out due to patient leaving prior to being seen by health care provider

== ENCOUNTER 2025-06-26 15:31 | Inpatient (IN) | payer MEDICAID ==
[~2025-06-26] VITALS: Ht 157.5 cm; Wt 76.1 kg
--- NOTE | 2025-06-26 16:20 | ED.PDOC ---
History of Present Illness HPI Comments 60 y/o F is BIBA for c/c of nonradiating, left sided abdominal pain, with associated nausea and vomiting. Patient endorses on sudden, unprovoked, and atraumatic onset of symptoms, this morning. She rates her pain a 10/10 in severity. Denies any bloody or bilious vomitus, diarrhea, constipating, urinary symptoms, or further acute symptoms. Notable recent history of incomplete urinary retention due to kidney stones with right urethral stent placement at [facility], [facility] 3x weeks ago. Additional significant history of left nephrectomy, CKF, HTN, gastric bypass, and mild stroke. En route, patient received 100ug Fentanyl IM. Chief Complaint: Abdominal Pain Time Seen by MD: 15:40 Primary Care Provider: KRIS Reviewed Notes: Nurses Notes, Clay Pigeon Setter Notes, Medications, Allergies Allergies: Coded Allergies: Codeine (Verified Allergy, Unknown, 09/01/15) Home Meds Active Scripts Nitrofurantoin (Nitrofurantoin) 100 Mg Cap, 1 CAP PO BID for 5 Days, #10 CAP Prov:MIGUEL BARAJAS RESIDENT 06/17/25 Amlodipine Besylate (Amlodipine Besylate) 10 Mg Tab, 1 TAB PO DAILY for 30 Days, #30 TAB 3 Refills Prov:WILFREDO TERRY RESIDENT 06/11/25 Sodium Polystyrene Sulfonate (Kalexate) Pow, 1 AZIZA OR DAILY for 10 Days, #10 POW Prov:WILFREDO TERRY RESIDENT 06/11/25 Reported Medications Atenolol (Atenolol) 25 Mg Tab, 1 TAB PO DAILY, #30 TAB 5 Refills 06/07/25 Information Source: Patient, Emergency Med Personnel Mode of Arrival: EMS Severity: Moderate Timing: Hours Duration: Since onset Prehospital treatment: 12 Lead EKG, Wharfinger Chief, Pain Meds Past Medical History PAST MEDICAL HISTORY: Anxiety, Cancer (left kidney s/p nephrectomy ), CKF, Depression, DM, GERD, HTN Surgical History: Cholecystectomy Surgical History (Other): left nephrectomy gastric bypass POULTRY BREEDER History: No Pertinent POULTRY BREEDER History Family History Family History: Unobtainable Social History Smoker: Cigarettes, Less Than 1 Pack/Day Alcohol: Denies ETOH Use Drugs: Marijuana, Methamphetamine Lives In: Home Constitutional: denies: chills, diaphoresis, fatigue, fever, malaise, sweats, weakness, others EENTM: denies: blurred vision, double vision, ear bleeding, ear discharge, ear drainage, ear pain, ear ringing, eye pain, eye redness, hearing loss, mouth pain, mouth swelling, nasal discharge, nose bleeding, nose congestion, nose pain, photophobia, tearing, throat pain, throat swelling, voice changes, others Respiratory: denies: cough, hemoptysis, orthopnea, SOB at rest, shortness of breath, SOB with excertion, stridor, wheezing, others Cardiovascular: denies: chest pain, dizzy spells, diaphoresis, Dyspnea on exertion, edema, irregular heart beat, left arm pain, lightheadedness, palpitations, PND, syncope, others Gastrointestinal: reports: abdominal pain, nausea, vomiting; denies: abdomen distended, blood streaked bowels, constipated, diarrhea, dysphagia, difficulty swallowing, hematemesis, melena, poor appetite, poor fluid intake, rectal bleeding, rectal pain, others Genitourinary: denies: abnormal vagina bleeding, burning, dyspareunia, dysuria, flank pain, frequency, hematuria, incontinence, pain, , vagina discharge, urgency, others Neurological: denies: dizziness, fainting, headache, left sided numbness, left sided weakness, numbness, paresthesia, pre-existing deficit, right sided numbness, right sided weakness, seizure, speech problems, tingling, tremors, weakness, others Musculoskeletal: denies: back pain, gout, joint pain, joint swelling, muscle pain, muscle stiffness, neck pain, others Integumetry: denies: bruises, change in color, change in hair/nails, dryness, laceration, lesions, lumps, rash, wounds, others Allergic/Immunocompromised: denies: Difficulty Healing, Frequent Infections, Hives, Itching, others Hematologic/Lymphatic: denies: anemia, blood clots, easy bleeding, easy bruisin g, swollen glands, others Endocrine: denies: excessive hunger, excessive sweating, excessive thirst, excessive urination, flushing, intolerance to cold, intolerance to heat, unexplained weight gain, unexplained weight loss, others Psychiatric: denies: anxiety, bipolar disorder, depression, hopeless, panic disorder, schizophrenia, sleepless, suicidal, others All Other Systems: Reviewed and Negative Physical Exam General Appearance: Moderate Distress HEENT: Normal ENT Inspection, Pharynx Normal, TMs Normal Neck: Full Range of Motion, Non-Tender, Normal, Normal Inspection Respiratory: Chest Non-Tender, Lungs Clear, No Accessory Muscle Use, No Respiratory Distress, Normal Breath Sounds Cardiovascular: No Edema, No JVD, No Murmur, No Gallop, Normal Peripheral Pulses, Regular Rate/Rhythm Breast Exam: Deferred Gastrointestinal: Diffuse, No Organomegaly, No Pulsatile Mass, Normal Bowel Sounds, Soft, Tenderness Genitalia: Deferred Pelvic: Deferred Rectal: Deferred Extremities: No calf tenderness, Normal capillary refill, Normal inspection, Normal range of motion, Non-tender, No pedal edema Musculoskeletal : Apperance: Normal Neurologic: Alert, farm worker 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 Was a procedure done?: No Differential Dx Considerations may include: nephrolithiasis, pyelonephritis, cystitis, musculoskeletal pain, dehydration, electrolyte imbalance, among others. X-Ray, Labs, Meds, VS Vital Signs Date Time Temp Pulse Resp B/P (MAP) Pulse Ox O2 Delivery O2 Flow Rate FiO2 06/26/25 16:45 98.2 61 22 147/102 (117) 98 98.2 06/26/25 16:45 Room Air* 0 21 06/26/25 16:37 64 21 147/102 06/26/25 15:33 98.2 110 24 168/120 99 98.2 Lab Test 06/26/25 16:56 Range/Units White Blood Count 7.9 4.4-10.8 10^3/uL Red Blood Count 5.29 H 4.0-5.20 10^6/uL Hemoglobin 13.8 12.2-16.2 g/dL Hematocrit 41.2 36.0-46.0 % Mean Corpuscular Volume 77.8 L 80.0-100.0 fL Mean Corpuscular Hemoglobin 26.1 L 28.0-32.0 pg Mean Corpuscular Hemoglobin Concent 33.5 32.0-36.0 g/dL Red Cell Distribution Width 16.0 H 11.8-14.3 % Platelet Count 36 L 140-450 10^3/uL Mean Platelet Volume 7.7 6.9-10.8 fL Neutrophils (%) (Auto) 54.4 37.0-80.0 % Lymphocytes (%) (Auto) 31.6 10.0-50.0 % Monocytes (%) (Auto) 9.1 0.0-12.0 % Eosinophils (%) (Auto) 3.1 0.0-7.0 % Basophils (%) (Auto) 1.8 0.0-2.0 % Neutrophils # (Auto) 4.3 1.6-8.6 10 ^3/uL Lymphocytes # (Auto) 2.5 0.4-5.4 10 ^3/uL Monocytes # (Auto) 0.7 0-1.3 10 ^3/uL Eosinophils # (Auto) 0.2 0-0.8 10 ^3/uL Basophils # (Auto) 0.1 0-0.2 10 ^3/uL Nucleated Red Blood Cells 0.3 % Sodium Level Pending Potassium Level Pending Chloride Level Pending Carbon Dioxide Level Pending Anion Gap Pending Blood Urea Nitrogen Pending Creatinine Pending Glomerular Filtration Rate Calc Pending BUN/Creatinine Ratio Pending Serum Glucose Pending Calcium Level Pending Total Bilirubin Pending Aspartate Amino Transferase (AST) Pending Alanine Aminotransferase (ALT) Pending Alkaline Phosphatase Pending Total Protein Pending Albumin Pending Lipase Pending Current Medications Medications (Trade) Dose Ordered Sig/Jamar Route Start Time Stop Time Status Last Admin Ondansetron HCl (Zofran) 4 mg ONCE ONCE IV 06/26/25 15:45 06/26/25 15:46 DC 06/26/25 16:37 Sodium Chloride 1,000 ml @ 1,000 mls/hr Q1H ONCE IVB 06/26/25 15:45 06/26/25 16:44 DC 06/26/25 16:44 Morphine Sulfate 4 mg ONCE ONCE IV 06/26/25 15:45 06/26/25 15:46 DC 06/26/25 16:37 CAT scan of the abdomen and pelvis shows: IMPRESSION: Limited evaluation without contrast. Gastric distention with postsurgical changes involving the greater curvature of the stomach with possible gastrojejunostomy. There is associated bowel wall thickening with surrounding stranding near the postsurgical /anastomotic region with surrounding stranding of the adjacent mesentery, axial images 33-41. Recommend surgical consultation and GI consultation to further evaluate for possible infectious, inflammatory, neoplastic etiology. Correlate with procedural / surgical history. Similar appearing right anterior abdominal wall 1.5 cm hyperdense lesion, indeterminate etiology. Correlate clinically. Left adrenalectomy/ nephrectomy. Left posterior abdominal wall hernia containing large bowel measuring 4.9 x 3.4 cm without definitive evidence for obstruction. Right ureteral stent. No significant hydronephrosis. Right adrenal hyperplasia, similar to prior. Patient was given Zofran 4 mg IV push for nausea The patient was given morphine 4 mg IV push for the pain The patient was given a 1 L bolus of normal saline. The patient's CBC is within normal limits The chemistry panel is The patient is being admitted at this time Images Reviewed?: Images reviewed and evaluated by me Time of 1ST Reevaluation: 16:20 Reevaluation 1ST: Unchanged Patient Education/Counseling: Diagnosis, Treatment, Prognosis Family Education/Counseling: No Family Present SEPSIS Sepsis Screen Date sepsis recognized/suspect: Jun 26, 2025 Time Sepsis recognized/suspect: 1532 Recent Procedure: No On Antibiotic Therapy: Yes Respiratory Rate >20: Yes Heart Rate >90: Yes Temp<36 C (96.8 F) or >38.3 C: No SBP <90 or MAP <65 mmHG: No New Acute Mental Status Change: No Is the patient on CPAP, BIPAP,: No Physician Orders Comprehensive Metabolic Panel (06/26/25 15:44) Lipase (06/26/25 15:44) Urinalysis (06/26/25 15:44) Ct Ab Pel Wo Con-No Oral Or Iv (06/26/25 15:44) Heplock Iv (06/26/25 15:44) Wharfinger Chief (06/26/25 15:44) Blood Pressure (06/26/25 15:44) Pulse Oximetry (06/26/25 15:44) Vital Signs Date Time Temp Pulse Resp B/P (MAP) Pulse Ox O2 Delivery O2 Flow Rate FiO2 06/26/25 16:45 98.2 61 22 147/102 (117) 98 98.2 06/26/25 16:45 Room Air* 0 21 06/26/25 16:37 64 21 147/102 06/26/25 15:33 98.2 110 24 168/120 99 98.2 Laboratory Tests Test 06/26/25 16:56 White Blood Count 7.9 10^3/uL (4.4-10.8) Medications Medications Dose Ordered Sig/Jamar Route Start Time Stop Time Status Last Admin Dose Admin Morphine Sulfate 4 mg ONCE ONCE IV 06/26/25 15:45 06/26/25 15:46 DC 06/26/25 16:37 Ondansetron HCl 4 mg ONCE ONCE IV 06/26/25 15:45 06/26/25 15:46 DC 06/26/25 16:37 Sodium Chloride 1,000 ml @ 1,000 mls/hr Q1H ONCE IVB 06/26/25 15:45 06/26/25 16:44 DC 06/26/25 16:44 Departure 1 Departure Time of Disposition: 17:21 Impression: Primary Impression: Intractable abdominal pain Disposition: ADMITTED INPATIENT Admit to: Med Surg Condition: Fair Critical Care Note Critical Care Time?: No Stability Stability form required: Yes Unstable for transfer: ED Physician Assesment (Clinical assesment) Heart Score Heart Score: Heart Score Response (Comments) Value History N/A 0 EKG N/A 0 Age N/A 0 Risk Factors N/A 0 Troponin N/A 0 Total 0 I personally scribed for KIMBERLY BUSTOS MD ([email or web address]) on 06/26/25 at 16:20. Electronically submitted by Miguel Patricia [email or web address]). KIMBERLY BUSTOS MD Jun 26, 2025 16:20
--- NOTE | 2025-06-26 16:29 | DVH ---
Indication: left abd pain Technique: CT axial images of the abdomen and pelvis are obtained without contrast. Coronal and sagittal reformats were obtained. Radiation Dose Information: CTDI volume is 10.78 mGy. Dose-length product is 548.97 mGy*cm Comparison: CT CT AB PEL WO CON-NO ORAL OR IV on DOS: 06/14/25, FINDINGS: There is limited interpretation of the abdomen and pelvis without administration of intravenous contrast. Lung bases demonstrate no pleural effusion. Left nephrectomy/ adrenalectomy. Hypertrophy/ enlargement of the right adrenal gland. Spleen, pancreas unremarkable in shape. Cholecystectomy. Liver unremarkable in shape. Right kidney demonstrates ureteral stent. No significant right hydronephrosis. Punctate nonobstructing right renal calculus measuring 2 mm. Gastric distention. There are postsurgical changes near the greater curvature of the stomach with possible anastomosis to the jejunum. There is associated wall thickening with surrounding stranding in this region, axial image 33 through 41 Left posterolateral wall abdominal hernia containing large bowel measuring 4.9 x 3.4 cm. Moderate volume stool in the colon. No secondary signs for appendicitis. Abdominal aortic atherosclerotic disease. Bladder is partially distended. No free pelvic fluid. There is no inguinal lymphadenopathy. There is right anterior abdominal wall hyperdense lesion measuring 1.5 cm, unchanged from prior. IMPRESSION: Limited evaluation without contrast. Gastric distention with postsurgical changes involving the greater curvature of the stomach with possible gastrojejunostomy. There is associated bowel wall thickening with surrounding stranding near the postsurgical /anastomotic region with surrounding stranding of the adjacent mesentery, axial images 33-41. Recommend surgical consultation and GI consultation to further evaluate for possible infectious, inflammatory, neoplastic etiology. Correlate with procedural / surgical history. Similar appearing right anterior abdominal wall 1.5 cm hyperdense lesion, indeterminate etiology. Correlate clinically. Left adrenalectomy/ nephrectomy. Left posterior abdominal wall hernia containing large bowel measuring 4.9 x 3.4 cm without definitive evidence for obstruction. Right ureteral stent. No significant hydronephrosis. Right adrenal hyperplasia, similar to prior. Other findings as described
[2025-06-26] MEDS: MORPHINE SULFATE 4 MG/ML SYR/VIAL IV ONE (16:37)
[2025-06-26] MEDS: ONDANSETRON HCL 4 MG/2 ML VIAL IV ONE (16:37)
[2025-06-26] MEDS: SODIUM CHLORIDE 0.9% 1,000 ML IVB ONE (16:44)
[2025-06-26 17:09] LABS: Hematocrit 41.2 % (36.0-46.0); Hemoglobin 13.8 g/dL (12.2-16.2); Mean Corpuscular Hemoglobin 26.1 pg (28.0-32.0); Mean Corpuscular Volume 77.8 fL (80.0-100.0); Nucleated Red Blood Cells % 0.3 %
[2025-06-26 17:26] LABS: Alanine Aminotransferase 13 U/L (7-40); Albumin 4.2 g/dL (3.2-4.8); Alkaline Phosphatase 109 U/L (46-116); Anion Gap 9 (5-15); BUN/Creatinine Ratio 8.2 (10.0-20.0); Carbon Dioxide 22 mmol/L (20-31); Lipase 42 U/L (12-53); Potassium 4.3 mmol/L (3.5-5.1); Sodium 140 mmol/L (136-145); Total Protein 7.0 g/dL (5.7-8.2)
[2025-06-26 17:27] LABS: Bilirubin, Total 0.4 mg/dL (0.2-1.0)
[2025-06-26 17:29] LABS: Blood Urea Nitrogen 8 mg/dL (9-23); Calcium 11.5 mg/dL (8.7-10.4); Chloride 109 mmol/L (98-107); Glucose 111 mg/dL (74-106)
[2025-06-26] MEDS: fentaNYL CITRATE 100 MCG/2 ML VL IV ONE (18:48)
[2025-06-26 19:45] VITALS: PULSE 72
[2025-06-26] MEDS: MORPHINE SULFATE INJ 2 MG/ml SYRG IV ONE (21:34)
[2025-06-26] MEDS ORDERED: NITROGLYCERIN 0.4 MG SL TAB SL PRN (22:30)
[2025-06-26] MEDS ORDERED: MORPHINE SULFATE INJ 2 MG/ml SYRG IV PRN (22:30)
--- NOTE | 2025-06-26 22:40 | DVHHP2 ---
History of Present Illness Reason for Visit: Acute abdominal pain History of Present Illness The patient is a 60-year-old female with past medical history of chronic kidney failure, depression, DM, GERD, hypertension, anxiety, and left kidney cancer status post nephrectomy who presented to [facility] ED with complai nt of abdominal pain. Patient reports that she has been experiencing left-sided abdominal pain, rating 10/10 in severity, constant, associated with nausea, vomiting, getting worse that prompted this visit. Patient was seen and evaluated in the ED, laboratory data shows WBC 7.9, platelets [id number], sodium 140, potassium 4.3, BUN 8, creatinine 0.98, GFR 68, glucose 111, calcium 11.5, lipase 42, blood pressure 142/88, heart rate 72, temperature 98.2 F, O2 saturation 95% on room air. Abdomen/pelvis CT revealing left posterior abdominal wall hernia containing large bowel measuring 4.9 x 3.4 cm without definite evidence of obstruction, right ureteral stent, no significant hydronephrosis; gastric distention with postsurgical changes involving the greater curvature of the stomach with possible gastrojejunostomy. On my assessment, patient denied chest pain, no headache, dizziness, diaphoresis, no abdominal pain, nausea, vomiting at this moment, no fever, chills. Patient was admitted for further evaluation and medical management. Past Medical History Anxiety, Cancer (left kidney s/p nephrectomy ), CKF, Depression, DM, GERD, HTN Past Surgical History Cholecystectomy, Left nephrectomy, Gastric bypass, Urethral stent placement. Family History Reviewed, noncontributory to the management of this case. Past Social History The patient lives at home, smokes cigarettes less than 1 pack per day, denies alcohol use, uses marijuana and methamphetamine. Review of Systems Constitutional: Yes: Weakness; No: Fever, Chills, Sweats, Malaise, Other Eyes: No: Pain, Vision change, Conjunctivae inflammation, Eyelid inflammation, Other, Redness ENT: No: Ear pain, Ear discharge, Nose pain, Nose discharge, Nose congestion, Mouth pain, Mouth swelling, Throat pain, Throat swelling, Other Respiratory: No: Cough, Dry, Shortness of breath, SOB with excertion, Wheezing, Hemoptysis, Pleuritic Pain, Sputum, Wheezing, Other Cardiovascular: No: Chest Pain, Palpitations, Orthopnea, Paroxysmal Noc. Dyspnea, Edema, Lt Headedness, Other Gastrointestinal: Nausea, Vomiting, Abdominal Pain; No: Diarrhea, Constipation, Melena, Hematochezia, Other Genitourinary: No Dysuria, No Frequency, No Incontinence, No Hematuria, No Retention, No Other Musculoskeletal: No: other, neck pain, shoulder pain, arm pain, back pain, hand pain, leg pain, foot pain Skin: No: Rash, Lesions, Jaundice, Bruising, Other Neurological: No: Weakness, Numbness, Incoordination, Change in speech, Confusion, Seizures, Other Allergies: Coded Allergies: Codeine (Verified Allergy, Unknown, 09/01/15) Exam Vital Signs Vital Signs Date Time Temp Pulse Resp B/P (MAP) Pulse Ox O2 Delivery O2 Flow Rate FiO2 06/26/25 22:35 69 13 130/94 (106) 97 06/26/25 19:45 Room Air* 0 21 06/26/25 16:45 98.2 98.2 General Appearance: Alert, Oriented X3, Cooperative, No acute distress HEENT: Atraumatic, PERRLA, EOMI, Mucous membr. moist/pink Respiratory: Normal air movement Cardiovascular: Regular rate, Normal S1, Normal S2, No murmurs Abdominal: Normal bowel sounds, Soft, No tenderness, No hepatospenomegaly, No masses Extremities: No clubbing, No cyanosis, No edema, Normal pulses, No tenderness/swelling Skin: No rashes, No significant lesion Neuro: Normal speech, Normal tone, Sensation intact, Cranial nerves 3-12 NL, Reflexes 2+, Other (Generalized weakness) Psych/Mental Status: Mental status NL, Mood NL Labs/Xrays Labs Test 06/26/25 16:56 Range/Units White Blood Count 7.9 4.4-10.8 10^3/uL Red Blood Count 5.29 H 4.0-5.20 10^6/uL Hemoglobin 13.8 12.2-16.2 g/dL Hematocrit 41.2 36.0-46.0 % Mean Corpuscular Volume 77.8 L 80.0-100.0 fL Mean Corpuscular Hemoglobin 26.1 L 28.0-32.0 pg Mean Corpuscular Hemoglobin Concent 33.5 32.0-36.0 g/dL Red Cell Distribution Width 16.0 H 11.8-14.3 % Platelet Count 36 L 140-450 10^3/uL Mean Platelet Volume 7.7 6.9-10.8 fL Neutrophils (%) (Auto) 54.4 37.0-80.0 % Lymphocytes (%) (Auto) 31.6 10.0-50.0 % Monocytes (%) (Auto) 9.1 0.0-12.0 % Eosinophils (%) (Auto) 3.1 0.0-7.0 % Basophils (%) (Auto) 1.8 0.0-2.0 % Neutrophils # (Auto) 4.3 1.6-8.6 10 ^3/uL Lymphocytes # (Auto) 2.5 0.4-5.4 10 ^3/uL Monocytes # (Auto) 0.7 0-1.3 10 ^3/uL Eosinophils # (Auto) 0.2 0-0.8 10 ^3/uL Basophils # (Auto) 0.1 0-0.2 10 ^3/uL Nucleated Red Blood Cells 0.3 % Sodium Level 140 136-145 mmol/L Potassium Level 4.3 3.5-5.1 mmol/L Chloride Level 109 H 98-107 mmol/L Carbon Dioxide Level 22 20-31 mmol/L Anion Gap 9 5-15 Blood Urea Nitrogen 8 L 9-23 mg/dL Creatinine 0.98 0.550-1.02 mg/dL Glomerular Filtration Rate Calc 65 >90 mL/min BUN/Creatinine Ratio 8.2 L 10.0-20.0 Serum Glucose 111 H 74-106 mg/dL Calcium Level 11.5 H 8.7-10.4 mg/dL Total Bilirubin 0.4 0.2-1.0 mg/dL Aspartate Amino Transferase (AST) 14 13-40 U/L Alanine Aminotransferase (ALT) 13 7-40 U/L Alkaline Phosphatase 109 46-116 U/L Total Protein 7.0 5.7-8.2 g/dL Albumin 4.2 3.2-4.8 g/dL Lipase 42 12-53 U/L PATIENT: DEREJE WETZEL ACCT: [id number] UNIT: [id number] : 1965 LOC: ER ROOM / BED: / AGE / SEX: 60 / F ADM STATUS: REG ER SERVICE 1544 ORDERING PHYSICIAN: KIMBERLY BUSTOS MD PROCEDURE(s): ABPL - CT AB PEL WO CON-NO ORAL OR IV REASON: left abd pain ORDER NUMBER(s): [id number], ACCESSION NUMBER(s): [id number] Indication: left abd pain Technique: CT axial images of the abdomen and pelvis are obtained without contrast. Coronal and sagittal reformats were obtained. Radiation Dose Information: CTDI volume is 10.78 mGy. Dose-length product is 548.97 mGy*cm Comparison: CT CT AB PEL WO CON-NO ORAL OR IV on DOS: 06/14/25, FINDINGS: There is limited interpretation of the abdomen and pelvis without administration of intravenous contrast. Lung bases demonstrate no pleural effusion. Left nephrectomy/adrenalectomy. Hypertrophy/enlargement of the right adrenal gland. Spleen, pancreas unremarkable in shape. Cholecystectomy. Liver unremarkable in shape. Right kidney demonstrates ureteral stent. No significant right hydronephrosis. Punctate nonobstructing right renal calculus measuring 2 mm. Gastric distention. There are postsurgical changes near the greater curvature of the stomach with possible anastomosis to the jejunum. There is associated wall thickening with surrounding stranding in this region, axial image 33 through 41 Left posterolateral wall abdominal hernia containing large bowel measuring 4.9 x 3.4 cm. Moderate volume stool in the colon. No secondary signs for appendicitis. Abdominal aortic atherosclerotic disease. Bladder is partially distended. No free pelvic fluid. There is no inguinal lymphadenopathy. There is right anterior abdominal wall hyperdense lesion measuring 1.5 cm, unchanged from prior. IMPRESSION: Limited evaluation without contrast. Gastric distention with postsurgical changes involving the greater curvature of the stomach with possible gastrojejunostomy. There is associated bowel wall thickening with surrounding stranding near the postsurgical/anastomotic region w ith surrounding stranding of the adjacent mesentery, axial images 33-41. Recommend surgical consultation and GI consultation to further evaluate for possible infectious, inflammatory, neoplastic etiology. Correlate with procedural/surgical history. Similar appearing right anterior abdominal wall 1.5 cm hyperdense lesion, indeterminate etiology. Correlate clinically. Left adrenalectomy/nephrectomy. Left posterior abdominal wall hernia containing large bowel measuring 4.9 x 3.4 cm without definitive evidence for obstruction. Right ureteral stent. No significant hydronephrosis. Right adrenal hyperplasia, similar to prior. Other findings as described SEPSIS Sepsis Screen Date sepsis recognized/suspect: Jun 26, 2025 Time Sepsis recognized/suspect: 1644 Recent Procedure: No On Antibiotic Therapy: No Respiratory Rate >20: Yes Heart Rate >90: No Temp<36 C (96.8 F) or >38.3 C: No SBP <90 or MAP <65 mmHG: No New Acute Mental Status Change: No Is the patient on CPAP, BIPAP,: No Physician Orders Urinalysis (06/26/25 15:44) Ct Ab Pel Wo Con-No Oral Or Iv (06/26/25 15:44) Heplock Iv (06/26/25 15:44) Journeyman Wireman (06/26/25 15:44) Blood Pressure (06/26/25 15:44) Pulse Oximetry (06/26/25 15:44) Amlodipine Tablet (Norvasc Tablet) (06/27/25 10:00) Atenolol Tablet (Tenormin Tablet) (06/27/25 10:00) Admit (06/26/25 22:30) Allergies (06/26/25 22:30) Code Status (06/26/25:) Sodium Chloride Lock (Saline Lock Ns) (06/27/25 06:00) Oxygen Per Hour (06/26/25:30) Ondansetron Hcl (Zofran) (06/26/25 22:30) Docusate Sodium Capsule (Colace Capsule) (06/26/25 22:30) Complete Blood Count (06/27/25 04:00) Comprehensive Metabolic Panel (06/27/25 04:00) Condition: Serious (06/26/25 22:30) Acetaminophen Tablet (Tylenol Tablet) (06/26/25 22:30) Clear Liq Diet (06/27/25 Breakfast) Bedrest With Bathroom Privileg (06/26/25:30) Maintain Bed Rest (06/26/25 22:30) Morphine Sulfate Injection (06/26/25 22:30) Sequential Compression Device (06/26/25 ) Nitroglycerin Sublingual (Ntrostat Subli (06/26/25:30) Morphine Sulfate Injection (06/26/25:30) Stat Ekg For Chest Pain (06/26/25 22:30) Notify Md Of Changes From Base (06/26/25 22:30) Bag Sewer For 24 Hours (06/26/25 22:30) Emergency Dysrhythmia Protocol (06/26/25 22:30) Rhythm Strips Once Every Shift (06/26/25 22:30) Oxygen By Nasal Cannula (06/26/25 22:30) Vital Signs Date Time Temp Pulse Resp B/P (MAP) Pulse Ox O2 Delivery O2 Flow Rate FiO2 06/26/25 22:35 69 13 130/94 (106) 97 06/26/25 21:34 52 18 142/88 06/26/25 19:45 72 18 129/78 (95) 94 06/26/25 19:45 72 Room Air* 0 21 06/26/25 19:00 54 12 129/79 (96) 94 06/26/25 18:48 148/101 06/26/25 18:48 66 06/26/25 17:07 54 16 132/71 06/26/25 16:45 98.2 61 22 147/102 (117) 98 98.2 06/26/25 16:45 Room Air* 0 21 06/26/25 16:37 64 21 147/102 06/26/25 15:33 98.2 110 24 168/120 99 98.2 Laboratory Tests Test 06/26/25 16:56 White Blood Count 7.9 10^3/uL (4.4-10.8) Medications Medications Dose Ordered Sig/Jamar Route Start Time Stop Time Status Last Admin Dose Admin Fentanyl Citrate 100 mcg ONCE ONCE IV 06/26/25 18:45 06/26/25 18:46 DC 06/26/25 18:48 100 MCG Morphine Sulfate 1 mg ONCE ONCE IV 06/26/25 21:30 06/26/25 21:31 DC 06/26/25 21:34 1 MG Morphine Sulfate 4 mg ONCE ONCE IV 06/26/25 15:45 06/26/25 15:46 DC 06/26/25 16:37 4 MG Ondansetron HCl 4 mg ONCE ONCE IV 06/26/25 15:45 06/26/25 15:46 DC 06/26/25 16:37 4 MG Sodium Chloride 1,000 ml @ 1,000 mls/hr Q1H ONCE IVB 06/26/25 15:45 06/26/25 16:44 DC 06/26/25 16:44 1,000 MLS/HR Assessment/Plan Assessment/Plan Acute abdominal pain Hypercalcemia Thrombocytopenia Intractable nausea and vomiting Plan 1. Admit to telemetry unit 2. Breathing treatment 3. Pain control management 4. Management of fluids and electrolytes 5. Consultation for hospitalist 6. Diagnostic tests abdomen/pelvis CT 7. DVT prophylaxis on SCDs 8. Repeat labs CBC, CMP in a.m. 9. Continue with current medical management 10. Treatment plan discussed with patient and RN. Patient verbalized unders tanding. Plan discussed with: Patient, Other (Generalized weakness) My Orders Orders - ANNETTE BAH DNP Procedure Category Date Status Time Amlodipine Tablet PHA 06/27/25 Verified (Norvasc Tablet) 10:00 Atenolol Tablet PHA 06/27/25 Verified (Tenormin Tablet) 10:00 Admit ADMIT 06/26/25 Verified 22:30 Allergies [facility] 06/26/25 Verified 22:30 Code Status CODE 06/26/25 Verified 22:30 Sodium Chloride Lock PHA 06/27/25 Verified (Saline Lock Ns) 06:00 Oxygen Per Hour RT 06/26/25 Verified 22:30 Ondansetron Hcl PHA 06/26/25 Verified (Zofran) 22:30 Docusate Sodium [facility] 06/26/25 Verified Capsule (Colace 22:30 Complete Blood Count LAB 06/27/25 Verified 04:00 Comprehensive LAB 06/27/25 Verified Metabolic Panel 04:00 Condition: Serious [facility] 06/26/25 Verified 22:30 Acetaminophen Tablet PHA 06/26/25 Verified (Tylenol Tablet) 22:30 Clear Liq Diet DIET 06/27/25 Verified Breakfast Bedrest With Bathroom [facility] 06/26/25 Verified Privileg 22:30 Maintain Bed Rest [facility] 06/26/25 Verified 22:30 Morphine Sulfate [facility] 06/26/25 Verified Injection 22:30 Sequential [facility] 06/26/25 Verified Compression Device Nitroglycerin [facility] 06/26/25 Verified Sublingual (Ntrostat 22:30 Morphine Sulfate PHA 06/26/25 Verified Injection 22:30 Stat Ekg For Chest [facility] 06/26/25 Verified Pain 22:30 Notify Md Of Changes [facility] 06/26/25 Verified From Base 22:30 Bag Sewer For [facility] 06/26/25 Verified 24 Hours 22:30 Emergency Dysrhythmia [facility] 06/26/25 Verified Protocol 22:30 Rhythm Strips Once [facility] 06/26/25 Verified Every Shift 22:30 Oxygen By Nasal RT 11/14/25 Verified Cannula 22:30 Problem List: (1) Acute abdominal pain (2) Hypercalcemia (3) Thrombocytopenia (4) Intractable nausea and vomiting Date of Service: Jun 26, 2025 Billing Provider: ANNETTE BAH DNP Common Visit Codes: [id number] INP/OBS CARE (HIGH) ANNETTE BAH DNP Jun 26, 2025 22:40
[2025-06-27] VITALS (7 sets, daily range): BP systolic 121–147; BP diastolic 66–93; PULSE 48–74; RESP 14–63; TEMP 97.8–98.6; O2SAT 95–99
[2025-06-27] MEDS: MORPHINE SULFATE INJ 2 MG/ml SYRG IV PRN (01:57)
[2025-06-27] MEDS: ACETAMINOPHEN 325 MG TAB PO PRN (02:21)
[2025-06-27 04:34] LABS: Hemoglobin 12.4 g/dL (12.2-16.2)
[2025-06-27 04:37] LABS: Hematocrit 36.4 % (36.0-46.0); Mean Corpuscular Hemoglobin 27.1 pg (28.0-32.0); Mean Corpuscular Volume 79.4 fL (80.0-100.0); Nucleated Red Blood Cells % 0.2 %
[2025-06-27 04:54] LABS: Alanine Aminotransferase 12 U/L (7-40); Albumin 4.0 g/dL (3.2-4.8); Alkaline Phosphatase 104 U/L (46-116); Anion Gap 10 (5-15); BUN/Creatinine Ratio 6.4 (10.0-20.0); Potassium 4.4 mmol/L (3.5-5.1); Sodium 139 mmol/L (136-145); Total Protein 6.8 g/dL (5.7-8.2)
[2025-06-27 04:55] LABS: Bilirubin, Total 0.4 mg/dL (0.2-1.0)
[2025-06-27 05:04] LABS: Blood Urea Nitrogen 6 mg/dL (9-23); Calcium 11.2 mg/dL (8.7-10.4); Carbon Dioxide 20 mmol/L (20-31); Chloride 109 mmol/L (98-107); Glucose 117 mg/dL (74-106)
[2025-06-27] MEDS: SODIUM CHLOR 0.9% PF (SALINE LOCK) 10ML VIAL/SYR IV SCH (06:20)
[2025-06-27] MEDS: ONDANSETRON HCL 4 MG/2 ML VIAL IV PRN (09:02)
[2025-06-27] MEDS: ATENOLOL 25 MG TAB PO SCH (10:18)
--- NOTE | 2025-06-27 13:27 | DVHPN2 ---
Subjective having some epigastric pain Reviewed: H&P Changes from previous H/P or p: No Changes Eyes: No Pain, No Vision change, No Conjunctivae inflammation, No Eyelid inflammation, No Other, No Redness ENT: No Ear pain, No Ear discharge, No Nose pain, No Nose discharge, No Nose congestion, No Mouth pain, No Mouth swelling, No Throat pain, No Throat swelling, No Other Cardiovascular: No Chest Pain, No Palpitations, No Orthopnea, No Paroxysmal Noc. Dyspnea, No Edema, No Lt Headedness, No Other Respiratory: No Cough, No Dry, No Shortness of breath, No SOB with excertion, No Wheezing, No Hemoptysis, No Pleuritic Pain, No Sputum, No Other Gastrointestinal: Nausea, Vomiting, Abdominal Pain; No Diarrhea, No Constipation, No Melena, No Hematochezia, No Other Genitourinary: No Dysuria, No Frequency, No Incontinence, No Hematuria, No Retention, No Other Musculoskeletal: No other, No neck pain, No shoulder pain, No arm pain, No back pain, No hand pain, No leg pain, No foot pain Skin: No Rash, No Lesions, No Jaundice, No Bruising, No Other Objective Vitals Vital Signs Date Time Temp Pulse Resp B/P (MAP) Pulse Ox O2 Delivery O2 Flow Rate FiO2 06/27/25 13:00 98.2 48 16 143/82 (102) 99 98.2 06/27/25 03:35 Room Air* 0 21 Intake/Output Intake and Output 06/27/25 07:00 Intake Total 1240 ml Balance 1240 ml Intake Oral 240 ml IV Total 1000 ml # Voids 1 General Appearance: Alert, Oriented X3 HEENT: Atraumatic Cardiovascular: Regular rate, Normal S1, Normal S2 Abdomen: Normal bowel sounds Medications Current Medications Medications Dose Ordered Sig/Jamar Route Start Time Stop Time Status Last Admin Dose Admin Amlodipine Besylate 10 mg DAILY PO 06/27/25 10:00 06/27/25 10:17 10 MG Atenolol 25 mg DAILY PO 06/27/25 10:00 06/27/25 10:18 25 MG Sodium Chloride 10 ml Q8HR IV 06/27/25 06:00 06/27/25 06:20 10 ML Ondansetron HCl 4 mg Q4HP PRN IV 06/26/25 22:30 06/27/25 09:02 4 MG Docusate Sodium 100 mg BIDPRN PRN PO 06/26/25 22:30 Acetaminophen 650 mg Q6HP PRN PO 06/26/25 22:30 06/27/25 09:30 650 MG Morphine Sulfate 2 mg Q4HPRN PRN IV 06/26/25 22:30 06/27/25 11:09 2 MG Nitroglycerin 0.4 mg Q5MINP PRN SL 06/26/25 22:30 Morphine Sulfate 2 mg Q30M PRN IV 06/26/25 22:30 Laboratory Results Laboratory Tests 06/27/25 03:54 Chemistry Test 06/26/25 16:56 06/27/25 03:54 Albumin 4.2 g/dL (3.2-4.8) 4.0 g/dL (3.2-4.8) Calcium Level 11.5 mg/dL (8.7-10.4) H 11.2 mg/dL (8.7-10.4) H Total Protein 7.0 g/dL (5.7-8.2) 6.8 g/dL (5.7-8.2) Lipid panel Test 06/26/25 16:56 Lipase 42 U/L (12-53) LFT Test 06/26/25 16:56 06/27/25 03:54 Alanine Aminotransferase (ALT) 13 U/L (7-40) 12 U/L (7-40) Alkaline Phosphatase 109 U/L (46-116) 104 U/L (46-116) Aspartate Amino Transferase (AST) 14 U/L (13-40) 16 U/L (13-40) Total Bilirubin 0.4 mg/dL (0.2-1.0) 0.4 mg/dL (0.2-1.0) Assessment/Plan Assessment/Plan Acute abdominal pain Hypercalcemia Thrombocytopenia Intractable nausea and vomiting Surgery consulted NPO IVF Plan discussed with: Patient My Orders Orders - ALCIDES BARRIOS MD Procedure Category Date Status Time * Surgical Consult CONS 06/27/25 Transmitted Date of Service: Jun 27, 2025 Billing Provider: ALCIDES BARRIOS MD Common Visit Codes: [id number] INP/OBS CARE(HIGH) ALCIDES BARRIOS MD Jun 27, 2025 13:27
--- NOTE | 2025-06-27 15:07 | DVHINCON2 ---
Consultation - Surgical Date Seen: Jun 27, 2025 Referring Physician Reason for Consultation Abdominal pain History of Present Illness History of Present Illness Mrs. Zaidi is a 60-year-old female who presented here with 3 days of abdominal pain, pain started on the right lower quadrant and now is in the left upper quadrant the abdomen. Pain is sharp in nature and associated with nausea but no vomiting. States that she feels a lot of bloating in the left upper quadrant. Patient is still able to tolerate diet, states she has not had a bowel movement in the last 2 days and she regularly goes daily although her bowel movements are small. Denies eating anything out of the ordinary recently, states she has been sick for the last 3 weeks with renal issues and kidney infection. States that she has not fully recovered from that aspect, still making urine but very low volume. Denies fevers, chills, vomiting, blood in urine or stool, weight loss, loss of appetite. Patient had an endoscopy in April 2025 due to similar symptoms and she was found to have a gastrojejunal ostomy with a marginal ulcer and stricturing of this anastomosis. Patient denies ever having colonoscopy. Past Medical/Surgical History Past Medical/Surgical History Past medical history cholecystitis, kidney stones, left kidney cancer, anxiety, depression, GERD, hypertension, marginal ulceration Past surgical history endoscopy in April of 2025 showing marginal ulceration with stricture of the gastrojejunostomy, open cholecystectomy, left adrenalectomy/nephrectomy, left ureter stent Family and Social History Family and Social History The patient lives at home, smokes cigarettes less than 1 pack per day, denies alcohol use, uses marijuana and methamphetamine. Allergies and medications Allergies: Coded Allergies: Codeine (Verified Allergy, Unknown, 09/01/15) Home Meds Active Scripts Nitrofurantoin (Nitrofurantoin) 100 Mg Cap, 1 CAP PO BID for 5 Days, #10 CAP Prov:MIGUEL BARAJAS RESIDENT 06/17/25 Amlodipine Besylate (Amlodipine Besylate) 10 Mg Tab, 1 TAB PO DAILY for 30 Days, #30 TAB 3 Refills Prov:WILFREDO TERRY RESIDENT 06/11/25 Sodium Polystyrene Sulfonate (Kalexate) Pow, 1 AZIZA OR DAILY for 10 Days, #10 POW Prov:WILFREDO TERRY RESIDENT 06/11/25 Reported Medications Atenolol (Atenolol) 25 Mg Tab, 1 TAB PO DAILY, #30 TAB 5 Refills 06/07/25 Review of systems Review of Systems: HEENT:Normal, CVS:Normal, RESPIRATORY:Normal, GI:Abnormal (See HPI), :Abnormal (See HPI), MSK:Normal, NEURO:Normal Examination Vital signs Vital Signs Date Time Temp Pulse Resp B/P (MAP) Pulse Ox O2 Delivery O2 Flow Rate FiO2 06/27/25 13:00 98.2 48 16 143/82 (102) 99 98.2 06/27/25 03:35 Room Air* 0 21 Medications Current Medications Medications (Trade) Dose Ordered Sig/Jamar Route PRN Reason Start Time Stop Time Status Last Admin Amlodipine Besylate (Norvasc Tablet) 10 mg DAILY PO 06/27/25 10:00 06/27/25 10:17 Atenolol (Tenormin Tablet) 25 mg DAILY PO 06/27/25 10:00 06/27/25 10:18 Sodium Chloride (Saline Lock Ns) 10 ml Q8HR IV 06/27/25 06:00 06/27/25 06:20 Ondansetron HCl (Zofran) 4 mg Q4HP PRN IV NAUSEA / VOMITING 06/26/25 22:30 06/27/25 09:02 Docusate Sodium (Colace Capsule) 100 mg BIDPRN PRN PO FOR CONSTIPATION 06/26/25 22:30 Acetaminophen (Tylenol Tablet) 650 mg Q6HP PRN PO PAIN SCALE 1-3 OR TEMP>100.4 06/26/25 22:30 06/27/25 09:30 Morphine Sulfate 2 mg Q4HPRN PRN IV SEVERE PAIN (7-10 PAIN SCALE) 06/26/25 22:30 06/27/25 11:09 Nitroglycerin (Ntrostat Sublingual) 0.4 mg Q5MINP PRN SL FOR CHEST PAIN 06/26/25 22:30 Morphine Sulfate 2 mg Q30M PRN IV FOR CHEST PAIN 06/26/25 22:30 Laboratory Labs Test 06/27/25 03:54 06/26/25 16:56 Range/Units White Blood Count 5.7 # 4.4-10.8 10^3/uL Red Blood Count 4.58 4.0-5.20 10^6/uL Hemoglobin 12.4 12.2-16.2 g/dL Hematocrit 36.4 # 36.0-46.0 % Mean Corpuscular Volume 79.4 L 80.0-100.0 fL Mean Corpuscular Hemoglobin 27.1 L 28.0-32.0 pg Mean Corpuscular Hemoglobin Concent 34.2 32.0-36.0 g/dL Red Cell Distribution Width 16.3 H 11.8-14.3 % Platelet Count 326 140-450 10^3/uL Mean Platelet Volume 8.1 6.9-10.8 fL Neutrophils (%) (Auto) 55.6 37.0-80.0 % Lymphocytes (%) (Auto) 28.8 10.0-50.0 % Monocytes (%) (Auto) 10.5 0.0-12.0 % Eosinophils (%) (Auto) 4.1 0.0-7.0 % Basophils (%) (Auto) 1.0 0.0-2.0 % Neutrophils # (Auto) 3.2 1.6-8.6 10 ^3/uL Lymphocytes # (Auto) 1.7 0.4-5.4 10 ^3/uL Monocytes # (Auto) 0.6 0-1.3 10 ^3/uL Eosinophils # (Auto) 0.2 0-0.8 10 ^3/uL Basophils # (Auto) 0.1 0-0.2 10 ^3/uL Nucleated Red Blood Cells 0.2 % Sodium Level 139 136-145 mmol/L Potassium Level 4.4 3.5-5.1 mmol/L Chloride Level 109 H 98-107 mmol/L Carbon Dioxide Level 20 20-31 mmol/L Anion Gap 10 5-15 Blood Urea Nitrogen 6 L 9-23 mg/dL Creatinine 0.94 0.550-1.02 mg/dL Glomerular Filtration Rate Calc 69 >90 mL/min BUN/Creatinine Ratio 6.4 L 10.0-20.0 Serum Glucose 117 H 74-106 mg/dL Calcium Level 11.2 H 8.7-10.4 mg/dL Total Bilirubin 0.4 0.2-1.0 mg/dL Aspartate Amino Transferase (AST) 16 13-40 U/L Alanine Aminotransferase (ALT) 12 7-40 U/L Alkaline Phosphatase 104 46-116 U/L Total Protein 6.8 5.7-8.2 g/dL Albumin 4.0 3.2-4.8 g/dL Lipase 42 12-53 U/L Examination: GENERAL:Normal (Well nourished, alert awake and oriented x3), HEENT:Normal (No icterus, neck supple), LUNGS:Normal (Nonlabored breathing with symmetric expansion), ABDOMEN:Normal (Globus, nondistended, midline scar healed, soft, depressible, mild right lower quadrant tenderness, left upper quadrant tenderness, left flank hernia) Problem List/Assessment/Plan Problems: (1) Acute abdominal pain Assessment and Plan Mrs. Zaidi is a 60-year-old female who presents to the hospital with 3 days of abdominal pain, I was consulted for this reason. I reviewed her CT scan and noted a distended stomach with a mid stomach gastrojejunal ostomy, also noted a left flank hernia left colon containing and not obstructed, also around the hernia site in the left colon there is an area of decompress colon Versus stricture colon, most likely due to the constipation she suffers from as she has large volumes of stool throughout the colon. I also took a look at the appendix which appears normal. At this point patient does not have anything that needs to be handled in the operating room. I would consider consulting GI given that she had a EGD in April which showed gastrojejunostomy stricture, with marginal ulcer and this could be the cause of her stomach distention and pain. She might also benefit from colonoscopy given that she has never had one, and to further investigate the left colonic area of decompression vs stricture. Given the amount of gastric distention, please consider placing an NG tube if she starts feeling like she needs to vomit. 1. Consider GI consultation for possible upper and lower GI scopes 2. Given her diagnosis of marginal ulceration in April she should be on Protonix 40 mg p.o. b.i.d. 3. Given that she was recently admitted for a kidney infection and we will consider obtaining a UA 4. Consider NG tube placement if she starts feeling like she is going to vomit given the amount of gastric distention 5. I will follow peripherally Plan discussed with Plan discussed with: Patient Visit Coding Surgery Date of Service if different f: Jun 27, 2025 Billing Provider: JANET KEARNEY MD Surgery Visit Codes: 11692 - INP CONSULT <110 MIN JANET KEARNEY MD Jun 27, 2025 15:07
[2025-06-27] MEDS: SODIUM CHLORIDE 0.9% 1,000 ML IV SCH (15:37)
[2025-06-28] VITALS (7 sets, daily range): BP systolic 115–147; BP diastolic 56–98; PULSE 45–75; RESP 14–18; TEMP 97.8–98.4; O2SAT 95–100
[2025-06-28] MEDS: HYDROmorphone HCL 2 MG/ML VL/or syr IV ONE (01:17)
--- NOTE | 2025-06-28 12:27 | DVHPN2 ---
Subjective having some epigastric pain Reviewed: H&P Changes from previous H/P or p: No Changes Eyes: No Pain, No Vision change, No Conjunctivae inflammation, No Eyelid inflammation, No Other, No Redness ENT: No Ear pain, No Ear discharge, No Nose pain, No Nose discharge, No Nose congestion, No Mouth pain, No Mouth swelling, No Throat pain, No Throat swelling, No Other Cardiovascular: No Chest Pain, No Palpitations, No Orthopnea, No Paroxysmal Noc. Dyspnea, No Edema, No Lt Headedness, No Other Respiratory: No Cough, No Dry, No Shortness of breath, No SOB with excertion, No Wheezing, No Hemoptysis, No Pleuritic Pain, No Sputum, No Other Gastrointestinal: Nausea, Vomiting, Abdominal Pain; No Diarrhea, No Constipation, No Melena, No Hematochezia, No Other Genitourinary: No Dysuria, No Frequency, No Incontinence, No Hematuria, No Retention, No Other Musculoskeletal: No other, No neck pain, No shoulder pain, No arm pain, No back pain, No hand pain, No leg pain, No foot pain Skin: No Rash, No Lesions, No Jaundice, No Bruising, No Other Objective Vitals Vital Signs Date Time Temp Pulse Resp B/P (MAP) Pulse Ox O2 Delivery O2 Flow Rate FiO2 06/28/25 09:28 75 18 140/83 06/28/25 09:23 98.2 99 98.2 06/28/25 08:00 Room Air* 0 21 Intake/Output Intake and Output 06/28/25 07:00 Intake Total 1640 ml Balance 1640 ml Intake Oral 1640 ml # Voids 9 General Appearance: Alert, Oriented X3 HEENT: Atraumatic Cardiovascular: Regular rate, Normal S1, Normal S2 Abdomen: Normal bowel sounds Medications Current Medications Medications Dose Ordered Sig/Jamar Route Start Time Stop Time Status Last Admin Dose Admin Amlodipine Besylate 10 mg DAILY PO 06/27/25 10:00 06/28/25 09:23 10 MG Atenolol 25 mg DAILY PO 06/27/25 10:00 06/28/25 09:23 25 MG Sodium Chloride 10 ml Q8HR IV 06/27/25 06:00 06/28/25 05:14 10 ML Ondansetron HCl 4 mg Q4HP PRN IV 06/26/25 22:30 06/27/25 09:02 4 MG Docusate Sodium 100 mg BIDPRN PRN PO 06/26/25 22:30 Acetaminophen 650 mg Q6HP PRN PO 06/26/25 22:30 06/28/25 08:06 650 MG Nitroglycerin 0.4 mg Q5MINP PRN SL 06/26/25 22:30 Morphine Sulfate 2 mg Q30M PRN IV 06/26/25 22:30 Sodium Chloride 1,000 ml @ 120 mls/hr Q8H20M IV 06/27/25 15:15 06/28/25 09:06 120 MLS/HR Hydromorphone HCl 1 mg Q4HPRN PRN IV 06/28/25 12:15 Laboratory Results Laboratory Tests 06/27/25 03:54 Assessment/Plan Assessment/Plan Acute abdominal pain Hypercalcemia Thrombocytopenia Intractable nausea and vomiting Surgery consulted>PPI no surgery NPO IVF GI consulted Plan discussed with: Patient My Orders Orders - ALCIDES BARRIOS MD Procedure Category Date Status Time Sodium Chloride 0.9% PHA 06/27/25 In Process 15:15 Hydromorphone PHA 06/28/25 In Process Injection (Dilaudid 12:15 Date of Service: Jun 28, 2025 Billing Provider: ALCIDES BARRIOS MD Common Visit Codes: [id number] INP/OBS CARE(HIGH) ALCIDES BARRIOS MD Jun 28, 2025 12:27
[2025-06-28] MEDS: HYDROmorphone HCL 2 MG/ML VL/or syr IV PRN (12:29)
--- NOTE | 2025-06-28 16:29 | DVHINCON2 ---
Date of service: Jun 28, [address] Araya Reason for Consultation Abdominal pain and unable to keep any food down with abnormal CAT scan possible gastric obstruction History of Present Illness This 60 year old female presented to the emergency room with complaints of abdom inal pain unable to keep any food down nausea anorexia symptoms have been progressively getting Patient has history of gastric bypass with a gastrojejunostomy and had similar problems in the past and for which she was admitted in the hospital in April 13 when she had an EGD done by Dr. Dennison which showed there was evidence of gastrojejunal anastomosis in the mid body of the stomach with a narrow opening through which the scope could be passed without difficulty also had an anastomotic ulcer in the jejunal side. With severe gastroparesis normal intact pyloric channel A CT scan done in this admission now showed there was evidence of ureteral stent gastric distention with postsurgical changes involving the greater curvature of the stomach with possible gastrojejunostomy and bowel wall thickening and with the anastomotic changes recommended surgical and GI consultation. Denies weight loss Past Medical History History of kidney stones cancer other left kidney status post nephrectomy chronic kidney failure depression GERD hypertension Past Surgical History Cholecystectomy gastric bypass etc. stent Family History: Patient reports no known family medical history. Family History Noncontributory Social History Denies smoking or drink Allergies: Coded Allergies: Codeine (Verified Allergy, Unknown, 09/01/15) Home Meds Active Scripts Nitrofurantoin (Nitrofurantoin) 100 Mg Cap, 1 CAP PO BID for 5 Days, #10 CAP Prov:MIGUEL BARAJAS RESIDENT 06/17/25 Amlodipine Besylate (Amlodipine Besylate) 10 Mg Tab, 1 TAB PO DAILY for 30 Days, #30 TAB 3 Refills Prov:WILFREDO TERRY RESIDENT 06/11/25 Sodium Polystyrene Sulfonate (Kalexate) Pow, 1 AZIZA OR DAILY for 10 Days, #10 POW Prov:WILFREDO TRERY RESIDENT 06/11/25 Reported Medications Atenolol (Atenolol) 25 Mg Tab, 1 TAB PO DAILY, #30 TAB 5 Refills 06/07/25 Current Medications Current Medications Medications (Trade) Dose Ordered Sig/Jamar Route PRN Reason Start Time Stop Time Status Last Admin Hydromorphone HCl (Dilaudid Injection) 1 mg Q4HPRN PRN IV PAIN SCALE 7 THRU 10 06/28/25 12:15 06/28/25 12:29 Pantoprazole Sodium (Protonix) 40 mg DAILY IV 06/29/25 10:00 Review of Systems Noncontributory Vital Signs Vital Signs Date Time Temp Pulse Resp B/P (MAP) Pulse Ox O2 Delivery O2 Flow Rate FiO2 06/28/25 12:59 65 18 127/74 06/28/25 12:48 98.1 99 98.1 06/28/25 08:00 Room Air* 0 21 Physical Exam Moderately built and nourished female in no acute distress but chronically ill looking Vitals stable Lungs clear Cardiovascular unable Abdomen multiple surgical Mild fullness no rigidity no guarding no masses Bowel sounds normal Extremities no edema no varicosities no clubbing neurological grossly intact Labs/Diagnostic Data Labs Test 06/27/25 03:54 06/26/25 16:56 Range/Units White Blood Count 5.7 # 4.4-10.8 10^3/uL Red Blood Count 4.58 4.0-5.20 10^6/uL Hemoglobin 12.4 12.2-16.2 g/dL Hematocrit 36.4 # 36.0-46.0 % Mean Corpuscular Volume 79.4 L 80.0-100.0 fL Mean Corpuscular Hemoglobin 27.1 L 28.0-32.0 pg Mean Corpuscular Hemoglobin Concent 34.2 32.0-36.0 g/dL Red Cell Distribution Width 16.3 H 11.8-14.3 % Platelet Count 326 140-450 10^3/uL Mean Platelet Volume 8.1 6.9-10.8 fL Neutrophils (%) (Auto) 55.6 37.0-80.0 % Lymphocytes (%) (Auto) 28.8 10.0-50.0 % Monocytes (%) (Auto) 10.5 0.0-12.0 % Eosinophils (%) (Auto) 4.1 0.0-7.0 % Basophils (%) (Auto) 1.0 0.0-2.0 % Neutrophils # (Auto) 3.2 1.6-8.6 10 ^3/uL Lymphocytes # (Auto) 1.7 0.4-5.4 10 ^3/uL Monocytes # (Auto) 0.6 0-1.3 10 ^3/uL Eosinophils # (Auto) 0.2 0-0.8 10 ^3/uL Basophils # (Auto) 0.1 0-0.2 10 ^3/uL Nucleated Red Blood Cells 0.2 % Sodium Level 139 136-145 mmol/L Potassium Level 4.4 3.5-5.1 mmol/L Chloride Level 109 H 98-107 mmol/L Carbon Dioxide Level 20 20-31 mmol/L Anion Gap 10 5-15 Blood Urea Nitrogen 6 L 9-23 mg/dL Creatinine 0.94 0.550-1.02 mg/dL Glomerular Filtration Rate Calc 69 >90 mL/min BUN/Creatinine Ratio 6.4 L 10.0-20.0 Serum Glucose 117 H 74-106 mg/dL Calcium Level 11.2 H 8.7-10.4 mg/dL Total Bilirubin 0.4 0.2-1.0 mg/dL Aspartate Amino Transferase (AST) 16 13-40 U/L Alanine Aminotransferase (ALT) 12 7-40 U/L Alkaline Phosphatase 104 46-116 U/L Total Protein 6.8 5.7-8.2 g/dL Albumin 4.0 3.2-4.8 g/dL Lipase 42 12-53 U/L Microbiology Date/Time Source Procedure Growth Status 06/27/25 08:15 Nose MRSA Screen - Final Complete Assessment 60-year-old female with a history of chronic kidney failure history: Chronic cancer status post nephrectomy depression diabetes GERD hypertension admitted with complaints of abdominal pain unable to keep any food down CAT scan showed possible obstruction of the gastric outlet with history of status post gastric bypass and problems with forceps changes with possible narrowing of the gastrojejunostomy site. Had endoscopic workup in March here which did not show any gross obstruction but there was some anastomotic ulcers. In the stomach at the gastrojejunostomy area For the possibility of a gastric outlet obstruction can not be excluded Plan/Recommendation Recommend dedicated CT of the abdomen and pelvis with contrast oral contrast sure of the nature of the gastric outlet obstruction Continue with PPIs Clear liquid diet Surgical consult as ordered Depending upon the CT scan findings, may need a gastric emptying study with a Gastrografin or barium and maybe endoscopic evaluation again Thank you Dr. Cid Plan discussed with: Patient NBA CID MD Jun 28, 2025 16:29
[2025-06-28 17:31] LABS: Hematocrit 38.5 % (36.0-46.0); Hemoglobin 13.0 g/dL (12.2-16.2); Mean Corpuscular Hemoglobin 26.8 pg (28.0-32.0); Mean Corpuscular Volume 79.7 fL (80.0-100.0); Nucleated Red Blood Cells % 0.0 %
[2025-06-28 17:46] LABS: Alanine Aminotransferase 16 U/L (7-40); Albumin 4.5 g/dL (3.2-4.8); Alkaline Phosphatase 114 U/L (46-116); Anion Gap 8 (5-15); BUN/Creatinine Ratio 7.7 (10.0-20.0); Bilirubin, Total 0.5 mg/dL (0.2-1.0); Carbon Dioxide 25 mmol/L (20-31); Chloride 105 mmol/L (98-107); Glucose 101 mg/dL (74-106); Potassium 4.6 mmol/L (3.5-5.1); Sodium 138 mmol/L (136-145); Total Protein 7.5 g/dL (5.7-8.2)
[2025-06-28 17:53] LABS: Blood Urea Nitrogen 7 mg/dL (9-23); Calcium 11.6 mg/dL (8.7-10.4); Lipase 85 U/L (12-53)
[2025-06-29] VITALS (7 sets, daily range): BP systolic 104–134; BP diastolic 58–85; PULSE 48–80; RESP 17–18; TEMP 97.8–98.8; O2SAT 94–99
[2025-06-29] MEDS: HYDROcodone-ACET 7.5/325MG TAB PO PRN ×2 (00:24→14:07)
[2025-06-29] MEDS: DOCUSATE SOD 100 MG CAP PO PRN (06:41)
[2025-06-29] MEDS ORDERED: OMNIPAQUE 12mg/ml 500ml ORAL SOLUTION PO ONE (07:54)
[2025-06-29] MEDS ORDERED: IOHEXOL 300 MG/ML 100ML BOTTLE IJ ONE (09:41)
[2025-06-29] MEDS: PANTOPRAZOLE 40 MG/10 ML VIAL INJ IV SCH ×2 (11:20→21:14)
--- NOTE | 2025-06-29 13:45 | DVHPN2 ---
Subjective 60-year-old female with a known history of left kidney cancer status post nephrectomy and adrenalectomy, history of right ureteric stone status post ureteric stent, previous history of some stomach pathology status post gastrojejunostomy presented to the hospital with the abdominal pain as well as nausea and vomiting. Patient's repeat CT abdomen and pelvis with contrast was done currently report is pending. Reviewed: H&P Changes from previous H/P or p: No Changes Eyes: No Pain, No Vision change, No Conjunctivae inflammation, No Eyelid inflammation, No Other, No Redness ENT: No Ear pain, No Ear discharge, No Nose pain, No Nose discharge, No Nose congestion, No Mouth pain, No Mouth swelling, No Throat pain, No Throat swelling, No Other Cardiovascular: No Chest Pain, No Palpitations, No Orthopnea, No Paroxysmal Noc. Dyspnea, No Edema, No Lt Headedness, No Other Respiratory: No Cough, No Dry, No Shortness of breath, No SOB with excertion, No Wheezing, No Hemoptysis, No Pleuritic Pain, No Sputum, No Other Gastrointestinal: Nausea, Vomiting, Abdominal Pain; No Diarrhea, No Constipation, No Melena, No Hematochezia, No Other Genitourinary: No Dysuria, No Frequency, No Incontinence, No Hematuria, No Retention, No Other Musculoskeletal: No other, No neck pain, No shoulder pain, No arm pain, No back pain, No hand pain, No leg pain, No foot pain Skin: No Rash, No Lesions, No Jaundice, No Bruising, No Other Objective Vitals Vital Signs Date Time Temp Pulse Resp B/P (MAP) Pulse Ox O2 Delivery O2 Flow Rate FiO2 06/29/25 13:24 98.1 55 17 104/66 (79) 97 98.1 06/29/25 08:00 Room Air* 0 21 Intake/Output Intake and Output 06/29/25 07:00 Intake Total 2100 ml Balance 2100 ml Intake Oral 2100 ml # Voids 6 Exam HEENT pupils are reactive Neck is supple CV is S1-S2 regular rate and rhythm Diminished breath sounds bases GI positive bowel sounds, soft nondistended mildly tender diffusely with a minimal guarding no rigidity Extremity no edema [employer] no motor deficit General Appearance: Alert, Oriented X3 HEENT: Atraumatic Cardiovascular: Regular rate, Normal S1, Normal S2 Abdomen: Normal bowel sounds Medications Current Medications Medications Dose Ordered Sig/Jamar Route Start Time Stop Time Status Last Admin Dose Admin Amlodipine Besylate 10 mg DAILY PO 06/27/25 10:00 06/28/25 09:23 10 MG Atenolol 25 mg DAILY PO 06/27/25 10:00 06/28/25 09:23 25 MG Sodium Chloride 10 ml Q8HR IV 06/27/25 06:00 06/29/25 06:45 10 ML Ondansetron HCl 4 mg Q4HP PRN IV 06/26/25 22:30 06/27/25 09:02 4 MG Docusate Sodium 100 mg BIDPRN PRN PO 06/26/25 22:30 06/29/25 06:41 100 MG Acetaminophen 650 mg Q6HP PRN PO 06/26/25 22:30 06/28/25 20:13 650 MG Nitroglycerin 0.4 mg Q5MINP PRN SL 06/26/25 22:30 Morphine Sulfate 2 mg Q30M PRN IV 06/26/25 22:30 Sodium Chloride 1,000 ml @ 120 mls/hr Q8H20M IV 06/27/25 15:15 06/29/25 00:35 120 MLS/HR Hydromorphone HCl 1 mg Q4HPRN PRN IV 06/28/25 12:15 06/29/25 11:21 1 MG Pantoprazole Sodium 40 mg DAILY IV 06/29/25 10:00 06/29/25 11:20 40 MG Acetaminophen/ Hydrocodone Bitart 1 tab Q6HPRN PRN PO 06/29/25 12:30 Laboratory Results Laboratory Tests 06/28/25 17:21 Chemistry Test 06/28/25 17:21 Albumin 4.5 g/dL (3.2-4.8) Calcium Level 11.6 mg/dL (8.7-10.4) H Total Protein 7.5 g/dL (5.7-8.2) Lipid panel Test 06/28/25 17:21 Lipase 85 U/L (12-53) H LFT Test 06/28/25 17:21 Alanine Aminotransferase (ALT) 16 U/L (7-40) Alkaline Phosphatase 114 U/L (46-116) Aspartate Amino Transferase (AST) 20 U/L (13-40) Total Bilirubin 0.5 mg/dL (0.2-1.0) Microbiology Microbiology Date/Time Source Procedure Growth Status 06/27/25 08:15 Nose MRSA Screen - Final Complete Assessment/Plan Assessment/Plan 60-year-old female with a known history of left kidney cancer status post nephrectomy and adrenalectomy, history of right ureteric stone status post ureteric stent, previous history of some stomach pathology status post gastrojejunostomy presented to the hospital with the abdominal pain as well as nausea and vomiting. Patient's repeat CT abdomen and pelvis with contrast was done currently report is pending. 1. Abdominal pain with the nausea and vomiting rule out gastrojejunostomy ulceration or some other pathology 1. History of ureteric stone status post right ureteric placement in the past 3. Q left kidney cancer status post nephrectomy 4. Anxiety and depression disorder currently compensated follow up for neck polycystic 5. Hypertension -diet as tolerated, follow up repeat CT abdomen and pelvis, GI consultation. Plan discussed with: Patient My Orders Orders - ENMANUEL GUTIÉRREZ MD Procedure Category Date Status Time Hydrocodone-Acet PHA 06/29/25 In Process 7.5/325mg Tab ([place] 12:30 Urinalysis LAB 06/29/25 Uncollected 12:24 Full Liq Diet DIET 06/29/25 Transmitted Lunch Problem List: (1) Abnormal finding on GI tract imaging (2) Anastomotic ulcer Date of Service: Jun 29, 2025 Billing Provider: ENMANUEL GUTIÉRREZ MD Common Visit Codes: [id number] INP/OBS CARE(HIGH) ENMANUEL GUTIÉRREZ MD Jun 29, 2025 13:45
[2025-06-29] MEDS ORDERED: FLEET ENEMA(ADULT) 135 ML PR ONE (16:00)
--- NOTE | 2025-06-29 16:15 | DVHPN2 ---
Progress Note Date Seen: Jun 29, 2025 Resident Creating Document: KIRAN MITCHELL RESIDENT Medical Necessity Reason Pt with a Central, PICC or Fol: No Subjective Review of Systems This 60 year old female presented to the emergency room with complaints of abdominal pain unable to keep any food down nausea anorexia symptoms have been progressively getting Patient has history of gastric bypass with a gastrojejunostomy and had similar problems in the past and for which she was admitted in the hospital in April 13 when she had an EGD done by Dr. Dennison which showed there was evidence of gastrojejunal anastomosis in the mid body of the stomach with a narrow opening through which the scope could be passed without difficulty also had an anastomotic ulcer in the jejunal side. With severe gastroparesis normal intact pyloric channel A CT scan done in this admission now showed there was evidence of ureteral stent gastric distention with postsurgical changes involving the greater curvature of the stomach with possible gastrojejunostomy and bowel wall thickening and with the anastomotic changes recommended surgical and GI consultation. Denies weight loss Past Medical History History of kidney stones cancer other left kidney status post nephrectomy chronic kidney failure depression GERD hypertension Past Surgical History Cholecystectomy gastric bypass etc. stent Patient seen and examined. Says she had no bowel movement for the past 4 days. MiraLax and enema ordered. Objective vital signs Vital Sign Date Time Temp Pulse Resp B/P (MAP) Pulse Ox O2 Delivery O2 Flow Rate FiO2 06/29/25 15:47 70 18 110/94 06/29/25 13:24 98.1 97 98.1 06/29/25 08:00 Room Air* 0 21 Total Intake and Output 06/28/25 06/28/25 06/29/25 15:00 23:00 07:00 Intake Total 1600 ml 500 ml Balance 1600 ml 500 ml medications Current Medications Medications Dose Ordered Sig/Jamar Route Start Time Stop Time Status Last Admin Dose Admin Amlodipine Besylate 10 mg DAILY PO 06/27/25 10:00 06/28/25 09:23 10 MG Atenolol 25 mg DAILY PO 06/27/25 10:00 06/28/25 09:23 25 MG Sodium Chloride 10 ml Q8HR IV 06/27/25 06:00 06/29/25 06:45 10 ML Ondansetron HCl 4 mg Q4HP PRN IV 06/26/25 22:30 06/27/25 09:02 4 MG Docusate Sodium 100 mg BIDPRN PRN PO 06/26/25 22:30 06/29/25 06:41 100 MG Acetaminophen 650 mg Q6HP PRN PO 06/26/25 22:30 06/28/25 20:13 650 MG Nitroglycerin 0.4 mg Q5MINP PRN SL 06/26/25 22:30 Morphine Sulfate 2 mg Q30M PRN IV 06/26/25 22:30 Sodium Chloride 1,000 ml @ 120 mls/hr Q8H20M IV 06/27/25 15:15 06/29/25 00:35 120 MLS/HR Hydromorphone HCl 1 mg Q4HPRN PRN IV 06/28/25 12:15 06/29/25 15:47 1 MG Pantoprazole Sodium 40 mg DAILY IV 06/29/25 10:00 06/29/25 11:20 40 MG Acetaminophen/ Hydrocodone Bitart 1 tab Q6HPRN PRN PO 06/29/25 12:30 06/29/25 14:07 1 TAB Examination Overweight female patient lying in bed, in no acute distress General: Overweight, afebrile, palor, mucosae are moist Cardiovascular: Regular S1 and S2. No murmurs, gallops or rubs. No JVD elevation. No pedal edema Respiratory: Normal B/L air entry on room air. Clear lung sounds on auscultation Abdomen: Soft, nontender, nondistended, normoactive bowel sounds, no rebound tenderness, no organomegaly, no masses Genitourinary: Deferred MSK/skin: Mobilizes 4 limbs. Skin is dry and warm laboratory and microbiology Laboratory Tests 06/28/25 17:21 Test 06/28/25 17:21 Range/Units Serum Glucose 101 74-106 mg/dL Microbiology Date/Time Source Procedure Growth Status 06/27/25 08:15 Nose MRSA Screen - Final Complete Labs and/or images reviewed: Labs reviewed by me, Image(s) reviewed by me Problem List/Assessment/Plan Problem List/Assessment/Plan Intractable abdominal pain History of gastric bypass with a gastrojejunostomy Left flank hernia Slow transit constipation History of Gastrojejunostomy stricture with marginal ulcer Patient underwent EGD 04/14 which showed evidence of a gastrojejunostomy in the midbody of the stomach with a narrow opening through which the scope passed without difficulty. Patient had a large anastomotic ulcer on the jejunal side of the gastrojejunostomy about 3-4 cm in size Shayan classification C with acute inflammatory changes but no bleeding Patient had [id number] gastroparesis with retained gastric food contents at the level of the gastrojejunostomy ; mild gastritis Recommend Protonix 40 mg IV b.i.d. along with Carafate suspension TID Patient has been advised colonoscopy as outpatient. Continue MiraLax 1 g p.o. once along with the Fleet enema once. Continue clear liquid diet We will continue to follow up Plan discussed with patient in which all questions have been answered Case discussed with Dr. Dennison Plan discussed with: Patient KIRAN MITCHELL RESIDENT Jun 29, 2025 16:15
[2025-06-29] MEDS: POLYETHYLENE GLYCOL 17 GM PWDR PO ONE (18:12)
[2025-06-29] MEDS: SUCRALFATE 1 GM/10 ML ORAL SUSP PO SCH (18:12)
[2025-06-29 22:06] LABS: Urine Protein, UAD Negative (Negative)
[2025-06-30] VITALS (7 sets, daily range): BP systolic 104–124; BP diastolic 61–83; PULSE 57–76; RESP 17–19; TEMP 98–98.5; O2SAT 95–99
[2025-06-30] MEDS ORDERED: SODIUM CHLORIDE LOCK 0 ML ONE (10:22)
[2025-06-30] MEDS ORDERED: MIDAZOLAM HCL 5 MG/ML-1ML VIAL ONE (10:22)
[2025-06-30] MEDS ORDERED: LIDOCAINE VISCOUS 2% 15ML UD ONE (10:22)
[2025-06-30] MEDS ORDERED: fentaNYL CITRATE 100 MCG/2 ML VL ONE (10:23)
[2025-06-30] MEDS ORDERED: diphenhydrAMINE HCL 50 MG/1 ML VL ONE (10:23)
[2025-06-30 11:40] LABS: Alanine Aminotransferase 13 U/L (7-40); Albumin 3.7 g/dL (3.2-4.8); Alkaline Phosphatase 101 U/L (46-116); Anion Gap 7 (5-15); BUN/Creatinine Ratio 6.7 (10.0-20.0); Carbon Dioxide 24 mmol/L (20-31); Potassium 4.6 mmol/L (3.5-5.1); Sodium 140 mmol/L (136-145); Total Protein 6.4 g/dL (5.7-8.2)
[2025-06-30 11:41] LABS: Bilirubin, Total 0.5 mg/dL (0.2-1.0); Blood Urea Nitrogen 6 mg/dL (9-23); Calcium 11.0 mg/dL (8.7-10.4); Chloride 109 mmol/L (98-107); Glucose 111 mg/dL (74-106)
[2025-06-30] MEDS: POLYETHYLENE GLYCOL 17 GM PWDR PO ONE (12:29)
--- NOTE | 2025-06-30 13:18 | DVHPN2 ---
Subjective 60-year-old female with a known history of left kidney cancer status post nephrectomy and adrenalectomy, history of right ureteric stone status post ureteric stent, previous history of some stomach pathology status post gastrojejunostomy presented to the hospital with the abdominal pain as well as nausea and vomiting. Patient is currently tolerating clear liquid diet we will advance diet as tolerated. Reviewed: H&P Changes from previous H/P or p: No Changes Eyes: No Pain, No Vision change, No Conjunctivae inflammation, No Eyelid inflammation, No Other, No Redness ENT: No Ear pain, No Ear discharge, No Nose pain, No Nose discharge, No Nose congestion, No Mouth pain, No Mouth swelling, No Throat pain, No Throat swelling, No Other Cardiovascular: No Chest Pain, No Palpitations, No Orthopnea, No Paroxysmal Noc. Dyspnea, No Edema, No Lt Headedness, No Other Respiratory: No Cough, No Dry, No Shortness of breath, No SOB with excertion, No Wheezing, No Hemoptysis, No Pleuritic Pain, No Sputum, No Other Gastrointestinal: Nausea, Vomiting, Abdominal Pain; No Diarrhea, No Constipation, No Melena, No Hematochezia, No Other Genitourinary: No Dysuria, No Frequency, No Incontinence, No Hematuria, No Retention, No Other Musculoskeletal: No other, No neck pain, No shoulder pain, No arm pain, No back pain, No hand pain, No leg pain, No foot pain Skin: No Rash, No Lesions, No Jaundice, No Bruising, No Other Objective Vitals Vital Signs Date Time Temp Pulse Resp B/P (MAP) Pulse Ox O2 Delivery O2 Flow Rate FiO2 06/30/25 12:51 98.5 57 17 124/83 (97) 99 98.5 06/30/25 08:00 Room Air* 0 21 Intake/Output Intake and Output 06/30/25 07:00 Intake Total 1975 ml Balance 1975 ml Intake Oral 975 ml IV Total 1000 ml # Voids 7 Exam HEENT pupils are reactive Neck is supple CV is S1-S2 regular rate and rhythm Diminished breath sounds bases GI positive bowel sounds, soft nondistended mildly tender diffusely with a minimal guarding no rigidity 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 General Appearance: Alert, Oriented X3 HEENT: Atraumatic Cardiovascular: Regular rate, Normal S1, Normal S2 Abdomen: Normal bowel sounds Medications Current Medications Medications Dose Ordered Sig/Jamar Route Start Time Stop Time Status Last Admin Dose Admin Amlodipine Besylate 10 mg DAILY PO 06/27/25 10:00 06/30/25 09:21 10 MG Atenolol 25 mg DAILY PO 06/27/25 10:00 06/30/25 09:21 25 MG Sodium Chloride 10 ml Q8HR IV 06/27/25 06:00 06/30/25 05:44 10 ML Ondansetron HCl 4 mg Q4HP PRN IV 06/26/25 22:30 06/27/25 09:02 4 MG Docusate Sodium 100 mg BIDPRN PRN PO 06/26/25 22:30 06/29/25 21:14 100 MG Acetaminophen 650 mg Q6HP PRN PO 06/26/25 22:30 06/28/25 20:13 650 MG Nitroglycerin 0.4 mg Q5MINP PRN SL 06/26/25 22:30 Morphine Sulfate 2 mg Q30M PRN IV 06/26/25 22:30 Sodium Chloride 1,000 ml @ 120 mls/hr Q8H20M IV 06/27/25 15:15 06/30/25 09:55 120 MLS/HR Hydromorphone HCl 1 mg Q4HPRN PRN IV 06/28/25 12:15 06/30/25 09:22 1 MG Acetaminophen/ Hydrocodone Bitart 1 tab Q6HPRN PRN PO 06/29/25 12:30 06/30/25 12:29 1 TAB Pantoprazole Sodium 40 mg BID IV 06/29/25 22:00 06/30/25 09:21 40 MG Sucralfate 1 gm TID@0600,1130,2200 PO 06/29/25 16:00 06/30/25 12:29 1 GM Polyethylene Glycol 17 gm DAILY PO 07/01/25 10:00 Laboratory Results Laboratory Tests 06/28/25 17:21 06/30/25 11:05 Chemistry Test 06/30/25 11:05 Albumin 3.7 g/dL (3.2-4.8) Calcium Level 11.0 mg/dL (8.7-10.4) H Total Protein 6.4 g/dL (5.7-8.2) LFT Test 06/30/25 11:05 Alanine Aminotransferase (ALT) 13 U/L (7-40) Alkaline Phosphatase 101 U/L (46-116) Aspartate Amino Transferase (AST) 17 U/L (13-40) Total Bilirubin 0.5 mg/dL (0.2-1.0) Urinalysis Test 06/29/25 21:30 Urine Color Colorless (Yellow) Urine Clarity Clear (Clear) Urine pH 6.0 (5.0-9.0) Urine Specific [place] 1.007 (1.001-1.035) Urine Protein Negative (Negative) Urine Ketones Negative (Negative) Urine Blood 2+ /uL (Negative) H Urine Nitrite Negative (Negative) Urine Bilirubin Negative (Negative) Urine Urobilinogen Normal mg/dL (Negative) Urine Leukocyte Esterase 1+ /uL (Negative) Urine RBC 30 /hpf (0 - 4) Urine Microscopic WBC 4 /HPF (0-5) Urine Squamous Epithelial Cells None seen /hpf (<5) Urine Bacteria Few /hpf (None Seen) H Urine Glucose Normal mg/dL (Normal) Microbiology Microbiology Date/Time Source Procedure Growth Status 06/27/25 08:15 Nose MRSA Screen - Final Complete Assessment/Plan Assessment/Plan 60-year-old female with a known history of left kidney cancer status post nephrectomy and adrenalectomy, history of right ureteric stone status post ureteric stent, previous history of some stomach pathology status post gastrojejunostomy presented to the hospital with the abdominal pain as well as nausea and vomiting. Patient's repeat CT abdomen and pelvis with contrast was done currently report is pending. 1. Abdominal pain with the nausea and vomiting status post EGD on04/14 which showed . Patient had evidence of a gastrojejunostomy in the midbody of the stomach with a narrow opening through which the scope passed without difficulty Patient had a large anastomotic ulcer on the jejunal side of the gastrojejunostomy about 3-4 cm in size Shayan classification C with acute inflammatory changes but no bleeding . Patient had [id number] gastroparesis with retained gastric food contents at the level of the gastrojejunostomy ; mild gastritis . Otherwise normal and intact pyloric duodenal channel and normal examination up to the 2nd and 3rd part of the duodenum 2. History of ureteric stone status post right ureteric placement in the past 3. left kidney cancer status post nephrectomy 4. Anxiety and depression disorder currently compensated follow up for neck polycystic 5. Hypertension -diet as tolerated, continue Protonix and Carafate, discharge plan. Plan discussed with: Patient My Orders Orders - ENMANUEL GUTIÉRREZ MD Procedure Category Date Status Time Polyethylene Glycol PHA 07/01/25 In Process 17g Powder (Miralax 10:00 Date of Service: Jun 30, 2025 Billing Provider: ENMANUEL GUTIÉRREZ MD Common Visit Codes: [id number] INP/OBS CARE(HIGH) ENMANUEL GUTIÉRREZ MD Jun 30, 2025 13:18
--- NOTE | 2025-06-30 14:25 | DVH ---
Exam: CT CT ABD PELVIS W CON-ORAL IV History: ABD PAIN Comparison Study: MRI MRI ABD PELVIS W/O CONT on DOS: 06/08/25, CT CT AB PEL WITH ORAL CON ONLY on DOS: 02/06/23 Contrast: Type of contrast: Contrast injected: Contrast wasted: 0 TECHNIQUE: A digital automobile spring repairer image was obtained. During the uneventful, intravenous administration of contrast material, multislice data acquisition was obtained through the abdomen and pelvis. The data set was subsequently reconstructed into axial images. Images were reviewed on a work station using a combination of axial and multiplanar using a variety of window levels and settings. Radiation Dose Information: CT Dose: CTDI volume is 9.66 mGy. Dose-length product is 512.33 mGy*cm FINDINGS: Lung Bases: No acute or significant lung base finding. Normal heart size. No pleural or pericardial effusion. Liver: The liver is normal in size. No focal lesions. Normal hepatic vascular enhancement. Gallbladder and Biliary Tree: Status post cholecystectomy Spleen: Unremarkable Pancreas: The pancreas is normal in appearance without focal lesions or abnormal enhancement. Adrenal Glands: Status post left adrenalectomy. A right ureteral stent stable. Kidneys: Status post left nephrectomy Bladder: Unremarkable Bowel: The stomach is grossly normal in appearance. Small bowel and colon are normal in caliber and distribution. The appendix is not visualized; however, no secondary findings of acute appendicitis identified. Small subcutaneous nodules seen midline unchanged. Left posterior wall abdominal hernia noted and unchanged. Ascites: Absent Lymphadenopathy: No mesenteric, retroperitoneal or periportal lymphadenopathy. Abdominal Wall and Mesentery: Unremarkable. Vasculature: The visualized abdominal aorta is normal in size and caliber. Abdominal and pelvic vessels demonstrate normal enhancement. Pelvic Organs: Unremarkable Musculoskeletal: No aggressive focal bony lesions, acute fractures or dislocation. Soft tissues: Unremarkable. IMPRESSION: 1. Resolved gastric inflammatory change. 2. No other significant changes 3. All CT scans at this medical facility are performed using dose modulation techniques as appropriate to a performed exam including the following: Automated exposure control was utilized; adjustment of the MA and/or KV according to patient size; and use of iterative reconstruction technique. [employer]
--- NOTE | 2025-06-30 15:11 | DVHPN2 ---
Progress Note Date Seen: Jun 30, 2025 Resident Creating Document: KIRAN MITCHELL RESIDENT Medical Necessity Reason Pt with a Central, PICC or Fol: No Subjective Review of Systems This 60 year old female presented to the emergency room with complaints of abdominal pain unable to keep any food down nausea anorexia symptoms have been progressively getting Patient has history of gastric bypass with a gastrojejunostomy and had similar problems in the past and for which she was admitted in the hospital in April 13 when she had an EGD done by Dr. Dennison which showed there was evidence of gastrojejunal anastomosis in the mid body of the stomach with a narrow opening through which the scope could be passed without difficulty also had an anastomotic ulcer in the jejunal side. With severe gastroparesis normal intact pyloric channel A CT scan done in this admission now showed there was evidence of ureteral stent gastric distention with postsurgical changes involving the greater curvature of the stomach with possible gastrojejunostomy and bowel wall thickening and with the anastomotic changes recommended surgical and GI consultation. Denies weight loss Past Medical History History of kidney stones cancer other left kidney status post nephrectomy chronic kidney failure depression GERD hypertension Past Surgical History Cholecystectomy gastric bypass etc. stent 06/29-Patient seen and examined. Says she had no bowel movement for the past 4 days. MiraLax and enema ordered. 06/30-patient refused enema. MiraLax administer. Colonoscopy tomorrow. Bowel prep ordered. Objective vital signs Vital Sign Date Time Temp Pulse Resp B/P (MAP) Pulse Ox O2 Delivery O2 Flow Rate FiO2 06/30/25 12:51 98.5 57 17 124/83 (97) 99 98.5 06/30/25 08:00 Room Air* 0 21 Total Intake and Output 06/29/25 06/29/25 06/30/25 15:00 23:00 07:00 Intake Total 525 ml 1450 ml Balance 525 ml 1450 ml medications Current Medications Medications Dose Ordered Sig/Jamar Route Start Time Stop Time Status Last Admin Dose Admin Amlodipine Besylate 10 mg DAILY PO 06/27/25 10:00 06/30/25 09:21 10 MG Atenolol 25 mg DAILY PO 06/27/25 10:00 06/30/25 09:21 25 MG Sodium Chloride 10 ml Q8HR IV 06/27/25 06:00 06/30/25 05:44 10 ML Ondansetron HCl 4 mg Q4HP PRN IV 06/26/25 22:30 06/27/25 09:02 4 MG Docusate Sodium 100 mg BIDPRN PRN PO 06/26/25 22:30 06/29/25 21:14 100 MG Acetaminophen 650 mg Q6HP PRN PO 06/26/25 22:30 06/28/25 20:13 650 MG Nitroglycerin 0.4 mg Q5MINP PRN SL 06/26/25 22:30 Morphine Sulfate 2 mg Q30M PRN IV 06/26/25 22:30 Sodium Chloride 1,000 ml @ 120 mls/hr Q8H20M IV 06/27/25 15:15 06/30/25 09:55 120 MLS/HR Hydromorphone HCl 1 mg Q4HPRN PRN IV 06/28/25 12:15 06/30/25 09:22 1 MG Acetaminophen/ Hydrocodone Bitart 1 tab Q6HPRN PRN PO 06/29/25 12:30 06/30/25 12:29 1 TAB Pantoprazole Sodium 40 mg BID IV 06/29/25 22:00 06/30/25 09:21 40 MG Sucralfate 1 gm TID@0600,1130,2200 PO 06/29/25 16:00 06/30/25 12:29 1 GM Polyethylene Glycol 17 gm DAILY PO 07/01/25 10:00 Examination Overweight female patient lying in bed, in no acute distress General: Overweight, afebrile, palor, mucosae are moist Cardiovascular: Regular S1 and S2. No murmurs, gallops or rubs. No JVD elevation. No pedal edema Respiratory: Normal B/L air entry on room air. Clear lung sounds on auscultation Abdomen: Soft, nontender, nondistended, normoactive bowel sounds, no rebound tenderness, no organomegaly, no masses Genitourinary: Deferred MSK/skin: Mobilizes 4 limbs. Skin is dry and warm laboratory and microbiology Laboratory Tests 06/30/25 11:05 06/28/25 17:21 Test 06/30/25 11:05 Range/Units Serum Glucose 111 H 74-106 mg/dL Microbiology Date/Time Source Procedure Growth Status 06/27/25 08:15 Nose MRSA Screen - Final Complete Labs and/or images reviewed: Labs reviewed by me, Image(s) reviewed by me Problem List/Assessment/Plan Problem List/Assessment/Plan Intractable abdominal pain secondary to below Probable gastroparesis Probable Gastritis and anastomotic site ulcer History of gastric bypass with a gastrojejunostomy Left flank hernia Slow transit constipation History of Gastrojejunostomy stricture with marginal ulcer Patient underwent EGD 04/14 which showed evidence of a gastrojejunostomy in the midbody of the stomach with a narrow opening through which the scope passed without difficulty. Patient had a large anastomotic ulcer on the jejunal side of the gastrojejunostomy about 3-4 cm in size Shayan classification C with acute inflammatory changes but no bleeding Patient had [id number] gastroparesis with retained gastric food contents at the level of the gastrojejunostomy ; mild gastritis Pathology report shows no dysplasia or malignancy, no Helicobacter pylori, mild chronic active gastritis. Patient will be scheduled for upper and lower endoscopy 07/01. Bowel prep ordered. Please obtain consents. NPO after midnight other than bowel prep. Recommend continuing Protonix 40 mg IV b.i.d. along with Carafate suspension TID Continue clear liquid diet until midnight We will continue to follow up Plan discussed with patient in which all questions have been answered Case discussed with Dr. Dennison Plan discussed with: Patient My Orders My Orders Orders - KIRAN MITCHELL Procedure Category Date Status Time Pantoprazole PHA 06/29/25 In Process (Protonix) 22:00 Sucralfate Susp PHA 06/29/25 In Process (Carafate Susp) 16:00 KIRAN MITCHELL Jun 30, 2025 15:11
[2025-06-30] MEDS: GOLYTELY 4L KIT PO ONE (16:34)
[2025-07-01] VITALS (8 sets, daily range): BP systolic 119–161; BP diastolic 75–102; PULSE 53–111; RESP 14–20; TEMP 97.6–98.2; O2SAT 98–100
[2025-07-01] MEDS: MAGNESIUM CITRATE SOLUTION 300 ML BTL PO ONE (05:53)
[2025-07-01] MEDS: GOLYTELY 4L KIT PO ONE (06:03)
--- NOTE | 2025-07-01 07:37 | ECG ---
[facility] Test Date: 2025-07-01 Test Time: 01:05:06 Pat Name: DEREJE WETZEL Department: Respiratoy Room: [address] [place] [address] 2 Gender: F Pick Out Hand: FABIEN : 1965 Requested By: ENMANUEL GUTIÉRREZ Order Number: [id number] Reading MD: Marcelo Carrington Measurements Intervals [place] Rate: 51 P: 54 FL: 127 QRS: 65 QRSD: 82 T: 61 QT: 433 QTc: 399 Interpretive Statements Sinus rhythm Minimal ST elevation, anterior leads Electronically Signed On 07-01-2025 18:53:23 PST by Marcelo Carrington Please click the below link to view image of tracing.
--- NOTE | 2025-07-01 08:45 | DVH ---
CHEST RADIOGRAPH Indication: Pre-op Technique: Single frontal view of the chest was obtained COMPARISON: XY CHEST XRAY 1 VIEW on DOS: 06/07/25, XY CHEST PORTABLE on DOS: 04/13/25, XY CHEST XRAY 1 VIEW on DOS: 11/23/24, XY CHEST PORTABLE on DOS: 02/06/23, XY CHEST PORTABLE on DOS: 02/02/23 FINDINGS: Lines and Tubes: None Lungs: Clear Pleura: No effusion. No pneumothorax. Cardiomediastinal contours: Unremarkable Bones: Unremarkable IMPRESSION: No acute disease.
[2025-07-01] MEDS: POLYETHYLENE GLYCOL 17 GM PWDR PO SCH (10:00)
[2025-07-01 10:24] LABS: Hemoglobin 12.1 g/dL (12.2-16.2)
[2025-07-01 10:26] LABS: Hematocrit 35.8 % (36.0-46.0); Mean Corpuscular Hemoglobin 27.2 pg (28.0-32.0); Mean Corpuscular Volume 80.4 fL (80.0-100.0); Nucleated Red Blood Cells % 0.5 %
[2025-07-01 10:39] LABS: INR 0.99 (0.9-1.15); Partial Thromboplastin Time 27.6 SEC (24.5-34.5); Prothrombin Time 10.5 sec (9.3-11.8)
[2025-07-01 11:03] LABS: Alanine Aminotransferase 12 U/L (7-40); Albumin 4.2 g/dL (3.2-4.8); Alkaline Phosphatase 109 U/L (46-116); Anion Gap 12 (5-15); BUN/Creatinine Ratio 9.9 (10.0-20.0); Blood Urea Nitrogen 9 mg/dL (9-23); Calcium 11.7 mg/dL (8.7-10.4); Carbon Dioxide 21 mmol/L (20-31); Chloride 110 mmol/L (98-107); Glucose 94 mg/dL (74-106); Potassium 4.2 mmol/L (3.5-5.1); Sodium 143 mmol/L (136-145); Total Protein 7.2 g/dL (5.7-8.2)
[2025-07-01] MEDS ORDERED: MIDAZOLAM HCL 2MG/2ML 2ml VIAL (1mg/ml) ONE (11:03)
[2025-07-01] MEDS ORDERED: MEPERIDINE HCL (25 MG/ML) 1ML VIAL ONE (11:03)
[2025-07-01] MEDS ORDERED: SODIUM CHLORIDE LOCK 10 ML ONE (11:03)
[2025-07-01] MEDS ORDERED: ONDANSETRON HCL 4 MG/2 ML VIAL ONE (11:03)
[2025-07-01] MEDS ORDERED: PROPOFOL 10 MG/ML 20 ML IV ONE (11:03)
[2025-07-01] MEDS ORDERED: fentaNYL CITRATE 100 MCG/2 ML VL ONE (11:03)
[2025-07-01] MEDS ORDERED: LIDOCAINE 1% INJ PF 5ML AMP ONE (11:03)
[2025-07-01] MEDS ORDERED: KETAMINE 50mg/ML 1ml syringe ONE (11:03)
[2025-07-01 11:04] LABS: Bilirubin, Total 0.4 mg/dL (0.2-1.0)
[2025-07-01] MEDS ORDERED: KETOROLAC TROMETH 30 MG/ML 1ML VIAL IV ONE (11:45)
[2025-07-01] MEDS ORDERED: ACCU-CHEK COMFORT CURVE STRIP VI ONE (11:45)
[2025-07-01] MEDS ORDERED: METOCLOPRAMIDE HCL 5MG/ml INJ 2ml VIAL IV PRN (11:45)
[2025-07-01] MEDS ORDERED: MORPHINE SULFATE 4 MG/ML SYR/VIAL IV PRN (11:45)
[2025-07-01] MEDS ORDERED: HYDROmorphone HCL 2 MG/ML VL/or syr IV PRN ×2 (11:45)
[2025-07-01] MEDS ORDERED: LIDOCAINE VISCOUS 2% 15ML UD ONE (11:59)
[2025-07-01] MEDS ORDERED: MORPHINE SULFATE INJ 2 MG/ml SYRG IV PRN (12:36)
--- NOTE | 2025-07-01 13:10 | DVHOP2 ---
Operative Report DATE OF OPERATION: 07/01/25 PROCEDURE: Upper Endoscopy with biopsy. PREOPERATIVE INDICATION: The patient is a 60 -year-old female undergoing endoscopy for left upper quadrant pain and previous history of anastomotic ulcer POSTOPERATIVE DIAGNOSES: 1. Patient had evidence of a gastrojejunostomy in the midbody of the stomach with a narrow opening through which the scope passed without difficulty Patient had a persistent healing anastomotic ulcer on the jejunal side of the gastrojejunostomy about 2-3 cm in size Shayan classification C with acute inflammatory changes but no bleeding with some raised edges, biopsies were taken from the edges of the ulcer otherwise normal examination through the efferent loop 2. Patient had mild gastroparesis with retained gastric food contents at the level of the gastrojejunostomy ; mild gastritis, gastric biopsies were obtained 3. Otherwise normal and intact pyloric duodenal channel and normal examination up to the 2nd part of the duodenum PROCEDURE PERFORMED BY: Javier Dennison GI NURSE: Velia SCOPE: Olympus videoendoscope. ASA CLASS: 3. PREOPERATIVE MEDICATIONS: Dr. Jeff Levine PROCEDURE IN DETAIL: After obtaining an informed consent, the patient was placed on left lateral decubitus position. The patient was then sedated with the above medications. A bite block was placed between her teeth. The endoscope was then passed through the oropharynx, into the esophagus, and through the stomach and pylorus up to the second part of the duodenum. The endoscope was then withdrawn. The 2nd part of the duodenum and the duodenal bulb were normal. Patient had evidence of a gastrojejunostomy in the proximal to midbody of the stomach with a narrowed opening through which the scope passed without significant difficulty Patient had a persistent healing anastomotic ulcer on the jejunal side of the gastrojejunostomy with some raised edges Patient had mild gastritis and mild gastroparesis. Gastric biopsies and biopsies were obtained from the edges of this ulcer The endoscope was then withdrawn into the distal esophagus where the patient had a slightly irregular squamocolumnar junction but no significant hiatal hernia Remaining distal and proximal esophagus and oropharynx were unremarkable.The patient tolerated the procedure well without difficulty. COMPLICATIONS : None SPECIMENS: Gastric biopsies biopsies at the edge of the ulcer DISPOSITION: Transfer back to the floor Stable PLAN: 1. Await for biopsy result 2. Will place pt on Protonix 40 mg bid IV 3. Carafate suspension 1 g 4 times a day 4. Resume full liquid diet advance to pureed or soft mechanical JAVIER DENNISON MD Jul 01, 2025 13:10
--- NOTE | 2025-07-01 13:14 | DVHOP2 ---
Operative Report DATE OF OPERATION: 07/01/25 PROCEDURE: Colonoscopy with cold biopsy polypectomy. PREOPERATIVE INDICATION: The patient is a 60 -year-old female undergoing colonoscopy for evaluation of left-sided abdominal pain and change in bowel habits POSTOPERATIVE DIAGNOSES: 1. There was a 2 mm benign-appearing mid transverse colon polyp that was seen and removed by cold biopsy forceps 2. There was a 1 mm benign-appearing sigmoid polyp that was seen and removed by cold biopsy forceps 3. There was mild tortuosity of the colon especially involving the splenic flexure 4. Trace internal hemorrhoids otherwise normal examination up to the cecum and terminal ileum PROCEDURE PERFORMED BY: Javier Dennison M.D. SCOPE: Olympus videocolonoscope. ASA CLASS: 3 PREOPERATIVE MEDICATIONS: Mac sedation Dr. Aguilar PROCEDURE IN DETAIL: After obtaining an informed consent, the patient was placed on left lateral decubitus position. She was then sedated with the above medications. A rectal examination was performed that was normal. The colonoscope was then passed through the anus into the rectosigmoid and through the descending, transverse, and ascending colon up to the cecum with visualization of the appendiceal orifice, base of the cecum and the ileocecal valve. The colonoscope was then withdrawn. The distal 5-10 cm of the terminal ileum were normal No masses or colitis were seen. There was no clear-cut diverticular disease. Patient had mild tortuosity of the colon at the splenic flexure Patient had a 2 mm benign-appearing mid transverse colon polyp that was seen and removed by cold biopsy forceps There was another 1 mm benign-appearing sigmoid polyp that was seen and removed by cold biopsy forceps On retroflexion she had trace internal hemorrhoids. The patient tolerated the procedure well without difficulty. WITHDRAWAL TIME: 7 minutes QUALITY OF THE PREP: [place] Bowel Prep score: 8. COMPLICATIONS : None SPECIMENS: Transverse colon polyp Sigmoid polyp DISPOSITION: Transfer back to the floor Stable PLAN: 1. Repeat colonoscopy base on biopsy result likely in 3-5 years 2. Resume full liquid diet advance as tolerated 3. I believe the patient's left-sided abdominal pain may be related to postsurgical changes from previous gastrojejunostomy and possible scar tissue around the splenic flexure It is not clear why the patient required a gastrojejunostomy at that time and possible consideration to referral back to her surgeon to decide if that gastrojejunostomy could be reversed Previous operative reports would have to be reviewed and possible follow up at [facility] to be considered as an outpatient JAVIER DENNISON MD Jul 01, 2025 13:14
--- NOTE | 2025-07-01 16:44 | DVHPN2 ---
Subjective 60-year-old female with a known history of left kidney cancer status post nephrectomy and adrenalectomy, history of right ureteric stone status post ureteric stent, previous history of some stomach pathology status post gastrojejunostomy presented to the hospital with the abdominal pain as well as nausea and vomiting. Patient is currently tolerating clear liquid diet we will advance diet as tolerated. Reviewed: H&P Changes from previous H/P or p: No Changes Eyes: No Pain, No Vision change, No Conjunctivae inflammation, No Eyelid inflammation, No Other, No Redness ENT: No Ear pain, No Ear discharge, No Nose pain, No Nose discharge, No Nose congestion, No Mouth pain, No Mouth swelling, No Throat pain, No Throat swelling, No Other Cardiovascular: No Chest Pain, No Palpitations, No Orthopnea, No Paroxysmal Noc. Dyspnea, No Edema, No Lt Headedness, No Other Respiratory: No Cough, No Dry, No Shortness of breath, No SOB with excertion, No Wheezing, No Hemoptysis, No Pleuritic Pain, No Sputum, No Other Gastrointestinal: Nausea, Vomiting, Abdominal Pain; No Diarrhea, No Constipation, No Melena, No Hematochezia, No Other Genitourinary: No Dysuria, No Frequency, No Incontinence, No Hematuria, No Retention, No Other Musculoskeletal: No other, No neck pain, No shoulder pain, No arm pain, No back pain, No hand pain, No leg pain, No foot pain Skin: No Rash, No Lesions, No Jaundice, No Bruising, No Other Objective Vitals Vital Signs Date Time Temp Pulse Resp B/P (MAP) Pulse Ox O2 Delivery O2 Flow Rate FiO2 07/01/25 16:42 97.6 73 17 135/86 (102) 100 97.6 07/01/25 13:03 Room Air 0 07/01/25 13:03 99 Intake/Output Intake and Output 07/01/25 07:00 Intake Total 1100 ml Balance 1100 ml Intake Oral 500 ml IV Total 600 ml # Voids 8 # Bowel Movements 4 Exam HEENT pupils are reactive Neck is supple CV is S1-S2 regular rate and rhythm Diminished breath sounds bases GI positive bowel sounds, soft nondistended mildly tender diffusely with a minimal guarding no rigidity Extremity no edema [employer] no motor deficit General Appearance: Alert, Oriented X3 HEENT: Atraumatic Cardiovascular: Regular rate, Normal S1, Normal S2 Abdomen: Normal bowel sounds Medications Current Medications Medications Dose Ordered Sig/Jamar Route Start Time Stop Time Status Last Admin Dose Admin Amlodipine Besylate 10 mg DAILY PO 06/27/25 10:00 06/30/25 09:21 10 MG Atenolol 25 mg DAILY PO 06/27/25 10:00 06/30/25 09:21 25 MG Sodium Chloride 10 ml Q8HR IV 06/27/25 06:00 07/01/25 14:00 10 ML Ondansetron HCl 4 mg Q4HP PRN IV 06/26/25 22:30 07/01/25 09:17 4 MG Docusate Sodium 100 mg BIDPRN PRN PO 06/26/25 22:30 06/30/25 20:35 100 MG Acetaminophen 650 mg Q6HP PRN PO 06/26/25 22:30 06/28/25 20:13 650 MG Nitroglycerin 0.4 mg Q5MINP PRN SL 06/26/25 22:30 Morphine Sulfate 2 mg Q30M PRN IV 06/26/25 22:30 Sodium Chloride 1,000 ml @ 120 mls/hr Q8H20M IV 06/27/25 15:15 07/01/25 10:00 120 MLS/HR Hydromorphone HCl 1 mg Q4HPRN PRN IV 06/28/25 12:15 07/01/25 16:26 1 MG Acetaminophen/ Hydrocodone Bitart 1 tab Q6HPRN PRN PO 06/29/25 12:30 07/01/25 05:53 1 TAB Pantoprazole Sodium 40 mg BID IV 06/29/25 22:00 07/01/25 08:51 40 MG Sucralfate 1 gm TID@0600,1130,2200 PO 06/29/25 16:00 07/01/25 05:53 1 GM Polyethylene Glycol 17 gm DAILY PO 07/01/25 10:00 Laboratory Results Laboratory Tests 07/01/25 08:00 Chemistry Test 07/01/25 08:00 Albumin 4.2 g/dL (3.2-4.8) Calcium Level 11.7 mg/dL (8.7-10.4) H Total Protein 7.2 g/dL (5.7-8.2) Coagulation Test 07/01/25 08:00 Prothrombin Time 10.5 sec (9.3-11.8) Prothrombin Time INR 0.99 (0.9-1.15) Activated Partial Thromboplast Time 27.6 SEC (24.5-34.5) LFT Test 07/01/25 08:00 Alanine Aminotransferase (ALT) 12 U/L (7-40) Alkaline Phosphatase 109 U/L (46-116) Aspartate Amino Transferase (AST) 17 U/L (13-40) Total Bilirubin 0.4 mg/dL (0.2-1.0) Urinalysis Test 06/29/25 21:30 Urine Color Colorless (Yellow) Urine Clarity Clear (Clear) Urine pH 6.0 (5.0-9.0) Urine Specific [place] 1.007 (1.001-1.035) Urine Protein Negative (Negative) Urine Ketones Negative (Negative) Urine Blood 2+ /uL (Negative) H Urine Nitrite Negative (Negative) Urine Bilirubin Negative (Negative) Urine Urobilinogen Normal mg/dL (Negative) Urine Leukocyte Esterase 1+ /uL (Negative) Urine RBC 30 /hpf (0 - 4) Urine Microscopic WBC 4 /HPF (0-5) Urine Squamous Epithelial Cells None seen /hpf (<5) Urine Bacteria Few /hpf (None Seen) H Urine Glucose Normal mg/dL (Normal) Microbiology Microbiology Date/Time Source Procedure Growth Status 06/27/25 08:15 Nose MRSA Screen - Final Complete Assessment/Plan Assessment/Plan 60-year-old female with a known history of left kidney cancer status post nephrectomy and adrenalectomy, history of right ureteric stone status post ureteric stent, previous history of some stomach pathology status post gastrojejunostomy presented to the hospital with the abdominal pain as well as nausea and vomiting. Patient's repeat CT abdomen and pelvis with contrast was done currently report is pending. 1. Abdominal pain with the nausea and vomiting status post EGD on04/14 which showed . Patient had evidence of a gastrojejunostomy in the midbody of the stomach with a narrow opening through which the scope passed without difficulty Patient had a large anastomotic ulcer on the jejunal side of the gastrojejunostomy about 3-4 cm in size Shayan classification C with acute inflammatory changes but no bleeding . Patient had alwj-uy-uyxluazo gastroparesis with retained gastric food contents at the level of the gastrojejunostomy ; mild gastritis . Otherwise normal and intact pyloric duodenal channel and normal examination up to the 2nd and 3rd part of the duodenum 2. History of ureteric stone status post right ureteric placement in the past 3. left kidney cancer status post nephrectomy 4. Anxiety and depression disorder currently compensated follow up for neck polycystic 5. Hypertension -diet as tolerated, continue Protonix and Carafate, patient is going for EGD and colonoscopy today- -discharge plan once cleared by GI Plan discussed with: Patient My Orders Orders - ENMANUEL GUTIÉRREZ MD Procedure Category Date Status Time Chest Portable XY 07/01/25 Resulted 06:22 Date of Service: Jul 01, 2025 Billing Provider: ENMANUEL GUTIÉRREZ MD Common Visit Codes: [id number] INP/OBS CARE(HIGH) ENMANUEL GUTIÉRREZ MD Jul 01, 2025 16:44
[2025-07-02 01:00] VITALS: BP 109/69; PULSE 69; RESP 19; TEMP 98.2; O2SAT 97
[2025-07-02 05:00] VITALS: BP 123/80; PULSE 70; RESP 18; TEMP 98.9; O2SAT 98
[2025-07-02 08:00] VITALS: PULSE 64
[2025-07-02 08:15] VITALS: BP 126/78; PULSE 65; RESP 17; TEMP 98.8; O2SAT 99
[2025-07-02 13:00] VITALS: BP 130/76; PULSE 60; RESP 17; TEMP 98.8; O2SAT 99
[2025-07-02] MEDS ORDERED: PANT40TA2 PO (14:45)
[2025-07-02] MEDS ORDERED: SUCR1TAB31 OR (14:45)
--- NOTE | 2025-07-02 14:47 | DVHDS2 ---
Discharge Summary Date of Admission Jun 26, 2025 at 22:30 Date of Discharge: Jul 02, 2025 Labs/Diagnostic Data: Laboratory Results Test 07/01/25 08:00 06/29/25 21:30 06/28/25 17:21 White Blood Count 5.0 10^3/uL (4.4-10.8) Red Blood Count 4.46 10^6/uL (4.0-5.20) Hemoglobin 12.1 g/dL (12.2-16.2) Hematocrit 35.8 % (36.0-46.0) Mean Corpuscular Volume 80.4 fL (80.0-100.0) Mean Corpuscular Hemoglobin 27.2 pg (28.0-32.0) Mean Corpuscular Hemoglobin Concent 33.8 g/dL (32.0-36.0) Red Cell Distribution Width 15.9 % (11.8-14.3) Platelet Count 304 10^3/uL (140-450) Mean Platelet Volume 8.2 fL (6.9-10.8) Neutrophils (%) (Auto) 53.3 % (37.0-80.0) Lymphocytes (%) (Auto) 31.3 % (10.0-50.0) Monocytes (%) (Auto) 11.9 % (0.0-12.0) Eosinophils (%) (Auto) 2.8 % (0.0-7.0) Basophils (%) (Auto) 0.7 % (0.0-2.0) Neutrophils # (Auto) 2.6 10 ^3/uL (1.6-8.6) Lymphocytes # (Auto) 1.6 10 ^3/uL (0.4-5.4) Monocytes # (Auto) 0.6 10 ^3/uL (0-1.3) Eosinophils # (Auto) 0.1 10 ^3/uL (0-0.8) Basophils # (Auto) 0 10 ^3/uL (0-0.2) Nucleated Red Blood Cells 0.5 % Prothrombin Time 10.5 sec (9.3-11.8) Prothrombin Time INR 0.99 (0.9-1.15) Activated Partial Thromboplast Time 27.6 SEC (24.5-34.5) Sodium Level 143 mmol/L (136-145) Potassium Level 4.2 mmol/L (3.5-5.1) Chloride Level 110 mmol/L (98-107) Carbon Dioxide Level 21 mmol/L (20-31) Anion Gap 12 (5-15) Blood Urea Nitrogen 9 mg/dL (9-23) Creatinine 0.91 mg/dL (0.550-1.02) Glomerular Filtration Rate Calc 71 mL/min (>90) BUN/Creatinine Ratio 9.9 (10.0-20.0) Serum Glucose 94 mg/dL (74-106) Calcium Level 11.7 mg/dL (8.7-10.4) Total Bilirubin 0.4 mg/dL (0.2-1.0) Aspartate Amino Transferase (AST) 17 U/L (13-40) Alanine Aminotransferase (ALT) 12 U/L (7-40) Alkaline Phosphatase 109 U/L (46-116) Total Protein 7.2 g/dL (5.7-8.2) Albumin 4.2 g/dL (3.2-4.8) Urine Color Colorless (Yellow) Urine Clarity Clear (Clear) Urine pH 6.0 (5.0-9.0) Urine Specific [place] 1.007 (1.001-1.035) Urine Protein Negative (Negative) Urine Ketones Negative (Negative) Urine Blood 2+ /uL (Negative) Urine Nitrite Negative (Negative) Urine Bilirubin Negative (Negative) Urine Urobilinogen Normal mg/dL (Negative) Urine Leukocyte Esterase 1+ /uL (Negative) Urine RBC 30 /hpf (0 - 4) Urine Microscopic WBC 4 /HPF (0-5) Urine Squamous Epithelial Cells None seen /hpf (<5) Urine Bacteria Few /hpf (None Seen) Urine Glucose Normal mg/dL (Normal) Lipase 85 U/L (12-53) Other Laboratory Tests 07/01/25 08:00 Brief Hx & Hospital Course: 60-year-old female with a known history of left kidney cancer status post nephrectomy and adrenalectomy, history of right ureteric stone status post ureteric stent, previous history of some stomach pathology status post gastrojejunostomy presented to the hospital with the abdominal pain as well as nausea and vomiting. Patient's repeat CT abdomen and pelvis with contrast was done which shows evidence of resolved gastric inflammatory change. Patient underwent EGD which shows evidence of large anastomotic ulcer at jejunal site of the gastrojejunostomy with a [id number]-dg-ayhenwin gastroparesis. Patient was given Protonix and Carafate. Patient was cleared by GI to be discharged. Patient is being discharged under stable condition. Condition at Discharge: Stable Final Diagnosis/Problems List 60-year-old female with a known history of left kidney cancer status post nephrectomy and adrenalectomy, history of right ureteric stone status post ureteric stent, previous history of some stomach pathology status post gastrojejunostomy presented to the hospital with the abdominal pain as well as nausea and vomiting. Patient's repeat CT abdomen and pelvis with contrast was done currently report is pending. 1. Abdominal pain with the nausea and vomiting status post EGD on04/14 which showed . Patient had evidence of a gastrojejunostomy in the midbody of the stomach with a narrow opening through which the scope passed without difficulty Patient had a large anastomotic ulcer on the jejunal side of the gastrojejunostomy about 3-4 cm in size Shayan classification C with acute inflammatory changes but no bleeding . Patient had hkpy-pu-vcuybagb gastroparesis with retained gastric food contents at the level of the gastrojejunostomy ; mild gastritis . Otherwise normal and intact pyloric duodenal channel and normal examination up to the 2nd and 3rd part of the duodenum 2. History of ureteric stone status post right ureteric placement in the past 3. left kidney cancer status post nephrectomy 4. Anxiety and depression disorder currently compensated follow up for neck polycystic 5. Hypertension -diet as tolerated, continue Protonix and Carafate, patient is going for EGD and colonoscopy today- -discharge plan once cleared by GI Discharge Disposition: Home SNF Discharge Will this Physician continue t: No Discharge Instruct/Medications Diet: Cardiac 2g Na,low cholest Activity: No Restrictions, As Tolerated Follow Up/Referral: With the PCP in 1-2 weeks Follow up with the GI doctor Catracho Dennison in 1-2 weeks Medications: Protonix and Carafate as prescribed New Medications: Pantoprazole Sodium Sesquihydr (Protonix) 40 Mg Tab 40 MG PO BID, #60 TAB Sucralfate (Carafate) 1 Gm Tab 1 GM OR QID for 30 Days, #120 TAB Continued Medications: Amlodipine Besylate (Amlodipine Besylate) 10 Mg Tab 1 TAB PO DAILY for 30 Days, #30 TAB 3 Refills Atenolol (Atenolol) 25 Mg Tab 1 TAB PO DAILY, #30 TAB 5 Refills Discontinued Medications: Nitrofurantoin (Nitrofurantoin) 100 Mg Cap 1 CAP PO BID for 5 Days, #10 CAP Sodium Polystyrene Sulfonate (Kalexate) Pow 1 AZIZA OR DAILY for 10 Days, #10 POW Scheduled Amlodipine Besylate (Amlodipine Besylate), 1 TAB PO DAILY Atenolol (Atenolol), 1 TAB PO DAILY, (Reported) Pantoprazole Sodium Sesquihydr (Protonix), 40 MG PO BID Sucralfate (Carafate), 1 GM OR QID Discontinued Medications Nitrofurantoin (Nitrofurantoin), 1 CAP PO BID Sodium Polystyrene Sulfonate (Kalexate), 1 AZIZA OR DAILY Discharge Statement: "Patient was advised to return to the ER or call 911 if any headaches, dizziness, shortness of breath, chest pain, abdominal pain, bleeding, fevers, or worsening of medical condition. Patient was counseled about treatment plan, medications, possible side effects, patientverbalized understanding. All questions were answered to the best of my ability. This discharge took greater then 30 minutes in planning, reviewing documentation, counseling the patient, and discussing with other team members." ASSESSMENT ASSESSMENT Assessment 60-year-old female with a known history of left kidney cancer status post nephrectomy and adrenalectomy, history of right ureteric stone status post ureteric stent, previous history of some stomach pathology status post gastrojejunostomy presented to the hospital with the abdominal pain as well as nausea and vomiting. Patient's repeat CT abdomen and pelvis with contrast was done currently report is pending. 1. Abdominal pain with the nausea and vomiting status post EGD on04/14 which showed . Patient had evidence of a gastrojejunostomy in the midbody of the stomach with a narrow opening through which the scope passed without difficulty Patient had a large anastomotic ulcer on the jejunal side of the gastrojejunostomy about 3-4 cm in size Shayan classification C with acute inflammatory changes but no bleeding . Patient had tluw-ft-sxbgafpj gastroparesis with retained gastric food contents at the level of the gastrojejunostomy ; mild gastritis . Otherwise normal and intact pyloric duodenal channel and normal examination up to the 2nd and 3rd part of the duodenum 2. History of ureteric stone status post right ureteric placement in the past 3. left kidney cancer status post nephrectomy 4. Anxiety and depression disorder currently compensated follow up for neck polycystic 5. Hypertension -diet as tolerated, continue Protonix and Carafate, patient is going for EGD and colonoscopy today- -discharge plan once cleared by GI Date of Service: Jul 02, 2025 Billing Provider: ENMANUEL GUTIÉRREZ MD Common Visit Codes: 29521-HJU/OBS DISCH DAY >30min ENMANUEL GUTIÉRREZ MD Jul 02, 2025 14:47
--- NOTE | 2025-07-02 15:18 | DVHNC2 ---
Procedure - Bedside Ureteral Stent Removal Procedure Note Patient: Ashley Zaidi : 1965 Date of Service: 07/02/25 Performed by: Gustavo Livingston NP Manager Mail: Director Of Counterintelligence Cory Schilling Procedure: Bedside removal of left right ureteral stent Indication: Patient no longer in need of indwelling ureteral stent following right ureteroscopic laser lithotripsy and right ureteral stent placement Pre-Procedure Consent: Verbal consent obtained. Risks discussed including dysuria, transient hematuria, urinary frequency/urgency, infection, and rare ureteral spasm. Patient expressed understanding and agreed to proceed. Timeout: Conducted with YENNY Schilling confirming correct patient, procedure, and laterality. Position: dorsal lithotomy, comfortable position. Preparation: No anesthesia required. External urethral meatus cleansed with antiseptic solution. Procedure Description The distal stent retrieval string was visualized within the bladder. Using flexible cystoscope and grasper the stent was secured and with gentle traction, the right ureteral stent was removed in its entirety without resistance. The stent was inspected post-removal and noted to be intact with no defects. Patient tolerated the procedure well without complications. Post-Procedure Findings: Successful removal of left ureteral stent. No immediate bleeding or distress. Condition: Patient stable post-procedure. Instructions: Increase oral hydration for 2448 hours. Urinary urgency, frequency, and mild hematuria may occur for 2472 hours. Call clinic or present to ED for fever, chills, severe flank pain, urinary retention, or persistent gross hematuria. Plan: Follow standard post-[facility] follow-up protocol. Renal ultrasound or KUB PRN per urology Billing Codes 64147 ICD 10 T19.9XXA Z85.442 GUSTAVO LIVINGSTON NP Jul 02, 2025 15:18
[2025-07-02 16:50] VITALS: BP 130/84; PULSE 50; RESP 17; TEMP 98.9; O2SAT 100
== END 2025-07-02 18:08 | disposition home or self-care (01) | DRG 241 ==
LOC: EDBD 15:31 → ER 15:31 → OVERFLOW 22:30 → EAST 06-27 18:04
PROVIDERS: ADMIT Internal Medicine; ATTEND Internal Medicine
PROC: 0DBN8ZZ Excision of Sigmoid Colon, Via Natural or Artificial Opening Endoscopic (ICD-10-PCS; 2025-07-01)
PROC: 0DBL8ZZ Excision of Transverse Colon, Via Natural or Artificial Opening Endoscopic (ICD-10-PCS; 2025-07-01)
PROC: 0DBA8ZX Excision of Jejunum, Via Natural or Artificial Opening Endoscopic, Diagnostic (ICD-10-PCS; principal; 2025-07-01 12:27)
PROC: 0DB68ZX Excision of Stomach, Via Natural or Artificial Opening Endoscopic, Diagnostic (ICD-10-PCS; 2025-07-01 12:27)
PROC: 0TP98DZ Removal of Intraluminal Device from Ureter, Via Natural or Artificial Opening Endoscopic (ICD-10-PCS; 2025-07-02)
DX: K28.9 Gastrojejunal ulcer, unspecified as acute or chronic, without hemorrhage or perforation (principal); C64.2 Malignant neoplasm of left kidney, except renal pelvis; E11.22 Type 2 diabetes mellitus with diabetic chronic kidney disease; F32.A Depression, unspecified; I12.9 Hypertensive chronic kidney disease with stage 1 through stage 4 chronic kidney disease, or unspecified chronic kidney disease; N18.9 Chronic kidney disease, unspecified; K29.70 Gastritis, unspecified, without bleeding; E11.43 Type 2 diabetes mellitus with diabetic autonomic (poly)neuropathy; E83.52 Hypercalcemia; F17.210 Nicotine dependence, cigarettes, uncomplicated; F41.9 Anxiety disorder, unspecified; K31.84 Gastroparesis; K63.5 Polyp of colon; K21.9 Gastro-esophageal reflux disease without esophagitis; K59.01 Slow transit constipation; K64.8 Other hemorrhoids; Z87.442 Personal history of urinary calculi; Z98.84 Bariatric surgery status; Z90.5 Acquired absence of kidney; Z88.5 Allergy status to narcotic agent; Z86.73 Personal history of transient ischemic attack (TIA), and cerebral infarction without residual deficits; Z90.49 Acquired absence of other specified parts of digestive tract; Z87.11 Personal history of peptic ulcer disease
CPT/HCPCS: 36415; 43239; 45380; 71045; 74176; 74177; 80053; 81001; 83690; 85025; 85610; 85730; 87081; 88341; 93005; G0378; J2250; J2405; J2470; J2704

== ENCOUNTER 2025-07-09 08:23 | Emergency (ER) | payer MEDICAID ==
[~2025-07-09] VITALS: Ht 157.5 cm; Wt 68.1 kg
[~2025-07-09 08:23] MED LIST changes: -NITR-52 PO; +PANT40TA2 PO; -SODIPOW6 OR; +SUCR1TAB31 OR
--- NOTE | 2025-07-09 08:55 | ED.PDOC ---
GI ASSESSMENT HPI Comments 60 y.o female with PMHx of HTN, left nephrectomy, CKF, HTN, gastric bypass, and TIA, presents to the ED for a chief complaint of persistent abdominal pain radiating to her back x 2 days. Patient reports being seen at this hospital multiple times for the past 3-4 weeks for the same complaint, has been admitted and referred to GI, however has not been able to obtain a GI appointment. She rates her pain a 10/10 in severity and states last BM was 3 days ago. She Denies any bloody or bilious vomitus, diarrhea. Notable recent history of incomplete urinary retention due to kidney stones with right urethral stent placement at [facility] 3x weeks ago. :Last visit at this facility was on 06/26/25 and admitted until 07/02/25. [facility] records: Patient's repeat CT abdomen and pelvis with contrast was done currently report is pending. 1. Abdominal pain with the nausea and vomiting status post EGD on04/14 which showed . Patient had evidence of a gastrojejunostomy in the midbody of the stomach with a narrow opening through which the scope passed without difficulty Patient had a large anastomotic ulcer on the jejunal side of the gastrojejunostomy about 3-4 cm in size Shayan classification C with acute inflammatory changes but no bleeding . Patient had uymy-tb-facaltls gastroparesis with retained gastric food contents at the level of the gastrojejunostomy ; mild gastritis . Otherwise normal and intact pyloric duodenal channel and normal examination up to the 2nd and 3rd part of the duodenum Chief Complaint: Abdominal Pain Time Seen by MD: 08:50 Primary Care Provider: KRIS Reviewed Notes: Nurses Notes, Medications, Allergies Allergies: Coded Allergies: Codeine (Verified Allergy, Unknown, 09/01/15) Home Meds Active Scripts Sucralfate (CARAFATE) 1 Gm Tab, 1 GM OR QID for 30 Days, #120 TAB Prov:ENMANUEL GUTIÉRREZ MD 07/02/25 Pantoprazole Sodium Sesquihydr (Protonix) 40 Mg Tab, 40 MG PO BID, #60 TAB Prov:ENMANUEL GUTIÉRREZ MD 07/02/25 Amlodipine Besylate (Amlodipine Besylate) 10 Mg Tab, 1 TAB PO DAILY for 30 Days, #30 TAB 3 Refills Prov:WILFREDO TERRY 06/11/25 Reported Medications Atenolol (Atenolol) 25 Mg Tab, 1 TAB PO DAILY, #30 TAB 5 Refills 06/07/25 Discontinued Scripts Nitrofurantoin (Nitrofurantoin) 100 Mg Cap, 1 CAP PO BID for 5 Days, #10 CAP Prov:MIGUEL BARAJAS RESIDENT 06/17/25 Sodium Polystyrene Sulfonate (Kalexate) Pow, 1 AZIZA OR DAILY for 10 Days, #10 POW Prov:WILFREDO TERRY RESIDENT 06/11/25 Information Source: Patient Mode of Arrival: Ambulatory Timing: Days Duration: Since onset Quality: Sharp Vomitus: None Stool: Empty Severity: Moderate Recent: None Recent Hx of: None Pain Location: Diffuse Modifying Factors: Nothing Associated sign and symptoms: Constipation, Abdominal Pain Past Medical History PAST MEDICAL HISTORY: Anxiety, Cancer, CKF, Depression, DM, GERD, HTN Surgical History: Cholecystectomy CARD LACER JACQUARD History: No Pertinent CARD LACER JACQUARD History Family History Family History: Unobtainable Social History Smoker: Cigarettes, Less Than 1 Pack/Day Alcohol: Denies ETOH Use Drugs: Denies Drug Use Lives In: Home Constitutional: denies: chills, diaphoresis, fatigue, fever, malaise, sweats, weakness, others EENTM: denies: blurred vision, double vision, ear bleeding, ear discharge, ear drainage, ear pain, ear ringing, eye pain, eye redness, hearing loss, mouth pain, mouth swelling, nasal discharge, nose bleeding, nose congestion, nose pain, photophobia, tearing, throat pain, throat swelling, voice changes, others Respiratory: denies: cough, hemoptysis, orthopnea, SOB at rest, shortness of breath, SOB with excertion, stridor, wheezing, others Cardiovascular: denies: chest pain, dizzy spells, diaphoresis, Dyspnea on exertion, edema, irregular heart beat, left arm pain, lightheadedness, palpitations, PND, syncope, others Gastrointestinal: reports: abdominal pain, constipated; denies: abdomen distended, blood streaked bowels, diarrhea, dysphagia, difficulty swallowing, hematemesis, melena, nausea, poor appetite, poor fluid intake, rectal bleeding, rectal pain, vomiting, others Genitourinary: denies: abnormal vagina bleeding, burning, dyspareunia, dysuria, flank pain, frequency, hematuria, incontinence, pain, , vagina discharge, urgency, others Neurological: denies: dizziness, fainting, headache, left sided numbness, left sided weakness, numbness, paresthesia, pre-existing deficit, right sided numbness, right sided weakness, seizure, speech problems, tingling, tremors, weakness, others Musculoskeletal: reports: back pain; denies: gout, joint pain, joint swelling, muscle pain, muscle stiffness, neck pain, others Integumetry: denies: bruises, change in color, change in hair/nails, dryness, laceration, lesions, lumps, rash, wounds, others Allergic/Immunocompromised: denies: Difficulty Healing, Frequent Infections, Hives, Itching, others Hematologic/Lymphatic: denies: anemia, blood clots, easy bleeding, easy bruising, swollen glands, others Endocrine: denies: excessive hunger, excessive sweating, excessive thirst, excessive urination, flushing, intolerance to cold, intolerance to heat, unexplained weight gain, unexplained weight loss, others Psychiatric: denies: anxiety, bipolar disorder, depression, hopeless, panic disorder, schizophrenia, sleepless, suicidal, others All Other Systems: Reviewed and Negative Physical Exam General Appearance: Moderate Distress HEENT: Normal ENT Inspection, Pharynx Normal, TMs Normal Neck: Full Range of Motion, Non-Tender, Normal, Normal Inspection Respiratory: Chest Non-Tender, Lungs Clear, No Accessory Muscle Use, No Respiratory Distress, Normal Breath Sounds Cardiovascular: No Edema, No JVD, No Murmur, No Gallop, Normal Peripheral Pulses, Regular Rate/Rhythm Breast Exam: Deferred Gastrointestinal: No Organomegaly, Non Tender, No Pulsatile Mass, Normal Bowel Sounds, Soft Genitalia: Deferred Pelvic: Deferred Rectal: Deferred Extremities: No calf tenderness, Normal capillary refill, Normal inspection, Normal range of motion, Non-tender, No pedal edema Musculoskeletal : Apperance: Normal Neurologic: Alert, 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 Was a procedure done?: No GI differential Dx Differential Diagnosis: Bowel Obstruction, Constipation, Diverticular disease, Esophagitis, Gastritis/PUD, Gastroenteritis, Inflammatory BD, Dehydration, Electrolyte Imbalance, Bacterial, Parasitic, Viral, Esophageal Varicies, Stress Ulcer X-Ray, Labs, Meds, VS Vital Signs Date Time Temp Pulse Resp B/P (MAP) Pulse Ox O2 Delivery O2 Flow Rate FiO2 07/09/25 08:45 Room Air* 0 21 07/09/25 08:25 97.7 68 18 157/98 (117) 99 97.7 07/09/25 08:25 97.7 68 18 157/98 99 97.7 Patient alert. Came in because of abdominal discomfort. Abdomen is soft nontender. Vitals stable. Blood pressure slightly elevated pain Reviewed her previous visit. She has been coming regularly this month. Was given clonidine. Explained to the patient. Continue monitoring. Time of 1ST Reevaluation: 08:54 Reevaluation 1ST: Unchanged Patient Education/Counseling: Diagnosis, Treatment, Prognosis Family Education/Counseling: No Family Present SEPSIS Sepsis Screen Date sepsis recognized/suspect: Jul 09, 2025 Time Sepsis recognized/suspect: 827 Recent Procedure: No On Antibiotic Therapy: No Respiratory Rate >20: No Heart Rate >90: No Temp<36 C (96.8 F) or >38.3 C: No SBP <90 or MAP <65 mmHG: No New Acute Mental Status Change: No Is the patient on CPAP, BIPAP,: No Physician Orders Complete Blood Count (07/09/25 08:25) Urinalysis (07/09/25 08:25) Basic Metabolic Panel (07/09/25 08:25) Vital Signs Date Time Temp Pulse Resp B/P (MAP) Pulse Ox O2 Delivery O2 Flow Rate FiO2 07/09/25 08:45 Room Air* 0 21 07/09/25 08:25 97.7 68 18 157/98 (117) 99 97.7 07/09/25 08:25 97.7 68 18 157/98 99 97.7 Departure 1 Departure Time of Disposition: 08:58 Impression: Primary Impression: Hypertensive urgency Disposition: 01 HOME / SELF CARE / HOMELESS Condition: Good Discharged With: Self Critical Care Note Critical Care Time?: No Stability Stability form required: No Heart Score Heart Score: Heart Score Response (Comments) Value History N/A 0 EKG N/A 0 Age N/A 0 Risk Factors N/A 0 Troponin N/A 0 Total 0 I personally scribed for ISATU RAMIREZ MD ([email or web address]) on 07/09/25 at 08:55. Electronically submitted by Radha Faust ([facility]). ISATU RAMIREZ MD Jul 09, 2025 08:55
[2025-07-09 09:06] LABS: Hematocrit 37.9 % (36.0-46.0); Hemoglobin 13.1 g/dL (12.2-16.2); Mean Corpuscular Hemoglobin 27.2 pg (28.0-32.0); Mean Corpuscular Volume 78.6 fL (80.0-100.0); Nucleated Red Blood Cells % 0.2 %
[2025-07-09 09:11] LABS: Potassium 3.9 mmol/L (3.5-5.1); Sodium 143 mmol/L (136-145)
[2025-07-09 09:12] LABS: Anion Gap 9 (5-15); Carbon Dioxide 22 mmol/L (20-31)
[2025-07-09 09:17] LABS: BUN/Creatinine Ratio 13.7 (10.0-20.0); Blood Urea Nitrogen 13 mg/dL (9-23)
[2025-07-09 09:31] LABS: Calcium 11.3 mg/dL (8.7-10.4); Chloride 112 mmol/L (98-107); Glucose 110 mg/dL (74-106)
[2025-07-09] MEDS ORDERED: HYDROcodone-ACET 10/325MG TAB PO ONE (10:30)
[2025-07-09] MEDS: ONDANSETRON HCL 4 MG/2 ML VIAL IM ONE (10:41)
[2025-07-09] MEDS: MORPHINE SULFATE 4 MG/ML SYR/VIAL IM ONE (10:42)
[2025-07-09 11:09] VITALS: BP 149/91; PULSE 80; RESP 16; TEMP 97.8; O2SAT 100
[2025-07-10] MEDS ORDERED: ONDA-180 PO (04:30)
[2025-07-10] MEDS ORDERED: GABA300T4 PO (04:31)
== END 2025-07-09 11:12 | disposition home or self-care (01) ==
LOC: ER 08:23
DX: I16.0 Hypertensive urgency (principal); E11.43 Type 2 diabetes mellitus with diabetic autonomic (poly)neuropathy; F17.210 Nicotine dependence, cigarettes, uncomplicated; I10 Essential (primary) hypertension; Z79.899 Other long term (current) drug therapy; Z86.73 Personal history of transient ischemic attack (TIA), and cerebral infarction without residual deficits; Z88.5 Allergy status to narcotic agent
CPT/HCPCS: 36415; 80048; 85025; 96372; 99285; J2270; J2405

== ENCOUNTER 2025-07-09 22:33 | Emergency (ER) | payer MEDICAID ==
[~2025-07-09] VITALS: Ht 177.8 cm; Wt 69.0 kg
--- NOTE | 2025-07-09 22:38 | ECG ---
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
--- NOTE | 2025-07-09 23:41 | ED.PDOC ---
GI ASSESSMENT HPI Comments 60-year-old female who came to ER for abdominal pain. Patient is seen here multiple times for similar complaints. Known history of left kidney cancer status post nephrectomy and adrenalectomy, history of right ureteric stone status post ureteric stent, previous history of some stomach pathology status post gastrojejunostomy presented to the hospital with the abdominal pain radiating to the back that started this morning Chief Complaint: Abdominal Pain Time Seen by MD: 23:40 Primary Care Provider: KRIS Reviewed Notes: Nurses Notes Allergies: Coded Allergies: Codeine (Verified Allergy, Unknown, 09/01/15) Home Meds Active Scripts Gabapentin (Once-Daily) (Gabapentin) 300 Mg Tab, 300 MG PO Q6HP PRN, #60 TAB Prov:ZAINA STARK MD 07/10/25 Ondansetron HCl (Ondansetron Hydrochloride) 8 Mg Tab, 8 MG PO Q6HP PRN, #30 TAB Prov:ZAINA STARK MD 07/10/25 Sucralfate (CARAFATE) 1 Gm Tab, 1 GM OR QID for 30 Days, #120 TAB Prov:ENMANUEL GUTIÉRREZ MD 07/02/25 Pantoprazole Sodium Sesquihydr (Protonix) 40 Mg Tab, 40 MG PO BID, #60 TAB Prov:ENMANUEL GUTIÉRREZ MD 07/02/25 Amlodipine Besylate (Amlodipine Besylate) 10 Mg Tab, 1 TAB PO DAILY for 30 Days, #30 TAB 3 Refills Prov:WILFREDO TERRY RESIDENT 06/11/25 Reported Medications Atenolol (Atenolol) 25 Mg Tab, 1 TAB PO DAILY, #30 TAB 5 Refills 06/07/25 Information Source: Patient Mode of Arrival: EMS Past Medical History PAST MEDICAL HISTORY: Anxiety, Cancer, CKF, Depression, DM, GERD, HTN Surgical History: Cholecystectomy Surgical History (Other): Nephrectomy, gastrojejunostomy 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: No Pertinent 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 Family History Family History: Unobtainable Social History Smoker: Cigarettes, Less Than 1 Pack/Day Alcohol: Denies ETOH Use Drugs: Denies Drug Use Lives In: Home Constitutional: denies: chills, diaphoresis, fatigue, fever, malaise, sweats, weakness, others EENTM: denies: blurred vision, double vision, ear bleeding, ear discharge, ear drainage, ear pain, ear ringing, eye pain, eye redness, hearing loss, mouth pain, mouth swelling, nasal discharge, nose bleeding, nose congestion, nose pain, photophobia, tearing, throat pain, throat swelling, voice changes, others Respiratory: denies: cough, hemoptysis, orthopnea, SOB at rest, shortness of breath, SOB with excertion, stridor, wheezing, others Cardiovascular: denies: chest pain, dizzy spells, diaphoresis, Dyspnea on exertion, edema, irregular heart beat, left arm pain, lightheadedness, palpitations, PND, syncope, others Gastrointestinal: reports: abdominal pain; denies: abdomen distended, blood streaked bowels, constipated, diarrhea, dysphagia, difficulty swallowing, hematemesis, melena, nausea, poor appetite, poor fluid intake, rectal bleeding, rectal pain, vomiting, others Genitourinary: denies: abnormal vagina bleeding, burning, dyspareunia, dysuria, flank pain, frequency, hematuria, incontinence, pain, , vagina discharge, urgency, others Neurological: denies: dizziness, fainting, headache, left sided numbness, left sided weakness, numbness, paresthesia, pre-existing deficit, right sided numbness, right sided weakness, seizure, speech problems, tingling, tremors, weakness, others Musculoskeletal: reports: back pain; denies: gout, joint pain, joint swelling, muscle pain, muscle stiffness, neck pain, others Integumetry: denies: bruises, change in color, change in hair/nails, dryness, laceration, lesions, lumps, rash, wounds, others Allergic/Immunocompromised: denies: Difficulty Healing, Frequent Infections, Hives, Itching, others Hematologic/Lymphatic: denies: anemia, blood clots, easy bleeding, easy bruising, swollen glands, others Endocrine: denies: excessive hunger, excessive sweating, excessive thirst, excessive urination, flushing, intolerance to cold, intolerance to heat, unexplained weight gain, unexplained weight loss, others Psychiatric: denies: anxiety, bipolar disorder, depression, hopeless, panic disorder, schizophrenia, sleepless, suicidal, others Physical Exam General Appearance: No Apparent Distress, Normal HEENT: Normal ENT Inspection, Pharynx Normal, TMs Normal Neck: Full Range of Motion, Non-Tender, Normal, Normal Inspection Respiratory: Chest Non-Tender, Lungs Clear, No Accessory Muscle Use, No Respiratory Distress, Normal Breath Sounds Cardiovascular: No Edema, No JVD, No Murmur, No Gallop, Normal Peripheral Pulses, Regular Rate/Rhythm Breast Exam: Deferred Gastrointestinal: No Organomegaly, Non Tender, No Pulsatile Mass, Normal Bowel Sounds, Soft Genitalia: Deferred Pelvic: Deferred Rectal: Deferred Extremities: No calf tenderness, Normal capillary refill, Normal inspection, No rmal range of motion, Non-tender, No pedal edema Musculoskeletal : Apperance: Normal Neurologic: 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 Was a procedure done?: No GI differential Dx Differential Diagnosis: Gastritis/PUD, Gastroenteritis, Pancreatitis X-Ray, Labs, Meds, VS Vital Signs Date Time Temp Pulse Resp B/P (MAP) Pulse Ox O2 Delivery O2 Flow Rate FiO2 07/10/25 03:30 96.3 89 21 123/103 (110) 96 96.3 07/09/25 22:38 98.1 88 18 140/92 98 98.1 07/09/25 22:33 79 Lab Test 07/09/25 23:48 Range/Units White Blood Count 5.9 4.4-10.8 10^3/uL Red Blood Count 4.66 4.0-5.20 10^6/uL Hemoglobin 12.6 12.2-16.2 g/dL Hematocrit 37.7 36.0-46.0 % Mean Corpuscular Volume 80.9 80.0-100.0 fL Mean Corpuscular Hemoglobin 27.1 L 28.0-32.0 pg Mean Corpuscular Hemoglobin Concent 33.5 32.0-36.0 g/dL Red Cell Distribution Width 16.1 H 11.8-14.3 % Platelet Count 304 140-450 10^3/uL Mean Platelet Volume 7.6 6.9-10.8 fL Neutrophils (%) (Auto) 50.5 37.0-80.0 % Lymphocytes (%) (Auto) 32.5 10.0-50.0 % Monocytes (%) (Auto) 13.8 H 0.0-12.0 % Eosinophils (%) (Auto) 2.0 0.0-7.0 % Basophils (%) (Auto) 1.2 0.0-2.0 % Neutrophils # (Auto) 3.0 1.6-8.6 10 ^3/uL Lymphocytes # (Auto) 1.9 0.4-5.4 10 ^3/uL Monocytes # (Auto) 0.8 0-1.3 10 ^3/uL Eosinophils # (Auto) 0.1 0-0.8 10 ^3/uL Basophils # (Auto) 0.1 0-0.2 10 ^3/uL Nucleated Red Blood Cells 0.1 % Sodium Level 142 136-145 mmol/L Potassium Level 5.0 3.5-5.1 mmol/L Chloride Level 111 H 98-107 mmol/L Carbon Dioxide Level 23 20-31 mmol/L Anion Gap 8 5-15 Blood Urea Nitrogen 16 9-23 mg/dL Creatinine 0.99 0.550-1.02 mg/dL Glomerular Filtration Rate Calc 64 >90 mL/min BUN/Creatinine Ratio 16.2 10.0-20.0 Serum Glucose 94 74-106 mg/dL Calcium Level 11.4 H 8.7-10.4 mg/dL Total Bilirubin 0.3 0.2-1.0 mg/dL Aspartate Amino Transferase (AST) 18 13-40 U/L Alanine Aminotransferase (ALT) 13 7-40 U/L Alkaline Phosphatase 98 46-116 U/L Total Protein 7.4 5.7-8.2 g/dL Albumin 4.4 3.2-4.8 g/dL Lipase 44 12-53 U/L Time of 1ST Reevaluation: 23:41 Reevaluation 1ST: Unchanged Patient Education/Counseling: Diagnosis, Treatment Family Education/Counseling: No Family Present SEPSIS Sepsis Screen Date sepsis recognized/suspect: Jul 09, 2025 Time Sepsis recognized/suspect: 2245 Recent Procedure: No On Antibiotic Therapy: No Respiratory Rate >20: No Heart Rate >90: No Temp<36 C (96.8 F) or >38.3 C: No SBP <90 or MAP <65 mmHG: No New Acute Mental Status Change: No Is the patient on CPAP, BIPAP,: No Physician Orders Urinalysis (07/09/25 23:41) Ct Ab Pel Wo Con-No Oral Or Iv (07/09/25 23:41) Vital Signs Date Time Temp Pulse Resp B/P (MAP) Pulse Ox O2 Delivery O2 Flow Rate FiO2 07/10/25 03:30 96.3 89 21 123/103 (110) 96 96.3 07/09/25 22:38 98.1 88 18 140/92 98 98.1 07/09/25 22:33 79 Laboratory Tests Test 07/09/25 23:48 White Blood Count 5.9 10^3/uL (4.4-10.8) Departure 1 Departure Time of Disposition: :30 Impression: Primary Impression: Abdominal pain Disposition: HOME / SELF CARE / HOMELESS Condition: Stable e-Prescriptions Gabapentin (Once-Daily) (Gabapentin) 300 Mg Tab 300 MG PO Q6HP PRN, #60 TAB Prov: ZAINA STARK MD 07/10/25 Ondansetron HCl (Ondansetron Hydrochloride) 8 Mg Tab 8 MG PO Q6HP PRN, #30 TAB Prov: ZAINA STARK MD 07/10/25 Discharged With: Self Critical Care Note Critical Care Time?: No Stability Stability form required: No Heart Score Heart Score: Heart Score Response (Comments) Value History N/A 0 EKG N/A 0 Age N/A 0 Risk Factors N/A 0 Troponin N/A 0 Total 0 I personally scribed for ZAINA STARK MD ([email or web address]) on 07/09/25 at 23:41. Electronically submitted by Yayo Gilmore ([email or web address]). ZAINA STARK MD Jul 09, 2025 23:41
[2025-07-09] MEDS ORDERED: SODIUM CHLORIDE 0.9% 1,000 ML IVB ONE (23:45)
[2025-07-09] MEDS ORDERED: MORPHINE SULFATE 4 MG/ML SYR/VIAL IV ONE (23:45)
[2025-07-09] MEDS ORDERED: ONDANSETRON HCL 4 MG/2 ML VIAL IV ONE (23:45)
[2025-07-09 23:57] LABS: Hematocrit 37.7 % (36.0-46.0); Hemoglobin 12.6 g/dL (12.2-16.2); Mean Corpuscular Hemoglobin 27.1 pg (28.0-32.0); Mean Corpuscular Volume 80.9 fL (80.0-100.0); Nucleated Red Blood Cells % 0.1 %
[2025-07-10 00:16] LABS: Alanine Aminotransferase 13 U/L (7-40); Albumin 4.4 g/dL (3.2-4.8); Alkaline Phosphatase 98 U/L (46-116); Anion Gap 8 (5-15); BUN/Creatinine Ratio 16.2 (10.0-20.0); Blood Urea Nitrogen 16 mg/dL (9-23); Calcium 11.4 mg/dL (8.7-10.4); Carbon Dioxide 23 mmol/L (20-31); Chloride 111 mmol/L (98-107); Glucose 94 mg/dL (74-106); Lipase 44 U/L (12-53); Potassium 5.0 mmol/L (3.5-5.1); Sodium 142 mmol/L (136-145); Total Protein 7.4 g/dL (5.7-8.2)
[2025-07-10 00:17] LABS: Bilirubin, Total 0.3 mg/dL (0.2-1.0)
[2025-07-10] MEDS ORDERED: IOHEXOL 300 MG/ML 100ML BOTTLE IJ ONE (00:18)
[2025-07-10 03:30] VITALS: BP 123/103; PULSE 89; RESP 21; TEMP 96.3; O2SAT 96
--- NOTE | 2025-07-10 04:19 | DVH ---
Exam: CT CT AB PEL WO CON-NO ORAL OR IV History: abd pain Comparison Study: CT CT ABD PELVIS W CON-ORAL IV on DOS: 06/29/25. Technique: Multidetector spiral CT of the abdomen and pelvis was performed from lung bases to pubic symphysis. Imaging was performed without intravenous contrast. Coronal and sagittal multiplanar reformats were obtained from the axial data set by the technologist. Radiation Dose : 1. Abdomen/Pelvis: CTDIvol 17.91 mGy, DLP 944.1 mGy*cm. Findings: Evaluation of vasculature and solid organs is limited due to lack of intravenous contrast use. Lung Bases: Lung bases are clear. Visualized portions of the heart and pericardium are unremarkable. Liver: The liver is normal in size. No focal lesions. Gallbladder and Biliary Tree: The gallbladder is surgically absent. No intrahepatic or extrahepatic biliary ductal dilatation. Spleen: Unremarkable Pancreas: The pancreas is grossly unremarkable. 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 The right adrenal shows hypertrophy similar to prior study. Kidneys: The left kidney is surgically absent. There is a nonobstructive right renal calculus measuring 2 mm. Right ureteral stent has been removed. GI tract: There is a curvilinear density in the gastric wall similar to prior study. There is some thickening of the gastric wall in this location. No significant inflammatory changes. Small bowel loops are underdistended. There is mild thickening in the bowel adjacacent to the post surgical changes in the stomach. The appendix is within normal limits. Peritoneum/mesentery/retroperitoneum. No evidence of free intraperitoneal air. No ascites. No evidence of suspicious lymphadenopathy. Abdominal Wall: There is a left posterolateral abdominal wall hernia containing colon without obstruction. Vasculature: The visualized abdominal aorta is normal in size and caliber. Evaluation of abdominal and pelvic vessels is limited due to lack of intravenous contrast. Urinary Bladder: Grossly unremarkable for degree of distention. Pelvic Organs: Uterus and seminal vesicles are unremarkable. Musculoskeletal: No aggressive focal bony lesions, acute fractures or dislocation. Soft tissues: 2 nodular masses above the umbilicus are unchanged. IMPRESSION: 1. No acute process in the abdomen or pelvis. 2. Removal of the right ureteral stent. Nonobstructing right renal calculus. 3. Postsurgical changes of the stomach. Mild thickening of the gastric lee the site of postsurgical change. There is also mild thickening of the bowel adjacent to the stomach in the location. Endoscopy and colonoscopy are suggested if clinically warranted. 4. Stable left posterolateral abdominal wall hernia without obstruction.
[2025-07-10] MEDS ORDERED: ONDA-180 PO (04:30)
[2025-07-10] MEDS ORDERED: GABA300T4 PO (04:31)
[2025-07-11] MEDS ORDERED: ONDANSETRON HCL 4 MG/2 ML VIAL ONE (12:36)
[2025-07-11] MEDS ORDERED: MORPHINE SULFATE 4 MG/ML SYR/VIAL ONE (12:36)
== END 2025-07-10 06:02 | disposition home or self-care (01) ==
LOC: ER 22:33 → EDBD 22:33 → ER 07-10 06:02
DX: R10.9 Unspecified abdominal pain (principal); F17.210 Nicotine dependence, cigarettes, uncomplicated; E11.9 Type 2 diabetes mellitus without complications; I10 Essential (primary) hypertension; Z88.5 Allergy status to narcotic agent; Z90.49 Acquired absence of other specified parts of digestive tract; Z79.899 Other long term (current) drug therapy
CPT/HCPCS: 36415; 74176; 80053; 83690; 85025; 93005

== ENCOUNTER 2025-07-11 10:07 | Inpatient (IN) | payer MEDICAID ==
[~2025-07-11] VITALS: Ht 157.5 cm; Wt 73.0 kg
[~2025-07-11 10:07] MED LIST changes: +GABA300T4 PO; +ONDA-180 PO
[2025-07-11] MEDS: ONDANSETRON HCL 4 MG/2 ML VIAL IV ONE (10:30)
[2025-07-11] MEDS: MORPHINE SULFATE 4 MG/ML SYR/VIAL IV ONE (10:30)
--- NOTE | 2025-07-11 10:51 | ED.PDOC ---
History of Present Illness HPI Comments 60 y/o F is BIBA for c/c of LUQ abdominal pain. Per EMS personnel report, patient endorses on 1 month history of 05/22, reproducible upon palpation pain, which radiates to her back. Significant history for CKF s/p left nephrectomy, HTN, UTI's, kidney stones s/p renal stents, cholecystectomy, and gastric bypass. Patient also comments on being evaluated in the ED and admitted for pain multiple times within the past month and, usually, discharged with antibiotic course she reports on having no improvement with upon completion. She denies any nausea, vomiting, diarrhea, constipation, urinary problems, or further acute symptoms. Time Seen by MD: 10:30 Primary Care Provider: KRIS Reviewed Notes: Colon Therapist Notes Allergies: Coded Allergies: Codeine (Verified Allergy, Unknown, 09/01/15) Home Meds Active Scripts Gabapentin (Once-Daily) (Gabapentin) 300 Mg Tab, 300 MG PO Q6HP PRN, #60 TAB Prov:ZAINA STARK MD 07/10/25 Ondansetron HCl (Ondansetron Hydrochloride) 8 Mg Tab, 8 MG PO Q6HP PRN, #30 TAB Prov:ZAINA STARK MD 07/10/25 Sucralfate (CARAFATE) 1 Gm Tab, 1 GM OR QID for 30 Days, #120 TAB Prov:ENMANUEL GUTIÉRREZ MD 07/02/25 Pantoprazole Sodium Sesquihydr (Protonix) 40 Mg Tab, 40 MG PO BID, #60 TAB Prov:ENMANUEL GUTIÉRREZ MD 07/02/25 Amlodipine Besylate (Amlodipine Besylate) 10 Mg Tab, 1 TAB PO DAILY for 30 Days, #30 TAB 3 Refills Prov:WILFREDO TERRY RESIDENT 06/11/25 Reported Medications Atenolol (Atenolol) 25 Mg Tab, 1 TAB PO DAILY, #30 TAB 5 Refills 06/07/25 Information Source: Patient, Emergency Med Personnel Mode of Arrival: EMS Severity: Moderate Timing: Weeks Duration: Since onset Prehospital treatment: 12 Lead EKG, Strategy Consultant Past Medical History PAST MEDICAL HISTORY: Anxiety, Cancer (renal cancer s/p left nephrectomy), CKF, Depression, DM, GERD, HTN, Kidney Stones, UTI'S Surgical History: Cholecystectomy Surgical History (Other): Gastric bypass Left nephrectomy 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: No Pertinent [employer]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 History Family History Family History: Unobtainable Social History Smoker: Cigarettes, Less Than 1 Pack/Day Alcohol: Denies ETOH Use Drugs: Denies Drug Use Lives In: Home All Other Systems: Reviewed and Negative (Comprehensive review of systems are negative unless stated in HPI) Physical Exam General Appearance: Moderate Distress HEENT: Normal ENT Inspection, Pharynx Normal, TMs Normal Neck: Full Range of Motion, Non-Tender, Normal, Normal Inspection Respiratory: Chest Non-Tender, Lungs Clear, No Accessory Muscle Use, No Respiratory Distress, Normal Breath Sounds Cardiovascular: No Edema, No JVD, No Murmur, No Gallop, Normal Peripheral Pulses, Regular Rate/Rhythm Breast Exam: Deferred Gastrointestinal: Diffuse Genitalia: Deferred Pelvic: Deferred Rectal: Deferred Extremities: No calf tenderness, Normal capillary refill, Normal inspection, Normal range of motion, Non-tender, No pedal edema Musculoskeletal : Apperance: Normal Neurologic: Alert, attendance secretary II-XII nml as Tested, No Motor Deficits, Normal Affect, Normal Mood, No Sensory Deficits Cerebellar Function: NOT DONE Reflexes: NOT DONE Skin: Dry, Normal Color, Warm Peripheral Pulses: 3+ Radial (R), 3+ Radial (L) Lymphatic: No Adenopathy Was a procedure done? Was a procedure done?: No Differential Dx Considerations may include: splenic infarct, UTI's, kidney stones, gastritis, gastroenteritis, GERD, viral, among others X-Ray, Labs, Meds, VS Lab Test 07/11/25 10:48 Range/Units White Blood Count 6.8 4.4-10.8 10^3/uL Red Blood Count 5.09 4.0-5.20 10^6/uL Hemoglobin 13.5 12.2-16.2 g/dL Hematocrit 39.7 36.0-46.0 % Mean Corpuscular Volume 77.9 L 80.0-100.0 fL Mean Corpuscular Hemoglobin 26.6 L 28.0-32.0 pg Mean Corpuscular Hemoglobin Concent 34.1 32.0-36.0 g/dL Red Cell Distribution Width 16.1 H 11.8-14.3 % Platelet Count 327 140-450 10^3/uL Mean Platelet Volume 7.8 6.9-10.8 fL Neutrophils (%) (Auto) 65.0 37.0-80.0 % Lymphocytes (%) (Auto) 23.0 10.0-50.0 % Monocytes (%) (Auto) 10.4 0.0-12.0 % Eosinophils (%) (Auto) 0.9 0.0-7.0 % Basophils (%) (Auto) 0.7 0.0-2.0 % Neutrophils # (Auto) 4.4 1.6-8.6 10 ^3/uL Lymphocytes # (Auto) 1.6 0.4-5.4 10 ^3/uL Monocytes # (Auto) 0.7 0-1.3 10 ^3/uL Eosinophils # (Auto) 0.1 0-0.8 10 ^3/uL Basophils # (Auto) 0 0-0.2 10 ^3/uL Nucleated Red Blood Cells 0.1 % Sodium Level 140 136-145 mmol/L Potassium Level 4.2 3.5-5.1 mmol/L Chloride Level 109 H 98-107 mmol/L Carbon Dioxide Level 22 20-31 mmol/L Anion Gap 9 5-15 Blood Urea Nitrogen 7 L 9-23 mg/dL Creatinine 1.01 0.550-1.02 mg/dL Glomerular Filtration Rate Calc 63 >90 mL/min BUN/Creatinine Ratio 6.9 L 10.0-20.0 Serum Glucose 110 H 74-106 mg/dL Calcium Level 11.9 H 8.7-10.4 mg/dL Total Bilirubin 0.6 0.2-1.0 mg/dL Aspartate Amino Transferase (AST) 14 13-40 U/L Alanine Aminotransferase (ALT) 11 7-40 U/L Alkaline Phosphatase 112 46-116 U/L Total Protein 7.7 5.7-8.2 g/dL Albumin 4.5 3.2-4.8 g/dL Patient alert. Complaining of abdominal pain. Vitals stable. Answering questions. She does come here regularly. Reviewed her previous visit. Explained to the patient. Continue monitoring. Time of 1ST Reevaluation: 11:00 Reevaluation 1ST: Unchanged Patient Education/Counseling: Diagnosis, Treatment, Other (need for admission) Family Education/Counseling: No Family Present SEPSIS Sepsis Screen Physician Orders Urinalysis (07/11/25 10:27) Laboratory Tests Test 07/11/25 10:48 White Blood Count 6.8 10^3/uL (4.4-10.8) Departure 1 Departure Time of Disposition: 12:34 Impression: Primary Impression: Intractable abdominal pain Disposition: ADMITTED INPATIENT Admit to: Tele Condition: Guarded Critical Care Note Critical Care Time?: No Stability Stability form required: No Heart Score Heart Score: Heart Score Response (Comments) Value History N/A 0 EKG N/A 0 Age N/A 0 Risk Factors N/A 0 Troponin N/A 0 Total 0 I personally scribed for ISATU RAMIREZ MD ([email or web address]) on 07/11/25 at 10:51. Electronically submitted by Miguel Patricia ([email or web address]). ISATU RAMIREZ MD Jul 11, 2025 10:51
[2025-07-11 11:03] LABS: Hematocrit 39.7 % (36.0-46.0); Hemoglobin 13.5 g/dL (12.2-16.2); Mean Corpuscular Hemoglobin 26.6 pg (28.0-32.0); Mean Corpuscular Volume 77.9 fL (80.0-100.0); Nucleated Red Blood Cells % 0.1 %
[2025-07-11 11:18] LABS: Alanine Aminotransferase 11 U/L (7-40); Albumin 4.5 g/dL (3.2-4.8); Anion Gap 9 (5-15); BUN/Creatinine Ratio 6.9 (10.0-20.0); Bilirubin, Total 0.6 mg/dL (0.2-1.0); Blood Urea Nitrogen 7 mg/dL (9-23); Calcium 11.9 mg/dL (8.7-10.4); Carbon Dioxide 22 mmol/L (20-31); Chloride 109 mmol/L (98-107); Glucose 110 mg/dL (74-106); Potassium 4.2 mmol/L (3.5-5.1); Sodium 140 mmol/L (136-145); Total Protein 7.7 g/dL (5.7-8.2)
[2025-07-11 11:46] LABS: Alkaline Phosphatase 112 U/L (46-116)
--- NOTE | 2025-07-11 13:24 | DVH ---
Exam: CT CT AB PEL WO CON-NO ORAL OR IV History: stone Comparison Study: CT CT AB PEL WO CON-NO ORAL OR IV on DOS: 07/10/25, CT CT AB PEL WO CON-NO ORAL OR IV on DOS: 06/26/25, CT CT AB PEL WO CON-NO ORAL OR IV on DOS: 06/14/25 TECHNIQUE: Multidetector CT of the abdomen was performed from lung bases to pubic symphysis. Imaging was performed without IV contrast. Axial, coronal and sagittal multiplanar reformats were obtained from the axial data set by the technologist. Radiation Dose Information: CT Dose: CTDI volume is 9.23 mGy. Dose-length product is 475.74 mGy*cm FINDINGS: Bibasilar atelectasis. Partially visualized heart is unremarkable. Status post cholecystectomy. Borderline hepatomegaly. Otherwise, liver, spleen, pancreas unremarkable. The left adrenal gland is not definitely visualized. There is unchanged hypertrophy of the right adrenal gland. The left kidney appears to be surgically absent with surgical clips of the left upper retroperitoneum. Punctate nonobstructing right renal calculus. Otherwise, The right kidney is unremarkable. Urinary bladder is mildly distended. Otherwise unremarkable. Uterus and adnexa are unremarkable. Stomach is [id number] distended. Otherwise unremarkable. Small bowel loops unremarkable. Appendix is unremarkable. Large bowel is unremarkable. Unchanged left posterolateral abdominal wall bowel containing hernia without evidence of obstruction or strangulation. No evidence of intraperitoneal free air or free fluid. No evidence of aortic aneurysm. No significant lymphadenopathy. Redemonstration of Unchanged 1.8 cm round density within the right paramedian ventral upper abdominal subcutaneous fat abutting the musculatures which does not measure simple fluid with additional smaller more inferior 0.8 cm structure supraumbilical region. There appears to be postsurgical changes of the umbilical region. No evidence of acute osseous abnormalities. IMPRESSION: No evidence of Acute abdominopelvic abnormalities. Unchanged left posterolateral abdominal wall bowel containing hernia without evidence of obstruction or strangulation. Punctate nonobstructing right renal calculus. Additional findings as above.
--- NOTE | 2025-07-11 13:47 | DVHHP2 ---
History of Present Illness Reason for Visit: left upper abd pain History of Present Illness 60-year-old female with a complex past medical history including chronic kidney failure status post bilateral nephrectomy (due to left renal cancer in remission 15 years ago), hypertension, recurrent urinary tract infections, kidney stones, GERD, anxiety, depression, gastric bypass surgery, and cholecystectomy, presents with persistent left upper quadrant abdominal pain. She was recently hospitalized and discharged on July 02, 2025, at which time she was evaluated for pain, nausea, and vomiting. During that admission, she underwent an EGD on April 14, which revealed a gastrostomy site in the mid-body of the stomach near the opening. The scope passed without difficulty. A large 34 cm ulcer was found on the jejunal side of the gastrostomy with surrounding inflammation but no active bleeding. She was also noted to have gastritis. Her history includes right ureteral stent placement and left kidney cancer status post nephrectomy. She was discharged home on Protonix and Carafate with outp atient follow-up planned with GI and primary care. Despite this, the patient now returns with persistent LUQ pain radiating to the back, ongoing for approximately one month, worsening two days after Thanksgiving. She describes the pain as stabbing and aching in quality, worsened by eating, and unrelieved by medication or positional changes. She notes the pain has been so severe that she attempted dietary modifications for relief. She denies dysuria, fever, chest pain, shortness of breath, vomiting, or diarrhea. She returned to the ER on July 09, 2025, and was discharged again with a diagnosis of hypertensive urgency. Labs from todays ED visit show unremarkable CBC, glucose 102, and elevated calcium at 11.9. CT abdomen showed posterior abdominal hernia without evidence of strangulation or obstruction, and a right kidney stone, with no signs of perforation or free air. Review of July 03 ultrasound showed mild right hydronephrosis. Chest imaging from July 01 was unremarkable. Given persistent symptoms and concern for renal and GI involvement, she will be admitted for IV pain control, labs, and imaging. Further evaluation with renal ultrasound is warranted to assess for progression of hydronephrosis. GI consult will be considered if symptoms worsen or do not improve with conservative measures. will admit to medicine for pain management Past Medical History See HPI above Past Surgical History See HPI above Family History Reviewed, non-contributory to the management of this case. Past Social History Patient states she smokes marijuana but denies any drug or alcohol use Review of Systems Constitutional: No: Fever, Chills, Sweats, Weakness, Malaise, Other Eyes: No: Pain, Vision change, Conjunctivae inflammation, Eyelid inflammation, Other, Redness ENT: No: Ear pain, Ear discharge, Nose pain, Nose discharge, Nose congestion, Mouth pain, Mouth swelling, Throat pain, Throat swelling, Other Respiratory: No: Cough, Dry, Shortness of breath, SOB with excertion, Wheezing, Hemoptysis, Pleuritic Pain, Sputum, Wheezing, Other Cardiovascular: No: Chest Pain, Palpitations, Orthopnea, Paroxysmal Noc. Dyspnea, Edema, Lt Headedness, Other Gastrointestinal: Nausea, Vomiting, Abdominal Pain; No: Diarrhea, Constipation, Melena, Hematochezia, Other Genitourinary: No Dysuria, No Frequency, No Incontinence, No Hematuria, No Retention, No Other Musculoskeletal: No: other, neck pain, shoulder pain, arm pain, back pain, hand pain, leg pain, foot pain Skin: No: Rash, Lesions, Jaundice, Bruising, Other Neurological: No: Weakness, Numbness, Incoordination, Change in speech, Confusion, Seizures, Other Allergies: Coded Allergies: Codeine (Verified Allergy, Unknown, 09/01/15) Exam Vital Signs Vital Signs Date Time Temp Pulse Resp B/P (MAP) Pulse Ox O2 Delivery O2 Flow Rate FiO2 07/11/25 13:01 98.5 60 16 164/91 (115) 95 98.5 General Appearance: Alert, Oriented X3, Cooperative, No acute distress HEENT: Atraumatic, PERRLA, EOMI, Mucous membr. moist/pink Respiratory: Clear to auscultation, Normal air movement Cardiovascular: Regular rate, Normal S1, Normal S2, No murmurs Abdominal: Normal bowel sounds, No tenderness, No hepatospenomegaly, No masses, Other (ABD SOFT GUARDING AND REBOUND TENDERNESS) Extremities: No clubbing, No cyanosis, No edema, Normal pulses, No tenderness/swelling Skin: No rashes, No breakdown, No significant lesion Neuro: Normal gait, Normal speech, Strength at 5/5 X4 ext, Normal tone, Sensation intact, Cranial nerves 3-12 NL Psych/Mental Status: Mental status NL, Mood NL Labs/Xrays CT SCAN SHOWS ABDOMEN PELVIS SHOWS LEFT POSTERIOR LATERAL ABDOMINAL HERNIA NO STRANGULATION NO OBSTRUCTION RIGHT KIDNEY STONE NO FREE AIR NO PERFORATION I REVIEWED LABS, IMAGING CT SCAN ABDOMEN PELVIS, EKG AND ALL DIAGNOSTIC STUDIES ON THIS PATIENT FROM ED RECORDS AND THE MEDICAL CHART Labs Test 07/11/25 10:48 Range/Units White Blood Count 6.8 4.4-10.8 10^3/uL Red Blood Count 5.09 4.0-5.20 10^6/uL Hemoglobin 13.5 12.2-16.2 g/dL Hematocrit 39.7 36.0-46.0 % Mean Corpuscular Volume 77.9 L 80.0-100.0 fL Mean Corpuscular Hemoglobin 26.6 L 28.0-32.0 pg Mean Corpuscular Hemoglobin Concent 34.1 32.0-36.0 g/dL Red Cell Distribution Width 16.1 H 11.8-14.3 % Platelet Count 327 140-450 10^3/uL Mean Platelet Volume 7.8 6.9-10.8 fL Neutrophils (%) (Auto) 65.0 37.0-80.0 % Lymphocytes (%) (Auto) 23.0 10.0-50.0 % Monocytes (%) (Auto) 10.4 0.0-12.0 % Eosinophils (%) (Auto) 0.9 0.0-7.0 % Basophils (%) (Auto) 0.7 0.0-2.0 % Neutrophils # (Auto) 4.4 1.6-8.6 10 ^3/uL Lymphocytes # (Auto) 1.6 0.4-5.4 10 ^3/uL Monocytes # (Auto) 0.7 0-1.3 10 ^3/uL Eosinophils # (Auto) 0.1 0-0.8 10 ^3/uL Basophils # (Auto) 0 0-0.2 10 ^3/uL Nucleated Red Blood Cells 0.1 % Sodium Level 140 136-145 mmol/L Potassium Level 4.2 3.5-5.1 mmol/L Chloride Level 109 H 98-107 mmol/L Carbon Dioxide Level 22 20-31 mmol/L Anion Gap 9 5-15 Blood Urea Nitrogen 7 L 9-23 mg/dL Creatinine 1.01 0.550-1.02 mg/dL Glomerular Filtration Rate Calc 63 >90 mL/min BUN/Creatinine Ratio 6.9 L 10.0-20.0 Serum Glucose 110 H 74-106 mg/dL Calcium Level 11.9 H 8.7-10.4 mg/dL Total Bilirubin 0.6 0.2-1.0 mg/dL Aspartate Amino Transferase (AST) 14 13-40 U/L Alanine Aminotransferase (ALT) 11 7-40 U/L Alkaline Phosphatase 112 46-116 U/L Total Protein 7.7 5.7-8.2 g/dL Albumin 4.5 3.2-4.8 g/dL SEPSIS Sepsis Screen Physician Orders Urinalysis (07/11/25 10:27) Ct Ab Pel Wo Con-No Oral Or Iv (07/11/25 12:34) Vital Signs Date Time Temp Pulse Resp B/P (MAP) Pulse Ox O2 Delivery O2 Flow Rate FiO2 07/11/25 13:01 98.5 60 16 164/91 (115) 95 98.5 Laboratory Tests Test 07/11/25 10:48 White Blood Count 6.8 10^3/uL (4.4-10.8) Assessment/Plan Assessment/Plan 60-year-old female with history of bilateral nephrectomy and GI ulcers presents with persistent LUQ abdominal pain radiating to back, likely multifactorial. Admit for pain control, rule out progression of hydronephrosis or abdominal h ernia complication. acute LUQ abdominal pain persistent with radiation to back ct scan show abd hernia no obstruction no strangulation Admit for IV pain control with diluadid Monitor pain progression GI consult if no improvement Diet: clear liquids initially, advance as tolerated advance as tolerated ordered ua fu results acute Right hydronephrosis with kidney stone Repeat renal ultrasound to evaluate for progression Monitor renal function (BUN/Cr, GFR) Urology consult if worsening obstruction or AMNA acute Posterior abdominal hernia without obstruction or gangrene Monitor for signs of strangulation (pain, fever, lactic acidosis) Surgical consult if symptoms worsen or obstruction suspected acute Hypercalcemia Recheck calcium and PTH Monitor for signs of nephrolithiasis or metabolic cause cont ivf for now chronic problems History of peptic ulcer and gastritis Continue Protonix BID and Carafate Avoid NSAIDs GI follow-up outpatient unless acute flare Hypertension cont home medication Chronic kidney disease, status post bilateral nephrectomy History of renal cancer, in remission Hypertension GERD Depression Anxiety Cholecystectomy Gastric bypass Recurrent UTI Nephrolithiasis FEN / PPx Fluids: IV fluids as needed for hydration and hypercalcemia Electrolytes: Daily BMP to monitor calcium, BUN/Cr Nutrition: clear liquids, advance based on tolerance and pain DVT Prophylaxis: SCDs GI Prophylaxis: Protonix Disposition Admit to medicine for pain control, imaging, and GI workup. Monitor labs, electrolytes, and response to therapy. Plan discussed with: Patient Date of Service: Jul 11, 2025 Billing Provider: GISEL DUKES DNP Common Visit Codes: [id number] INP/OBS CARE (HIGH) GISEL DUKES DNP Jul 11, 2025 13:47
[2025-07-11] MEDS ORDERED: DOCUSATE SOD 100 MG CAP PO PRN (14:00)
[2025-07-11] MEDS ORDERED: NITROGLYCERIN 0.4 MG SL TAB SL PRN (14:00)
[2025-07-11 14:05] VITALS: PULSE 88; RESP 17; O2SAT 98
[2025-07-11] MEDS: SODIUM CHLORIDE 0.9% 1,000 ML IV ONE (14:15)
[2025-07-11] MEDS: PANTOPRAZOLE 40 MG/10 ML VIAL INJ IV ONE (14:19)
[2025-07-11] MEDS: SODIUM CHLORIDE 0.9% 1,000 ML IV SCH (14:19)
--- NOTE | 2025-07-11 15:28 | DVH ---
RENAL ULTRASOUND History: eval for for right kidney stone hydronephrosis Comparison: CT abdomen pelvis from today Technique: Multiple real-time sonographic images of the kidney and bladder were obtained in conjunction with Doppler imaging. Findings: The right kidney measures 14.1 cm and demonstrates no evidence of perinephric fluid collection, or shadowing stone. Mild right hydronephrosis. The left kidney removed/absent. Urinary bladder: Prevoid urinary bladder volume is 161 mL. Right ureteral jet present. Impression: Mild right hydronephrosis. Left kidney removed/absent.
[2025-07-11 18:14] VITALS: PULSE 80; RESP 20; O2SAT 98
[2025-07-11 20:00] VITALS: PULSE 59; RESP 16
[2025-07-11] MEDS: DICYCLOMINE HCL 10 MG CAP PO SCH (20:12)
[2025-07-11] MEDS: SUCRALFATE 1 GM TAB PO SCH (20:12)
[2025-07-11 21:00] VITALS: BP 116/80; PULSE 59; RESP 16; TEMP 98.3; O2SAT 100
[2025-07-11] MEDS: HYDROmorphone HCL 2 MG/ML VL/or syr IV PRN (22:01)
[2025-07-12] VITALS (8 sets, daily range): BP systolic 112–160; BP diastolic 72–92; PULSE 50–61; RESP 16–19; TEMP 97.6–98.4; O2SAT 91–99
[2025-07-12 06:33] LABS: Hematocrit 37.4 % (36.0-46.0); Hemoglobin 12.8 g/dL (12.2-16.2); Mean Corpuscular Hemoglobin 27.1 pg (28.0-32.0); Mean Corpuscular Volume 79.1 fL (80.0-100.0); Nucleated Red Blood Cells % 0.2 %
[2025-07-12 06:57] LABS: Alanine Aminotransferase 15 U/L (7-40); Albumin 4.1 g/dL (3.2-4.8); Alkaline Phosphatase 104 U/L (46-116); Anion Gap 7 (5-15); BUN/Creatinine Ratio 7.7 (10.0-20.0); Carbon Dioxide 23 mmol/L (20-31); Glucose 104 mg/dL (74-106); Potassium 4.2 mmol/L (3.5-5.1); Sodium 140 mmol/L (136-145); Total Protein 7.0 g/dL (5.7-8.2)
[2025-07-12 06:58] LABS: Bilirubin, Total 0.6 mg/dL (0.2-1.0)
[2025-07-12 07:05] LABS: Blood Urea Nitrogen 7 mg/dL (9-23); Calcium 11.6 mg/dL (8.7-10.4); Chloride 110 mmol/L (98-107)
[2025-07-12] MEDS: PANTOPRAZOLE 40 MG/10 ML VIAL INJ IV SCH (09:55)
[2025-07-12] MEDS: ENOXAPARIN SOD 40 MG/0.4 ML SYRINGE SC SCH (09:55)
[2025-07-12] MEDS: ATENOLOL 25 MG TAB PO SCH (09:55)
--- NOTE | 2025-07-12 15:35 | DVHPN2 ---
Subjective I am assuming the care of the patient from today onwards. Patient is still complaining of left upper quadrant pain currently on clear liquid diet. Changes from previous H/P or p: No Changes Eyes: No Pain, No Vision change, No Conjunctivae inflammation, No Eyelid inflammation, No Other, No Redness ENT: No Ear pain, No Ear discharge, No Nose pain, No Nose discharge, No Nose congestion, No Mouth pain, No Mouth swelling, No Throat pain, No Throat swelling, No Other Cardiovascular: No Chest Pain, No Palpitations, No Orthopnea, No Paroxysmal Noc. Dyspnea, No Edema, No Lt Headedness, No Other Respiratory: No Cough, No Dry, No Shortness of breath, No SOB with excertion, No Wheezing, No Hemoptysis, No Pleuritic Pain, No Sputum, No Other Gastrointestinal: Nausea, Vomiting, Abdominal Pain; No Diarrhea, No Constipation, No Melena, No Hematochezia, No Other Genitourinary: No Dysuria, No Frequency, No Incontinence, No Hematuria, No Retention, No Other Musculoskeletal: No other, No neck pain, No shoulder pain, No arm pain, No back pain, No hand pain, No leg pain, No foot pain Skin: No Rash, No Lesions, No Jaundice, No Bruising, No Other Objective Vitals Vital Signs Date Time Temp Pulse Resp B/P (MAP) Pulse Ox O2 Delivery O2 Flow Rate FiO2 07/12/25 14:14 50 18 118/72 07/12/25 13:00 98.0 99 98.0 07/11/25 20:00 Room Air* 0 21 Intake/Output Intake and Output 07/12/25 07:00 Intake Total 1459 ml Balance 1459 ml Intake Oral 459 ml IV Total 1000 ml Exam HEENT pupils are reactive Neck is supple CV is S1-S2 regular rate and rhythm Diminished breath sounds bases GI positive bowel sound , positive mild tenderness in the left upper quadrant with a minimal guarding no rigidity Extremity no 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 Medications Current Medications Medications Dose Ordered Sig/Jamar Route Start Time Stop Time Status Last Admin Dose Admin Atenolol 25 mg DAILY PO 07/12/25 10:00 07/12/25 09:55 25 MG Sucralfate 1 gm QID PO 07/11/25 18:00 07/12/25 12:00 1 GM Amlodipine Besylate 10 mg DAILY PO 07/12/25 10:00 Sodium Chloride 1,000 ml @ 100 mls/hr Q10H IV 07/11/25 14:00 07/11/25 14:19 100 MLS/HR Ondansetron HCl 4 mg Q4HP PRN IV 07/11/25 14:00 Docusate Sodium 100 mg BIDPRN PRN PO 07/11/25 14:00 Enoxaparin Sodium 40 mg DAILY SC 07/12/25 10:00 07/12/25 09:55 40 MG Nitroglycerin 0.4 mg Q5MINP PRN SL 07/11/25 14:00 Hydromorphone HCl 0.5 mg Q4HPRN PRN IV 07/11/25 14:00 07/12/25 14:14 0.5 MG Dicyclomine HCl 20 mg QID PO 07/11/25 18:00 07/12/25 12:00 20 MG Pantoprazole Sodium 40 mg DAILY IV 07/12/25 10:00 07/12/25 09:55 40 MG Laboratory Results Laboratory Tests 07/12/25 05:16 Chemistry Test 07/12/25 05:16 Albumin 4.1 g/dL (3.2-4.8) Calcium Level 11.6 mg/dL (8.7-10.4) H Total Protein 7.0 g/dL (5.7-8.2) LFT Test 07/12/25 05:16 Alanine Aminotransferase (ALT) 15 U/L (7-40) Alkaline Phosphatase 104 U/L (46-116) Aspartate Amino Transferase (AST) 17 U/L (13-40) Total Bilirubin 0.6 mg/dL (0.2-1.0) Assessment/Plan Assessment/Plan 60-year-old female with a known history of GERD, hypertension, anxiety disorder, chronic tobacco use disorder, chronic marijuana use, history of gastric bypass in the past presented to the hospital with the abdominal abdominal pain found to have 1. Left upper quadrant abdominal pain with a known history of gastrojejunal anastomotic ulcer with a previous EGD with a [id number] gastroparesis and gastritis 2. GERD 3. Chronic tobacco use disorder 4. Chronic marijuana use 5. Anxiety disorder 6. Left upper quadrant abdominal wall hernia without any obstruction 7. History of left renal cancer status post left nephrectomy -clear liquid diet as tolerated, continue Protonix and Carafate, discharge plan once tolerates diet. Plan discussed with: Patient Problem List: (1) Hypertension (2) Gastritis (3) Kidney stone (4) Hydronephrosis Date of Service: Jul 12, 2025 Billing Provider: ENMANUEL GUTIÉRREZ MD Common Visit Codes: [id number] INP/OBS CARE(HIGH) ENMANUEL GUTIÉRREZ MD Jul 12, 2025 15:35
[2025-07-12] MEDS: ONDANSETRON HCL 4 MG/2 ML VIAL IV PRN (18:40)
[2025-07-13] VITALS (7 sets, daily range): BP systolic 106–148; BP diastolic 67–91; PULSE 46–63; RESP 16–19; TEMP 97.5–98.5; O2SAT 95–100
--- NOTE | 2025-07-13 13:23 | ECG ---
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
--- NOTE | 2025-07-13 16:48 | DVHPN2 ---
Subjective mild pain Reviewed: H&P Changes from previous H/P or p: No Changes Eyes: No Pain, No Vision change, No Conjunctivae inflammation, No Eyelid inflammation, No Other, No Redness ENT: No Ear pain, No Ear discharge, No Nose pain, No Nose discharge, No Nose congestion, No Mouth pain, No Mouth swelling, No Throat pain, No Throat swelling, No Other Cardiovascular: No Chest Pain, No Palpitations, No Orthopnea, No Paroxysmal Noc. Dyspnea, No Edema, No Lt Headedness, No Other Respiratory: No Cough, No Dry, No Shortness of breath, No SOB with excertion, No Wheezing, No Hemoptysis, No Pleuritic Pain, No Sputum, No Other Gastrointestinal: Nausea, Vomiting, Abdominal Pain; No Diarrhea, No Constipation, No Melena, No Hematochezia, No Other Genitourinary: No Dysuria, No Frequency, No Incontinence, No Hematuria, No Retention, No Other Musculoskeletal: No other, No neck pain, No shoulder pain, No arm pain, No back pain, No hand pain, No leg pain, No foot pain Skin: No Rash, No Lesions, No Jaundice, No Bruising, No Other Objective Vitals Vital Signs Date Time Temp Pulse Resp B/P (MAP) Pulse Ox O2 Delivery O2 Flow Rate FiO2 07/13/25 15:10 62 18 119/74 07/13/25 13:00 97.5 99 97.5 07/13/25 08:05 Room Air* 0 21 Intake/Output Intake and Output 07/13/25 05:00 Intake Total 2400 ml Balance 2400 ml Intake Oral 1400 ml IV Total 1000 ml # Voids 3 General Appearance: Alert, Oriented X3 HEENT: Atraumatic Lungs: Clear to auscultation Cardiovascular: Regular rate, Normal S1, Normal S2 Abdomen: Normal bowel sounds Medications Current Medications Medications Dose Ordered Sig/Jamar Route Start Time Stop Time Status Last Admin Dose Admin Atenolol 25 mg DAILY PO 07/12/25 10:00 07/12/25 09:55 25 MG Sucralfate 1 gm QID PO 07/11/25 18:00 07/13/25 12:15 1 GM Amlodipine Besylate 10 mg DAILY PO 07/12/25 10:00 07/13/25 09:32 10 MG Sodium Chloride 1,000 ml @ 100 mls/hr Q10H IV 07/11/25 14:00 07/13/25 09:32 100 MLS/HR Ondansetron HCl 4 mg Q4HP PRN IV 07/11/25 14:00 07/13/25 15:09 4 MG Docusate Sodium 100 mg BIDPRN PRN PO 07/11/25 14:00 Enoxaparin Sodium 40 mg DAILY SC 07/12/25 10:00 07/13/25 09:32 40 MG Nitroglycerin 0.4 mg Q5MINP PRN SL 07/11/25 14:00 Hydromorphone HCl 0.5 mg Q4HPRN PRN IV 07/11/25 14:00 07/13/25 15:10 0.5 MG Dicyclomine HCl 20 mg QID PO 07/11/25 18:00 07/13/25 12:15 20 MG Pantoprazole Sodium 40 mg DAILY IV 07/12/25 10:00 07/13/25 09:31 40 MG Laboratory Results Laboratory Tests 07/12/25 05:16 Microbiology Microbiology Date/Time Source Procedure Growth Status 07/11/25 18:20 Nose MRSA Screen - Final Complete Assessment/Plan Assessment/Plan 60-year-old female with a known history of GERD, hypertension, anxiety disorder, chronic tobacco use disorder, chronic marijuana use, history of gastric bypass in the past presented to the hospital with the abdominal abdominal pain found to have 1. Left upper quadrant abdominal pain with a known history of gastrojejunal anastomotic ulcer with a previous EGD with a [id number] gastroparesis and gastritis 2. GERD 3. Chronic tobacco use disorder 4. Chronic marijuana use 5. Anxiety disorder 6. Left upper quadrant abdominal wall hernia without any obstruction 7. History of left renal cancer status post left nephrectomy -clear liquid diet as tolerated, continue Protonix and Carafate, discharge plan once tolerates diet. Plan discussed with: Patient My Orders Orders - ALCIDES BARRIOS MD Procedure Category Date Status Time Full Liq Diet DIET 07/13/25 Transmitted Lunch Date of Service: Jul 13, 2025 Billing Provider: ALCIDES BARRIOS MD Common Visit Codes: [id number] INP/OBS CARE(HIGH) ALCIDES BARRIOS MD Jul 13, 2025 16:48
[2025-07-14] VITALS (7 sets, daily range): BP systolic 91–124; BP diastolic 59–82; PULSE 52–58; RESP 17; TEMP 98–98.9; O2SAT 96–100
--- NOTE | 2025-07-14 13:39 | DVHPN2 ---
Subjective mild pain Reviewed: H&P Changes from previous H/P or p: No Changes Eyes: No Pain, No Vision change, No Conjunctivae inflammation, No Eyelid inflammation, No Other, No Redness ENT: No Ear pain, No Ear discharge, No Nose pain, No Nose discharge, No Nose congestion, No Mouth pain, No Mouth swelling, No Throat pain, No Throat swelling, No Other Cardiovascular: No Chest Pain, No Palpitations, No Orthopnea, No Paroxysmal Noc. Dyspnea, No Edema, No Lt Headedness, No Other Respiratory: No Cough, No Dry, No Shortness of breath, No SOB with excertion, No Wheezing, No Hemoptysis, No Pleuritic Pain, No Sputum, No Other Gastrointestinal: Nausea, Vomiting, Abdominal Pain; No Diarrhea, No Constipation, No Melena, No Hematochezia, No Other Genitourinary: No Dysuria, No Frequency, No Incontinence, No Hematuria, No Retention, No Other Musculoskeletal: No other, No neck pain, No shoulder pain, No arm pain, No back pain, No hand pain, No leg pain, No foot pain Skin: No Rash, No Lesions, No Jaundice, No Bruising, No Other Objective Vitals Vital Signs Date Time Temp Pulse Resp B/P (MAP) Pulse Ox O2 Delivery O2 Flow Rate FiO2 07/14/25 10:29 121/79 07/14/25 10:00 57 07/14/25 09:02 17 07/14/25 05:00 98.1 100 98.1 07/13/25 20:00 Room Air* 0 21 Intake/Output Intake and Output 07/14/25 07:00 Intake Total 2872 ml Balance 2872 ml Intake Oral 1272 ml IV Total 1600 ml # Voids 5 General Appearance: Alert, Oriented X3 HEENT: Atraumatic Lungs: Clear to auscultation Cardiovascular: Regular rate, Normal S1, Normal S2 Abdomen: Normal bowel sounds Medications Current Medications Medications Dose Ordered Sig/Jamar Route Start Time Stop Time Status Last Admin Dose Admin Atenolol 25 mg DAILY PO 07/12/25 10:00 07/12/25 09:55 25 MG Sucralfate 1 gm QID PO 07/11/25 18:00 07/14/25 12:33 1 GM Amlodipine Besylate 10 mg DAILY PO 07/12/25 10:00 07/14/25 10:29 10 MG Sodium Chloride 1,000 ml @ 100 mls/hr Q10H IV 07/11/25 14:00 07/14/25 10:28 100 MLS/HR Ondansetron HCl 4 mg Q4HP PRN IV 07/11/25 14:00 07/14/25 08:35 4 MG Docusate Sodium 100 mg BIDPRN PRN PO 07/11/25 14:00 Enoxaparin Sodium 40 mg DAILY SC 07/12/25 10:00 07/14/25 10:28 40 MG Nitroglycerin 0.4 mg Q5MINP PRN SL 07/11/25 14:00 Hydromorphone HCl 0.5 mg Q4HPRN PRN IV 07/11/25 14:00 07/14/25 08:32 0.5 MG Dicyclomine HCl 20 mg QID PO 07/11/25 18:00 07/14/25 12:32 20 MG Pantoprazole Sodium 40 mg DAILY IV 07/12/25 10:00 07/14/25 10:30 40 MG Laboratory Results Laboratory Tests 07/12/25 05:16 Microbiology Microbiology Date/Time Source Procedure Growth Status 07/11/25 18:20 Nose MRSA Screen - Final Complete Assessment/Plan Assessment/Plan 60-year-old female with a known history of GERD, hypertension, anxiety disorder, chronic tobacco use disorder, chronic marijuana use, history of gastric bypass in the past presented to the hospital with the abdominal abdominal pain found to have 1. Left upper quadrant abdominal pain with a known history of gastrojejunal anastomotic ulcer with a previous EGD with a [id number] gastroparesis and gastritis 2. GERD 3. Chronic tobacco use disorder 4. Chronic marijuana use 5. Anxiety disorder 6. Left upper quadrant abdominal wall hernia without any obstruction 7. History of left renal cancer status post left nephrectomy -clear liquid diet as tolerated, continue Protonix and Carafate, discharge plan once tolerates diet. Plan discussed with: Patient My Orders Orders - ALCIDES BARRIOS MD Procedure Category Date Status Time Electrocardigram EKG 07/13/25 Logged 19:17 Date of Service: Jul 14, 2025 Billing Provider: ALCIDES BARRIOS MD Common Visit Codes: [id number] INP/OBS CARE(HIGH) ALCIDES BARRIOS MD Jul 14, 2025 13:39
--- NOTE | 2025-07-14 18:21 | DVHCONRES ---
Date Seen: Jul 14, 2025 Resident Creating Document: KIRAN MITCHELL RESIDENT Referring Physician DR BARRIOS History of Present Illness This 60 year old female presented to the emergency room with complaints of abdominal pain and nausea for the past month, which worsened recently. Patient denies vomiting or or diarrhea. Reports last bowel movement 4 days back. Recently seen in this facility for similar reasons. Reports that the pain is at left upper quadrant, associated nausea. She reports compliance to pantoprazole. Patient has history of gastric bypass with a gastrojejunostomy and had similar problems in the past and for which she was admitted in the hospital in April 13 when she had an EGD done by Dr. Dennison which showed there was evidence of gastrojejunal anastomosis in the mid body of the stomach with a narrow opening through which the scope could be passed without difficulty also had an anastomotic ulcer in the jejunal side. With severe gastroparesis normal intact pyloric channel Past Medical History History of kidney stones cancer, left kidney status post nephrectomy chronic kidney failure depression GERD hypertension Past Surgical History Cholecystectomy gastric bypass etc. stent 07/14-patient seen and examined. Abdomen tender left upper quadrant but otherwise soft, nondistended, normoactive. Family History: Patient reports no known family medical history. Allergies: Coded Allergies: Codeine (Verified Allergy, Unknown, 09/01/15) Home Meds Active Scripts Gabapentin (Once-Daily) (Gabapentin) 300 Mg Tab, 300 MG PO Q6HP PRN, #60 TAB Prov:ZAINA STARK MD 07/10/25 Ondansetron HCl (Ondansetron Hydrochloride) 8 Mg Tab, 8 MG PO Q6HP PRN, #30 TAB Prov:ZAINA STARK MD 07/10/25 Sucralfate (CARAFATE) 1 Gm Tab, 1 GM OR QID for 30 Days, #120 TAB Prov:ENMANUEL GUTIÉRREZ MD 07/02/25 Pantoprazole Sodium Sesquihydr (Protonix) 40 Mg Tab, 40 MG PO BID, #60 TAB Prov:ENMANUEL GUTIÉRREZ MD 07/02/25 Amlodipine Besylate (Amlodipine Besylate) 10 Mg Tab, 1 TAB PO DAILY for 30 Days, #30 TAB 3 Refills Prov:WILFREDO TERRY 06/11/25 Reported Medications Atenolol (Atenolol) 25 Mg Tab, 1 TAB PO DAILY, #30 TAB 5 Refills 06/07/25 Vital Signs Vital Signs Date Time Temp Pulse Resp B/P (MAP) Pulse Ox O2 Delivery O2 Flow Rate FiO2 07/14/25 14:11 55 17 122/79 07/14/25 13:00 98.0 96 98.0 07/13/25 20:00 Room Air* 0 21 Physical Exam Overweight female patient lying in bed, in no acute distress General: Overweight, afebrile, palor, mucosae are moist Cardiovascular: Regular S1 and S2. No murmurs, gallops or rubs. No JVD elev ation. No pedal edema Respiratory: Normal B/L air entry on room air. Clear lung sounds on auscultation Abdomen: Soft, nontender, nondistended, normoactive bowel sounds, no rebound tenderness, no organomegaly, no masses Genitourinary: Deferred MSK/skin: Mobilizes 4 limbs. Skin is dry and warm Labs/Diagnostic Data Labs Test 07/12/25 05:16 07/11/25 13:39 07/11/25 10:48 Range/Units White Blood Count 4.6 # 4.4-10.8 10^3/uL Red Blood Count 4.73 4.0-5.20 10^6/uL Hemoglobin 12.8 12.2-16.2 g/dL Hematocrit 37.4 36.0-46.0 % Mean Corpuscular Volume 79.1 L 80.0-100.0 fL Mean Corpuscular Hemoglobin 27.1 L 28.0-32.0 pg Mean Corpuscular Hemoglobin Concent 34.3 32.0-36.0 g/dL Red Cell Distribution Width 16.0 H 11.8-14.3 % Platelet Count 307 140-450 10^3/uL Mean Platelet Volume 8.3 6.9-10.8 fL Neutrophils (%) (Auto) 47.5 37.0-80.0 % Lymphocytes (%) (Auto) 38.7 10.0-50.0 % Monocytes (%) (Auto) 11.1 0.0-12.0 % Eosinophils (%) (Auto) 1.5 0.0-7.0 % Basophils (%) (Auto) 1.2 0.0-2.0 % Neutrophils # (Auto) 2.2 1.6-8.6 10 ^3/uL Lymphocytes # (Auto) 1.8 0.4-5.4 10 ^3/uL Monocytes # (Auto) 0.5 0-1.3 10 ^3/uL Eosinophils # (Auto) 0.1 0-0.8 10 ^3/uL Basophils # (Auto) 0.1 0-0.2 10 ^3/uL Nucleated Red Blood Cells 0.2 % Sodium Level 140 136-145 mmol/L Potassium Level 4.2 3.5-5.1 mmol/L Chloride Level 110 H 98-107 mmol/L Carbon Dioxide Level 23 20-31 mmol/L Anion Gap 7 5-15 Blood Urea Nitrogen 7 L 9-23 mg/dL Creatinine 0.91 0.550-1.02 mg/dL Glomerular Filtration Rate Calc 71 >90 mL/min BUN/Creatinine Ratio 7.7 L 10.0-20.0 Serum Glucose 104 74-106 mg/dL Calcium Level 11.6 H 8.7-10.4 mg/dL Total Bilirubin 0.6 0.2-1.0 mg/dL Aspartate Amino Transferase (AST) 17 13-40 U/L Alanine Aminotransferase (ALT) 15 7-40 U/L Alkaline Phosphatase 104 46-116 U/L Total Protein 7.0 5.7-8.2 g/dL Albumin 4.1 3.2-4.8 g/dL POC Glucose 108 H 70-106 mg/dl Parathyroid Hormone (Intact) 301.9 H 18.4-80.1 pg/mL Microbiology Date/Time Source Procedure Growth Status 07/11/25 18:20 Nose MRSA Screen - Final Complete Assessment Intractable abdominal pain secondary to below Probable gastroparesis Probable Gastritis and anastomotic site ulcer History of gastric bypass with a gastrojejunostomy Left flank hernia Slow transit constipation History of Gastrojejunostomy stricture with marginal ulcer 07/01/2025 colonoscopy showed 2 mm benign appearing transferred polyp, 1 mm benign-appearing sigmoid polyp, mild tortuosity of the colon, trace internal hemorrhoids 07/01/2025 EGD showed evidence of gastrojejunostomy in the midbody of the stomach with a narrow opening through which the scope passed without difficulty. Persistent healing anastomotic ulcer on the jejunal side of the gastrojejunostomy about 2-3 cm for classification C. acute inflammatory changes but no bleeding with the edges. Mild gastroparesis with retained gastric contents at the level of gastrojejunostomy. Plan: Recommendation: Dr. Dennison Recommend continuing Protonix 40 mg IV b.i.d. along with Carafate suspension TID Repeat colonoscopy based on biopsy result likely in 3-5 years. Resume full liquid diet, advanced as tolerated. Patient is a left abdominal pain may be related to post surgical changes from previous gastrojejunostomy and possible scar tissue around the splenic flexure. Unclear why the patient required gastrojejunostomy at that time and possible consideration to referral back to her surgeon to decide if gastrojejunostomy could be reversed. Previous up reports have to be reviewed and possible follow up with the use heroin to be considered as outpatient. We will continue to follow up Plan discussed with patient in which all questions have been answered Case discussed with Dr. Dennison Plan discussed with: Patient KIRAN MITCHELL RESIDENT Jul 14, 2025 18:21
[2025-07-14] MEDS: POLYETHYLENE GLYCOL 17 GM PWDR PO ONE (18:52)
[2025-07-14] MEDS: PANTOPRAZOLE 40 MG/10 ML VIAL INJ IV SCH (22:32)
[2025-07-15 01:00] VITALS: BP 118/65; PULSE 49; RESP 18; TEMP 96.9; O2SAT 97
[2025-07-15 05:00] VITALS: BP 119/71; PULSE 51; RESP 18; TEMP 97.3; O2SAT 100
[2025-07-15 07:30] VITALS: PULSE 54; RESP 17; O2SAT 97
[2025-07-15 09:00] VITALS: BP 123/74; PULSE 49; RESP 18; TEMP 97; O2SAT 97
[2025-07-15 12:00] VITALS: BP 132/71; PULSE 54; RESP 18; TEMP 97.8; O2SAT 98
--- NOTE | 2025-07-15 12:14 | DVHDS2 ---
Discharge Summary Date of Admission Jul 11, 2025 at 13:47 Date of Discharge: Jul 15, 2025 Labs/Diagnostic Data: Laboratory Results Test 07/12/25 05:16 07/11/25 13:39 07/11/25 10:48 White Blood Count 4.6 10^3/uL (4.4-10.8) Red Blood Count 4.73 10^6/uL (4.0-5.20) Hemoglobin 12.8 g/dL (12.2-16.2) Hematocrit 37.4 % (36.0-46.0) Mean Corpuscular Volume 79.1 fL (80.0-100.0) Mean Corpuscular Hemoglobin 27.1 pg (28.0-32.0) Mean Corpuscular Hemoglobin Concent 34.3 g/dL (32.0-36.0) Red Cell Distribution Width 16.0 % (11.8-14.3) Platelet Count 307 10^3/uL (140-450) Mean Platelet Volume 8.3 fL (6.9-10.8) Neutrophils (%) (Auto) 47.5 % (37.0-80.0) Lymphocytes (%) (Auto) 38.7 % (10.0-50.0) Monocytes (%) (Auto) 11.1 % (0.0-12.0) Eosinophils (%) (Auto) 1.5 % (0.0-7.0) Basophils (%) (Auto) 1.2 % (0.0-2.0) Neutrophils # (Auto) 2.2 10 ^3/uL (1.6-8.6) Lymphocytes # (Auto) 1.8 10 ^3/uL (0.4-5.4) Monocytes # (Auto) 0.5 10 ^3/uL (0-1.3) Eosinophils # (Auto) 0.1 10 ^3/uL (0-0.8) Basophils # (Auto) 0.1 10 ^3/uL (0-0.2) Nucleated Red Blood Cells 0.2 % Sodium Level 140 mmol/L (136-145) Potassium Level 4.2 mmol/L (3.5-5.1) Chloride Level 110 mmol/L (98-107) Carbon Dioxide Level 23 mmol/L (20-31) Anion Gap 7 (5-15) Blood Urea Nitrogen 7 mg/dL (9-23) Creatinine 0.91 mg/dL (0.550-1.02) Glomerular Filtration Rate Calc 71 mL/min (>90) BUN/Creatinine Ratio 7.7 (10.0-20.0) Serum Glucose 104 mg/dL (74-106) Calcium Level 11.6 mg/dL (8.7-10.4) Total Bilirubin 0.6 mg/dL (0.2-1.0) Aspartate Amino Transferase (AST) 17 U/L (13-40) Alanine Aminotransferase (ALT) 15 U/L (7-40) Alkaline Phosphatase 104 U/L (46-116) Total Protein 7.0 g/dL (5.7-8.2) Albumin 4.1 g/dL (3.2-4.8) POC Glucose 108 mg/dl (70-106) Parathyroid Hormone (Intact) 301.9 pg/mL (18.4-80.1) Other Laboratory Tests 07/12/25 05:16 Brief Hx & Hospital Course: 60-year-old female with a complex past medical history including chronic kidney failure status post bilateral nephrectomy (due to left renal cancer in remission 15 years ago), hypertension, recurrent urinary tract infections, kidney stones, GERD, anxiety, depression, gastric bypass surgery, and cholecystectomy, presents with persistent left upper quadrant abdominal pain. She was recently hospitalized and discharged on July 02, 2025, at which time she was evaluated for pain, nausea, and vomiting. During that admission, she underwent an EGD on April 14, which revealed a gastrostomy site in the mid-body of the stomach near the opening. The scope passed without difficulty. A large 34 cm ulcer was found on the jejunal side of the gastrostomy with surrounding inflammation but no active bleeding. She was also noted to have gastritis. Her history includes right ureteral stent placement and left kidney cancer status post nephrectomy. She was discharged home on Protonix and Carafate with outpatient follow-up planned with GI and primary care. Despite this, the patient now returns with persistent LUQ pain radiating to the back, ongoing for approximately one month, worsening two days after Thanksgiving. She describes the pain as stabbing and aching in quality, worsened by eating, and unrelieved by medication or positional changes. She notes the pain has been so severe that she attempted dietary modifications for relief. She denies dysuria, fever, chest pain, shortness of breath, vomiting, or diarrhea. She returned to the ER on July 09, 2025, and was discharged again with a diagnosis of hypertensive urgency. Labs from todays ED visit show unremarkable CBC, glucose 102, and elevated calcium at 11.9. CT abdomen showed posterior abdominal hernia without evidence of strangulation or obstruction, and a right kidney stone, with no signs of perforation or free air. Review of July 03 ultrasound showed mild right hydronephrosis. Chest imaging from July 01 was unremarkable. Given persistent symptoms and concern for renal and GI involvement, she will be admitted for IV pain control, labs, and imaging. Further evaluation with renal ultrasound is warranted to assess for progression of hydronephrosis. GI consult will be considered if symptoms worsen or do not improve with conservative measures. will admit to medicine for pain management During hospital stay epigastric pain most likely PUD Pain got better on antiacids Condition at Discharge: Good Final Diagnosis/Problems List peptic ulcer disease gastritis Discharge Disposition: Home Discharge Instruct/Medications Diet: Regular Activity: No Restrictions, As Tolerated Follow Up/Referral: PCp in 7 days Medications: same home medications Scheduled Amlodipine Besylate (Amlodipine Besylate), 1 TAB PO DAILY Atenolol (Atenolol), 1 TAB PO DAILY, (Reported) Pantoprazole Sodium Sesquihydr (Protonix), 40 MG PO BID Sucralfate (Carafate), 1 GM OR QID Scheduled PRN Gabapentin (Once-Daily) (Gabapentin), 300 MG PO Q6HP PRN Ondansetron HCl (Ondansetron Hydrochloride), 8 MG PO Q6HP PRN Discharge Statement: "Patient was advised to return to the ER or call 911 if any headaches, dizziness, shortness of breath, chest pain, abdominal pain, bleeding, fevers, or worsening of medical condition. Patient was counseled about treatment plan, medications, possible side effects, patientverbalized understanding. All questions were answered to the best of my ability. This discharge took greater then 30 minutes in planning, reviewing documentation, counseling the patient, and discussing with other team members." ASSESSMENT ASSESSMENT Assessment peptic ulcer disease gastritis Date of Service: Jul 15, 2025 Billing Provider: ALCIDES BARRIOS MD Common Visit Codes: [id number] DISCH DAY >30min ALCIDES BARRIOS MD Jul 15, 2025 12:13
[2025-07-15 12:49] VITALS: BP 132/71; PULSE 56; RESP 17; TEMP 97; O2SAT 98
--- NOTE | 2025-07-15 17:09 | DVHPN2 ---
Progress Note Date Seen: Jul 15, 2025 Resident Creating Document: KIRAN MITCHELL RESIDENT Medical Necessity Reason Pt with a Central, PICC or Fol: No Subjective Patient reports: No new complaints, Feels better Objective vital signs Vital Sign Date Time Temp Pulse Resp B/P (MAP) Pulse Ox O2 Delivery O2 Flow Rate FiO2 07/15/25 12:49 97.0 56 17 98 07/15/25 12:00 132/71 (91) 07/15/25 07:30 Room Air* 0 21 Total Intake and Output 07/14/25 07/14/25 07/15/25 15:00 23:00 07:00 Intake Total 400 ml 1050 ml 2300 ml Output Total 2 ml Balance 400 ml 1050 ml 2298 ml Examination Overweight female patient lying in bed, in no acute distress General: Overweight, afebrile, palor, mucosae are moist Cardiovascular: Regular S1 and S2. No murmurs, gallops or rubs. No JVD elevation. No pedal edema Respiratory: Normal B/L air entry on room air. Clear lung sounds on auscultation Abdomen: Soft, nontender, nondistended, normoactive bowel sounds, no rebound tenderness, no organomegaly, no masses Genitourinary: Deferred MSK/skin: Mobilizes 4 limbs. Skin is dry and warm laboratory and microbiology Laboratory Tests 07/12/25 05:16 Test 07/12/25 05:16 Range/Units Serum Glucose 104 74-106 mg/dL Microbiology Date/Time Source Procedure Growth Status 07/11/25 18:20 Nose MRSA Screen - Final Complete Labs and/or images reviewed: Labs reviewed by me, Image(s) reviewed by me Problem List/Assessment/Plan Problem List/Assessment/Plan Intractable abdominal pain secondary to below Probable gastroparesis Probable Gastritis and anastomotic site ulcer History of gastric bypass with a gastrojejunostomy Left flank hernia Slow transit constipation History of Gastrojejunostomy stricture with marginal ulcer 07/01/2025 colonoscopy showed 2 mm benign appearing transferred polyp, 1 mm benign-appearing sigmoid polyp, mild tortuosity of the colon, trace internal hemorrhoids 07/01/2025 EGD showed evidence of gastrojejunostomy in the midbody of the stomach with a narrow opening through which the scope passed without difficulty. Persistent healing anastomotic ulcer on the jejunal side of the gastrojejunostomy about 2-3 cm for classification C. acute inflammatory changes but no bleeding with the edges. Mild gastroparesis with retained gastric contents at the level of gastrojejunostomy. Plan: Recommendation: Dr. Dennison Pathology report shows tubular adenoma in transverse colon, no H pylori, [id number] active gastritis. Repeat colonoscopy in 3-5 years. Outpatient follow up with which. The stable to be discharge. Recommend continuing Protonix 40 mg IV b.i.d. along with Carafate suspension TID Repeat colonoscopy based on biopsy result likely in 3-5 years. Resume full liquid diet, advanced as tolerated. Patient is a left abdominal pain may be related to post surgical changes from previous gastrojejunostomy and possible scar tissue around the splenic flexure. Unclear why the patient required gastrojejunostomy at that time and possible consideration to referral back to her surgeon to decide if gastrojejunostomy could be reversed. Previous up reports have to be reviewed and possible follow up with the use heroin to be considered as outpatient. We will continue to follow up Plan discussed with patient in which all questions have been answered Case discussed with Dr. Dennison Plan discussed with: Patient KIRAN MITCHELL RESIDENT Jul 15, 2025 17:09
== END 2025-07-15 14:00 | disposition home or self-care (01) | DRG 241 ==
LOC: ER 10:07 → EDBD 10:07 → OVERFLOW 13:47 → CENTRAL 18:18
PROVIDERS: ADMIT Hospitalist; ATTEND Hospitalist
DX: K27.9 Peptic ulcer, site unspecified, unspecified as acute or chronic, without hemorrhage or perforation (principal); N13.6 Pyonephrosis; E11.22 Type 2 diabetes mellitus with diabetic chronic kidney disease; F32.A Depression, unspecified; I12.9 Hypertensive chronic kidney disease with stage 1 through stage 4 chronic kidney disease, or unspecified chronic kidney disease; N18.9 Chronic kidney disease, unspecified; F12.90 Cannabis use, unspecified, uncomplicated; K43.9 Ventral hernia without obstruction or gangrene; K21.9 Gastro-esophageal reflux disease without esophagitis; F41.9 Anxiety disorder, unspecified; F17.210 Nicotine dependence, cigarettes, uncomplicated; E83.52 Hypercalcemia; K59.01 Slow transit constipation; K29.70 Gastritis, unspecified, without bleeding; Z90.49 Acquired absence of other specified parts of digestive tract; Z90.5 Acquired absence of kidney; Z88.5 Allergy status to narcotic agent; Z87.442 Personal history of urinary calculi; Z98.84 Bariatric surgery status; Z85.528 Personal history of other malignant neoplasm of kidney; E11.43 Type 2 diabetes mellitus with diabetic autonomic (poly)neuropathy; K31.84 Gastroparesis
CPT/HCPCS: 36415; 74176; 76775; 80053; 82962; 83970; 85025; 87081; 93005; 96361; 96374; 96375; G0378; J2405; J2470